=== PATIENT | male | born 1955 | race Hispanic/Latino ===

== ENCOUNTER 2017-10-04 12:58 | Day surgery (SDC) | payer OTHER ==
[2017-06-10 08:22] VITALS: BMI 21.4
[2017-10-04] MEDS ORDERED: Propofol 10 mg/ml Inj (20 ML) ONE (15:56)
[2017-10-04] MEDS ORDERED: cefTRIAXone 1 gm 1 GM/100 ML BAG IVPB ONE (15:58)
[2017-10-04] MEDS: HYDROmorphone 0.5 mg/0.5 ml ISec IVP PRN ×2 (17:00→18:53)
[2017-10-05] MEDS: Oxycodone/Acetaminophen 5/325 mg Tab PO PRN (00:21)
[2017-10-05] MEDS: cefTRIAXone IV 1 gm in Dextros 50 ML IVPB SCH (11:24)
[2017-10-05 13:52] LABS: BASO # 0.1 K/uL (0.0-0.2); BASO % 0.9 % (0.0-2.0); EOS % 0.5 % (0.0-4.0); HEMOGLOBIN 13.8 g/dL (12.0-18.0); LYMPH # 0.9 K/uL (1.0-4.3); LYMPH % 13.1 % (20.0-40.0); MEAN CELL VOLUME 94.8 fL (80.0-94.0); MEAN CORPUSCULAR HEMOGLOBIN 33.2 pg (27.0-31.0); MEAN CORPUSCULAR HGB CONC 35.1 g/dL (33.0-37.0); MEAN PLATELET VOLUME 7.7 fL (7.2-11.7); MONO # 0.5 K/uL (0.0-0.8); MONO % 7.9 % (0.0-10.0); NEUT # 5.4 K/uL (1.8-7.0); NEUT % 77.6 % (50.0-75.0); RBC 4.14 Mil/uL (4.40-5.90); RED CELL DISTRIBUTION WIDTH 13.6 % (11.5-14.5); WHITE BLOOD COUNT 6.9 K/uL (4.8-10.8)
[2017-10-05 13:58] LABS: BLOOD UREA NITROGEN 13 mg/dL (9-20); CALCIUM 8.1 mg/dl (8.6-10.4); GFR AFRICAN-AMERICAN > 60; GFR NON-AFRICAN AMERICAN > 60
[2017-10-05 15:05] LABS: URINE BACTERIA RARE (<OCC); URINE BILIRUBIN NEGATIVE (NEGATIVE); URINE BLOOD 3+ (NEGATIVE); URINE CLARITY Clear (Clear); URINE COLOR Yellow (YELLOW); URINE GLUCOSE (UA) NORMAL (Normal); URINE LEUKOCYTE ESTERASE TRACE Leu/uL (Negative); URINE PROTEIN 1+ mg/dL (NEGATIVE)
--- NOTE | 2017-10-05 18:51 | CP.PCM.CON ---
<Tamika Perez E - Last Filed: 10/05/17 19:05> History of Present Illness - History of Present Illness History of Present Illness: Medicine Consult Note HPI: Patient is a 61 year old male with past medical history of htn, dyslipidemia, depression, copd/asthma, chronic leg edema and prostate disease, who is s/p TURP by Dr. Walker. Medicine consultation was placed to manage patient's symptoms of possible asthma exacerbation, however, patient denies wheezing and any symptoms of acute exacerbation. Patient denies chest pain, SOB , palpitations, fever, chills, nausea, vomiting. Patient reports that he is doing very well. PMH: Htn, dyslipidemia, depression, copd/asthma, chronic leg edema and prostate disease, PSH: Cholecystectomy, splenectomy 8 yrs ago, unknown reason. FMH: Non contributory. Allergy: Ibuprofen. Medication: Patient denies taking medication for HTN, HLD and depression but admits he is currently taking klonopin, percocet and nebulizer treatment prn Social: smokes 3/4s of a pack of cigarette a day for over 20 years, drinks alcohol socially, denies illicit drug use. Review of Systems - Constitutional Constitutional: absent: Chills, Fever, Headache - Cardiovascular Cardiovascular: absent: Chest Pain, Chest Pain at Rest, Diaphoresis, Dyspnea, Lightheadedness, Orthopnea - Respiratory Respiratory: absent: Cough, Dyspnea, Wheezing, Chest Congestion, Excessive Mucous Production, Change in Mucous Color - Gastrointestinal Gastrointestinal: absent: Abdominal Pain, Constipation, Diarrhea, Hematochezia, Nausea, Vomiting - Genitourinary Additional comments: Patient is with abel catheter as he is s/p TURP POD #1 - Psychiatric Psychiatric: Anxiety, Depression Past Patient History - Infectious Disease Hx of Infectious Diseases: None - Past Medical History & Family History Past Medical History?: Yes - Past Social History Smoking Status: Former Smoker - CARDIAC Hx Cardiac Disorders: Yes Hx Peripheral Edema: Yes Hx Peripheral Vascular Disease: Yes - PULMONARY Hx Respiratory Disorders: Yes Hx Asthma: Yes Hx Bronchitis: No Hx Chronic Obstructive Pulmonary Disease (COPD): Yes Hx Pneumonia: Yes (2 years ago) - NEUROLOGICAL Hx Neurological Disorder: Yes Hx Syncope: Yes - HEENT Hx HEENT Problems: No - RENAL Hx Chronic Kidney Disease: No Hx Renal Failure: No - ENDOCRINE/METABOLIC Hx Endocrine Disorders: No - HEMATOLOGICAL/ONCOLOGICAL Hx Blood Disorders: Yes Hx Anemia: Yes Hx Blood Transfusions: Yes Hx Blood Transfusion Reaction: No Hx Hepatitis C: Yes - INTEGUMENTARY Hx Dermatological Problems: No - MUSCULOSKELETAL/RHEUMATOLOGICAL Hx Musculoskeletal Disorders: Yes Hx Falls: Yes Hx Fractures: Yes (rt shoulder ribs) - GASTROINTESTINAL Hx Gastrointestinal Disorders: Yes Hx Gall Bladder Disease: Yes - GENITOURINARY/GYNECOLOGICAL Hx Genitourinary Disorders: Yes (urinary frequency) Hx Prostate Problems: Yes - PSYCHIATRIC Hx Psychophysiologic Disorder: Yes Hx Anxiety: Yes Hx Depression: Yes Hx Emotional Abuse: No Hx Physical Abuse: No 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) - SURGICAL HISTORY Hx Surgeries: Yes Hx Cholecystectomy: Yes Hx Herniorrhaphy: Yes (ventral hernia) Hx Splenectomy: Yes - ANESTHESIA Hx Anesthesia: Yes Hx Anesthesia Reactions: No Hx Malignant Hyperthermia: No Meds Allergies/Adverse Reactions: Allergies Allergy/AdvReac Type Severity Reaction Status Date / Time ibuprofen [From Advil] Allergy ANAPHYLAXIS Verified 06/16/16 22:20 - Medications Medications: Current Medications Clonazepam (Klonopin) 0.5 mg PO TID [facility] Last Admin: 10/05/17 17:20 Dose: 0.5 mg Gentamicin Sulfate 80 mg/ (Sodium Chloride) 102 mls @ 100 mls/hr IVPB Q24H [facility] PRN Reason: Protocol Last Admin: 10/05/17 17:23 Dose: 100 mls/hr Ceftriaxone Sodium (Rocephin Iv 1 Gm Duplex) 50 mls @ 100 mls/hr IVPB DAILY [facility] PRN Reason: Protocol Last Admin: 10/05/17 11:24 Dose: 100 mls/hr Oxycodone/Acetaminophen (Percocet 5/325 Mg Tab) 1 tab PO Q6H PRN PRN Reason: Bladder Spasm Stop: 10/07/17 16:48 Last Admin: 10/05/17 00:21 Dose: 1 tab Paroxetine HCl (Paxil) 20 mg PO DAILY [facility] Physical Exam - Constitutional Appears: No Acute Distress - Head Exam Head Exam: ATRAUMATIC - Eye Exam Eye Exam: EOMI - ENT Exam ENT Exam: Mucous Membranes Moist - Respiratory Exam Respiratory Exam: Clear to Auscultation Bilateral, NORMAL BREATHING PATTERN. absent: Rhonchi, Wheezes - Cardiovascular Exam Cardiovascular Exam: REGULAR RHYTHM, +S1, +S2 - GI/Abdominal Exam GI & Abdominal Exam: Normal Bowel Sounds, Soft. absent: Diminished Bowel Sounds , Distended, Firm, Guarding, Tenderness - Exam Additional comments: Patient is with abel catheter s/p TURP pod #1 - Extremities Exam Extremities exam: Positive for: normal inspection - Neurological Exam Neurological exam: Alert, Oriented x3 - Psychiatric Exam Psychiatric exam: Anxious Results - Vital Signs Recent Vital Signs: Last Vital Signs Temp 98.8 F 10/05/17 08:00 Pulse 100 H 10/05/17 08:00 Resp 96 H 10/05/17 08:00 BP 125/76 10/05/17 08:00 Pulse Ox 96 10/05/17 00:00 - Labs Result Diagrams: 10/05/17 13:40 10/05/17 13:40 Labs: Laboratory Results - last 24 hr 10/05/17 10/05/17 10/05/17 13:40 13:40 14:46 WBC 6.9 RBC 4.14 L Hgb 13.8 Hct 39.3 MCV 94.8 H MCH 33.2 H MCHC 35.1 RDW 13.6 Plt Count 162 MPV 7.7 Neut % (Auto) 77.6 H Lymph % (Auto) 13.1 L [place] % (Auto) 7.9 Eos % (Auto) 0.5 Baso % (Auto) 0.9 Neut # (Auto) 5.4 Lymph # (Auto) 0.9 L [place] # (Auto) 0.5 Eos # (Auto) 0.0 Baso # (Auto) 0.1 Sodium 136 Potassium 4.3 Chloride 98 Carbon Dioxide 31 H Anion Gap 12 BUN 13 Creatinine 0.7 L Est GFR ( Amer) > 60 Est GFR (Non-Af Amer) > 60 Random Glucose 88 Calcium 8.1 L Urine Color Yellow Urine Clarity Clear Urine pH 7.0 Ur Specific [place] 1.016 Urine Protein 1+ H Urine Glucose (UA) Normal Urine Ketones Negative Urine Blood 3+ H Urine Nitrate Negative Urine Bilirubin Negative Urine Urobilinogen 4.0 Ur Leukocyte Esterase Trace Urine WBC (Auto) 4 Urine RBC (Auto) 259 H Urine Bacteria Rare Assessment & Plan (1) S/P transurethral resection of prostate Assessment and Plan: Urology, Dr. Walker on board * Percocet 1 tab Q6H PRN * Rocephin 1gm IVPB daily * Gentamicin 80mg IVPB Q24H Status: Acute (2) History of anxiety disorder Assessment and Plan: Klonopin 0.5mg PO TID Status: Acute (3) History of depression Assessment and Plan: Paxil 20mg PO daily Status: Acute (4) History of asthma Assessment and Plan: albuterol 3ml INH RQ6H Status: Acute (5) Prophylactic measure Assessment and Plan: Regular diet All management discussed with Dr. Barnett Status: Acute <Agus Barnett - Last Filed: 10/07/17 17:23> Results - Vital Signs Recent Vital Signs: Last Vital Signs Temp 98.6 F 10/06/17 16:00 Pulse 69 10/06/17 16:00 Resp 20 10/06/17 16:00 BP 127/76 10/06/17 16:00 Pulse Ox 98 10/06/17 16:00 - Labs Result Diagrams: 10/06/17 14:06 10/06/17 14:06 Attending/Attestation - Attestation I have personally seen and examined this patient.: Yes I have fully participated in the care of the patient.: Yes I have reviewed all pertinent clinical information: Yes Notes (Text): Seen and examined by me. I agree with the resident's documentation of assessment and the plan
--- NOTE | 2017-10-05 20:52 | CARD ---
APPROVED REPORT EKG Measurement Heart [id number] <Conclusion> Normal sinus rhythm Biatrial enlargement Abnormal ECG
[2017-10-05] MEDS: Albuterol-Ipratrop 3 mg / 0.5 (3 ml) UD INH SCH (21:14)
--- NOTE | 2017-10-05 23:11 | PCM.URO ---
Urology Progress Note - General General: No Complaints, Tolerating Diet - Subjective Abdominal Pain: No Flank Pain: No Nausea: No Vomiting: No Voiding Well: No (catheter in place) Hematuria: No Dsypnea: No Chest Pain: No Fever & Chills: No - Objective Lab Studies: Reviewed (creat=0.7 hct=39) Lab Results Last 24 Hours: Laboratory Results - last 24 hr 10/05/17 10/05/17 10/05/17 13:40 13:40 14:46 WBC 6.9 RBC 4.14 L Hgb 13.8 Hct 39.3 MCV 94.8 H MCH 33.2 H MCHC 35.1 RDW 13.6 Plt Count 162 MPV 7.7 Neut % (Auto) 77.6 H Lymph % (Auto) 13.1 L [place] % (Auto) 7.9 Eos % (Auto) 0.5 Baso % (Auto) 0.9 Neut # (Auto) 5.4 Lymph # (Auto) 0.9 L [place] # (Auto) 0.5 Eos # (Auto) 0.0 Baso # (Auto) 0.1 Sodium 136 Potassium 4.3 Chloride 98 Carbon Dioxide 31 H Anion Gap 12 BUN 13 Creatinine 0.7 L Est GFR ( Amer) > 60 Est GFR (Non-Af Amer) > 60 Random Glucose 88 Calcium 8.1 L Urine Color Yellow Urine Clarity Clear Urine pH 7.0 Ur Specific [place] 1.016 Urine Protein 1+ H Urine Glucose (UA) Normal Urine Ketones Negative Urine Blood 3+ H Urine Nitrate Negative Urine Bilirubin Negative Urine Urobilinogen 4.0 Ur Leukocyte Esterase Trace Urine WBC (Auto) 4 Urine RBC (Auto) 259 H Urine Bacteria Rare Intake & Output: Intake & Output 10/05/17 10/05/17 10/06/17 06:59 18:59 06:59 Intake Total 240 400 Output Total 1725 800 Balance -1485 -400 Intake: Oral 240 400 Output: Urine 1725 800 Urethral (Hodge) 500 800 Other: Voiding Method Indwelling Catheter # Bowel Movements 0 Vital Signs: Vital Signs - 24 hr 10/05/17 10/05/17 10/05/17 00:00 08:00 21:17 Temperature 98.8 F 98.8 F Pulse Rate 61 100 H 99 H Respiratory 20 96 H Rate Blood Pressure 153/83 H 125/76 O2 Sat by Pulse 96 Oximetry - Physical Exam Abdominal Exam: Soft, Non-Tender, Non-Distended Bowel Sounds: Normal Back: No CVA Tenderness Genitalia: Without Inflammation Urinary Catheter Draining Well: Yes Urine Color: Clear, Yellow Extremities: Normal: Bilateral - Male Phallus: Normal Scrotum: Normal Testes: Normal: Bilateral - Plan Advance Diet: Yes Catheter Care: Yes Ambulation - Out of Bed: Yes Intake & Output: Yes Additional Information: IMP: progressing well, POD#!, p GLL-PVP - Date & Time of Note Date: 10/05/17 Time: 15:30
[2017-10-05 23:54] VITALS: RESP 20
[2017-10-06] MEDS: Albuterol-Ipratrop 3 mg / 0.5 (3 ml) UD INH SCH ×3 (01:03→13:33)
[2017-10-06] MEDS: Oxycodone/Acetaminophen 5/325 mg Tab PO PRN ×2 (05:27→12:21)
[2017-10-06 08:07] VITALS: TEMP 98.6; O2SAT 98
[2017-10-06] MEDS: cefTRIAXone IV 1 gm in Dextros 50 ML IVPB SCH (10:57)
--- NOTE | 2017-10-06 11:14 | CP.PCM.PN ---
<Tamika Perez E - Last Filed: 10/06/17 11:18> Subjective - Date & Time of Evaluation Date of Evaluation: 10/06/17 Time of Evaluation: 07:20 - Subjective Subjective: Medicine progress note ( Dr. Barnett) Patient was seen and examined at bedside. Patient reports that he is doing well with no acute issues. Patient is s/p TURB POD#2, abel catheter was discontinued this am as per Urologist, Dr. Walker and awaiting voiding trial. Patient is tolerating diet. Patient denies any symptoms of chest pain, SOB, palpitations, SOB, chills and fever. Objective - Vital Signs/Intake and Output Vital Signs (last 24 hours): Temp Pulse Resp BP Pulse Ox 98.6 F 67 20 131/82 98 10/06/17 08:06 10/06/17 08:06 10/06/17 08:06 10/06/17 08:06 10/06/17 08:06 Intake and Output: 10/06/17 10/06/17 06:59 18:59 Intake Total 250 Output Total 900 Balance -650 - Medications Medications: Current Medications Albuterol/Ipratropium (Duoneb 3 Mg/0.5 Mg (3 Ml) Ud) 3 ml INH RQ6 [facility] Last Admin: 10/06/17 07:22 Dose: 3 ml Clonazepam (Klonopin) 0.5 mg PO TID [facility] Last Admin: 10/06/17 10:54 Dose: 0.5 mg Gentamicin Sulfate 80 mg/ (Sodium Chloride) 102 mls @ 100 mls/hr IVPB Q24H [facility] PRN Reason: Protocol Last Admin: 10/05/17 17:23 Dose: 100 mls/hr Ceftriaxone Sodium (Rocephin Iv 1 Gm Duplex) 50 mls @ 100 mls/hr IVPB DAILY [facility] PRN Reason: Protocol Last Admin: 10/06/17 10:57 Dose: 100 mls/hr Oxycodone/Acetaminophen (Percocet 5/325 Mg Tab) 1 tab PO Q6H PRN PRN Reason: Bladder Spasm Stop: 10/07/17 16:48 Last Admin: 10/06/17 05:27 Dose: 1 tab Paroxetine HCl (Paxil) 20 mg PO DAILY [facility] Last Admin: 10/06/17 10:54 Dose: 20 mg - Labs Labs: 10/05/17 13:40 10/05/17 13:40 - Constitutional Appears: Well, No Acute Distress - Head Exam Head Exam: ATRAUMATIC, NORMAL INSPECTION - Eye Exam Eye Exam: EOMI, Normal appearance - ENT Exam ENT Exam: Mucous Membranes Moist - Respiratory Exam Respiratory Exam: Clear to Ausculation Bilateral, NORMAL BREATHING PATTERN. absent: Rhonchi, Wheezes, Respiratory Distress - Cardiovascular Exam Cardiovascular Exam: REGULAR RHYTHM, +S1, +S2 - Extremities Exam Extremities Exam: absent: Calf Tenderness, Pedal Edema - Back Exam Back Exam: absent: CVA tenderness (L), CVA tenderness (R) - Neurological Exam Neurological Exam: Alert, Awake, Oriented x3 - Psychiatric Exam Psychiatric exam: Normal Affect - Skin Skin Exam: Normal Color Assessment and Plan (1) S/P transurethral resection of prostate Assessment & Plan: POD # 2 Urology, Dr. Walker on board * Percocet 1 tab Q6H PRN * Rocephin 1gm IVPB daily * Gentamicin 80mg IVPB Q24H * Florastor 250mg PO BID - Abel discontinued, awaiting voiding trial Status: Acute (2) History of anxiety disorder Assessment & Plan: Klonopin 0.5mg PO TID Status: Acute (3) History of depression Assessment & Plan: Paxil 20mg PO daily Status: Acute (4) History of asthma Assessment & Plan: Duonebs 3ml INH RQ6H Status: Acute (5) Prophylactic measure Assessment & Plan: Regular diet GI: Pepcid 20mg PO daily Disposition: Patient is stable and not in any acute distress and without symptoms of acute asthma exacerbation. Medicine team will sign off at this point. Thank you for the consultation. All management discussed with Dr. Barnett Status: Acute <Agus Barnett - Last Filed: 10/08/17 10:30> Objective - Vital Signs/Intake and Output Vital Signs (last 24 hours): Temp Pulse Resp BP Pulse Ox 98.6 F 69 20 127/76 98 10/06/17 16:00 10/06/17 16:00 10/06/17 16:00 10/06/17 16:00 10/06/17 16:00 - Labs Labs: 10/06/17 14:06 10/06/17 14:06 Attending/Attestation - Attestation I have personally seen and examined this patient.: Yes I have fully participated in the care of the patient.: Yes I have reviewed all pertinent clinical information, including history, physical exam and plan: Yes Notes (Text): Patient was seen and examined by me. No complain patient is medically stable .voiding trial and discharge plan as per urology
[2017-10-06] MEDS: Saccharomyces Boulardi 250 mg Cap PO SCH ×2 (12:22→17:49)
[2017-10-06 14:12] LABS: BASO # 0.1 K/uL (0.0-0.2); BASO % 1.2 % (0.0-2.0); EOS # 0.1 K/uL (0.0-0.7); EOS % 1.1 % (0.0-4.0); HEMOGLOBIN 13.2 g/dL (12.0-18.0); LYMPH # 2.2 K/uL (1.0-4.3); LYMPH % 28.1 % (20.0-40.0); MEAN CELL VOLUME 95.1 fL (80.0-94.0); MEAN CORPUSCULAR HGB CONC 34.7 g/dL (33.0-37.0); MEAN PLATELET VOLUME 7.7 fL (7.2-11.7); MONO % 12.8 % (0.0-10.0); NEUT # 4.4 K/uL (1.8-7.0); NEUT % 56.8 % (50.0-75.0); NRBC % 0.1 % (0.0-2.0); RED CELL DISTRIBUTION WIDTH 13.8 % (11.5-14.5); WHITE BLOOD COUNT 7.7 K/uL (4.8-10.8)
[2017-10-06 14:42] LABS: ALB/GLOB RATIO 0.6 (1.0-2.1); ALBUMIN 2.7 g/dL (3.5-5.0); ALT/SGPT 14 U/L (21-72); AST/SGOT 83 U/L (17-59); BLOOD UREA NITROGEN 15 mg/dL (9-20); CALCIUM 8.1 mg/dl (8.6-10.4); GFR AFRICAN-AMERICAN > 60; GFR NON-AFRICAN AMERICAN > 60
[2017-10-06 16:33] VITALS: BP 127/76; PULSE 69
--- NOTE | 2017-10-06 18:47 | CP.PCM.DIS ---
Provider - Provider Attending physician: Johan Walker MD Time Spent in preparation of Discharge (in minutes): 35 Diagnosis - Discharge Diagnosis (1) S/P transurethral resection of prostate Status: Acute (2) History of anxiety disorder Status: Chronic (3) History of depression Status: Chronic (4) History of asthma Status: Chronic (5) Prophylactic measure Status: Acute Hospital Course - Lab Results Lab Results: Most Recent Lab Values WBC 7.7 K/uL (4.8-10.8) 10/06/17 14:06 RBC 4.00 Mil/uL (4.40-5.90) L 10/06/17 14:06 Hgb 13.2 g/dL (12.0-18.0) 10/06/17 14:06 Hct 38.0 % (35.0-51.0) 10/06/17 14:06 MCV 95.1 fL (80.0-94.0) H 10/06/17 14:06 MCH 33.0 pg (27.0-31.0) H 10/06/17 14:06 MCHC 34.7 g/dL (33.0-37.0) 10/06/17 14:06 RDW 13.8 % (11.5-14.5) 10/06/17 14:06 Plt Count 151 K/uL (130-400) 10/06/17 14:06 MPV 7.7 fL (7.2-11.7) 10/06/17 14:06 Neut % (Auto) 56.8 % (50.0-75.0) 10/06/17 14:06 Lymph % (Auto) 28.1 % (20.0-40.0) 10/06/17 14:06 [place] % (Auto) 12.8 % (0.0-10.0) H 10/06/17 14:06 Eos % (Auto) 1.1 % (0.0-4.0) 10/06/17 14:06 Baso % (Auto) 1.2 % (0.0-2.0) 10/06/17 14:06 Neut # (Auto) 4.4 K/uL (1.8-7.0) 10/06/17 14:06 Lymph # (Auto) 2.2 K/uL (1.0-4.3) 10/06/17 14:06 [place] # (Auto) 1.0 K/uL (0.0-0.8) H 10/06/17 14:06 Eos # (Auto) 0.1 K/uL (0.0-0.7) 10/06/17 14:06 Baso # (Auto) 0.1 K/uL (0.0-0.2) 10/06/17 14:06 Sodium 137 mmol/L (132-148) 10/06/17 14:06 Potassium 4.0 mmol/L (3.6-5.2) 10/06/17 14:06 Chloride 99 mmol/L (98-107) 10/06/17 14:06 Carbon Dioxide 30 mmol/L (22-30) 10/06/17 14:06 Anion Gap 13 (10-20) 10/06/17 14:06 BUN 15 mg/dL (9-20) 10/06/17 14:06 Creatinine 0.7 mg/dL (0.8-1.5) L 10/06/17 14:06 Est GFR ( Amer) > 60 10/06/17 14:06 Est GFR (Non-Af Amer) > 60 10/06/17 14:06 Random Glucose 95 mg/dL (75-110) 10/06/17 14:06 Calcium 8.1 mg/dl (8.6-10.4) L 10/06/17 14:06 Phosphorus 3.3 mg/dL (2.5-4.5) 10/06/17 14:06 Magnesium 1.7 mg/dL (1.6-2.3) 10/06/17 14:06 Total Bilirubin 1.5 mg/dL (0.2-1.3) H 10/06/17 14:06 AST 83 U/L (17-59) H 10/06/17 14:06 ALT 14 U/L (21-72) L 10/06/17 14:06 Alkaline Phosphatase 143 U/L (38-126) H 10/06/17 14:06 Total Protein 7.5 g/dL (6.3-8.3) 10/06/17 14:06 Albumin 2.7 g/dL (3.5-5.0) L 10/06/17 14:06 Globulin 4.8 gm/dL (2.2-3.9) H 10/06/17 14:06 Albumin/Globulin Ratio 0.6 (1.0-2.1) L 10/06/17 14:06 Urine Color Yellow (YELLOW) 10/05/17 14:46 Urine Clarity Clear (Clear) 10/05/17 14:46 Urine pH 7.0 (5.0-8.0) 10/05/17 14:46 Ur Specific [place] 1.016 (1.003-1.030) 10/05/17 14:46 Urine Protein 1+ mg/dL (NEGATIVE) H 10/05/17 14:46 Urine Glucose (UA) Normal mg/dL (Normal) 10/05/17 14:46 Urine Ketones Negative mg/dL (NEGATIVE) 10/05/17 14:46 Urine Blood 3+ (NEGATIVE) H 10/05/17 14:46 Urine Nitrate Negative (NEGATIVE) 10/05/17 14:46 Urine Bilirubin Negative (NEGATIVE) 10/05/17 14:46 Urine Urobilinogen 4.0 mg/dL (0.2-1.0) 10/05/17 14:46 Ur Leukocyte Esterase Trace [place]/uL (Negative) 10/05/17 14:46 Urine WBC (Auto) 4 /hpf (0-5) 10/05/17 14:46 Urine RBC (Auto) 259 /hpf (0-3) H 10/05/17 14:46 Urine Bacteria Rare (<OCC) 10/05/17 14:46 - Hospital Course Hospital Course: HPI: ( As per medicine consultation note) Patient is a 61 year old male with past medical history of htn, dyslipidemia, depression, copd/asthma, chronic leg edema and prostate disease, who is s/p TURP by Dr. Walker. Medicine consultation was placed to manage patient's symptoms of possible asthma exacerbation, however, patient denies wheezing and any symptoms of acute exacerbation. Patient denies chest pain, SOB, palpitations , fever, chills, nausea, vomiting. Patient reports that he is doing very well. Hospital course: Patient was admitted for same day surgery, s/p TURP by urologist, Rosa Isela Walker for diagnosis of prostate disease. Patient has no acute issues when he was received on Med-Surg floor. Patient remained stable and was discharge by Dr. Walker on POD # 2. Discharge Exam - Head Exam Head Exam: ATRAUMATIC, NORMAL INSPECTION - Eye Exam Eye Exam: EOMI, Normal appearance - ENT Exam ENT Exam: Mucous Membranes Moist - Respiratory Exam Respiratory Exam: Clear to PA & Lateral, NORMAL BREATHING PATTERN. absent: Chest Wall Tenderness, Decreased Breath Sounds, Wheezes, Respiratory Distress - Cardiovascular Exam Cardiovascular Exam: REGULAR RHYTHM, +S1, +S2. absent: Systolic Murmur - GI/Abdominal Exam GI & Abdominal Exam: Normal Bowel Sounds, Soft. absent: Firm, Guarding, Tenderness - Extremities Exam Extremities exam: normal inspection - Neurological Exam Neurological exam: Alert, Oriented x3 - Psychiatric Exam Psychiatric exam: Normal Affect - Skin Skin Exam: Normal Color Discharge Plan - Follow Up Plan Condition: GOOD Disposition: HOME/ ROUTINE Instructions: Blood in the Urine (Hematuria), Adult (DC) Referrals: Rachael French MD [Family Provider] - Johan Walker MD [Staff Provider] -
--- NOTE | 2017-10-22 02:28 | DS ---
HISTORY: See the history and physical, preoperative note, see the progress note. The patient came . During the hospital stay, he remained stable throughout. However, given his social living situation of living at in a homeless residential, we were concerned to send him home with a Hodge catheter. The patient because of this. The patient remained in hospital stable throughout. At the time of discharge, he was in stable condition, voiding well. Plan for outpatient followup. Throughout the entire hospital, I spoke to his sister several times. The patient remained stable throughout. FINAL DIAGNOSES: Urinary retention, voiding dysfunction, incomplete bladder emptying with transrectal prostatic hyperthermia. The patient was discharged home in stable condition. Manjinder Walker MD
--- NOTE | 2017-10-22 06:29 | HP ---
UROLOGY ADMISSION HISTORY AND PHYSICAL REASON FOR ADMISSION: Treatment of urinary retention and voiding dysfunction. HISTORY OF PRESENT ILLNESS: This is a very pleasant gentleman who is here today for PVP GreenLight laser therapy. He has irritative and obstructive complaints, mostly obstructive and we discussed options with the patient and his sister. We discussed the Hodge catheter. We discussed various options. After discussing the various options, the patient had medical workup and treatment. The patient is here now for PVP GreenLight laser. I explained the patient the risks of the procedure, not working risk of procedure, as far as risks of bleeding, infection, risks of incontinence and the expectation, not risk but more expectation of retrograde ejaculation. After all these were explained, we also explained the benefit of a better flow of urination, better emptying and he is here now today for . He comes to the office with his sister. He happens to live in a homeless long-term. REVIEW OF SYSTEMS: As above, noncontributory. No weight loss, chest pain, shortness of breath, constitutional complaints, etc. PHYSICAL EXAMINATION: GENERAL: Well-nourished male, in no apparent distress. VITAL SIGNS: Within normal limits. LUNGS: Clear. ABDOMEN: Soft, nontender. No flank mass. NECK: No cervical or axillary lymphadenopathy. GENITOURINARY: He has a normal male phallus without discharge. No testicular mass. RECTAL: A 30 gm prostate. LABORATORY DATA: See the chart. DIAGNOSES: Voiding dysfunction, irritative and obstructive complaints, incomplete bladder emptying, decreased force of stream. We discussed options, risks, benefits, and treatment at length. PLAN: As follows: 1. Antibiotic prophylaxis. 2. We are going to do a PVP GreenLight laser. I made arrangements with the company to bring the machine. Given the patient's social situation and living in a homeless long-term, most likely the patient will require admission to the hospital while he has the Hodge catheter and then subsequently do a voiding trial while the patient is still in the hospital. Even though it is 2018 where we usually can do this ambulatory, in his case I think this will be unsafe for him. We will see how the patient feels afterwards and we will see how long he will leave the catheter in. Manjinder Walkre MD [facility] # [id number]
--- NOTE | 2017-10-24 10:01 | OP ---
PROCEDURE DATE: 10/04/2017 PREOPERATIVE DIAGNOSES: Urinary retention, voiding dysfunction, acute bladder irritative and obstructive complaints. POSTOPERATIVE DIAGNOSES: Urinary retention, voiding dysfunction, acute bladder irritative and obstructive complaints. PROCEDURE: PVP GreenLight laser photovaporization of the prostate, GreenLight laser energy TUR of the prostate. SURGEON: Manjinder Walker MD BLOOD LOSS: Less than 20 mL. COMPLICATIONS: There were no complications. SPECIMENS SENT: None. DRAINS: Hodge catheter, 3-way continuous flow catheter. Hodge catheter left with a mild traction. No complications. INDICATIONS: See history and physical for further details. A very pleasant gentleman here for the above procedure. We discussed the risks, benefits, and alternatives of the procedure itself. FINDINGS: Normal anterior urethra. No strictures. Verumontanum is visually occlusive about 3 cm in length. The remainder of the anatomy well identified and within normal limits. We had a visually occlusive prostate. He has a moderately spiculated bladder. The orifices were seen, within normal limits. There were no complications. DESCRIPTION OF PROCEDURE: After obtaining informed consent, the patient was brought to the OR and placed on the table. Routine monitors were placed. Time-out was called to confirm the patient positioning. Antibiotic prophylaxis was administered. With the patient in lithotomy position, we introduced the continuous flow resectoscope under direct vision with the visual obturator. We identified our landmarks, anterior urethra normal. Verumontanum was visually occlusive about 3 cm. Everything within normal limits. The procedure continues with the following. We began at 80 degrees, started at the bladder neck. We worked from 5 to 7. We started at 80 garay of energy. Every time we go from quadrant to quadrant, we kept reevaluating . We went between 7 and 11 and 5 and 1. Actually as we worked further away from the bladder neck, we turned the energy up to about 120 garay. In every area, we achieved hemostasis. As of now we used the coagulation and we opened up the patient widely. We kept identifying where the verumontanum was and stayed more proximal to this area. We now turned ourselves more anterior between 11 and 1. At the termination of the procedure, gentle flow of water, there was no bleeding noted. The patient was wide open. We continued to take pictures that are included in the chart. Overall, the patient tolerated the procedure. At this point, we inserted the Hodge catheter via the urethra. We put it on a mild traction about 50 mL in balloon. The patient was brought to recovery room in stable condition having tolerated the procedure well without complications. Manjinder Walker MD
== END 2017-10-06 19:59 | disposition home or self-care (01) ==
LOC: C.SDS 12:58 → C.9P 18:04 → C.3T 18:04 → C.SDS 10-06 19:59
PROVIDERS: ATTEND Urology
DX: R33.9 Retention of urine, unspecified (principal); F41.9 Anxiety disorder, unspecified; F32.9 Major depressive disorder, single episode, unspecified; J44.9 Chronic obstructive pulmonary disease, unspecified; E78.5 Hyperlipidemia, unspecified; I10 Essential (primary) hypertension; Z88.8 Allergy status to other drugs, medicaments and biological substances; F17.200 Nicotine dependence, unspecified, uncomplicated; G89.29 Other chronic pain; Z86.19 Personal history of other infectious and parasitic diseases; Z88.6 Allergy status to analgesic agent; F17.210 Nicotine dependence, cigarettes, uncomplicated
CPT/HCPCS: 36415; 52648; 80048; 80053; 81001; 83735; 84100; 85025; 93005; 94640; A4322; J0696; J1170; J1580; J7120

== ENCOUNTER 2017-11-08 22:40 | Emergency (ER) | payer OTHER ==
[2017-11-08 22:40] VITALS: BMI 21.4
[2017-11-09] MEDS ORDERED: Iodixanol 320 MG/ML 100 ML BOTTLE IV ONE (00:37)
[2017-11-09 01:03] LABS: BASO # 0.1 K/uL (0.0-0.2); BASO % 1.5 % (0.0-2.0); EOS # 0.6 K/uL (0.0-0.7); EOS % 7.8 % (0.0-4.0); HEMOGLOBIN 11.6 g/dL (12.0-18.0); LYMPH # 3.1 K/uL (1.0-4.3); LYMPH % 41.6 % (20.0-40.0); MEAN CORPUSCULAR HEMOGLOBIN 34.1 pg (27.0-31.0); MEAN CORPUSCULAR HGB CONC 35.9 g/dL (33.0-37.0); MEAN PLATELET VOLUME 6.8 fL (7.2-11.7); MONO # 0.8 K/uL (0.0-0.8); MONO % 10.9 % (0.0-10.0); NEUT # 2.8 K/uL (1.8-7.0); NEUT % 38.2 % (50.0-75.0); NRBC % 0.1 % (0.0-2.0); RBC 3.39 Mil/uL (4.40-5.90); RED CELL DISTRIBUTION WIDTH 14.5 % (11.5-14.5); WHITE BLOOD COUNT 7.4 K/uL (4.8-10.8)
--- NOTE | 2017-11-09 01:08 | C.PDOC ---
History Of Present Illness 62 year old male presents to the ED c/o right flank pain and painful urination for a few days. Patient denies any fever, chills, nausea, vomit, diarrhea, back pain, weakness, numbness. Chief Complaint (Nursing): Abdominal Pain History Per: Patient History/Exam Limitations: no limitations Onset/Duration Of Symptoms: Days Current Symptoms Are (Timing): Still Present Location Of Pain/Discomfort: Diffuse Radiation Of Pain To:: Back Quality Of Discomfort: "Pain" Associated Symptoms: Urinary Symptoms Exacerbating Factors: None Alleviating Factors: None Recent travel outside of the [place]: No Additional History Per: Patient Past Medical History Reviewed: Historical Data, Nursing Documentation, Vital Signs Vital Signs: Last Vital Signs Temp 98.9 F 11/09/17 03:02 Pulse 67 11/09/17 03:02 Resp 18 11/09/17 03:02 BP 144/79 11/09/17 03:02 Pulse Ox 98 11/09/17 03:36 - Medical History PMH: Anemia, Anxiety, Asthma, COPD, Depression, Fractures (rt shoulder ribs), Gall Bladder Disease, HTN, Peripheral Edema, Pneumonia (2 years ago) Denies: Bronchitis, Personality Disorder, Chronic Kidney Disease Surgical History: Cholecystectomy Family History: States: Unknown Family Hx - Social History Hx Alcohol Use: No 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) - Immunization History Hx Tetanus Toxoid Vaccination: No Hx Influenza Vaccination: Yes Hx Pneumococcal Vaccination: Yes Review Of Systems Constitutional: Negative for: Fever, Chills Cardiovascular: Negative for: Chest Pain Respiratory: Negative for: Cough, Shortness of Breath Gastrointestinal: Positive for: Abdominal Pain Genitourinary: Positive for: Dysuria Musculoskeletal: Positive for: Back Pain Skin: Negative for: Rash Physical Exam - Physical Exam Appears: Non-toxic, In Acute Distress Skin: Normal Color, Warm, Dry Head: Atraumatic, Normacephalic Eye(s): bilateral: Normal Inspection Nose: No Discharge Oral Mucosa: Moist Neck: Normal ROM, Supple Chest: Symmetrical Cardiovascular: Rhythm Regular, No Murmur Respiratory: Normal Breath Sounds, No Rales, No Rhonchi, No Wheezing Gastrointestinal/Abdominal: Soft, Tenderness (RUQ), No Guarding, No Rebound Back: CVA Tenderness (right) Extremity: Normal ROM, No Tenderness, No Swelling Neurological/Psych: Oriented x3, Normal Speech Gait: Steady ED Course And Treatment - Laboratory Results Result Diagrams: 11/09/17 00:55 11/09/17 00:55 O2 Sat by Pulse Oximetry: 98 (ON RA) Pulse Ox Interpretation: Normal - CT Scan/US CT abd/pelvis Other Rad Studies (CT/US): Read By Radiologist, Radiology Report Reviewed CT/US Interpretation: IMPRESSION: 1. There are 2 right distal ureteral stone seen on image 145 series 3 and on image 148 series 3. measuring 4-5 mm. No significant hydronephrosis is identified. No right perinephric inflammatory. changes noted. Correlation with internal medicine evaluation and further workup or followup as recommended by. patient's clinical data. Thank you for allowing us to participate in the care of your patient. Dictated and Authenticated by: Jacobo Jiménez MD. 11/09/2017 2:58 AM Eastern Time ([place] & [place]) Medical Decision Making Medical Decision Making: Impression: right flank pain Plan: * CT abd/pelvis * Labs * Urine culture * UA Disposition Counseled Patient/Family Regarding: Diagnosis - Disposition Referrals: [facility] [Outside] Disposition: HOME/ ROUTINE Disposition Time: 04:00 Condition: STABLE Prescriptions: Ciprofloxacin [Cipro] 1 tab PO BID #14 tab Tamsulosin [Flomax] 0.4 mg PO DAILY #7 cap traMADol/Acetaminophen [Ultracet 325 MG-37.5 MG] 1 tab PO Q6 #14 tab Instructions: Renal Colic (DC), Acute Cystitis (DC) Forms: [facility] (Chadian) - POA Present On Arrival: None - Clinical Impression Clinical Impression: Renal colic, Cystitis - Scribe Statement The provider has reviewed the documentation as recorded by the Scribe Pola Escalona All medical record entries made by the Scribe were at my direction and personally dictated by me. I have reviewed the chart and agree that the record accurately reflects my personal performance of the history, physical exam, medical decision making, and the department course for this patient. I have also personally directed, reviewed, and agree with the discharge instructions and disposition.
[2017-11-09 01:10] LABS: INR 1.4; PROTHROMBIN TIME 14.8 SECONDS (9.7-12.2); URINE BACTERIA RARE (<OCC); URINE BILIRUBIN NEGATIVE (NEGATIVE); URINE BLOOD 2+ (NEGATIVE); URINE CLARITY Hazy (Clear); URINE COLOR Amber (YELLOW); URINE GLUCOSE (UA) NORMAL (Normal); URINE LEUKOCYTE ESTERASE 3+ Leu/uL (Negative); URINE PROTEIN 2+ mg/dL (NEGATIVE)
[2017-11-09 01:31] LABS: ALB/GLOB RATIO 0.6 (1.0-2.1); ALBUMIN 2.8 g/dL (3.5-5.0); ALT/SGPT 18 U/L (21-72); AST/SGOT 96 U/L (17-59); BLOOD UREA NITROGEN 14 mg/dL (9-20); CALCIUM 8.1 mg/dl (8.6-10.4); GFR AFRICAN-AMERICAN > 60; GFR NON-AFRICAN AMERICAN > 60; LIPASE 159 U/L (23-300)
--- NOTE | 2017-11-09 02:59 | CT ---
EXAM: CT Abdomen and Pelvis With Intravenous Contrast CLINICAL HISTORY: 62 years old, male; Pain; Abdominal pain; Additional info: Right flank pain/ hematuria TECHNIQUE: Axial computed tomography images of the abdomen and pelvis with intravenous contrast. All CT scans at this facility use one or more dose reduction techniques, viz.: automated exposure control; ma/kV adjustment per patient size (including targeted exams where dose is matched to indication; i.e. head); or iterative reconstruction technique. 623 images are submitted. Axial images are submitted in lung and soft tissue windows. Coronal and sagittal reformatted images were created and reviewed. Axial reformatted images were created and reviewed. CONTRAST: 100 mL of [id number] administered intravenously. COMPARISON: No relevant prior studies available. FINDINGS: Lung bases: There is bibasilar atelectasis. ABDOMEN: Liver: Enlarged nodular cirrhotic liver. Periportal edema. There is a focal liver hypodensity that cannot be further characterized on the current examination. Gallbladder and bile ducts: Cholecystectomy. Pancreas: Unremarkable. No mass. No ductal dilation. Spleen: Unremarkable. No splenomegaly. Adrenals: Unremarkable. No mass. Kidneys and ureters: There are 2 right distal ureteral stone seen on image 145 series 3 and on image 148 series 3 measuring 4-5 mm. No significant hydronephrosis is identified. No right perinephric inflammatory changes noted. Nonobstructive right renal stone. Mild malrotation appearance to the kidneys. Stomach and bowel: Diverticulosis. No obstruction. No mucosal thickening.There are nonspecific fluid filled stomach, small bowel loops. These findings can represent ileus versus gastroenteritis/enteritis versus slow transit versus peristalsis. PELVIS: Appendix: The appendix not identified with complete certainty due to unopacified cecum and distal small bowel. There is lack of intra-abdominal fat. If clinical concern remains, a repeat study with thin sections after an appropriate time interval may allow oral contrast to opacify the cecum. Bladder: Partially decompressed bladder with bladder wall thickening. Correlation with urinalysis is recommended only if clinical cystitis is suspected. Reproductive: Prostate calcification. ABDOMEN and PELVIS: Intraperitoneal space: Possible trace fluid in the Roger's pouch seen on image 67 series 601. No free air. Bones/joints: There is moderate vertebral body height loss at L4. Multilevel vacuum disc. Left-sided lumbar scoliosis. No acute fracture. No dislocation. Soft tissues: Unremarkable. Vasculature: Pelvic phleboliths. Left upper quadrant varices. The aorta is normal in caliber and there are no iris-aortic collections. No abdominal aortic aneurysm. Lymph nodes: Unremarkable. No enlarged lymph nodes. IMPRESSION: 1. There are 2 right distal ureteral stone seen on image 145 series 3 and on image 148 series 3 measuring 4-5 mm. No significant hydronephrosis is identified. No right perinephric inflammatory changes noted. Correlation with internal medicine evaluation and further workup or followup as recommended by patient's clinical data.
[2017-11-09] MEDS ORDERED: Ciprofloxacin 400mg/200ml D5W 400 MG/200 ML BAG IVPB STA (03:25)
[2017-11-09] MEDS ORDERED: Ciprofloxacin 400mg/200ml D5W 400 MG/200 ML BAG IVPB ONE (03:46)
[2017-11-09 06:49] VITALS: BP 136/80; PULSE 71; RESP 19; TEMP 97.7; O2SAT 97
== END 2017-11-09 07:15 | disposition home or self-care (01) ==
LOC: C.ER 22:40
DX: N20.0 Calculus of kidney (principal); N30.90 Cystitis, unspecified without hematuria
CPT/HCPCS: 74177; 80053; 81001; 83690; 85025; 85610; 85730; 87086; 96374; 99285; J0744; Q9967

== ENCOUNTER 2018-07-23 06:10 | Inpatient (IN) | payer MEDICAID, OTHER ==
[2018-07-23 06:12] VITALS: BMI 20.7
--- NOTE | 2018-07-23 06:49 | C.PDOC ---
History Of Present Illness 62 year old male with Hx of liver cancer and COPD (per EMS) presents via EMS for altered mental status. Patient found down and drooling by EMS/ family, unknown baseline, last seen normal at 1800. Time Seen by Provider: 07/23/18 06:46 Chief Complaint (Nursing): Altered Mental Status History Per: EMS History/Exam Limitations: Clinical Condition Onset/Duration Of Symptoms: Hrs Onset Of Symptoms: Cannot Confirm Onset Current Symptoms Are (Timing): Still Present Usual Baseline: Unknown Exacerbating Factor(s): Unknown Use Of Anticoag/Antiplatelets: Unknown Past Medical History Reviewed: Historical Data, Nursing Documentation, Vital Signs Vital Signs: Last Vital Signs Temp 98.3 F 07/23/18 06:23 Pulse 77 07/23/18 06:23 Resp 16 07/23/18 06:23 BP Pulse Ox 99 07/23/18 06:23 - Medical History PMH: Anemia, Anxiety, Asthma, COPD, Depression, Fractures (rt shoulder ribs), Gall Bladder Disease, HTN, Peripheral Edema, Pneumonia Denies: Bronchitis, Personality Disorder, Chronic Kidney Disease Surgical History: Cholecystectomy Family History: States: Unknown Family Hx - Social History Hx Alcohol Use: No 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 Physical Exam - Physical Exam Appears: Other (Withdraws to pain. Vitals are stable.) Skin: Normal Color, Warm, Dry Head: Atraumatic, Normacephalic Eye(s): bilateral: Normal Inspection, PERRL, EOMI Oral Mucosa: Moist Throat: Other (Protecting airway) Neck: Normal, Supple Chest: Symmetrical, No Tenderness Cardiovascular: Rhythm Regular Respiratory: Normal Breath Sounds, No Rales, No Rhonchi, No Wheezing Gastrointestinal/Abdominal: Soft, No Tenderness Neurological/Psych: Other (GCS of 9) Pain Response: Withdraws With Pain ED Course And Treatment - Laboratory Results Result Diagrams: 07/23/18 06:54 07/23/18 06:54 O2 Sat by Pulse Oximetry: 99 (Room air) Pulse Ox Interpretation: Normal NIHSS Stroke Scale - How Severe is the Stoke Level of Consciousness: 2=Obtunded LOC to Questions: 2=Neither correct LOC to commands: 2=Neither correct Visual: 0=No visual loss Facial: 1=Minor asymmetry Motor Arm - Left: 3=No effort against gravity (falls immediately) Motor Arm - Right: 3=No effort against gravity (falls immediately) Motor Leg - Left: 3=No effort against gravity (falls immediately) Motor Leg - Right: 3=No effort against gravity (falls immediately) Limb Ataxia: 1=Present Upper or Lower (unresponsive) Sensory: 0=Normal Best Language: 1=Mild to moderate aphasia (unresponsive) Dysarthia: 1=Mild to moderate slurring (unresponsive) Extinction & Inattention (Neglect): 1=Partial neglect (mild raman-attention) (unresponsive) Medical Decision Making Medical Decision Makin yr old male w/ hx of liver ca, copd p/w AMS. GCS 9 withdraws in all e xtremities equally. Afebrile w/ normal vitals. ?stroke. Code stroke activated. EK, NSR, no stemi no bleed noted on CT appreciate consult w/ Dr. Watts: CTA added signed out to Dr. Keene pending CTA, re-eval, labs Disposition - Disposition Disposition Time: 07:00 Condition: GOOD Forms: [facility] (Ukrainian) - Clinical Impression Clinical Impression: Altered mental status - Scribe Statement The provider has reviewed the documentation as recorded by the Scribe Lalo Carroll All medical record entries made by the Scribe were at my direction and personally dictated by me. I have reviewed the chart and agree that the record accurately reflects my personal performance of the history, physical exam, medical decision making, and the department course for this patient. I have also personally directed, reviewed, and agree with the discharge instructions and disposition.
[2018-07-23 06:57] LABS: BASO # 0.2 K/uL (0.0-0.2); BASO % 1.2 % (0.0-2.0); EOS # 0.1 K/uL (0.0-0.7); EOS % 0.5 % (0.0-4.0); LYMPH % 14.9 % (20.0-40.0); MEAN CELL VOLUME 104.5 fL (80.0-94.0); MEAN CORPUSCULAR HEMOGLOBIN 34.6 pg (27.0-31.0); MEAN CORPUSCULAR HGB CONC 33.1 g/dL (33.0-37.0); MONO # 1.3 K/uL (0.0-0.8); MONO % 9.6 % (0.0-10.0); NEUT # 9.9 K/uL (1.8-7.0); NEUT % 73.8 % (50.0-75.0); NRBC % 0.3 % (0.0-2.0); RBC 3.46 Mil/uL (4.40-5.90); RED CELL DISTRIBUTION WIDTH 16.1 % (11.5-14.5); WHITE BLOOD COUNT 13.4 K/uL (4.8-10.8)
--- NOTE | 2018-07-23 06:59 | C.PDOC ---
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
[2018-07-23 07:07] LABS: INR 1.6; PROTHROMBIN TIME 17.8 SECONDS (9.7-12.2)
[2018-07-23 07:13] LABS: ALB/GLOB RATIO 0.6 (1.0-2.1); ALBUMIN 3.4 g/dL (3.5-5.0); ALT/SGPT 35 U/L (21-72); AST/SGOT 211 U/L (17-59); BLOOD UREA NITROGEN 19 mg/dL (9-20); GFR NON-AFRICAN AMERICAN > 60; HDL CHOLESTEROL 31 mg/dL (30-70)
[2018-07-23 07:24] LABS: LDL CHOLESTEROL 75 mg/dL (0-129)
[2018-07-23] MEDS ORDERED: Midazolam 2 MG/2 ML VIAL ONE (07:33)
[2018-07-23 07:38] LABS: VENOUS BLOOD GAS BASE EXCESS 0.6 mmol/L (0.0-2.0); VENOUS BLOOD GAS PCO2 47 mmHg (40-60); VENOUS BLOOD GAS PO2 23 mm/Hg (30-55); VENOUS BLOOD PH 7.36 (7.32-7.43)
--- NOTE | 2018-07-23 07:55 | CT ---
Date of service: 07/23/2018 PROCEDURE: CT HEAD WITHOUT CONTRAST. HISTORY: Code Stroke COMPARISON: None available. TECHNIQUE: Axial computed tomography images were obtained through the head/brain without intravenous contrast. Radiation dose: Total exam DLP = 1188.26 mGy-cm. This CT exam was performed using one or more of the following dose reduction techniques: Automated exposure control, adjustment of the mA and/or kV according to patient size, and/or use of iterative reconstruction technique. FINDINGS: HEMORRHAGE: No intracranial hemorrhage. BRAIN: No mass effect or edema. Scattered focal lucencies in the subcortical and periventricular white matter suggestive for chronic microvascular ischemic change. . Small lacunar infarct in the left external capsule. VENTRICLES: Unremarkable. No hydrocephalus. CALVARIUM: Unremarkable. PARANASAL SINUSES: Mucosal thickening with fluid level in the right maxillary sinus. Mucosal thickening of the sphenoid sinus and ethmoid air cells. Partial opacification of the right mastoid air cells. MASTOID AIR CELLS: Unremarkable as visualized. No inflammatory changes. OTHER FINDINGS: Intracranial arterial calcifications. IMPRESSION: Age-appropriate cerebral and cerebellar atrophy. Mild chronic microvascular ischemic change. No evidence of acute intracranial hemorrhage. If symptoms persists, consider correlation with MRI. Additional findings as above. A preliminary report was generated at 7:22 a.m. on 07/23/[address] Kenny Stanley from [employer].
[2018-07-23] MEDS ORDERED: Iodixanol 320 MG/ML 100 ML BOTTLE IV ONE (07:59)
[2018-07-23] MEDS ORDERED: Lactulose 10 gm/15 ml (Rectal Use) PR ONE (08:01)
--- NOTE | 2018-07-23 08:04 | RAD ---
Chest x-ray single frontal view HISTORY: Code stroke. COMPARISON: 07/23/2018 FINDINGS: Biapical pleural thickening with upper lobe granulomatous changes. Mild venous congestion. Bilateral hilar prominence. Atherosclerotic calcification at the aortic knob. Degenerative changes in the spine. Deformity of the right proximal humerus. Impression: Biapical pleural thickening with upper lobe granulomatous changes. Mild venous congestion. Bilateral hilar prominence. Atherosclerotic calcification at the aortic knob. Degenerative changes in the spine. Deformity of the right proximal humerus.
[2018-07-23 08:19] LABS: B-TYPE NATRIURETIC PEPTIDE 188 pg/mL (0-900)
[2018-07-23 08:28] LABS: SQUAMOUS EPITHIAL < 1 /hpf (0-5); URINE AMORPHOUS SEDIMENT FEW /ul (<OCC); URINE BILIRUBIN NEGATIVE (NEGATIVE); URINE BLOOD 2+ (NEGATIVE); URINE CLARITY Hazy (Clear); URINE COLOR Amber (YELLOW); URINE GLUCOSE (UA) NORMAL (Normal); URINE LEUKOCYTE ESTERASE NEG Leu/uL (Negative); URINE PROTEIN NEGATIVE (NEGATIVE)
[2018-07-23] MEDS ORDERED: Sodium Chloride 0.9% 1,000 ML ONE (08:31)
[2018-07-23] MEDS: Sodium Chloride 0.9% 1,000 ML IV SCH ×2 (08:35→17:08)
[2018-07-23 08:38] LABS: ABG ALLEN TEST POS; ARTERIAL BLOOD GAS HCO3 31.1 mmol/L (21-28); ARTERIAL BLOOD GAS O2 SAT 99.7 % (95-98); ARTERIAL BLOOD GAS PCO2 37 mm/Hg (35-45); ARTERIAL BLOOD GAS PH 7.53 (7.35-7.45); ARTERIAL BLOOD GAS PO2 143 mm/Hg (80-100)
[2018-07-23 08:44] LABS: BARBITURATES, UR NEGATIVE (NEGATIVE); BENZODIAZEPINES, UR NEGATIVE (NEGATIVE); PHENCYCLIDINE, UR NEGATIVE (NEGATIVE)
[2018-07-23] MEDS ORDERED: Naloxone 0.4 mg/ml Inj (Adult) IVP ONE ×3 (08:45→11:42)
[2018-07-23 08:48] LABS: ACETAMINOPHEN < 10.0 ug/mL (10.0-30.0); SALICYLATE < 1.0 mg/dL 1
[2018-07-23 08:55] LABS: OPIATES, UR POSITIVE (NEGATIVE)
[2018-07-23] MEDS ORDERED: Folic Acid 1 MG, Thiamine 100 MG, Multivitamin (MVI) 10 ML in Dextrose 5% In Water 1,00... IV SCH (09:00)
[2018-07-23] MEDS ORDERED: Folic Acid 1 MG, Thiamine 100 MG, Multivitamin (MVI) 10 ML in Dextrose 5% In Water 1,00... IV ONE (09:00)
[2018-07-23] MEDS ORDERED: Naloxone 0.4 mg/ml Inj (Adult) ONE ×2 (09:09→10:49)
--- NOTE | 2018-07-23 09:09 | CT ---
Date of service: 07/23/2018 PROCEDURE: CT Angiography of the neck and brain with contrast HISTORY: AMS COMPARISON: None. TECHNIQUE: Contiguous axial images of the neck and brain were obtained from the level of the vertex of the skull to the superior mediastinum in the arteriographic phase of enhancement. Coronal and sagittal reformats or also generated. IV contrast dose: 100 cc Visipaque Radiation dose: Total exam DLP = 604.62 mGy-cm. This CT exam was performed using one or more of the following dose reduction techniques: Automated exposure control, adjustment of the mA and/or kV according to patient size, and/or use of iterative reconstruction technique. FINDINGS: Minor aortic atherosclerotic calcification or mural plaque present. RIGHT CAROTID ARTERIES: Common Carotid Artery: Normal. Carotid Bifurcation: Normal. Internal Carotid Artery:Normal. External Carotid Artery (proximal branches): Normal. LEFT CAROTID ARTERIES: Common Carotid Artery: Normal. Carotid Bifurcation: Normal. Internal Carotid Artery:Normal. External Carotid Artery (proximal branches): Normal. VERTEBRAL ARTERIES: Right Vertebral Artery: Normal. Left Vertebral Artery: Normal. OTHER FINDINGS: The major branches of the [id number] patent. Distal branches of the anterior middle and posterior cerebral arteries are patent and relatively symmetric. No evidence of large aneurysm nor vascular malformation. IMPRESSION: Normal CT Angiography of the neck.
[2018-07-23] MEDS ORDERED: Azithromycin 500mg/250ML NS 500 MG/250 ML BAG IVPB STA (10:39)
[2018-07-23] MEDS ORDERED: cefTRIAXone IV 1 gm in Dextros 50 ML IVPB ONE (10:39)
[2018-07-23] MEDS ORDERED: Azithromycin 500mg/250ML NS 500 MG/250 ML BAG IVPB ONE (11:49)
[2018-07-23] MEDS ORDERED: Propofol 10 mg/ml 1,000 MG/100 ML VIAL ONE (11:57)
--- NOTE | 2018-07-23 12:03 | CP.PCM.HP ---
<Tamika Perez E - Last Filed: 07/23/18 17:30> History of Present Illness - History of Present Illness History of Present Illness: CC: Altered mental status HPI (As per EMR as patient was intubated) 60 year old male with past medical history of hypertension, dyslipidemia, depression, copd, asthma, chronic leg edema, tobacco abuse, Hep C, who was brought by EMS due to phone call made by patient's son for altered mental status. As per charting, patient was last seen normal yesterday, however, the exact time or events leading to change of mental status remains on clear. Patient was found to be unresponsive this morning and was only responsive pain stimuli. As patient was being evaluated in the ED, he started to decompensate and seems to be in respiratory distress, therefore, the decision was made for intubation in the ED setting and transferred to the ICU. Unable to obtain ROS due to patient's current status. PMHx: hypertension, dyslipidemia, depression, copd, asthma, chronic leg edema, tobacco abuse, Hep C PSH: Cholecystectomy, splenectomy 8 yrs ago, unknown reason. FMH: Non contributory Medications: Unknown Allergy as per EMR: Ibuprofen Social Hx: active cigarette smoker for over 20 years, drinks alcohol socially, denies illicit drug use. Present on Admission - Present on Admission Any Indicators Present on Admission: No Review of Systems - Review of Systems Review of Systems: Unable to evaluate ROS due current medical condition Past Patient History - Infectious Disease Hx of Infectious Diseases: None - Past Medical History & Family History Past Medical History?: Yes - Past Social History Smoking Status: Former Smoker - CARDIAC Hx Hypertension: Yes Hx Peripheral Edema: Yes - PULMONARY Hx Asthma: Yes Hx Bronchitis: No Hx Chronic Obstructive Pulmonary Disease (COPD): Yes Hx Pneumonia: Yes - HEENT Hx HEENT Problems: No - RENAL Hx Chronic Kidney Disease: No - HEMATOLOGICAL/ONCOLOGICAL Hx Anemia: Yes - INTEGUMENTARY Hx Dermatological Problems: No - MUSCULOSKELETAL/RHEUMATOLOGICAL Hx Fractures: Yes (rt shoulder ribs) - GASTROINTESTINAL Hx Gall Bladder Disease: Yes - PSYCHIATRIC Hx Anxiety: Yes Hx Depression: Yes 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) - SURGICAL HISTORY Hx Cholecystectomy: Yes - ANESTHESIA Hx Anesthesia: Yes Hx Anesthesia Reactions: No Hx Malignant Hyperthermia: No Meds Allergies/Adverse Reactions: Allergies Allergy/AdvReac Type Severity Reaction Status Date / Time ibuprofen [From Advil] Allergy ANAPHYLAXIS Verified 11/14/17 08:23 Physical Exam - Constitutional Appears: Non-toxic, Unkempt - Head Exam Head Exam: ATRAUMATIC - ENT Exam ENT Exam: Mucous Membranes Moist - Respiratory Exam Respiratory Exam: Clear to Auscultation Bilateral, NORMAL BREATHING PATTERN Additional comments: Intubated - Cardiovascular Exam Cardiovascular Exam: REGULAR RHYTHM, +S1, +S2. absent: Tachycardia - GI/Abdominal Exam GI & Abdominal Exam: Normal Bowel Sounds, Soft. absent: Tenderness Additional comments: Horizontal surgical scar in the mid-lower abdomen - Extremities Exam Extremities exam: Positive for: pedal edema Additional comments: +2 pitting edema to the level of the knee Bilateral venous stasis changes, Left> Right - Skin Additional comments: Jaundiced Results - Vital Signs Recent Vital Signs: Last Vital Signs Temp 99.6 F 07/23/18 11:34 Pulse 108 H 07/23/18 11:34 Resp 14 07/23/18 11:34 BP 182/105 H 07/23/18 11:34 Pulse Ox 100 07/23/18 11:34 - Labs Result Diagrams: 07/23/18 06:54 07/23/18 06:54 Labs: Laboratory Results - last 24 hr 07/23/18 07/23/18 07/23/18 06:54 06:54 06:54 WBC 13.4 H D RBC 3.46 L Hgb 12.0 Hct 36.2 MCV 104.5 H D MCH 34.6 H MCHC 33.1 RDW 16.1 H Plt Count 318 D MPV 7.0 L Neut % (Auto) 73.8 Lymph % (Auto) 14.9 L [place] % (Auto) 9.6 Eos % (Auto) 0.5 Baso % (Auto) 1.2 Neut # (Auto) 9.9 H Lymph # (Auto) 2.0 [place] # (Auto) 1.3 H Eos # (Auto) 0.1 Baso # (Auto) 0.2 PT 17.8 H INR 1.6 APTT 62 H Puncture Site pCO2 pO2 HCO3 ABG pH ABG Total CO2 ABG O2 Saturation ABG Base Excess Gabriel Test ABG Potassium VBG pH VBG pCO2 VBG HCO3 VBG Total CO2 VBG O2 Sat (Calc) VBG Base Excess VBG Potassium Glucose Lactate Liter Flow Sodium 141 Potassium 4.9 Chloride 107 Carbon Dioxide 29 Anion Gap 10 BUN 19 Creatinine 0.7 L Est GFR ( Amer) > 60 Est GFR (Non-Af Amer) > 60 Random Glucose 87 Hemoglobin A1c Calcium 8.0 L Phosphorus Magnesium Total Bilirubin 5.1 H AST 211 H D ALT 35 Alkaline Phosphatase 205 H Ammonia Total Creatine Kinase Troponin I 0.0120 NT-Pro-B Natriuret Pep Total Protein 9.1 H Albumin 3.4 L D Globulin 5.8 H Albumin/Globulin Ratio 0.6 L Triglycerides 61 Cholesterol 135 LDL Cholesterol Direct 75 HDL Cholesterol 31 Arterial Blood Potassium Venous Blood Potassium Urine Color Urine Clarity Urine pH Ur Specific [place] Urine Protein Urine Glucose (UA) Urine Ketones Urine Blood Urine Nitrate Urine Bilirubin Urine Urobilinogen Ur Leukocyte Esterase Urine WBC (Auto) Urine RBC (Auto) Ur Squamous Epith Cells Amorphous Sediment Salicylates Urine Opiates Screen Urine Methadone Screen Acetaminophen Ur Barbiturates Screen Ur Phencyclidine Scrn Ur Amphetamines Screen U Benzodiazepines Scrn [place] U Oth Cocaine Metabols U Cannabinoids Screen Alcohol, Quantitative Blood Type Antibody Screen 07/23/18 07/23/18 07/23/18 06:54 07:30 07:42 WBC RBC Hgb Hct MCV MCH MCHC RDW Plt Count MPV Neut % (Auto) Lymph % (Auto) [place] % (Auto) Eos % (Auto) Baso % (Auto) Neut # (Auto) Lymph # (Auto) [place] # (Auto) Eos # (Auto) Baso # (Auto) PT INR APTT Puncture Site pCO2 pO2 23 L HCO3 ABG pH ABG Total CO2 ABG O2 Saturation ABG Base Excess Gabriel Test ABG Potassium VBG pH 7.36 VBG pCO2 47 VBG HCO3 23.8 VBG Total CO2 28.0 VBG O2 Sat (Calc) 32.6 L VBG Base Excess 0.6 VBG Potassium 5.3 H Glucose 68 L Lactate 2.8 H Liter Flow Sodium 145.0 Potassium Chloride 108.0 H Carbon Dioxide Anion Gap BUN Creatinine Est GFR ( Amer) Est GFR (Non-Af Amer) Random Glucose Hemoglobin A1c 3.1 L Calcium Phosphorus Magnesium Total Bilirubin AST ALT Alkaline Phosphatase Ammonia Total Creatine Kinase 230 H Troponin I NT-Pro-B Natriuret Pep 188 Total Protein Albumin Globulin Albumin/Globulin Ratio Triglycerides Cholesterol LDL Cholesterol Direct HDL Cholesterol Arterial Blood Potassium Venous Blood Potassium 5.3 H Urine Color Urine Clarity Urine pH Ur Specific [place] Urine Protein Urine Glucose (UA) Urine Ketones Urine Blood Urine Nitrate Urine Bilirubin Urine Urobilinogen Ur Leukocyte Esterase Urine WBC (Auto) Urine RBC (Auto) Ur Squamous Epith Cells Amorphous Sediment Salicylates Urine Opiates Screen Urine Methadone Screen Acetaminophen Ur Barbiturates Screen Ur Phencyclidine Scrn Ur Amphetamines Screen U Benzodiazepines Scrn [place] U Oth Cocaine Metabols U Cannabinoids Screen Alcohol, Quantitative Blood Type Antibody Screen 07/23/18 07/23/18 07/23/18 07:42 07:57 07:57 WBC RBC Hgb Hct MCV MCH MCHC RDW Plt Count MPV Neut % (Auto) Lymph % (Auto) [place] % (Auto) Eos % (Auto) Baso % (Auto) Neut # (Auto) Lymph # (Auto) [place] # (Auto) Eos # (Auto) Baso # (Auto) PT INR APTT Puncture Site pCO2 pO2 HCO3 ABG pH ABG Total CO2 ABG O2 Saturation ABG Base Excess Gabriel Test ABG Potassium VBG pH VBG pCO2 VBG HCO3 VBG Total CO2 VBG O2 Sat (Calc) VBG Base Excess VBG Potassium Glucose Lactate Liter Flow Sodium Potassium Chloride Carbon Dioxide Anion Gap BUN Creatinine Est GFR ( Amer) Est GFR (Non-Af Amer) Random Glucose Hemoglobin A1c Calcium Phosphorus 2.7 Magnesium 1.9 Total Bilirubin AST ALT Alkaline Phosphatase Ammonia 76 H Total Creatine Kinase Troponin I NT-Pro-B Natriuret Pep Total Protein Albumin Globulin Albumin/Globulin Ratio Triglycerides Cholesterol LDL Cholesterol Direct HDL Cholesterol Arterial Blood Potassium Venous Blood Potassium Urine Color Urine Clarity Urine pH Ur Specific [place] Urine Protein Urine Glucose (UA) Urine Ketones Urine Blood Urine Nitrate Urine Bilirubin Urine Urobilinogen Ur Leukocyte Esterase Urine WBC (Auto) Urine RBC (Auto) Ur Squamous Epith Cells Amorphous Sediment Salicylates < 1.0 Urine Opiates Screen Urine Methadone Screen Acetaminophen < 10.0 L Ur Barbiturates Screen Ur Phencyclidine Scrn Ur Amphetamines Screen U Benzodiazepines Scrn [place] < 0.2 L U Oth Cocaine Metabols U Cannabinoids Screen Alcohol, Quantitative < 10 Blood Type Antibody Screen 07/23/18 07/23/18 07/23/18 08:00 08:00 08:10 WBC RBC Hgb Hct MCV MCH MCHC RDW Plt Count MPV Neut % (Auto) Lymph % (Auto) [place] % (Auto) Eos % (Auto) Baso % (Auto) Neut # (Auto) Lymph # (Auto) [place] # (Auto) Eos # (Auto) Baso # (Auto) PT INR APTT Puncture Site pCO2 pO2 HCO3 ABG pH ABG Total CO2 ABG O2 Saturation ABG Base Excess Gabriel Test ABG Potassium VBG pH VBG pCO2 VBG HCO3 VBG Total CO2 VBG O2 Sat (Calc) VBG Base Excess VBG Potassium Glucose Lactate Liter Flow Sodium Potassium Chloride Carbon Dioxide Anion Gap BUN Creatinine Est GFR ( Amer) Est GFR (Non-Af Amer) Random Glucose Hemoglobin A1c Calcium Phosphorus Magnesium Total Bilirubin AST ALT Alkaline Phosphatase Ammonia Total Creatine Kinase Troponin I NT-Pro-B Natriuret Pep Total Protein Albumin Globulin Albumin/Globulin Ratio Triglycerides Cholesterol LDL Cholesterol Direct HDL Cholesterol Arterial Blood Potassium Venous Blood Potassium Urine Color [place] Urine Clarity Hazy Urine pH 8.0 Ur Specific [place] 1.033 H Urine Protein Negative Urine Glucose (UA) Normal Urine Ketones Negative Urine Blood 2+ H Urine Nitrate Negative Urine Bilirubin Negative Urine Urobilinogen 4.0 Ur Leukocyte Esterase Neg Urine WBC (Auto) 4 Urine RBC (Auto) 86 H Ur Squamous Epith Cells < 1 Amorphous Sediment Few H Salicylates Urine Opiates Screen Positive H Urine Methadone Screen Positive H Acetaminophen Ur Barbiturates Screen Negative Ur Phencyclidine Scrn Negative Ur Amphetamines Screen Negative U Benzodiazepines Scrn Negative [place] U Oth Cocaine Metabols Negative U Cannabinoids Screen Negative Alcohol, Quantitative Blood Type A POSITIVE Antibody Screen Negative 07/23/18 08:33 WBC RBC Hgb Hct MCV MCH MCHC RDW Plt Count MPV Neut % (Auto) Lymph % (Auto) [place] % (Auto) Eos % (Auto) Baso % (Auto) Neut # (Auto) Lymph # (Auto) [place] # (Auto) Eos # (Auto) Baso # (Auto) PT INR APTT Puncture Site Rr pCO2 37 pO2 143 H HCO3 31.1 H ABG pH 7.53 H ABG Total CO2 32.0 H ABG O2 Saturation 99.7 H ABG Base Excess 7.8 H Gabriel Test Pos ABG Potassium 3.0 L VBG pH VBG pCO2 VBG HCO3 VBG Total CO2 VBG O2 Sat (Calc) VBG Base Excess VBG Potassium Glucose 80 Lactate 1.5 Liter Flow 2.0 Sodium 144.0 Potassium Chloride 113.0 H Carbon Dioxide Anion Gap BUN Creatinine Est GFR ( Amer) Est GFR (Non-Af Amer) Random Glucose Hemoglobin A1c Calcium Phosphorus Magnesium Total Bilirubin AST ALT Alkaline Phosphatase Ammonia Total Creatine Kinase Troponin I NT-Pro-B Natriuret Pep Total Protein Albumin Globulin Albumin/Globulin Ratio Triglycerides Cholesterol LDL Cholesterol Direct HDL Cholesterol Arterial Blood Potassium 3.0 L Venous Blood Potassium Urine Color Urine Clarity Urine pH Ur Specific [place] Urine Protein Urine Glucose (UA) Urine Ketones Urine Blood Urine Nitrate Urine Bilirubin Urine Urobilinogen Ur Leukocyte Esterase Urine WBC (Auto) Urine RBC (Auto) Ur Squamous Epith Cells Amorphous Sediment Salicylates Urine Opiates Screen Urine Methadone Screen Acetaminophen Ur Barbiturates Screen Ur Phencyclidine Scrn Ur Amphetamines Screen U Benzodiazepines Scrn [place] U Oth Cocaine Metabols U Cannabinoids Screen Alcohol, Quantitative Blood Type Antibody Screen Assessment & Plan (1) Opioid overdose Assessment and Plan: UDS on admission: * Opiates screen: Positive * Methadone screen: Positive Given 2 doses of Narcan but patient was agitated and respiratory distressed, therefore, he was intubated. Propofol Drip, titrable Fentanyl drip, titratable Status: Acute (2) Hepatic encephalopathy Assessment and Plan: Ammonia: 79 Lactulose 20gm PO TID Rifaximin 550mg PO BID Continue to monitor ammonia level with labs Status: Acute (3) Liver cirrhosis Assessment and Plan: GI consult: Dr. Tejeda---> Help appreciated * F/u recommendation Possible secondary to HEP C Labs: Total Bilirubin:5.1 AST/ALT: 211/35 Alkaline Phosphate:205 Hep C Antibody x2 (2016): Reactive; F/u Hep C Viral RNA Hep B panel: negative (2016); F/u repeat Hepatitis panel and HIV Alpha fetoprotein: >5200.00 CEA: 3.9 Abdomen/Pelvis CT with IV contrast (10/2017): Liver: Enlarged nodular cirrhotic liver. Periportal edema. There is a focal liver hypodensity that cannot be further characterized on the current examination. Gallbladder and bile ducts: Cholecystectomy. Pancreas: Unremarkable. No mass. No ductal dilation. Spleen: Unremarkable. No splenomegaly. Adrenals: Unremarkable. No mass. Kidneys and ureters: There are 2 right distal ureteral stone. Prostate calcification. Status: Acute (4) Peripheral edema Assessment and Plan: Possibly 2/2 to cirrhosis Lasix 20mg IV BID F/u Venous doppler and Echo Status: Acute (5) Altered mental status Assessment and Plan: HEAD CT w/o Contrast: Age-appropriate cerebral and cerebellar atrophy. Mild chronic microvascular ischemic change. No evidence of acute intracranial hemorrhage. HEAD/NECK CTA: Normal CT Angiography of the neck. Status: Acute (6) Prophylactic measure Assessment and Plan: GI: Protonix 40mg PO daily DVT: Lovenox 40mg SC daily All plans and managment discussed with Dr. Renteria Status: Acute <MyraSal H - Last Filed: 07/23/18 19:05> Results - Vital Signs Recent Vital Signs: Last Vital Signs Temp 98.2 F 07/23/18 16:00 Pulse 82 07/23/18 16:00 Resp 19 07/23/18 16:00 BP 105/66 07/23/18 17:09 Pulse Ox 100 07/23/18 16:00 - Labs Result Diagrams: 07/23/18 06:54 07/23/18 06:54 Labs: Laboratory Results - last 24 hr 07/23/18 07/23/18 07/23/18 06:54 06:54 06:54 WBC 13.4 H D RBC 3.46 L Hgb 12.0 Hct 36.2 MCV 104.5 H D MCH 34.6 H MCHC 33.1 RDW 16.1 H Plt Count 318 D MPV 7.0 L Neut % (Auto) 73.8 Lymph % (Auto) 14.9 L [place] % (Auto) 9.6 Eos % (Auto) 0.5 Baso % (Auto) 1.2 Neut # (Auto) 9.9 H Lymph # (Auto) 2.0 [place] # (Auto) 1.3 H Eos # (Auto) 0.1 Baso # (Auto) 0.2 PT 17.8 H INR 1.6 APTT 62 H Puncture Site pCO2 pO2 HCO3 ABG pH ABG Total CO2 ABG O2 Saturation ABG Base Excess Gabriel Test ABG Potassium VBG pH VBG pCO2 VBG HCO3 VBG Total CO2 VBG O2 Sat (Calc) VBG Base Excess VBG Potassium A-a O2 Difference Respiratory Index Glucose Lactate Liter Flow Vent Mode Mechanical Rate FiO2 Tidal Volume PEEP Sodium 141 Potassium 4.9 Chloride 107 Carbon Dioxide 29 Anion Gap 10 BUN 19 Creatinine 0.7 L Est GFR ( Amer) > 60 Est GFR (Non-Af Amer) > 60 POC Glucose (mg/dL) Random Glucose 87 Hemoglobin A1c Calcium 8.0 L Phosphorus Magnesium Total Bilirubin 5.1 H GGT AST 211 H D ALT 35 Alkaline Phosphatase 205 H Ammonia Total Creatine Kinase Troponin I 0.0120 NT-Pro-B Natriuret Pep Total Protein 9.1 H Albumin 3.4 L D Globulin 5.8 H Albumin/Globulin Ratio 0.6 L Triglycerides 61 Cholesterol 135 LDL Cholesterol Direct 75 HDL Cholesterol 31 Alpha Fetoprotein Carcinoembryonic Ag CA 19-9 Antigen Arterial Blood Potassium Venous Blood Potassium Urine Color Urine Clarity Urine pH Ur Specific [place] Urine Protein Urine Glucose (UA) Urine Ketones Urine Blood Urine Nitrate Urine Bilirubin Urine Urobilinogen Ur Leukocyte Esterase Urine WBC (Auto) Urine RBC (Auto) Ur Squamous Epith Cells Amorphous Sediment Salicylates Urine Opiates Screen Urine Methadone Screen Acetaminophen Ur Barbiturates Screen Ur Phencyclidine Scrn Ur Amphetamines Screen U Benzodiazepines Scrn [place] U Oth Cocaine Metabols U Cannabinoids Screen Alcohol, Quantitative Blood Type Antibody Screen 07/23/18 07/23/18 07/23/18 06:54 07:30 07:42 WBC RBC Hgb Hct MCV MCH MCHC RDW Plt Count MPV Neut % (Auto) Lymph % (Auto) [place] % (Auto) Eos % (Auto) Baso % (Auto) Neut # (Auto) Lymph # (Auto) [place] # (Auto) Eos # (Auto) Baso # (Auto) PT INR APTT Puncture Site pCO2 pO2 23 L HCO3 ABG pH ABG Total CO2 ABG O2 Saturation ABG Base Excess Gabriel Test ABG Potassium VBG pH 7.36 VBG pCO2 47 VBG HCO3 23.8 VBG Total CO2 28.0 VBG O2 Sat (Calc) 32.6 L VBG Base Excess 0.6 VBG Potassium 5.3 H A-a O2 Difference Respiratory Index Glucose 68 L Lactate 2.8 H Liter Flow Vent Mode Mechanical Rate FiO2 Tidal Volume PEEP Sodium 145.0 Potassium Chloride 108.0 H Carbon Dioxide Anion Gap BUN Creatinine Est GFR ( Amer) Est GFR (Non-Af Amer) POC Glucose (mg/dL) Random Glucose Hemoglobin A1c 3.1 L Calcium Phosphorus Magnesium Total Bilirubin GGT AST ALT Alkaline Phosphatase Ammonia Total Creatine Kinase 230 H Troponin I NT-Pro-B Natriuret Pep 188 Total Protein Albumin Globulin Albumin/Globulin Ratio Triglycerides Cholesterol LDL Cholesterol Direct HDL Cholesterol Alpha Fetoprotein Carcinoembryonic Ag CA 19-9 Antigen Arterial Blood Potassium Venous Blood Potassium 5.3 H Urine Color Urine Clarity Urine pH Ur Specific [place] Urine Protein Urine Glucose (UA) Urine Ketones Urine Blood Urine Nitrate Urine Bilirubin Urine Urobilinogen Ur Leukocyte Esterase Urine WBC (Auto) Urine RBC (Auto) Ur Squamous Epith Cells Amorphous Sediment Salicylates Urine Opiates Screen Urine Methadone Screen Acetaminophen Ur Barbiturates Screen Ur Phencyclidine Scrn Ur Amphetamines Screen U Benzodiazepines Scrn [place] U Oth Cocaine Metabols U Cannabinoids Screen Alcohol, Quantitative Blood Type Antibody Screen 07/23/18 07/23/18 07/23/18 07:42 07:57 07:57 WBC RBC Hgb Hct MCV MCH MCHC RDW Plt Count MPV Neut % (Auto) Lymph % (Auto) [place] % (Auto) Eos % (Auto) Baso % (Auto) Neut # (Auto) Lymph # (Auto) [place] # (Auto) Eos # (Auto) Baso # (Auto) PT INR APTT Puncture Site pCO2 pO2 HCO3 ABG pH ABG Total CO2 ABG O2 Saturation ABG Base Excess Gabriel Test ABG Potassium VBG pH VBG pCO2 VBG HCO3 VBG Total CO2 VBG O2 Sat (Calc) VBG Base Excess VBG Potassium A-a O2 Difference Respiratory Index Glucose Lactate Liter Flow Vent Mode Mechanical Rate FiO2 Tidal Volume PEEP Sodium Potassium Chloride Carbon Dioxide Anion Gap BUN Creatinine Est GFR ( Amer) Est GFR (Non-Af Amer) POC Glucose (mg/dL) Random Glucose Hemoglobin A1c Calcium Phosphorus 2.7 Magnesium 1.9 Total Bilirubin GGT AST ALT Alkaline Phosphatase Ammonia 76 H Total Creatine Kinase Troponin I NT-Pro-B Natriuret Pep Total Protein Albumin Globulin Albumin/Globulin Ratio Triglycerides Cholesterol LDL Cholesterol Direct HDL Cholesterol Alpha Fetoprotein Carcinoembryonic Ag CA 19-9 Antigen Arterial Blood Potassium Venous Blood Potassium Urine Color Urine Clarity Urine pH Ur Specific [place] Urine Protein Urine Glucose (UA) Urine Ketones Urine Blood Urine Nitrate Urine Bilirubin Urine Urobilinogen Ur Leukocyte Esterase Urine WBC (Auto) Urine RBC (Auto) Ur Squamous Epith Cells Amorphous Sediment Salicylates < 1.0 Urine Opiates Screen Urine Methadone Screen Acetaminophen < 10.0 L Ur Barbiturates Screen Ur Phencyclidine Scrn Ur Amphetamines Screen U Benzodiazepines Scrn [place] < 0.2 L U Oth Cocaine Metabols U Cannabinoids Screen Alcohol, Quantitative < 10 Blood Type Antibody Screen 07/23/18 07/23/18 07/23/18 08:00 08:00 08:10 WBC RBC Hgb Hct MCV MCH MCHC RDW Plt Count MPV Neut % (Auto) Lymph % (Auto) [place] % (Auto) Eos % (Auto) Baso % (Auto) Neut # (Auto) Lymph # (Auto) [place] # (Auto) Eos # (Auto) Baso # (Auto) PT INR APTT Puncture Site pCO2 pO2 HCO3 ABG pH ABG Total CO2 ABG O2 Saturation ABG Base Excess Gabriel Test ABG Potassium VBG pH VBG pCO2 VBG HCO3 VBG Total CO2 VBG O2 Sat (Calc) VBG Base Excess VBG Potassium A-a O2 Difference Respiratory Index Glucose Lactate Liter Flow Vent Mode Mechanical Rate FiO2 Tidal Volume PEEP Sodium Potassium Chloride Carbon Dioxide Anion Gap BUN Creatinine Est GFR ( Amer) Est GFR (Non-Af Amer) POC Glucose (mg/dL) Random Glucose Hemoglobin A1c Calcium Phosphorus Magnesium Total Bilirubin GGT AST ALT Alkaline Phosphatase Ammonia Total Creatine Kinase Troponin I NT-Pro-B Natriuret Pep Total Protein Albumin Globulin Albumin/Globulin Ratio Triglycerides Cholesterol LDL Cholesterol Direct HDL Cholesterol Alpha Fetoprotein Carcinoembryonic Ag CA 19-9 Antigen Arterial Blood Potassium Venous Blood Potassium Urine Color [place] Urine Clarity Hazy Urine pH 8.0 Ur Specific [place] 1.033 H Urine Protein Negative Urine Glucose (UA) Normal Urine Ketones Negative Urine Blood 2+ H Urine Nitrate Negative Urine Bilirubin Negative Urine Urobilinogen 4.0 Ur Leukocyte Esterase Neg Urine WBC (Auto) 4 Urine RBC (Auto) 86 H Ur Squamous Epith Cells < 1 Amorphous Sediment Few H Salicylates Urine Opiates Screen Positive H Urine Methadone Screen Positive H Acetaminophen Ur Barbiturates Screen Negative Ur Phencyclidine Scrn Negative Ur Amphetamines Screen Negative U Benzodiazepines Scrn Negative [place] U Oth Cocaine Metabols Negative U Cannabinoids Screen Negative Alcohol, Quantitative Blood Type A POSITIVE Antibody Screen Negative 07/23/18 07/23/18 07/23/18 08:33 14:03 14:03 WBC RBC Hgb Hct MCV MCH MCHC RDW Plt Count MPV Neut % (Auto) Lymph % (Auto) [place] % (Auto) Eos % (Auto) Baso % (Auto) Neut # (Auto) Lymph # (Auto) [place] # (Auto) Eos # (Auto) Baso # (Auto) PT INR APTT Puncture Site Rr pCO2 37 pO2 143 H HCO3 31.1 H ABG pH 7.53 H ABG Total CO2 32.0 H ABG O2 Saturation 99.7 H ABG Base Excess 7.8 H Gabriel Test Pos ABG Potassium 3.0 L VBG pH VBG pCO2 VBG HCO3 VBG Total CO2 VBG O2 Sat (Calc) VBG Base Excess VBG Potassium A-a O2 Difference Respiratory Index Glucose 80 Lactate 1.5 Liter Flow 2.0 Vent Mode Mechanical Rate FiO2 Tidal Volume PEEP Sodium 144.0 Potassium Chloride 113.0 H Carbon Dioxide Anion Gap BUN Creatinine Est GFR ( Amer) Est GFR (Non-Af Amer) POC Glucose (mg/dL) Random Glucose Hemoglobin A1c Calcium Phosphorus Magnesium Total Bilirubin GGT 79 H AST ALT Alkaline Phosphatase Ammonia Total Creatine Kinase Troponin I NT-Pro-B Natriuret Pep Total Protein Albumin Globulin Albumin/Globulin Ratio Triglycerides Cholesterol LDL Cholesterol Direct HDL Cholesterol Alpha Fetoprotein > 5200.0 H Carcinoembryonic Ag 3.9 H CA 19-9 Antigen 59.4 H Arterial Blood Potassium 3.0 L Venous Blood Potassium Urine Color Urine Clarity Urine pH Ur Specific [place] Urine Protein Urine Glucose (UA) Urine Ketones Urine Blood Urine Nitrate Urine Bilirubin Urine Urobilinogen Ur Leukocyte Esterase Urine WBC (Auto) Urine RBC (Auto) Ur Squamous Epith Cells Amorphous Sediment Salicylates Urine Opiates Screen Urine Methadone Screen Acetaminophen Ur Barbiturates Screen Ur Phencyclidine Scrn Ur Amphetamines Screen U Benzodiazepines Scrn [place] U Oth Cocaine Metabols U Cannabinoids Screen Alcohol, Quantitative Blood Type Antibody Screen 07/23/18 07/23/18 17:10 17:38 WBC RBC Hgb Hct MCV MCH MCHC RDW Plt Count MPV Neut % (Auto) Lymph % (Auto) [place] % (Auto) Eos % (Auto) Baso % (Auto) Neut # (Auto) Lymph # (Auto) [place] # (Auto) Eos # (Auto) Baso # (Auto) PT INR APTT Puncture Site Lr pCO2 35 pO2 371 H HCO3 28.8 H ABG pH 7.51 H ABG Total CO2 29.0 H ABG O2 Saturation 100.5 H ABG Base Excess 4.9 H Gabriel Test Unable ABG Potassium 2.6 L VBG pH VBG pCO2 VBG HCO3 VBG Total CO2 VBG O2 Sat (Calc) VBG Base Excess VBG Potassium A-a O2 Difference 156.0 Respiratory Index 0.4 Glucose 84 Lactate 1.5 Liter Flow Vent Mode Prvc Mechanical Rate 12 FiO2 80.0 Tidal Volume 450 PEEP 5 Sodium 143.0 Potassium Chloride 115.0 H Carbon Dioxide Anion Gap BUN Creatinine Est GFR ( Amer) Est GFR (Non-Af Amer) POC Glucose (mg/dL) 87 Random Glucose Hemoglobin A1c Calcium Phosphorus Magnesium Total Bilirubin GGT AST ALT Alkaline Phosphatase Ammonia Total Creatine Kinase Troponin I NT-Pro-B Natriuret Pep Total Protein Albumin Globulin Albumin/Globulin Ratio Triglycerides Cholesterol LDL Cholesterol Direct HDL Cholesterol Alpha Fetoprotein Carcinoembryonic Ag CA 19-9 Antigen Arterial Blood Potassium 2.6 L Venous Blood Potassium Urine Color Urine Clarity Urine pH Ur Specific [place] Urine Protein Urine Glucose (UA) Urine Ketones Urine Blood Urine Nitrate Urine Bilirubin Urine Urobilinogen Ur Leukocyte Esterase Urine WBC (Auto) Urine RBC (Auto) Ur Squamous Epith Cells Amorphous Sediment Salicylates Urine Opiates Screen Urine Methadone Screen Acetaminophen Ur Barbiturates Screen Ur Phencyclidine Scrn Ur Amphetamines Screen U Benzodiazepines Scrn [place] U Oth Cocaine Metabols U Cannabinoids Screen Alcohol, Quantitative Blood Type Antibody Screen Attending/Attestation - Attestation I have personally seen and examined this patient.: Yes I have fully participated in the care of the patient.: Yes I have reviewed all pertinent clinical information: Yes Notes (Text): 07/23/18 19:01 Medical attending: Patient was seen and examined by me and the resident in the ER. He had already been intubated when we came and saw him Patient has a history of hepatitis C as well as liver cirrhosis - there is elevation of LFTs and also elevated ammonia level. It is possible that his AMS is secondary to either polysubstance abuse or hepatic encephalopathy. Because of the elevated ammonia value he was placed lactulose as well as rifaxamin CXRAY did not look terrible, however he does have extensive pitting edema and lasix was ordered. He will be monitored by ICU team for the time being and hopefully can be extubated soon. Sal Renteria
[2018-07-23] MEDS: Propofol 10 mg/ml 1,000 MG/100 ML VIAL IV PRN ×2 (12:08→12:19)
--- NOTE | 2018-07-23 12:35 | CP.PCM.CON ---
History of Present Illness - History of Present Illness History of Present Illness: 60 year old male with past medical history of hypertension, dyslipidemia, depression, copd, asthma, chronic leg edema, and tobacco abuse, opioid abuse on methadone. p/w opioid overdose, received 2 dose of narcan, still obtunded, not protecting his airway, decision to intubate in ED. Review of Systems - Review of Systems Systems not reviewed;Unavailable: Altered Mental Status Past Patient History - Infectious Disease Hx of Infectious Diseases: None - Past Medical History & Family History Past Medical History?: Yes - Past Social History Smoking Status: Former Smoker - CARDIAC Hx Hypertension: Yes Hx Peripheral Edema: Yes - PULMONARY Hx Asthma: Yes Hx Bronchitis: No Hx Chronic Obstructive Pulmonary Disease (COPD): Yes Hx Pneumonia: Yes - HEENT Hx HEENT Problems: No - RENAL Hx Chronic Kidney Disease: No - HEMATOLOGICAL/ONCOLOGICAL Hx Anemia: Yes - INTEGUMENTARY Hx Dermatological Problems: No - MUSCULOSKELETAL/RHEUMATOLOGICAL Hx Fractures: Yes (rt shoulder ribs) - GASTROINTESTINAL Hx Gall Bladder Disease: Yes - PSYCHIATRIC Hx Anxiety: Yes Hx Depression: Yes 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) - SURGICAL HISTORY Hx Cholecystectomy: Yes - ANESTHESIA Hx Anesthesia: Yes Hx Anesthesia Reactions: No Hx Malignant Hyperthermia: No Meds Allergies/Adverse Reactions: Allergies Allergy/AdvReac Type Severity Reaction Status Date / Time ibuprofen [From Advil] Allergy ANAPHYLAXIS Verified 11/14/17 08:23 - Medications Medications: Current Medications Sodium Chloride (Sodium Chloride 0.9%) 1,000 mls @ 100 mls/hr IV .Q10H [facility] Last Admin: 07/23/18 08:35 Dose: 100 mls/hr Folic Acid 1 mg/ Thiamine HCl 100 mg/ Multivitamins/Vitamin C 10 ml/ Dextrose 1,011.2 mls @ 250 mls/hr IV .Q4H3M ONE Stop: 07/23/18 13:02 Last Admin: 07/23/18 10:01 Dose: 250 mls/hr Propofol (Diprivan) 1,000 mg in 100 mls @ 2.313 mls/hr IV .Q24H PRN; Protocol PRN Reason: TITRATE PER MD ORDER Last Admin: 07/23/18 12:19 Dose: 10 mcg/kg/min, 4.627 mls/hr Lactulose (Enulose) 20 gm PO TID REMBERTO Rifaximin (Xifaxan) 550 mg PO BID REMBERTO; Protocol Physical Exam - Head Exam Head Exam: ATRAUMATIC, NORMAL INSPECTION, NORMOCEPHALIC - Eye Exam Eye Exam: EOMI - ENT Exam ENT Exam: Mucous Membranes Moist, Normal Exam - Neck Exam Neck exam: Positive for: Normal Inspection - Respiratory Exam Respiratory Exam: Rhonchi - Cardiovascular Exam Cardiovascular Exam: Tachycardia, REGULAR RHYTHM - GI/Abdominal Exam GI & Abdominal Exam: Normal Bowel Sounds, Soft. absent: Tenderness - Expanded Lower Extremities Exam Left Lower Leg Exam: abrasion - Neurological Exam Neurological exam: Altered Results - Vital Signs Recent Vital Signs: Last Vital Signs Temp 99.6 F 07/23/18 11:34 Pulse 112 H 07/23/18 12:09 Resp 14 07/23/18 12:09 BP 136/83 07/23/18 12:09 Pulse Ox 100 07/23/18 12:09 - Labs Result Diagrams: 07/23/18 06:54 07/23/18 06:54 Labs: Laboratory Results - last 24 hr 07/23/18 07/23/18 07/23/18 06:54 06:54 06:54 WBC 13.4 H D RBC 3.46 L Hgb 12.0 Hct 36.2 MCV 104.5 H D MCH 34.6 H MCHC 33.1 RDW 16.1 H Plt Count 318 D MPV 7.0 L Neut % (Auto) 73.8 Lymph % (Auto) 14.9 L [place] % (Auto) 9.6 Eos % (Auto) 0.5 Baso % (Auto) 1.2 Neut # (Auto) 9.9 H Lymph # (Auto) 2.0 [place] # (Auto) 1.3 H Eos # (Auto) 0.1 Baso # (Auto) 0.2 PT 17.8 H INR 1.6 APTT 62 H Puncture Site pCO2 pO2 HCO3 ABG pH ABG Total CO2 ABG O2 Saturation ABG Base Excess Gabriel Test ABG Potassium VBG pH VBG pCO2 VBG HCO3 VBG Total CO2 VBG O2 Sat (Calc) VBG Base Excess VBG Potassium Glucose Lactate Liter Flow Sodium 141 Potassium 4.9 Chloride 107 Carbon Dioxide 29 Anion Gap 10 BUN 19 Creatinine 0.7 L Est GFR ( Amer) > 60 Est GFR (Non-Af Amer) > 60 Random Glucose 87 Hemoglobin A1c Calcium 8.0 L Phosphorus Magnesium Total Bilirubin 5.1 H AST 211 H D ALT 35 Alkaline Phosphatase 205 H Ammonia Total Creatine Kinase Troponin I 0.0120 NT-Pro-B Natriuret Pep Total Protein 9.1 H Albumin 3.4 L D Globulin 5.8 H Albumin/Globulin Ratio 0.6 L Triglycerides 61 Cholesterol 135 LDL Cholesterol Direct 75 HDL Cholesterol 31 Arterial Blood Potassium Venous Blood Potassium Urine Color Urine Clarity Urine pH Ur Specific [place] Urine Protein Urine Glucose (UA) Urine Ketones Urine Blood Urine Nitrate Urine Bilirubin Urine Urobilinogen Ur Leukocyte Esterase Urine WBC (Auto) Urine RBC (Auto) Ur Squamous Epith Cells Amorphous Sediment Salicylates Urine Opiates Screen Urine Methadone Screen Acetaminophen Ur Barbiturates Screen Ur Phencyclidine Scrn Ur Amphetamines Screen U Benzodiazepines Scrn [place] U Oth Cocaine Metabols U Cannabinoids Screen Alcohol, Quantitative Blood Type Antibody Screen 07/23/18 07/23/18 07/23/18 06:54 07:30 07:42 WBC RBC Hgb Hct MCV MCH MCHC RDW Plt Count MPV Neut % (Auto) Lymph % (Auto) [place] % (Auto) Eos % (Auto) Baso % (Auto) Neut # (Auto) Lymph # (Auto) [place] # (Auto) Eos # (Auto) Baso # (Auto) PT INR APTT Puncture Site pCO2 pO2 23 L HCO3 ABG pH ABG Total CO2 ABG O2 Saturation ABG Base Excess Gabriel Test ABG Potassium VBG pH 7.36 VBG pCO2 47 VBG HCO3 23.8 VBG Total CO2 28.0 VBG O2 Sat (Calc) 32.6 L VBG Base Excess 0.6 VBG Potassium 5.3 H Glucose 68 L Lactate 2.8 H Liter Flow Sodium 145.0 Potassium Chloride 108.0 H Carbon Dioxide Anion Gap BUN Creatinine Est GFR ( Amer) Est GFR (Non-Af Amer) Random Glucose Hemoglobin A1c 3.1 L Calcium Phosphorus Magnesium Total Bilirubin AST ALT Alkaline Phosphatase Ammonia Total Creatine Kinase 230 H Troponin I NT-Pro-B Natriuret Pep 188 Total Protein Albumin Globulin Albumin/Globulin Ratio Triglycerides Cholesterol LDL Cholesterol Direct HDL Cholesterol Arterial Blood Potassium Venous Blood Potassium 5.3 H Urine Color Urine Clarity Urine pH Ur Specific [place] Urine Protein Urine Glucose (UA) Urine Ketones Urine Blood Urine Nitrate Urine Bilirubin Urine Urobilinogen Ur Leukocyte Esterase Urine WBC (Auto) Urine RBC (Auto) Ur Squamous Epith Cells Amorphous Sediment Salicylates Urine Opiates Screen Urine Methadone Screen Acetaminophen Ur Barbiturates Screen Ur Phencyclidine Scrn Ur Amphetamines Screen U Benzodiazepines Scrn [place] U Oth Cocaine Metabols U Cannabinoids Screen Alcohol, Quantitative Blood Type Antibody Screen 07/23/18 07/23/18 07/23/18 07:42 07:57 07:57 WBC RBC Hgb Hct MCV MCH MCHC RDW Plt Count MPV Neut % (Auto) Lymph % (Auto) [place] % (Auto) Eos % (Auto) Baso % (Auto) Neut # (Auto) Lymph # (Auto) [place] # (Auto) Eos # (Auto) Baso # (Auto) PT INR APTT Puncture Site pCO2 pO2 HCO3 ABG pH ABG Total CO2 ABG O2 Saturation ABG Base Excess Gabriel Test ABG Potassium VBG pH VBG pCO2 VBG HCO3 VBG Total CO2 VBG O2 Sat (Calc) VBG Base Excess VBG Potassium Glucose Lactate Liter Flow Sodium Potassium Chloride Carbon Dioxide Anion Gap BUN Creatinine Est GFR ( Amer) Est GFR (Non-Af Amer) Random Glucose Hemoglobin A1c Calcium Phosphorus 2.7 Magnesium 1.9 Total Bilirubin AST ALT Alkaline Phosphatase Ammonia 76 H Total Creatine Kinase Troponin I NT-Pro-B Natriuret Pep Total Protein Albumin Globulin Albumin/Globulin Ratio Triglycerides Cholesterol LDL Cholesterol Direct HDL Cholesterol Arterial Blood Potassium Venous Blood Potassium Urine Color Urine Clarity Urine pH Ur Specific [place] Urine Protein Urine Glucose (UA) Urine Ketones Urine Blood Urine Nitrate Urine Bilirubin Urine Urobilinogen Ur Leukocyte Esterase Urine WBC (Auto) Urine RBC (Auto) Ur Squamous Epith Cells Amorphous Sediment Salicylates < 1.0 Urine Opiates Screen Urine Methadone Screen Acetaminophen < 10.0 L Ur Barbiturates Screen Ur Phencyclidine Scrn Ur Amphetamines Screen U Benzodiazepines Scrn [place] < 0.2 L U Oth Cocaine Metabols U Cannabinoids Screen Alcohol, Quantitative < 10 Blood Type Antibody Screen 07/23/18 07/23/18 07/23/18 08:00 08:00 08:10 WBC RBC Hgb Hct MCV MCH MCHC RDW Plt Count MPV Neut % (Auto) Lymph % (Auto) [place] % (Auto) Eos % (Auto) Baso % (Auto) Neut # (Auto) Lymph # (Auto) [place] # (Auto) Eos # (Auto) Baso # (Auto) PT INR APTT Puncture Site pCO2 pO2 HCO3 ABG pH ABG Total CO2 ABG O2 Saturation ABG Base Excess Gabriel Test ABG Potassium VBG pH VBG pCO2 VBG HCO3 VBG Total CO2 VBG O2 Sat (Calc) VBG Base Excess VBG Potassium Glucose Lactate Liter Flow Sodium Potassium Chloride Carbon Dioxide Anion Gap BUN Creatinine Est GFR ( Amer) Est GFR (Non-Af Amer) Random Glucose Hemoglobin A1c Calcium Phosphorus Magnesium Total Bilirubin AST ALT Alkaline Phosphatase Ammonia Total Creatine Kinase Troponin I NT-Pro-B Natriuret Pep Total Protein Albumin Globulin Albumin/Globulin Ratio Triglycerides Cholesterol LDL Cholesterol Direct HDL Cholesterol Arterial Blood Potassium Venous Blood Potassium Urine Color [place] Urine Clarity Hazy Urine pH 8.0 Ur Specific [place] 1.033 H Urine Protein Negative Urine Glucose (UA) Normal Urine Ketones Negative Urine Blood 2+ H Urine Nitrate Negative Urine Bilirubin Negative Urine Urobilinogen 4.0 Ur Leukocyte Esterase Neg Urine WBC (Auto) 4 Urine RBC (Auto) 86 H Ur Squamous Epith Cells < 1 Amorphous Sediment Few H Salicylates Urine Opiates Screen Positive H Urine Methadone Screen Positive H Acetaminophen Ur Barbiturates Screen Negative Ur Phencyclidine Scrn Negative Ur Amphetamines Screen Negative U Benzodiazepines Scrn Negative [place] U Oth Cocaine Metabols Negative U Cannabinoids Screen Negative Alcohol, Quantitative Blood Type A POSITIVE Antibody Screen Negative 07/23/18 08:33 WBC RBC Hgb Hct MCV MCH MCHC RDW Plt Count MPV Neut % (Auto) Lymph % (Auto) [place] % (Auto) Eos % (Auto) Baso % (Auto) Neut # (Auto) Lymph # (Auto) [place] # (Auto) Eos # (Auto) Baso # (Auto) PT INR APTT Puncture Site Rr pCO2 37 pO2 143 H HCO3 31.1 H ABG pH 7.53 H ABG Total CO2 32.0 H ABG O2 Saturation 99.7 H ABG Base Excess 7.8 H Gabriel Test Pos ABG Potassium 3.0 L VBG pH VBG pCO2 VBG HCO3 VBG Total CO2 VBG O2 Sat (Calc) VBG Base Excess VBG Potassium Glucose 80 Lactate 1.5 Liter Flow 2.0 Sodium 144.0 Potassium Chloride 113.0 H Carbon Dioxide Anion Gap BUN Creatinine Est GFR ( Amer) Est GFR (Non-Af Amer) Random Glucose Hemoglobin A1c Calcium Phosphorus Magnesium Total Bilirubin AST ALT Alkaline Phosphatase Ammonia Total Creatine Kinase Troponin I NT-Pro-B Natriuret Pep Total Protein Albumin Globulin Albumin/Globulin Ratio Triglycerides Cholesterol LDL Cholesterol Direct HDL Cholesterol Arterial Blood Potassium 3.0 L Venous Blood Potassium Urine Color Urine Clarity Urine pH Ur Specific [place] Urine Protein Urine Glucose (UA) Urine Ketones Urine Blood Urine Nitrate Urine Bilirubin Urine Urobilinogen Ur Leukocyte Esterase Urine WBC (Auto) Urine RBC (Auto) Ur Squamous Epith Cells Amorphous Sediment Salicylates Urine Opiates Screen Urine Methadone Screen Acetaminophen Ur Barbiturates Screen Ur Phencyclidine Scrn Ur Amphetamines Screen U Benzodiazepines Scrn [place] U Oth Cocaine Metabols U Cannabinoids Screen Alcohol, Quantitative Blood Type Antibody Screen Assessment & Plan (1) Opioid overdose Assessment and Plan: 60 year old male with past medical history of hypertension, dyslipidemia, depression, copd, asthma, chronic leg edema, and tobacco abuse, opioid abuse on methadone. p/w opioid overdose Neuro: obutnded. will now be sedated with fentanyl gtt and propofol gtt. Pulm: intubated in ED for airway protection, at risk for aspiration. CV: hemodynamically stable Hem: no acute issues, leucocytosis Renal: no acute issues, will monitor Endo: no acute issues GI: NPO, Jevity ID: no acute issues, no septic source identifies as of yet. DVT proph - lovenox GI proph - protonix abel for strict I/O's during acute illness Code status - full code Critical Care Time spent 35 minutes Multi-disciplinary rounds were performed with house staff, nursing, speech therapy, respiratory therapy, pharmacy and nutrition with integrated input from the primary team/attending and other consulting services. The documented time is cumulative and includes review of patient data/exams/labs/chart review and examination of the patient on rounds and throughout the day; time is exclusive of any procedures or teaching time. Status: Acute
--- NOTE | 2018-07-23 13:34 | RAD ---
Chest x-ray single frontal view HISTORY: Intubation. Comparison: 07/23/2018 Findings: Endotracheal tube extending into the midthoracic trachea. Mild venous congestion. Atherosclerotic calcification at the aortic knob. Heart size within normal limits. Fracture deformity of the right proximal humerus. Impression: Endotracheal tube extending into the midthoracic trachea. Mild venous congestion. Atherosclerotic calcification at the aortic knob. Heart size within normal limits. Fracture deformity of the right proximal humerus.
[2018-07-23] MEDS: Lactated Ringer's 1,000 ML IV SCH (13:52)
[2018-07-23] MEDS: Enoxaparin 40 mg Syringe SC SCH (17:09)
[2018-07-23 17:12] LABS: ABG ALLEN TEST UNABLE; ARTERIAL BLOOD GAS HCO3 28.8 mmol/L (21-28); ARTERIAL BLOOD GAS O2 SAT 100.5 % (95-98); ARTERIAL BLOOD GAS PCO2 35 mm/Hg (35-45); ARTERIAL BLOOD GAS PH 7.51 (7.35-7.45); ARTERIAL BLOOD GAS PO2 371 mm/Hg (80-100)
--- NOTE | 2018-07-24 00:52 | CP.PCM.CON ---
History of Present Illness - History of Present Illness History of Present Illness: 62 yr old male, found this morning by his family extremely confused and altered, last seen well last night at about 7 pm. Code stroke was called but patient aroused significantly after receiving Narcan, so TPA was not given. CT and CTA head were normal without stroke or occlusion. Patient was monitored and placed in the ICU. I examined him in the ER shortly after he presented and found the following exam: Obtunded but arousable with sternal rub. Pupils 2mm-1mm with light. +dolls eyes, + corneals, +weak gag, moves all extremities. Has increased spasticity of legs bilaterally, and has increased tone. No verbal output, Does not follow commands. +1 dtr ul and ll bl. Toes downgoing. NO clonus. HEENT: normal. CVS: s1 s2 normal. Abdomen cachectic ROS: not obtainable due to the fact the patient is confused and nonverbal. PMH/PSH: Hypertension, dyslipidemia, depression, copd, asthma, chronic leg edema, and tobacco abuse, opioid abuse on methadone. FH/SH: not known. All: ibuprofen. Past Patient History - Infectious Disease Hx of Infectious Diseases: None - Past Medical History & Family History Past Medical History?: Yes - Past Social History Smoking Status: Former Smoker - CARDIAC Hx Hypertension: Yes Hx Peripheral Edema: Yes - PULMONARY Hx Asthma: Yes Hx Bronchitis: No Hx Chronic Obstructive Pulmonary Disease (COPD): Yes Hx Pneumonia: Yes - HEENT Hx HEENT Problems: No - RENAL Hx Chronic Kidney Disease: No - HEMATOLOGICAL/ONCOLOGICAL Hx Anemia: Yes - INTEGUMENTARY Hx Dermatological Problems: No - MUSCULOSKELETAL/RHEUMATOLOGICAL Hx Fractures: Yes (rt shoulder ribs) - GASTROINTESTINAL Hx Gall Bladder Disease: Yes - PSYCHIATRIC Hx Anxiety: Yes Hx Depression: Yes 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) - SURGICAL HISTORY Hx Cholecystectomy: Yes - ANESTHESIA Hx Anesthesia: Yes Hx Anesthesia Reactions: No Hx Malignant Hyperthermia: No Meds Allergies/Adverse Reactions: Allergies Allergy/AdvReac Type Severity Reaction Status Date / Time ibuprofen [From Advil] Allergy ANAPHYLAXIS Verified 11/14/17 08:23 - Medications Medications: Current Medications Enoxaparin Sodium (Lovenox) 40 mg SC DAILY [facility] Last Admin: 07/23/18 17:09 Dose: 40 mg Furosemide (Lasix) 20 mg IVP BID [facility] Last Admin: 07/23/18 17:09 Dose: 20 mg Propofol (Diprivan) 1,000 mg in 100 mls @ 2.313 mls/hr IV .Q24H PRN; Protocol PRN Reason: TITRATE PER MD ORDER Last Titration: 07/23/18 20:00 Dose: 10 mcg/kg/min, 4.627 mls/hr Fentanyl Citrate 2,500 mcg/ (Sodium Chloride) 250 mls @ 15.42 mls/hr IV .[id number] [facility]; Protocol Last Titration: 07/23/18 16:10 Dose: 1.5 mcg/kg/hr, 11.57 mls/hr Lactated Ringer's (Lactated Ringer's) 1,000 mls @ 75 mls/hr IV .[id number] [facility] Last Admin: 07/23/18 13:52 Dose: 75 mls/hr Lactulose (Enulose) 20 gm PO TID [facility] Last Admin: 07/23/18 17:09 Dose: 20 gm Pantoprazole Sodium (Protonix Susp) 40 mg PO 0600 [facility] Pneumococcal Polyvalent Vaccine (Pneumovax 23 Vaccine) 0.5 ml IM .ONCE ONE Stop: 07/26/18 10:01 Rifaximin (Xifaxan) 550 mg PO BID [facility]; Protocol Last Admin: 07/23/18 17:10 Dose: 550 mg Results - Vital Signs Recent Vital Signs: Last Vital Signs Temp 98.9 F 07/23/18 20:00 Pulse 89 07/23/18 22:02 Resp 9 L 07/23/18 22:02 BP 118/63 07/23/18 22:02 Pulse Ox 100 07/23/18 22:02 - Labs Result Diagrams: 07/23/18 06:54 07/23/18 06:54 Labs: Laboratory Results - last 24 hr 07/23/18 07/23/18 07/23/18 06:54 06:54 06:54 WBC 13.4 H D RBC 3.46 L Hgb 12.0 Hct 36.2 MCV 104.5 H D MCH 34.6 H MCHC 33.1 RDW 16.1 H Plt Count 318 D MPV 7.0 L Neut % (Auto) 73.8 Lymph % (Auto) 14.9 L Tripp % (Auto) 9.6 Eos % (Auto) 0.5 Baso % (Auto) 1.2 Neut # (Auto) 9.9 H Lymph # (Auto) 2.0 Tripp # (Auto) 1.3 H Eos # (Auto) 0.1 Baso # (Auto) 0.2 PT 17.8 H INR 1.6 APTT 62 H Puncture Site pCO2 pO2 HCO3 ABG pH ABG Total CO2 ABG O2 Saturation ABG Base Excess Gabriel Test ABG Potassium VBG pH VBG pCO2 VBG HCO3 VBG Total CO2 VBG O2 Sat (Calc) VBG Base Excess VBG Potassium A-a O2 Difference Respiratory Index Glucose Lactate Liter Flow Vent Mode Mechanical Rate FiO2 Tidal Volume PEEP Sodium 141 Potassium 4.9 Chloride 107 Carbon Dioxide 29 Anion Gap 10 BUN 19 Creatinine 0.7 L Est GFR ( Amer) > 60 Est GFR (Non-Af Amer) > 60 POC Glucose (mg/dL) Random Glucose 87 Hemoglobin A1c Calcium 8.0 L Phosphorus Magnesium Total Bilirubin 5.1 H GGT AST 211 H D ALT 35 Alkaline Phosphatase 205 H Ammonia Total Creatine Kinase Troponin I 0.0120 NT-Pro-B Natriuret Pep Total Protein 9.1 H Albumin 3.4 L D Globulin 5.8 H Albumin/Globulin Ratio 0.6 L Triglycerides 61 Cholesterol 135 LDL Cholesterol Direct 75 HDL Cholesterol 31 Alpha Fetoprotein Carcinoembryonic Ag CA 19-9 Antigen Arterial Blood Potassium Venous Blood Potassium Urine Color Urine Clarity Urine pH Ur Specific [place] Urine Protein Urine Glucose (UA) Urine Ketones Urine Blood Urine Nitrate Urine Bilirubin Urine Urobilinogen Ur Leukocyte Esterase Urine WBC (Auto) Urine RBC (Auto) Ur Squamous Epith Cells Amorphous Sediment Salicylates Urine Opiates Screen Urine Methadone Screen Acetaminophen Ur Barbiturates Screen Ur Phencyclidine Scrn Ur Amphetamines Screen U Benzodiazepines Scrn [place] U Oth Cocaine Metabols U Cannabinoids Screen Alcohol, Quantitative Blood Type Antibody Screen 07/23/18 07/23/18 07/23/18 06:54 07:30 07:42 WBC RBC Hgb Hct MCV MCH MCHC RDW Plt Count MPV Neut % (Auto) Lymph % (Auto) Tripp % (Auto) Eos % (Auto) Baso % (Auto) Neut # (Auto) Lymph # (Auto) Tripp # (Auto) Eos # (Auto) Baso # (Auto) PT INR APTT Puncture Site pCO2 pO2 23 L HCO3 ABG pH ABG Total CO2 ABG O2 Saturation ABG Base Excess Gabriel Test ABG Potassium VBG pH 7.36 VBG pCO2 47 VBG HCO3 23.8 VBG Total CO2 28.0 VBG O2 Sat (Calc) 32.6 L VBG Base Excess 0.6 VBG Potassium 5.3 H A-a O2 Difference Respiratory Index Glucose 68 L Lactate 2.8 H Liter Flow Vent Mode Mechanical Rate FiO2 Tidal Volume PEEP Sodium 145.0 Potassium Chloride 108.0 H Carbon Dioxide Anion Gap BUN Creatinine Est GFR ( Amer) Est GFR (Non-Af Amer) POC Glucose (mg/dL) Random Glucose Hemoglobin A1c 3.1 L Calcium Phosphorus Magnesium Total Bilirubin GGT AST ALT Alkaline Phosphatase Ammonia Total Creatine Kinase 230 H Troponin I NT-Pro-B Natriuret Pep 188 Total Protein Albumin Globulin Albumin/Globulin Ratio Triglycerides Cholesterol LDL Cholesterol Direct HDL Cholesterol Alpha Fetoprotein Carcinoembryonic Ag CA 19-9 Antigen Arterial Blood Potassium Venous Blood Potassium 5.3 H Urine Color Urine Clarity Urine pH Ur Specific [place] Urine Protein Urine Glucose (UA) Urine Ketones Urine Blood Urine Nitrate Urine Bilirubin Urine Urobilinogen Ur Leukocyte Esterase Urine WBC (Auto) Urine RBC (Auto) Ur Squamous Epith Cells Amorphous Sediment Salicylates Urine Opiates Screen Urine Methadone Screen Acetaminophen Ur Barbiturates Screen Ur Phencyclidine Scrn Ur Amphetamines Screen U Benzodiazepines Scrn [place] U Oth Cocaine Metabols U Cannabinoids Screen Alcohol, Quantitative Blood Type Antibody Screen 07/23/18 07/23/18 07/23/18 07:42 07:57 07:57 WBC RBC Hgb Hct MCV MCH MCHC RDW Plt Count MPV Neut % (Auto) Lymph % (Auto) Tripp % (Auto) Eos % (Auto) Baso % (Auto) Neut # (Auto) Lymph # (Auto) Tripp # (Auto) Eos # (Auto) Baso # (Auto) PT INR APTT Puncture Site pCO2 pO2 HCO3 ABG pH ABG Total CO2 ABG O2 Saturation ABG Base Excess Gabriel Test ABG Potassium VBG pH VBG pCO2 VBG HCO3 VBG Total CO2 VBG O2 Sat (Calc) VBG Base Excess VBG Potassium A-a O2 Difference Respiratory Index Glucose Lactate Liter Flow Vent Mode Mechanical Rate FiO2 Tidal Volume PEEP Sodium Potassium Chloride Carbon Dioxide Anion Gap BUN Creatinine Est GFR ( Amer) Est GFR (Non-Af Amer) POC Glucose (mg/dL) Random Glucose Hemoglobin A1c Calcium Phosphorus 2.7 Magnesium 1.9 Total Bilirubin GGT AST ALT Alkaline Phosphatase Ammonia 76 H Total Creatine Kinase Troponin I NT-Pro-B Natriuret Pep Total Protein Albumin Globulin Albumin/Globulin Ratio Triglycerides Cholesterol LDL Cholesterol Direct HDL Cholesterol Alpha Fetoprotein Carcinoembryonic Ag CA 19-9 Antigen Arterial Blood Potassium Venous Blood Potassium Urine Color Urine Clarity Urine pH Ur Specific [place] Urine Protein Urine Glucose (UA) Urine Ketones Urine Blood Urine Nitrate Urine Bilirubin Urine Urobilinogen Ur Leukocyte Esterase Urine WBC (Auto) Urine RBC (Auto) Ur Squamous Epith Cells Amorphous Sediment Salicylates < 1.0 Urine Opiates Screen Urine Methadone Screen Acetaminophen < 10.0 L Ur Barbiturates Screen Ur Phencyclidine Scrn Ur Amphetamines Screen U Benzodiazepines Scrn [place] < 0.2 L U Oth Cocaine Metabols U Cannabinoids Screen Alcohol, Quantitative < 10 Blood Type Antibody Screen 07/23/18 07/23/18 07/23/18 08:00 08:00 08:10 WBC RBC Hgb Hct MCV MCH MCHC RDW Plt Count MPV Neut % (Auto) Lymph % (Auto) Tripp % (Auto) Eos % (Auto) Baso % (Auto) Neut # (Auto) Lymph # (Auto) Tripp # (Auto) Eos # (Auto) Baso # (Auto) PT INR APTT Puncture Site pCO2 pO2 HCO3 ABG pH ABG Total CO2 ABG O2 Saturation ABG Base Excess Gabriel Test ABG Potassium VBG pH VBG pCO2 VBG HCO3 VBG Total CO2 VBG O2 Sat (Calc) VBG Base Excess VBG Potassium A-a O2 Difference Respiratory Index Glucose Lactate Liter Flow Vent Mode Mechanical Rate FiO2 Tidal Volume PEEP Sodium Potassium Chloride Carbon Dioxide Anion Gap BUN Creatinine Est GFR ( Amer) Est GFR (Non-Af Amer) POC Glucose (mg/dL) Random Glucose Hemoglobin A1c Calcium Phosphorus Magnesium Total Bilirubin GGT AST ALT Alkaline Phosphatase Ammonia Total Creatine Kinase Troponin I NT-Pro-B Natriuret Pep Total Protein Albumin Globulin Albumin/Globulin Ratio Triglycerides Cholesterol LDL Cholesterol Direct HDL Cholesterol Alpha Fetoprotein Carcinoembryonic Ag CA 19-9 Antigen Arterial Blood Potassium Venous Blood Potassium Urine Color [place] Urine Clarity Hazy Urine pH 8.0 Ur Specific [place] 1.033 H Urine Protein Negative Urine Glucose (UA) Normal Urine Ketones Negative Urine Blood 2+ H Urine Nitrate Negative Urine Bilirubin Negative Urine Urobilinogen 4.0 Ur Leukocyte Esterase Neg Urine WBC (Auto) 4 Urine RBC (Auto) 86 H Ur Squamous Epith Cells < 1 Amorphous Sediment Few H Salicylates Urine Opiates Screen Positive H Urine Methadone Screen Positive H Acetaminophen Ur Barbiturates Screen Negative Ur Phencyclidine Scrn Negative Ur Amphetamines Screen Negative U Benzodiazepines Scrn Negative [place] U Oth Cocaine Metabols Negative U Cannabinoids Screen Negative Alcohol, Quantitative Blood Type A POSITIVE Antibody Screen Negative 07/23/18 07/23/18 07/23/18 08:33 14:03 14:03 WBC RBC Hgb Hct MCV MCH MCHC RDW Plt Count MPV Neut % (Auto) Lymph % (Auto) Tripp % (Auto) Eos % (Auto) Baso % (Auto) Neut # (Auto) Lymph # (Auto) Tripp # (Auto) Eos # (Auto) Baso # (Auto) PT INR APTT Puncture Site Rr pCO2 37 pO2 143 H HCO3 31.1 H ABG pH 7.53 H ABG Total CO2 32.0 H ABG O2 Saturation 99.7 H ABG Base Excess 7.8 H Gabriel Test Pos ABG Potassium 3.0 L VBG pH VBG pCO2 VBG HCO3 VBG Total CO2 VBG O2 Sat (Calc) VBG Base Excess VBG Potassium A-a O2 Difference Respiratory Index Glucose 80 Lactate 1.5 Liter Flow 2.0 Vent Mode Mechanical Rate FiO2 Tidal Volume PEEP Sodium 144.0 Potassium Chloride 113.0 H Carbon Dioxide Anion Gap BUN Creatinine Est GFR ( Amer) Est GFR (Non-Af Amer) POC Glucose (mg/dL) Random Glucose Hemoglobin A1c Calcium Phosphorus Magnesium Total Bilirubin GGT 79 H AST ALT Alkaline Phosphatase Ammonia Total Creatine Kinase Troponin I NT-Pro-B Natriuret Pep Total Protein Albumin Globulin Albumin/Globulin Ratio Triglycerides Cholesterol LDL Cholesterol Direct HDL Cholesterol Alpha Fetoprotein > 5200.0 H Carcinoembryonic Ag 3.9 H CA 19-9 Antigen 59.4 H Arterial Blood Potassium 3.0 L Venous Blood Potassium Urine Color Urine Clarity Urine pH Ur Specific [place] Urine Protein Urine Glucose (UA) Urine Ketones Urine Blood Urine Nitrate Urine Bilirubin Urine Urobilinogen Ur Leukocyte Esterase Urine WBC (Auto) Urine RBC (Auto) Ur Squamous Epith Cells Amorphous Sediment Salicylates Urine Opiates Screen Urine Methadone Screen Acetaminophen Ur Barbiturates Screen Ur Phencyclidine Scrn Ur Amphetamines Screen U Benzodiazepines Scrn [place] U Oth Cocaine Metabols U Cannabinoids Screen Alcohol, Quantitative Blood Type Antibody Screen 07/23/18 07/23/18 07/23/18 17:10 17:38 23:30 WBC RBC Hgb Hct MCV MCH MCHC RDW Plt Count MPV Neut % (Auto) Lymph % (Auto) Tripp % (Auto) Eos % (Auto) Baso % (Auto) Neut # (Auto) Lymph # (Auto) Tripp # (Auto) Eos # (Auto) Baso # (Auto) PT INR APTT Puncture Site Lr pCO2 35 pO2 371 H HCO3 28.8 H ABG pH 7.51 H ABG Total CO2 29.0 H ABG O2 Saturation 100.5 H ABG Base Excess 4.9 H Gabriel Test Unable ABG Potassium 2.6 L VBG pH VBG pCO2 VBG HCO3 VBG Total CO2 VBG O2 Sat (Calc) VBG Base Excess VBG Potassium A-a O2 Difference 156.0 Respiratory Index 0.4 Glucose 84 Lactate 1.5 Liter Flow Vent Mode Prvc Mechanical Rate 12 FiO2 80.0 Tidal Volume 450 PEEP 5 Sodium 143.0 Potassium Chloride 115.0 H Carbon Dioxide Anion Gap BUN Creatinine Est GFR ( Amer) Est GFR (Non-Af Amer) POC Glucose (mg/dL) 87 69 Random Glucose Hemoglobin A1c Calcium Phosphorus Magnesium Total Bilirubin GGT AST ALT Alkaline Phosphatase Ammonia Total Creatine Kinase Troponin I NT-Pro-B Natriuret Pep Total Protein Albumin Globulin Albumin/Globulin Ratio Triglycerides Cholesterol LDL Cholesterol Direct HDL Cholesterol Alpha Fetoprotein Carcinoembryonic Ag CA 19-9 Antigen Arterial Blood Potassium 2.6 L Venous Blood Potassium Urine Color Urine Clarity Urine pH Ur Specific [place] Urine Protein Urine Glucose (UA) Urine Ketones Urine Blood Urine Nitrate Urine Bilirubin Urine Urobilinogen Ur Leukocyte Esterase Urine WBC (Auto) Urine RBC (Auto) Ur Squamous Epith Cells Amorphous Sediment Salicylates Urine Opiates Screen Urine Methadone Screen Acetaminophen Ur Barbiturates Screen Ur Phencyclidine Scrn Ur Amphetamines Screen U Benzodiazepines Scrn [place] U Oth Cocaine Metabols U Cannabinoids Screen Alcohol, Quantitative Blood Type Antibody Screen 07/23/18 23:34 WBC RBC Hgb Hct MCV MCH MCHC RDW Plt Count MPV Neut % (Auto) Lymph % (Auto) Tripp % (Auto) Eos % (Auto) Baso % (Auto) Neut # (Auto) Lymph # (Auto) Tripp # (Auto) Eos # (Auto) Baso # (Auto) PT INR APTT Puncture Site pCO2 pO2 HCO3 ABG pH ABG Total CO2 ABG O2 Saturation ABG Base Excess Gabriel Test ABG Potassium VBG pH VBG pCO2 VBG HCO3 VBG Total CO2 VBG O2 Sat (Calc) VBG Base Excess VBG Potassium A-a O2 Difference Respiratory Index Glucose Lactate Liter Flow Vent Mode Mechanical Rate FiO2 Tidal Volume PEEP Sodium Potassium Chloride Carbon Dioxide Anion Gap BUN Creatinine Est GFR ( Amer) Est GFR (Non-Af Amer) POC Glucose (mg/dL) 64 L Random Glucose Hemoglobin A1c Calcium Phosphorus Magnesium Total Bilirubin GGT AST ALT Alkaline Phosphatase Ammonia Total Creatine Kinase Troponin I NT-Pro-B Natriuret Pep Total Protein Albumin Globulin Albumin/Globulin Ratio Triglycerides Cholesterol LDL Cholesterol Direct HDL Cholesterol Alpha Fetoprotein Carcinoembryonic Ag CA 19-9 Antigen Arterial Blood Potassium Venous Blood Potassium Urine Color Urine Clarity Urine pH Ur Specific [place] Urine Protein Urine Glucose (UA) Urine Ketones Urine Blood Urine Nitrate Urine Bilirubin Urine Urobilinogen Ur Leukocyte Esterase Urine WBC (Auto) Urine RBC (Auto) Ur Squamous Epith Cells Amorphous Sediment Salicylates Urine Opiates Screen Urine Methadone Screen Acetaminophen Ur Barbiturates Screen Ur Phencyclidine Scrn Ur Amphetamines Screen U Benzodiazepines Scrn [place] U Oth Cocaine Metabols U Cannabinoids Screen Alcohol, Quantitative Blood Type Antibody Screen Assessment & Plan - Assessment and Plan (Free Text) Assessment: 62 yr old male who is most likely heroin abuser, who is not a tpa candidate due to resolution with narcan. He will still need a stroke workup. , He also has jaundice and most likely has liver cirrhosis and may therefore be in hepatic encephalopathy. PLan: 1. ECHo 2 MRI Brain without francisca. 3. EEG in am. Thank you Dr. steinberg
[2018-07-24] MEDS: Propofol 10 mg/ml 1,000 MG/100 ML VIAL IV PRN (03:07)
[2018-07-24] MEDS: Lactated Ringer's 1,000 ML IV SCH (03:09)
[2018-07-24 04:40] LABS: ARTERIAL BLOOD GAS HCO3 30.2 mmol/L (21-28); ARTERIAL BLOOD GAS HEMOGLOBIN 9.4 g/dL (11.7-17.4); ARTERIAL BLOOD GAS O2 SAT 100.4 % (95-98); ARTERIAL BLOOD GAS PCO2 38 mm/Hg (35-45); ARTERIAL BLOOD GAS PH 7.51 (7.35-7.45); ARTERIAL BLOOD GAS PO2 203 mm/Hg (80-100); ARTERIAL BLOOD GAS TCO2 31.5 mmol/L (22-28)
[2018-07-24 06:16] LABS: BASO # 0.2 K/uL (0.0-0.2); EOS # 0.2 K/uL (0.0-0.7); EOS % 1.1 % (0.0-4.0); HEMOGLOBIN 10.3 g/dL (12.0-18.0); LYMPH # 3.4 K/uL (1.0-4.3); LYMPH % 20.1 % (20.0-40.0); MEAN CORPUSCULAR HEMOGLOBIN 35.5 pg (27.0-31.0); MEAN CORPUSCULAR HGB CONC 33.8 g/dL (33.0-37.0); MEAN PLATELET VOLUME 7.2 fL (7.2-11.7); MONO # 1.5 K/uL (0.0-0.8); MONO % 8.9 % (0.0-10.0); NEUT # 11.5 K/uL (1.8-7.0); NEUT % 68.9 % (50.0-75.0); NRBC % 0.2 % (0.0-2.0); RBC 2.9 Mil/uL (4.40-5.90); RED CELL DISTRIBUTION WIDTH 16.2 % (11.5-14.5); WHITE BLOOD COUNT 16.7 K/uL (4.8-10.8)
[2018-07-24] MEDS: Pantoprazole 40 mg Susp UD PO SCH (06:18)
[2018-07-24 06:33] LABS: ALB/GLOB RATIO 0.6 (1.0-2.1); ALBUMIN 2.2 g/dL (3.5-5.0); ALT/SGPT 54 U/L (21-72); AST/SGOT 163 U/L (17-59); BLOOD UREA NITROGEN 15 mg/dL (9-20); CALCIUM 7.6 mg/dl (8.6-10.4); GFR NON-AFRICAN AMERICAN > 60
[2018-07-24] MEDS ORDERED: Potassium Chloride 20 mEq/15 ml LIQ UD PO ONE ×2 (09:00→11:00)
[2018-07-24] MEDS: Enoxaparin 40 mg Syringe SC SCH (09:31)
--- NOTE | 2018-07-24 09:56 | CP.PCM.CON ---
<KeikoalvazachDale - Last Filed: 07/24/18 12:54> History of Present Illness - History of Present Illness History of Present Illness: GI Fellow PGY4, Consult note. Lalo Mckinney is a 62M with hx of IVDU, HCC, Hep C who presented to ED via ambulance for AMS. Patient was found by son, lethargic, obtunded and cam to ED. He was found to have possible aspiration pneumonia, hypoxia and low GCS score. He was intubated and transferred to ICU. Nurse reports concern for HE and placed on lactulose and Xifaxan. He has only had 1 BM since yesterday. The nurse states he does follow simple commands off of sedation. He is getting tube feeds and tolerating. Afeb, HDS. Not interacting with exam at this time. No family at bedside. PMHx - IVDU, methadone dependence, HTN PSHx - Cholecystectomy FMHx - Unknown SocHx - IVDU, ?alcoholism. Unable to obtain ROS due to AMS Past Patient History - Infectious Disease Hx of Infectious Diseases: None - Past Medical History & Family History Past Medical History?: Yes - Past Social History Smoking Status: Former Smoker - CARDIAC Hx Hypertension: Yes Hx Peripheral Edema: Yes - PULMONARY Hx Asthma: Yes Hx Bronchitis: No Hx Chronic Obstructive Pulmonary Disease (COPD): Yes Hx Pneumonia: Yes - HEENT Hx HEENT Problems: No - RENAL Hx Chronic Kidney Disease: No - HEMATOLOGICAL/ONCOLOGICAL Hx Anemia: Yes - INTEGUMENTARY Hx Dermatological Problems: No - MUSCULOSKELETAL/RHEUMATOLOGICAL Hx Fractures: Yes (rt shoulder ribs) - GASTROINTESTINAL Hx Gall Bladder Disease: Yes - PSYCHIATRIC Hx Anxiety: Yes Hx Depression: Yes 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) - SURGICAL HISTORY Hx Cholecystectomy: Yes - ANESTHESIA Hx Anesthesia: Yes Hx Anesthesia Reactions: No Hx Malignant Hyperthermia: No Meds Allergies/Adverse Reactions: Allergies Allergy/AdvReac Type Severity Reaction Status Date / Time ibuprofen [From Advil] Allergy ANAPHYLAXIS Verified 11/14/17 08:23 - Medications Medications: Current Medications Enoxaparin Sodium (Lovenox) 40 mg SC DAILY [facility] Last Admin: 07/24/18 09:31 Dose: 40 mg Folic Acid (Folic Acid) 1 mg PO DAILY [facility] Last Admin: 07/24/18 09:03 Dose: 1 mg Furosemide (Lasix) 20 mg IVP BID [facility] Last Admin: 07/23/18 17:09 Dose: 20 mg Propofol (Diprivan) 1,000 mg in 100 mls @ 2.313 mls/hr IV .Q24H PRN; Protocol PRN Reason: TITRATE PER MD ORDER Last Titration: 07/24/18 08:14 Dose: 0 mcg/kg/min, 0 mls/hr Fentanyl Citrate 2,500 mcg/ (Sodium Chloride) 250 mls @ 15.42 mls/hr IV .[id number] [facility]; Protocol Last Titration: 07/24/18 09:00 Dose: 0 mcg/kg/hr, 0 mls/hr Lactated Ringer's (Lactated Ringer's) 1,000 mls @ 75 mls/hr IV .[id number] [facility] Last Admin: 07/24/18 03:09 Dose: 75 mls/hr Lactulose (Enulose) 20 gm PO TID [facility] Last Admin: 07/24/18 09:20 Dose: 20 gm Pantoprazole Sodium (Protonix Susp) 40 mg PO 0600 [facility] Last Admin: 07/24/18 06:18 Dose: 40 mg Pneumococcal Polyvalent Vaccine (Pneumovax 23 Vaccine) 0.5 ml IM .ONCE ONE Stop: 07/26/18 10:01 Potassium Chloride (Potassium Chloride Oral Soln) 40 meq PO ONCE ONE Stop: 07/24/18 11:01 Rifaximin (Xifaxan) 550 mg PO BID [facility]; Protocol Last Admin: 07/24/18 09:20 Dose: 550 mg Thiamine HCl (Vitamin B1 Tab) 100 mg PO BID [facility] Last Admin: 07/24/18 09:03 Dose: 100 mg Physical Exam - Constitutional Appears: Non-toxic, No Acute Distress, Chronically Ill - Head Exam Additional comments: Intubated - ENT Exam ENT Exam: Mucous Membranes Moist, Normal Exam - Respiratory Exam Respiratory Exam: Clear to Auscultation Bilateral, NORMAL BREATHING PATTERN - Cardiovascular Exam Cardiovascular Exam: REGULAR RHYTHM, +S1, +S2 - GI/Abdominal Exam GI & Abdominal Exam: Distended, Normal Bowel Sounds. absent: Organomegaly, Tenderness - Extremities Exam Extremities exam: Positive for: normal inspection. Negative for: pedal edema - Neurological Exam Neurological exam: Altered Additional comments: Sedated - Psychiatric Exam Psychiatric exam: Flat Affect - Skin Skin Exam: Normal Color, Warm Results - Vital Signs Recent Vital Signs: Last Vital Signs Temp 98.7 F 07/24/18 04:00 Pulse 101 H 07/24/18 06:03 Resp 13 07/24/18 06:03 BP 126/74 07/24/18 06:03 Pulse Ox 100 07/24/18 06:03 - Labs Result Diagrams: 07/24/18 06:07 07/24/18 06:05 Labs: Laboratory Results - last 24 hr 07/23/18 07/23/18 07/23/18 06:54 14:03 14:03 WBC RBC Hgb Hct MCV MCH MCHC RDW Plt Count MPV Neut % (Auto) Lymph % (Auto) Lamar % (Auto) Eos % (Auto) Baso % (Auto) Neut # (Auto) Lymph # (Auto) Lamar # (Auto) Eos # (Auto) Baso # (Auto) Puncture Site pCO2 pO2 HCO3 ABG pH ABG Total CO2 ABG O2 Saturation ABG Base Excess ABG Hemoglobin ABG Carboxyhemoglobin POC ABG HHb (Measured) ABG Methemoglobin Gabriel Test ABG Potassium A-a O2 Difference Respiratory Index Hgb O2 Saturation Sodium Chloride Glucose Lactate Vent Mode Mechanical Rate FiO2 Tidal Volume PEEP Potassium Carbon Dioxide Anion Gap BUN Creatinine Est GFR ( Amer) Est GFR (Non-Af Amer) POC Glucose (mg/dL) Random Glucose Hemoglobin A1c 3.1 L Calcium Phosphorus Magnesium Total Bilirubin GGT 79 H AST ALT Alkaline Phosphatase Ammonia Total Protein Albumin Globulin Albumin/Globulin Ratio Alpha Fetoprotein > 5200.0 H Carcinoembryonic Ag 3.9 H CA 19-9 Antigen 59.4 H Arterial Blood Potassium 07/23/18 07/23/18 07/23/18 17:10 17:38 23:30 WBC RBC Hgb Hct MCV MCH MCHC RDW Plt Count MPV Neut % (Auto) Lymph % (Auto) Lamar % (Auto) Eos % (Auto) Baso % (Auto) Neut # (Auto) Lymph # (Auto) Lamar # (Auto) Eos # (Auto) Baso # (Auto) Puncture Site Lr pCO2 35 pO2 371 H HCO3 28.8 H ABG pH 7.51 H ABG Total CO2 29.0 H ABG O2 Saturation 100.5 H ABG Base Excess 4.9 H ABG Hemoglobin ABG Carboxyhemoglobin POC ABG HHb (Measured) ABG Methemoglobin Gabriel Test Unable ABG Potassium 2.6 L A-a O2 Difference 156.0 Respiratory Index 0.4 Hgb O2 Saturation Sodium 143.0 Chloride 115.0 H Glucose 84 Lactate 1.5 Vent Mode Prvc Mechanical Rate 12 FiO2 80.0 Tidal Volume 450 PEEP 5 Potassium Carbon Dioxide Anion Gap BUN Creatinine Est GFR ( Amer) Est GFR (Non-Af Amer) POC Glucose (mg/dL) 87 69 Random Glucose Hemoglobin A1c Calcium Phosphorus Magnesium Total Bilirubin GGT AST ALT Alkaline Phosphatase Ammonia Total Protein Albumin Globulin Albumin/Globulin Ratio Alpha Fetoprotein Carcinoembryonic Ag CA 19-9 Antigen Arterial Blood Potassium 2.6 L 07/23/18 07/24/18 07/24/18 23:34 04:15 04:53 WBC RBC Hgb Hct MCV MCH MCHC RDW Plt Count MPV Neut % (Auto) Lymph % (Auto) Lamar % (Auto) Eos % (Auto) Baso % (Auto) Neut # (Auto) Lymph # (Auto) Lamar # (Auto) Eos # (Auto) Baso # (Auto) Puncture Site Lb pCO2 38 pO2 203 H HCO3 30.2 H ABG pH 7.51 H ABG Total CO2 31.5 H ABG O2 Saturation 100.4 H ABG Base Excess 6.8 H ABG Hemoglobin 9.4 L ABG Carboxyhemoglobin 2.7 H POC ABG HHb (Measured) -0.4 L ABG Methemoglobin 1.1 Gabriel Test Na ABG Potassium A-a O2 Difference 106.0 Respiratory Index 0.5 Hgb O2 Saturation 96.5 Sodium Chloride Glucose Lactate Vent Mode Prvc Mechanical Rate 12 FiO2 50.0 Tidal Volume 450 PEEP 5 Potassium Carbon Dioxide Anion Gap BUN Creatinine Est GFR ( Amer) Est GFR (Non-Af Amer) POC Glucose (mg/dL) 64 L 120 H Random Glucose Hemoglobin A1c Calcium Phosphorus Magnesium Total Bilirubin GGT AST ALT Alkaline Phosphatase Ammonia Total Protein Albumin Globulin Albumin/Globulin Ratio Alpha Fetoprotein Carcinoembryonic Ag CA 19-9 Antigen Arterial Blood Potassium 07/24/18 07/24/18 07/24/18 06:05 06:07 08:35 WBC 16.7 H RBC 2.90 L Hgb 10.3 L Hct 30.5 L MCV 105.0 H MCH 35.5 H MCHC 33.8 RDW 16.2 H Plt Count 275 MPV 7.2 Neut % (Auto) 68.9 Lymph % (Auto) 20.1 Lamar % (Auto) 8.9 Eos % (Auto) 1.1 Baso % (Auto) 1.0 Neut # (Auto) 11.5 H Lymph # (Auto) 3.4 Lamar # (Auto) 1.5 H Eos # (Auto) 0.2 Baso # (Auto) 0.2 Puncture Site pCO2 pO2 HCO3 ABG pH ABG Total CO2 ABG O2 Saturation ABG Base Excess ABG Hemoglobin ABG Carboxyhemoglobin POC ABG HHb (Measured) ABG Methemoglobin Gabriel Test ABG Potassium A-a O2 Difference Respiratory Index Hgb O2 Saturation Sodium 139 Chloride 108 H Glucose Lactate Vent Mode Mechanical Rate FiO2 Tidal Volume PEEP Potassium 3.0 L Carbon Dioxide 28 Anion Gap 6 L BUN 15 Creatinine 0.6 L Est GFR ( Amer) > 60 Est GFR (Non-Af Amer) > 60 POC Glucose (mg/dL) Random Glucose 98 Hemoglobin A1c Calcium 7.6 L Phosphorus 2.8 Magnesium 1.7 Total Bilirubin 4.1 H GGT AST 163 H D ALT 54 Alkaline Phosphatase 135 H D Ammonia 97 H D Total Protein 6.1 L Albumin 2.2 L D Globulin 3.9 Albumin/Globulin Ratio 0.6 L Alpha Fetoprotein Carcinoembryonic Ag CA 19-9 Antigen Arterial Blood Potassium Assessment & Plan - Assessment and Plan (Free Text) Assessment: #Decompensated Cirrhosis #Hep. C - Unknown treatment status #Likely HCC, elevated AFP #HTN #Opiate dependence, on mathadone #?Alcohol use PLAN: -MELD 17 07/24/18 -Previous CT reviewed 11/11, cirrhotic liver, focal liver density. -Obtain liver U/S -Hep C Viral load -Repeat Hep panel -Continue xifaxan, lactulose. Titrate lactulose dose to goal BMs 2-3. -Continue PPI -Continue tube feeds -Supplement thiamine, folic acid. -He may need triple phase CT when medically stable. Case discussed with Dr. Tejeda, see attestation. - Date & Time Date: 07/24/18 Time: 09:58 <Berry Tejeda Y - Last Filed: 07/24/18 15:30> Meds - Medications Medications: Current Medications Enoxaparin Sodium (Lovenox) 40 mg SC DAILY [facility] Last Admin: 07/24/18 09:31 Dose: 40 mg Folic Acid (Folic Acid) 1 mg PO DAILY [facility] Last Admin: 07/24/18 09:03 Dose: 1 mg Furosemide (Lasix) 20 mg IVP BID [facility] Last Admin: 07/24/18 11:23 Dose: 20 mg Propofol (Diprivan) 1,000 mg in 100 mls @ 2.313 mls/hr IV .Q24H PRN; Protocol PRN Reason: TITRATE PER MD ORDER Last Titration: 07/24/18 08:14 Dose: 0 mcg/kg/min, 0 mls/hr Influenza Virus Vaccine (Flucelvax Quad [id number] Syr) 60 mcg IM .ONCE ONE Stop: 07/26/18 10:01 Lactulose (Enulose) 30 gm PO TID [facility] Pantoprazole Sodium (Protonix Susp) 40 mg PO 0600 [facility] Last Admin: 07/24/18 06:18 Dose: 40 mg Pneumococcal Polyvalent Vaccine (Pneumovax 23 Vaccine) 0.5 ml IM .ONCE ONE Stop: 07/26/18 10:01 Rifaximin (Xifaxan) 550 mg PO BID [facility]; Protocol Last Admin: 07/24/18 09:20 Dose: 550 mg Thiamine HCl (Vitamin B1 Tab) 100 mg PO BID [facility] Last Admin: 07/24/18 09:03 Dose: 100 mg Results - Vital Signs Recent Vital Signs: Last Vital Signs Temp 99.0 F 07/24/18 12:00 Pulse 95 H 07/24/18 14:02 Resp 10 L 07/24/18 14:02 BP 148/74 07/24/18 14:02 Pulse Ox 100 07/24/18 14:02 - Labs Result Diagrams: 07/24/18 06:07 07/24/18 06:05 Labs: Laboratory Results - last 24 hr 07/23/18 07/23/18 07/23/18 06:14 14:03 17:10 WBC RBC Hgb Hct MCV MCH MCHC RDW Plt Count MPV Neut % (Auto) Lymph % (Auto) Lamar % (Auto) Eos % (Auto) Baso % (Auto) Neut # (Auto) Lymph # (Auto) Lamar # (Auto) Eos # (Auto) Baso # (Auto) Puncture Site Lr pCO2 35 pO2 371 H HCO3 28.8 H ABG pH 7.51 H ABG Total CO2 29.0 H ABG O2 Saturation 100.5 H ABG Base Excess 4.9 H ABG Hemoglobin ABG Carboxyhemoglobin POC ABG HHb (Measured) ABG Methemoglobin Gabriel Test Unable ABG Potassium 2.6 L A-a O2 Difference 156.0 Respiratory Index 0.4 Hgb O2 Saturation Sodium 143.0 Chloride 115.0 H Glucose 84 Lactate 1.5 Vent Mode Prvc Mechanical Rate 12 FiO2 80.0 Tidal Volume 450 PEEP 5 Potassium Carbon Dioxide Anion Gap BUN Creatinine Est GFR ( Amer) Est GFR (Non-Af Amer) POC Glucose (mg/dL) 102 Random Glucose Calcium Phosphorus Magnesium Total Bilirubin AST ALT Alkaline Phosphatase Ammonia Total Protein Albumin Globulin Albumin/Globulin Ratio Alpha Fetoprotein > 5200.0 H Arterial Blood Potassium 2.6 L Hepatitis A IgM Ab Hep Bs Antigen Hep B Core IgM Ab Hepatitis C Antibody 07/23/18 07/23/18 07/23/18 17:38 23:30 23:34 WBC RBC Hgb Hct MCV MCH MCHC RDW Plt Count MPV Neut % (Auto) Lymph % (Auto) Lamar % (Auto) Eos % (Auto) Baso % (Auto) Neut # (Auto) Lymph # (Auto) Lamar # (Auto) Eos # (Auto) Baso # (Auto) Puncture Site pCO2 pO2 HCO3 ABG pH ABG Total CO2 ABG O2 Saturation ABG Base Excess ABG Hemoglobin ABG Carboxyhemoglobin POC ABG HHb (Measured) ABG Methemoglobin Gabriel Test ABG Potassium A-a O2 Difference Respiratory Index Hgb O2 Saturation Sodium Chloride Glucose Lactate Vent Mode Mechanical Rate FiO2 Tidal Volume PEEP Potassium Carbon Dioxide Anion Gap BUN Creatinine Est GFR ( Amer) Est GFR (Non-Af Amer) POC Glucose (mg/dL) 87 69 64 L Random Glucose Calcium Phosphorus Magnesium Total Bilirubin AST ALT Alkaline Phosphatase Ammonia Total Protein Albumin Globulin Albumin/Globulin Ratio Alpha Fetoprotein Arterial Blood Potassium Hepatitis A IgM Ab Hep Bs Antigen Hep B Core IgM Ab Hepatitis C Antibody 07/24/18 07/24/18 07/24/18 04:15 04:53 06:05 WBC RBC Hgb Hct MCV MCH MCHC RDW Plt Count MPV Neut % (Auto) Lymph % (Auto) Lamar % (Auto) Eos % (Auto) Baso % (Auto) Neut # (Auto) Lymph # (Auto) Lamar # (Auto) Eos # (Auto) Baso # (Auto) Puncture Site Lb pCO2 38 pO2 203 H HCO3 30.2 H ABG pH 7.51 H ABG Total CO2 31.5 H ABG O2 Saturation 100.4 H ABG Base Excess 6.8 H ABG Hemoglobin 9.4 L ABG Carboxyhemoglobin 2.7 H POC ABG HHb (Measured) -0.4 L ABG Methemoglobin 1.1 Gabriel Test Na ABG Potassium A-a O2 Difference 106.0 Respiratory Index 0.5 Hgb O2 Saturation 96.5 Sodium 139 Chloride 108 H Glucose Lactate Vent Mode Prvc Mechanical Rate 12 FiO2 50.0 Tidal Volume 450 PEEP 5 Potassium 3.0 L Carbon Dioxide 28 Anion Gap 6 L BUN 15 Creatinine 0.6 L Est GFR ( Amer) > 60 Est GFR (Non-Af Amer) > 60 POC Glucose (mg/dL) 120 H Random Glucose 98 Calcium 7.6 L Phosphorus 2.8 Magnesium 1.7 Total Bilirubin 4.1 H AST 163 H D ALT 54 Alkaline Phosphatase 135 H D Ammonia Total Protein 6.1 L Albumin 2.2 L D Globulin 3.9 Albumin/Globulin Ratio 0.6 L Alpha Fetoprotein Arterial Blood Potassium Hepatitis A IgM Ab Hep Bs Antigen Hep B Core IgM Ab Hepatitis C Antibody 07/24/18 07/24/18 07/24/18 06:07 08:35 11:07 WBC 16.7 H RBC 2.90 L Hgb 10.3 L Hct 30.5 L MCV 105.0 H MCH 35.5 H MCHC 33.8 RDW 16.2 H Plt Count 275 MPV 7.2 Neut % (Auto) 68.9 Lymph % (Auto) 20.1 Lamar % (Auto) 8.9 Eos % (Auto) 1.1 Baso % (Auto) 1.0 Neut # (Auto) 11.5 H Lymph # (Auto) 3.4 Lamar # (Auto) 1.5 H Eos # (Auto) 0.2 Baso # (Auto) 0.2 Puncture Site pCO2 pO2 HCO3 ABG pH ABG Total CO2 ABG O2 Saturation ABG Base Excess ABG Hemoglobin ABG Carboxyhemoglobin POC ABG HHb (Measured) ABG Methemoglobin Gabriel Test ABG Potassium A-a O2 Difference Respiratory Index Hgb O2 Saturation Sodium Chloride Glucose Lactate Vent Mode Mechanical Rate FiO2 Tidal Volume PEEP Potassium Carbon Dioxide Anion Gap BUN Creatinine Est GFR ( Amer) Est GFR (Non-Af Amer) POC Glucose (mg/dL) Random Glucose Calcium Phosphorus Magnesium Total Bilirubin AST ALT Alkaline Phosphatase Ammonia 97 H D Total Protein Albumin Globulin Albumin/Globulin Ratio Alpha Fetoprotein Arterial Blood Potassium Hepatitis A IgM Ab Negative Hep Bs Antigen Negative Hep B Core IgM Ab Negative Hepatitis C Antibody Reactive 07/24/18 11:19 WBC RBC Hgb Hct MCV MCH MCHC RDW Plt Count MPV Neut % (Auto) Lymph % (Auto) Lamar % (Auto) Eos % (Auto) Baso % (Auto) Neut # (Auto) Lymph # (Auto) Lamar # (Auto) Eos # (Auto) Baso # (Auto) Puncture Site pCO2 pO2 HCO3 ABG pH ABG Total CO2 ABG O2 Saturation ABG Base Excess ABG Hemoglobin ABG Carboxyhemoglobin POC ABG HHb (Measured) ABG Methemoglobin Gabriel Test ABG Potassium A-a O2 Difference Respiratory Index Hgb O2 Saturation Sodium Chloride Glucose Lactate Vent Mode Mechanical Rate FiO2 Tidal Volume PEEP Potassium Carbon Dioxide Anion Gap BUN Creatinine Est GFR ( Amer) Est GFR (Non-Af Amer) POC Glucose (mg/dL) 94 Random Glucose Calcium Phosphorus Magnesium Total Bilirubin AST ALT Alkaline Phosphatase Ammonia Total Protein Albumin Globulin Albumin/Globulin Ratio Alpha Fetoprotein Arterial Blood Potassium Hepatitis A IgM Ab Hep Bs Antigen Hep B Core IgM Ab Hepatitis C Antibody Attending/Attestation - Attestation I have personally seen and examined this patient.: Yes I have fully participated in the care of the patient.: Yes I have reviewed all pertinent clinical information: Yes Notes (Text): 07/24/18 15:22 I have seen and examined patient with GI fellow. Agree with above documentation with the following additions. In brief, this is a 62 year old male with history of HCV cirrhosis, HCC, SHIRA on methadone who presented to hospital with altered mental status after being found at home by family member lethargic and minimally responsive. Patient was intubated for airway protection and brought to intensive care unit. He was extubated earlier today though is not able to fully participate with meaningful conversation and remains confused, though oriented to person/place. Additional information provided by family members at bedside. He is currently undergoing care for HCC with an oncologist at [facility] with consideration of chemotherapy. There is no reported abdominal pain, nausea, vomiting, fever/chills, weight loss, rectal bleeding. Unknown regarding prior endoscopic history. Decompensated HCV cirrhosis, admission MELD 17 HCC - large 5 cm right lobe hepatic mass present on US imaging AMS, encephalopathy Sepsis - Clear liquid diet as tolerated - Follow up neurology recommendations - Continue with lactulose therapy, titrate so patient has 2-3 bowel movements daily - Continue with antibiotic therapy - Patient will require outpatient follow up with oncology team at [facility] following hospital discharge. Hepatic lesion does not meet Mirza criteria for transplant consideration. - Will continue to monitor patient clinical course
--- NOTE | 2018-07-24 10:49 | RAD ---
Chest x-ray single frontal view HISTORY: Intubated. COMPARISON: 07/23/2018 Findings: Endotracheal tube extending into the midthoracic trachea. NG tube extending into the stomach. Surgical clips project over the right upper abdomen. Biapical pleural thickening with upper lobe granulomatous changes. Venous congestion. Patchy consolidative changes at the left lung base. Tortuous ectatic aorta. Heart size within normal limits. Degenerative changes in the spine and shoulders. Fracture deformity of the right proximal humerus. Impression: Endotracheal tube extending into the midthoracic trachea. NG tube extending into the stomach. Surgical clips project over the right upper abdomen. Biapical pleural thickening with upper lobe granulomatous changes. Venous congestion. Patchy consolidative changes at the left lung base. Tortuous ectatic aorta. Heart size within normal limits. Degenerative changes in the spine and shoulders. Fracture deformity of the right proximal humerus.
[2018-07-24 12:11] LABS: HEPATITIS B SURFACE AG Negative (NEGATIVE)
[2018-07-24 12:16] LABS: HEPATITIS A IGM NEGATIVE (NEGATIVE); HEPATITIS B CORE AB NEGATIVE (NEGATIVE)
--- NOTE | 2018-07-24 12:34 | US ---
Date of service: 07/24/2018 HISTORY: liver mass COMPARISON: 11/09/2017. CT abdomen and pelvis. Summary of findings on the comparison examination: Enlarged nodular cirrhotic liver. Periportal edema. There is a focal liver hypodensity that cannot be further characterized on the current examination. TECHNIQUE: Sonographic evaluation of the abdomen. FINDINGS: LIVER: Measures 14.3 cm. Hepatopedal blood flow. Fatty infiltration manifest ultrasonographically as increased echogenicity of the liver parenchyma. Nodular contour to the liver. Hepatic mass, solid 5.2 x 6.6 x 7 cm without appreciable internal vascularity. GALLBLADDER: Status post cholecystectomy. No abnormality is seen in the gallbladder fossa. COMMON BILE DUCT: Measures 6.8 mm. No stones. No dilatation. PANCREAS: Obscured by overlying bowel gas. Non diagnostic assessment of the pancreas. RIGHT KIDNEY: Measures 4.9 x 12.2cm. Normal echogenicity. No calculus, mass, or hydronephrosis. LEFT KIDNEY: Measures 0.6 x 12.7cm. Normal echogenicity. No calculus, mass, or hydronephrosis. SPLEEN: Top-normal spleen. Variable echogenicity. Solid splenic mass 8.2 x 9.1 x 7.2 cm. AORTA: No aneurysmal dilatation. IVC: Unremarkable. OTHER FINDINGS: Intra-abdominal ascites which is incompletely visualized. IMPRESSION: Solid hepatic mass 5.2 x 6.6 x 7 cm. The mass is visible in the right hepatic lobe, in retrospect was not visible on the prior study. Splenic mass which in retrospect was not visible. Intra-abdominal ascites, a new finding.
--- NOTE | 2018-07-24 12:54 | CP.CCUPN ---
CCU Subjective - Physician Review Subjective (Free Text): PGY-[address] ICU progress note for Dr Laughlin Patient is seen and examined at bedside. Patient continues to be intubated, responds to verbal and tactile stimuli, does not follow command. ROS unttainable at this time due to patient's status. CCU Objective - Vital Signs / Intake & Output Vital Signs (Last 4 hours): Vital Signs Temp Pulse Resp BP Pulse Ox 07/24/18 12:02 102 H 13 119/77 98 07/24/18 12:00 99.0 F 102 H 16 91 L 07/24/18 11:23 129/75 07/24/18 11:02 109 H 15 129/75 100 07/24/18 11:00 104 H 15 100 07/24/18 10:04 101 H 13 107/71 100 07/24/18 10:00 99 H 11 L 100 07/24/18 09:02 79 9 L 111/65 100 07/24/18 09:00 80 9 L 100 Intake and Output (Last 8hrs): Intake & Output 07/23/18 07/24/18 07/24/18 22:59 06:59 14:59 Intake Total 688.2 1096.2 717.0 Output Total 650 290 200 Balance 38.2 806.2 517.0 Weight 148 lb 3 oz Intake: IV 65 50 235 Intake, IV Amount 563.2 816.2 252.0 Right Antecubital 450 675 225 Right Forearm 32.2 32.2 4.6 Right Hand 4.6 Right Upper ARM 11.6 Right Upper arm 81.0 92.8 22.4 Tube Feeding 60 230 80 Other 150 Output: Urine 650 290 200 Urethral (Abel) 650 290 200 Other: # Bowel Movements 0 0 - Physical Exam Head: Positive for: Atraumatic, Normocephalic Mouth: Positive for: Moist Mucous Membranes Neck: Positive for: Normal Range of Motion Respiratory/Chest: Positive for: Clear to Auscultation, Good Air Exchange Cardiovascular: Positive for: Normal S1, S2 Abdomen: Positive for: Normal Bowel Sounds. Negative for: Tenderness, Distention Upper Extremity: Positive for: Normal Inspection. Negative for: Edema Lower Extremity: Positive for: Normal Inspection. Negative for: Edema Neurological: Positive for: GCS=15, CN II-XII Intact, Speech Normal Psychiatric: Positive for: Alert Other physical findings (Free Text): unable to fully assess pts mental status due to patient being intubated and sedation at time of encounte r - Medications Active Medications: Active Medications Generic Name Dose Route Start Last Admin Trade Name Freq PRN Reason Stop Dose Admin Enoxaparin Sodium 40 mg 07/23/18 14:30 07/24/18 09:31 Lovenox SC 40 mg DAILY REMBERTO Administration Folic Acid 1 mg 07/24/18 10:00 07/24/18 09:03 Folic Acid PO 1 mg DAILY REMBERTO Administration Furosemide 20 mg 07/23/18 18:00 07/24/18 11:23 Lasix IVP 20 mg BID REMBERTO Administration Propofol 1,000 mg in 100 mls @ 2.313 mls/hr 07/23/18 11:52 07/24/18 08:14 Diprivan IV 0 mcg/kg/min .Q24H PRN 0 mls/hr TITRATE PER MD ORDER Titration Protocol 5 MCG/KG/MIN Influenza Virus Vaccine 60 mcg 07/26/18 10:00 Flucelvax Quad [id number] Syr IM 07/26/18 10:01 .ONCE ONE Lactulose 30 gm 07/24/18 10:04 Enulose PO TID REMBERTO Pantoprazole Sodium 40 mg 07/24/18 06:00 07/24/18 06:18 Protonix Susp PO 40 mg 0600 REMBERTO Administration Pneumococcal Polyvalent Vaccine 0.5 ml 07/26/18 10:00 Pneumovax 23 Vaccine IM 07/26/18 10:01 .ONCE ONE Rifaximin 550 mg 07/23/18 18:00 07/24/18 09:20 Xifaxan PO 550 mg BID REMBERTO Administration Protocol Thiamine HCl 100 mg 07/24/18 10:00 07/24/18 09:03 Vitamin B1 Tab PO 100 mg BID REMBERTO Administration - Patient Studies Lab Studies: Microbiology Studies 07/23/18 14:03 Urine Culture - Final Urine,Catheterized No Growth (<1,000 CFU/ML) 07/23/18 08:50 Blood Culture - Preliminary Blood NO GROWTH AFTER 24 HOURS 07/23/18 08:50 Blood Culture - Preliminary Blood NO GROWTH AFTER 24 HOURS 07/23/18 14:03 Gram Stain - Final Trachasp Lab Studies 07/24/18 07/24/18 07/24/18 Range/Units 11:19 11:07 08:35 WBC (4.8-10.8) K/uL RBC (4.40-5.90) Mil/uL Hgb (12.0-18.0) g/dL Hct (35.0-51.0) % MCV (80.0-94.0) fL MCH (27.0-31.0) pg MCHC (33.0-37.0) g/dL RDW (11.5-14.5) % Plt Count (130-400) K/uL MPV (7.2-11.7) fL Neut % (Auto) (50.0-75.0) % Lymph % (Auto) (20.0-40.0) % [place] % (Auto) (0.0-10.0) % Eos % (Auto) (0.0-4.0) % Baso % (Auto) (0.0-2.0) % Neut # (Auto) (1.8-7.0) K/uL Lymph # (Auto) (1.0-4.3) K/uL [place] # (Auto) (0.0-0.8) K/uL Eos # (Auto) (0.0-0.7) K/uL Baso # (Auto) (0.0-0.2) K/uL Puncture Site pCO2 (35-45) mm/Hg pO2 (80-100) mm/Hg HCO3 (21-28) mmol/L ABG pH (7.35-7.45) ABG Total CO2 (22-28) mmol/L ABG O2 Saturation (95-98) % ABG Base Excess (-2.0-3.0) mmol/L ABG Hemoglobin (11.7-17.4) g/dL ABG Carboxyhemoglobin (0.5-1.5) % POC ABG HHb (Measured) (0.0-5.0) % ABG Methemoglobin (0.0-3.0) % Gabriel Test ABG Potassium (3.6-5.2) mmol/L A-a O2 Difference mm/Hg Respiratory Index Hgb O2 Saturation (95.0-98.0) % Sodium (132-148) mmol/l Chloride (98-107) mmol/L Glucose (75-110) mg/dl Lactate (0.7-2.1) mmol/L Vent Mode Mechanical Rate FiO2 % Tidal Volume PEEP Potassium (3.6-5.2) mmol/L Carbon Dioxide (22-30) mmol/L Anion Gap (10-20) BUN (9-20) mg/dL Creatinine (0.8-1.5) mg/dL Est GFR ( Amer) Est GFR (Non-Af Amer) POC Glucose (mg/dL) 94 (65-110) mg/dL Random Glucose (75-110) mg/dL Calcium (8.6-10.4) mg/dl Phosphorus (2.5-4.5) mg/dL Magnesium (1.6-2.3) mg/dL Total Bilirubin (0.2-1.3) mg/dL GGT (8-78) U/L AST (17-59) U/L ALT (21-72) U/L Alkaline Phosphatase (38-126) U/L Ammonia 97 H D (9-33) umol/L Total Protein (6.3-8.3) g/dL Albumin (3.5-5.0) g/dL Globulin (2.2-3.9) gm/dL Albumin/Globulin Ratio (1.0-2.1) Alpha Fetoprotein (0.0-7.5) ng/mL Carcinoembryonic Ag (0-3.0) ng/mL CA 19-9 Antigen (0-37) U/mL Arterial Blood Potassium (3.6-5.2) mmol/L Hepatitis A IgM Ab Negative (NEGATIVE) Hep Bs Antigen Negative (NEGATIVE) Hep B Core IgM Ab Negative (NEGATIVE) 07/24/18 07/24/18 07/24/18 Range/Units 06:07 06:05 04:53 WBC 16.7 H (4.8-10.8) K/uL RBC 2.90 L (4.40-5.90) Mil/uL Hgb 10.3 L (12.0-18.0) g/dL Hct 30.5 L (35.0-51.0) % MCV 105.0 H (80.0-94.0) fL MCH 35.5 H (27.0-31.0) pg MCHC 33.8 (33.0-37.0) g/dL RDW 16.2 H (11.5-14.5) % Plt Count 275 (130-400) K/uL MPV 7.2 (7.2-11.7) fL Neut % (Auto) 68.9 (50.0-75.0) % Lymph % (Auto) 20.1 (20.0-40.0) % [place] % (Auto) 8.9 (0.0-10.0) % Eos % (Auto) 1.1 (0.0-4.0) % Baso % (Auto) 1.0 (0.0-2.0) % Neut # (Auto) 11.5 H (1.8-7.0) K/uL Lymph # (Auto) 3.4 (1.0-4.3) K/uL [place] # (Auto) 1.5 H (0.0-0.8) K/uL Eos # (Auto) 0.2 (0.0-0.7) K/uL Baso # (Auto) 0.2 (0.0-0.2) K/uL Puncture Site pCO2 (35-45) mm/Hg pO2 (80-100) mm/Hg HCO3 (21-28) mmol/L ABG pH (7.35-7.45) ABG Total CO2 (22-28) mmol/L ABG O2 Saturation (95-98) % ABG Base Excess (-2.0-3.0) mmol/L ABG Hemoglobin (11.7-17.4) g/dL ABG Carboxyhemoglobin (0.5-1.5) % POC ABG HHb (Measured) (0.0-5.0) % ABG Methemoglobin (0.0-3.0) % Gabriel Test ABG Potassium (3.6-5.2) mmol/L A-a O2 Difference mm/Hg Respiratory Index Hgb O2 Saturation (95.0-98.0) % Sodium 139 (132-148) mmol/l Chloride 108 H (98-107) mmol/L Glucose (75-110) mg/dl Lactate (0.7-2.1) mmol/L Vent Mode Mechanical Rate FiO2 % Tidal Volume PEEP Potassium 3.0 L (3.6-5.2) mmol/L Carbon Dioxide 28 (22-30) mmol/L Anion Gap 6 L (10-20) BUN 15 (9-20) mg/dL Creatinine 0.6 L (0.8-1.5) mg/dL Est GFR ( Amer) > 60 Est GFR (Non-Af Amer) > 60 POC Glucose (mg/dL) 120 H (65-110) mg/dL Random Glucose 98 (75-110) mg/dL Calcium 7.6 L (8.6-10.4) mg/dl Phosphorus 2.8 (2.5-4.5) mg/dL Magnesium 1.7 (1.6-2.3) mg/dL Total Bilirubin 4.1 H (0.2-1.3) mg/dL GGT (8-78) U/L AST 163 H D (17-59) U/L ALT 54 (21-72) U/L Alkaline Phosphatase 135 H D (38-126) U/L Ammonia (9-33) umol/L Total Protein 6.1 L (6.3-8.3) g/dL Albumin 2.2 L D (3.5-5.0) g/dL Globulin 3.9 (2.2-3.9) gm/dL Albumin/Globulin Ratio 0.6 L (1.0-2.1) Alpha Fetoprotein (0.0-7.5) ng/mL Carcinoembryonic Ag (0-3.0) ng/mL CA 19-9 Antigen (0-37) U/mL Arterial Blood Potassium (3.6-5.2) mmol/L Hepatitis A IgM Ab (NEGATIVE) Hep Bs Antigen (NEGATIVE) Hep B Core IgM Ab (NEGATIVE) 07/24/18 07/23/18 07/23/18 Range/Units 04:15 23:34 23:30 WBC (4.8-10.8) K/uL RBC (4.40-5.90) Mil/uL Hgb (12.0-18.0) g/dL Hct (35.0-51.0) % MCV (80.0-94.0) fL MCH (27.0-31.0) pg MCHC (33.0-37.0) g/dL RDW (11.5-14.5) % Plt Count (130-400) K/uL MPV (7.2-11.7) fL Neut % (Auto) (50.0-75.0) % Lymph % (Auto) (20.0-40.0) % [place] % (Auto) (0.0-10.0) % Eos % (Auto) (0.0-4.0) % Baso % (Auto) (0.0-2.0) % Neut # (Auto) (1.8-7.0) K/uL Lymph # (Auto) (1.0-4.3) K/uL [place] # (Auto) (0.0-0.8) K/uL Eos # (Auto) (0.0-0.7) K/uL Baso # (Auto) (0.0-0.2) K/uL Puncture Site Lb pCO2 38 (35-45) mm/Hg pO2 203 H (80-100) mm/Hg HCO3 30.2 H (21-28) mmol/L ABG pH 7.51 H (7.35-7.45) ABG Total CO2 31.5 H (22-28) mmol/L ABG O2 Saturation 100.4 H (95-98) % ABG Base Excess 6.8 H (-2.0-3.0) mmol/L ABG Hemoglobin 9.4 L (11.7-17.4) g/dL ABG Carboxyhemoglobin 2.7 H (0.5-1.5) % POC ABG HHb (Measured) -0.4 L (0.0-5.0) % ABG Methemoglobin 1.1 (0.0-3.0) % Gabriel Test Na ABG Potassium (3.6-5.2) mmol/L A-a O2 Difference 106.0 mm/Hg Respiratory Index 0.5 Hgb O2 Saturation 96.5 (95.0-98.0) % Sodium (132-148) mmol/l Chloride (98-107) mmol/L Glucose (75-110) mg/dl Lactate (0.7-2.1) mmol/L Vent Mode Prvc Mechanical Rate 12 FiO2 50.0 % Tidal Volume 450 PEEP 5 Potassium (3.6-5.2) mmol/L Carbon Dioxide (22-30) mmol/L Anion Gap (10-20) BUN (9-20) mg/dL Creatinine (0.8-1.5) mg/dL Est GFR ( Amer) Est GFR (Non-Af Amer) POC Glucose (mg/dL) 64 L 69 (65-110) mg/dL Random Glucose (75-110) mg/dL Calcium (8.6-10.4) mg/dl Phosphorus (2.5-4.5) mg/dL Magnesium (1.6-2.3) mg/dL Total Bilirubin (0.2-1.3) mg/dL GGT (8-78) U/L AST (17-59) U/L ALT (21-72) U/L Alkaline Phosphatase (38-126) U/L Ammonia (9-33) umol/L Total Protein (6.3-8.3) g/dL Albumin (3.5-5.0) g/dL Globulin (2.2-3.9) gm/dL Albumin/Globulin Ratio (1.0-2.1) Alpha Fetoprotein (0.0-7.5) ng/mL Carcinoembryonic Ag (0-3.0) ng/mL CA 19-9 Antigen (0-37) U/mL Arterial Blood Potassium (3.6-5.2) mmol/L Hepatitis A IgM Ab (NEGATIVE) Hep Bs Antigen (NEGATIVE) Hep B Core IgM Ab (NEGATIVE) 07/23/18 07/23/18 07/23/18 Range/Units 17:38 17:10 14:03 WBC (4.8-10.8) K/uL RBC (4.40-5.90) Mil/uL Hgb (12.0-18.0) g/dL Hct (35.0-51.0) % MCV (80.0-94.0) fL MCH (27.0-31.0) pg MCHC (33.0-37.0) g/dL RDW (11.5-14.5) % Plt Count (130-400) K/uL MPV (7.2-11.7) fL Neut % (Auto) (50.0-75.0) % Lymph % (Auto) (20.0-40.0) % [place] % (Auto) (0.0-10.0) % Eos % (Auto) (0.0-4.0) % Baso % (Auto) (0.0-2.0) % Neut # (Auto) (1.8-7.0) K/uL Lymph # (Auto) (1.0-4.3) K/uL [place] # (Auto) (0.0-0.8) K/uL Eos # (Auto) (0.0-0.7) K/uL Baso # (Auto) (0.0-0.2) K/uL Puncture Site Lr pCO2 35 (35-45) mm/Hg pO2 371 H (80-100) mm/Hg HCO3 28.8 H (21-28) mmol/L ABG pH 7.51 H (7.35-7.45) ABG Total CO2 29.0 H (22-28) mmol/L ABG O2 Saturation 100.5 H (95-98) % ABG Base Excess 4.9 H (-2.0-3.0) mmol/L ABG Hemoglobin (11.7-17.4) g/dL ABG Carboxyhemoglobin (0.5-1.5) % POC ABG HHb (Measured) (0.0-5.0) % ABG Methemoglobin (0.0-3.0) % Gabriel Test Unable ABG Potassium 2.6 L (3.6-5.2) mmol/L A-a O2 Difference 156.0 mm/Hg Respiratory Index 0.4 Hgb O2 Saturation (95.0-98.0) % Sodium 143.0 (132-148) mmol/l Chloride 115.0 H (98-107) mmol/L Glucose 84 (75-110) mg/dl Lactate 1.5 (0.7-2.1) mmol/L Vent Mode Prvc Mechanical Rate 12 FiO2 80.0 % Tidal Volume 450 PEEP 5 Potassium (3.6-5.2) mmol/L Carbon Dioxide (22-30) mmol/L Anion Gap (10-20) BUN (9-20) mg/dL Creatinine (0.8-1.5) mg/dL Est GFR ( Amer) Est GFR (Non-Af Amer) POC Glucose (mg/dL) 87 (65-110) mg/dL Random Glucose (75-110) mg/dL Calcium (8.6-10.4) mg/dl Phosphorus (2.5-4.5) mg/dL Magnesium (1.6-2.3) mg/dL Total Bilirubin (0.2-1.3) mg/dL GGT (8-78) U/L AST (17-59) U/L ALT (21-72) U/L Alkaline Phosphatase (38-126) U/L Ammonia (9-33) umol/L Total Protein (6.3-8.3) g/dL Albumin (3.5-5.0) g/dL Globulin (2.2-3.9) gm/dL Albumin/Globulin Ratio (1.0-2.1) Alpha Fetoprotein > 5200.0 H (0.0-7.5) ng/mL Carcinoembryonic Ag (0-3.0) ng/mL CA 19-9 Antigen (0-37) U/mL Arterial Blood Potassium 2.6 L (3.6-5.2) mmol/L Hepatitis A IgM Ab (NEGATIVE) Hep Bs Antigen (NEGATIVE) Hep B Core IgM Ab (NEGATIVE) 07/23/18 07/23/18 Range/Units 14:03 06:14 WBC (4.8-10.8) K/uL RBC (4.40-5.90) Mil/uL Hgb (12.0-18.0) g/dL Hct (35.0-51.0) % MCV (80.0-94.0) fL MCH (27.0-31.0) pg MCHC (33.0-37.0) g/dL RDW (11.5-14.5) % Plt Count (130-400) K/uL MPV (7.2-11.7) fL Neut % (Auto) (50.0-75.0) % Lymph % (Auto) (20.0-40.0) % [place] % (Auto) (0.0-10.0) % Eos % (Auto) (0.0-4.0) % Baso % (Auto) (0.0-2.0) % Neut # (Auto) (1.8-7.0) K/uL Lymph # (Auto) (1.0-4.3) K/uL [place] # (Auto) (0.0-0.8) K/uL Eos # (Auto) (0.0-0.7) K/uL Baso # (Auto) (0.0-0.2) K/uL Puncture Site pCO2 (35-45) mm/Hg pO2 (80-100) mm/Hg HCO3 (21-28) mmol/L ABG pH (7.35-7.45) ABG Total CO2 (22-28) mmol/L ABG O2 Saturation (95-98) % ABG Base Excess (-2.0-3.0) mmol/L ABG Hemoglobin (11.7-17.4) g/dL ABG Carboxyhemoglobin (0.5-1.5) % POC ABG HHb (Measured) (0.0-5.0) % ABG Methemoglobin (0.0-3.0) % Agbriel Test ABG Potassium (3.6-5.2) mmol/L A-a O2 Difference mm/Hg Respiratory Index Hgb O2 Saturation (95.0-98.0) % Sodium (132-148) mmol/l Chloride (98-107) mmol/L Glucose (75-110) mg/dl Lactate (0.7-2.1) mmol/L Vent Mode Mechanical Rate FiO2 % Tidal Volume PEEP Potassium (3.6-5.2) mmol/L Carbon Dioxide (22-30) mmol/L Anion Gap (10-20) BUN (9-20) mg/dL Creatinine (0.8-1.5) mg/dL Est GFR ( Amer) Est GFR (Non-Af Amer) POC Glucose (mg/dL) 102 (65-110) mg/dL Random Glucose (75-110) mg/dL Calcium (8.6-10.4) mg/dl Phosphorus (2.5-4.5) mg/dL Magnesium (1.6-2.3) mg/dL Total Bilirubin (0.2-1.3) mg/dL GGT 79 H (8-78) U/L AST (17-59) U/L ALT (21-72) U/L Alkaline Phosphatase (38-126) U/L Ammonia (9-33) umol/L Total Protein (6.3-8.3) g/dL Albumin (3.5-5.0) g/dL Globulin (2.2-3.9) gm/dL Albumin/Globulin Ratio (1.0-2.1) Alpha Fetoprotein (0.0-7.5) ng/mL Carcinoembryonic Ag 3.9 H (0-3.0) ng/mL CA 19-9 Antigen 59.4 H (0-37) U/mL Arterial Blood Potassium (3.6-5.2) mmol/L Hepatitis A IgM Ab (NEGATIVE) Hep Bs Antigen (NEGATIVE) Hep B Core IgM Ab (NEGATIVE) Laboratory Results - last 24 hr 07/23/18 07/23/18 07/23/18 06:14 14:03 14:03 WBC RBC Hgb Hct MCV MCH MCHC RDW Plt Count MPV Neut % (Auto) Lymph % (Auto) [place] % (Auto) Eos % (Auto) Baso % (Auto) Neut # (Auto) Lymph # (Auto) [place] # (Auto) Eos # (Auto) Baso # (Auto) Puncture Site pCO2 pO2 HCO3 ABG pH ABG Total CO2 ABG O2 Saturation ABG Base Excess ABG Hemoglobin ABG Carboxyhemoglobin POC ABG HHb (Measured) ABG Methemoglobin Gabriel Test ABG Potassium A-a O2 Difference Respiratory Index Hgb O2 Saturation Sodium Chloride Glucose Lactate Vent Mode Mechanical Rate FiO2 Tidal Volume PEEP Potassium Carbon Dioxide Anion Gap BUN Creatinine Est GFR ( Amer) Est GFR (Non-Af Amer) POC Glucose (mg/dL) 102 Random Glucose Calcium Phosphorus Magnesium Total Bilirubin GGT 79 H AST ALT Alkaline Phosphatase Ammonia Total Protein Albumin Globulin Albumin/Globulin Ratio Alpha Fetoprotein > 5200.0 H Carcinoembryonic Ag 3.9 H CA 19-9 Antigen 59.4 H Arterial Blood Potassium Hepatitis A IgM Ab Hep Bs Antigen Hep B Core IgM Ab 07/23/18 07/23/18 07/23/18 17:10 17:38 23:30 WBC RBC Hgb Hct MCV MCH MCHC RDW Plt Count MPV Neut % (Auto) Lymph % (Auto) [place] % (Auto) Eos % (Auto) Baso % (Auto) Neut # (Auto) Lymph # (Auto) [place] # (Auto) Eos # (Auto) Baso # (Auto) Puncture Site Lr pCO2 35 pO2 371 H HCO3 28.8 H ABG pH 7.51 H ABG Total CO2 29.0 H ABG O2 Saturation 100.5 H ABG Base Excess 4.9 H ABG Hemoglobin ABG Carboxyhemoglobin POC ABG HHb (Measured) ABG Methemoglobin Gabriel Test Unable ABG Potassium 2.6 L A-a O2 Difference 156.0 Respiratory Index 0.4 Hgb O2 Saturation Sodium 143.0 Chloride 115.0 H Glucose 84 Lactate 1.5 Vent Mode Prvc Mechanical Rate 12 FiO2 80.0 Tidal Volume 450 PEEP 5 Potassium Carbon Dioxide Anion Gap BUN Creatinine Est GFR ( Amer) Est GFR (Non-Af Amer) POC Glucose (mg/dL) 87 69 Random Glucose Calcium Phosphorus Magnesium Total Bilirubin GGT AST ALT Alkaline Phosphatase Ammonia Total Protein Albumin Globulin Albumin/Globulin Ratio Alpha Fetoprotein Carcinoembryonic Ag CA 19-9 Antigen Arterial Blood Potassium 2.6 L Hepatitis A IgM Ab Hep Bs Antigen Hep B Core IgM Ab 07/23/18 07/24/18 07/24/18 23:34 04:15 04:53 WBC RBC Hgb Hct MCV MCH MCHC RDW Plt Count MPV Neut % (Auto) Lymph % (Auto) [place] % (Auto) Eos % (Auto) Baso % (Auto) Neut # (Auto) Lymph # (Auto) [place] # (Auto) Eos # (Auto) Baso # (Auto) Puncture Site Lb pCO2 38 pO2 203 H HCO3 30.2 H ABG pH 7.51 H ABG Total CO2 31.5 H ABG O2 Saturation 100.4 H ABG Base Excess 6.8 H ABG Hemoglobin 9.4 L ABG Carboxyhemoglobin 2.7 H POC ABG HHb (Measured) -0.4 L ABG Methemoglobin 1.1 Gabriel Test Na ABG Potassium A-a O2 Difference 106.0 Respiratory Index 0.5 Hgb O2 Saturation 96.5 Sodium Chloride Glucose Lactate Vent Mode Prvc Mechanical Rate 12 FiO2 50.0 Tidal Volume 450 PEEP 5 Potassium Carbon Dioxide Anion Gap BUN Creatinine Est GFR ( Amer) Est GFR (Non-Af Amer) POC Glucose (mg/dL) 64 L 120 H Random Glucose Calcium Phosphorus Magnesium Total Bilirubin GGT AST ALT Alkaline Phosphatase Ammonia Total Protein Albumin Globulin Albumin/Globulin Ratio Alpha Fetoprotein Carcinoembryonic Ag CA 19-9 Antigen Arterial Blood Potassium Hepatitis A IgM Ab Hep Bs Antigen Hep B Core IgM Ab 07/24/18 07/24/18 07/24/18 06:05 06:07 08:35 WBC 16.7 H RBC 2.90 L Hgb 10.3 L Hct 30.5 L MCV 105.0 H MCH 35.5 H MCHC 33.8 RDW 16.2 H Plt Count 275 MPV 7.2 Neut % (Auto) 68.9 Lymph % (Auto) 20.1 [place] % (Auto) 8.9 Eos % (Auto) 1.1 Baso % (Auto) 1.0 Neut # (Auto) 11.5 H Lymph # (Auto) 3.4 [place] # (Auto) 1.5 H Eos # (Auto) 0.2 Baso # (Auto) 0.2 Puncture Site pCO2 pO2 HCO3 ABG pH ABG Total CO2 ABG O2 Saturation ABG Base Excess ABG Hemoglobin ABG Carboxyhemoglobin POC ABG HHb (Measured) ABG Methemoglobin Gabriel Test ABG Potassium A-a O2 Difference Respiratory Index Hgb O2 Saturation Sodium 139 Chloride 108 H Glucose Lactate Vent Mode Mechanical Rate FiO2 Tidal Volume PEEP Potassium 3.0 L Carbon Dioxide 28 Anion Gap 6 L BUN 15 Creatinine 0.6 L Est GFR ( Amer) > 60 Est GFR (Non-Af Amer) > 60 POC Glucose (mg/dL) Random Glucose 98 Calcium 7.6 L Phosphorus 2.8 Magnesium 1.7 Total Bilirubin 4.1 H GGT AST 163 H D ALT 54 Alkaline Phosphatase 135 H D Ammonia 97 H D Total Protein 6.1 L Albumin 2.2 L D Globulin 3.9 Albumin/Globulin Ratio 0.6 L Alpha Fetoprotein Carcinoembryonic Ag CA 19-9 Antigen Arterial Blood Potassium Hepatitis A IgM Ab Hep Bs Antigen Hep B Core IgM Ab 07/24/18 07/24/18 11:07 11:19 WBC RBC Hgb Hct MCV MCH MCHC RDW Plt Count MPV Neut % (Auto) Lymph % (Auto) [place] % (Auto) Eos % (Auto) Baso % (Auto) Neut # (Auto) Lymph # (Auto) [place] # (Auto) Eos # (Auto) Baso # (Auto) Puncture Site pCO2 pO2 HCO3 ABG pH ABG Total CO2 ABG O2 Saturation ABG Base Excess ABG Hemoglobin ABG Carboxyhemoglobin POC ABG HHb (Measured) ABG Methemoglobin Gabriel Test ABG Potassium A-a O2 Difference Respiratory Index Hgb O2 Saturation Sodium Chloride Glucose Lactate Vent Mode Mechanical Rate FiO2 Tidal Volume PEEP Potassium Carbon Dioxide Anion Gap BUN Creatinine Est GFR ( Amer) Est GFR (Non-Af Amer) POC Glucose (mg/dL) 94 Random Glucose Calcium Phosphorus Magnesium Total Bilirubin GGT AST ALT Alkaline Phosphatase Ammonia Total Protein Albumin Globulin Albumin/Globulin Ratio Alpha Fetoprotein Carcinoembryonic Ag CA 19-9 Antigen Arterial Blood Potassium Hepatitis A IgM Ab Negative Hep Bs Antigen Negative Hep B Core IgM Ab Negative Radiology Impressions: Radiology Impressions Chest X-Ray 07/23/18 11:14 Impression: Endotracheal tube extending into the midthoracic trachea. Mild venous congestion. Atherosclerotic calcification at the aortic knob. Heart size within normal limits. Fracture deformity of the right proximal humerus. Chest X-Ray 07/24/18 04:00 Impression: Endotracheal tube extending into the midthoracic trachea. NG tube extending into the stomach. Surgical clips project over the right upper abdomen. Biapical pleural thickening with upper lobe granulomatous changes. Venous congestion. Patchy consolidative changes at the left lung base. Tortuous ectatic aorta. Heart size within normal limits. Degenerative changes in the spine and shoulders. Fracture deformity of the right proximal humerus. Abdomen Ultrasound 07/24/18 08:13 IMPRESSION: Solid hepatic mass 5.2 x 6.6 x 7 cm. The mass is visible in the right hepatic lobe, in retrospect was not visible on the prior study. Splenic mass which in retrospect was not visible. Intra-abdominal ascites, a new finding. Fingerstick Blood Sugar Results: 94 Critical Care Progress Note - Ventilator Checklist Head of Bed 30 Degrees: Yes Daily Sedation Vacation: Yes Daily Assessment of Readiness to Wean: Yes PUD Prophalyxis: Yes DVT Prophylaxis: Yes Oral Care with Chlorhexidine Gluconate {CHG}: Yes - Vent Settings MODE:: PRVC TIDAL VOLUME:: 450 RESP RATE:: 12 FIO2:: 80 PEEP:: 5 Assessment/Plan - Assessment and Plan (Free Text) Plan: Patient is a 60 yo male with pmhx of HTN, dyslipidemia, depression, COPD, asthma, chronic leg edema, and tobacco, opioid abuse on methadone presenting with opioid overdose, received 2 dose of narcan and intubated for airway protection sedated with diprivan and fentanyl, patient following command this mo rning, possible extubation today. Neuro Intubated and sedated. Sedation vacation possible extubation today continue multivitamin, folic acid thiamine Pulm intubated in ED for airway protection, at risk for aspiration place on CIPAP Plan to extubate today O2 via venti radha at 40% FiO2 Code stroke CT head negative Neuro - Dr Watts - follow up recs CV hemodynamically stable follow up echo Heme no acute issues WBC downtrending Renal Potassium 3.0 40meq oral solution KCL x 2 doses Endo no acute issues GI: NPO Jevity swallow eval after extubation GI consult - significant elevated liver, bilirubin, hepatic encephalopathy - follow up recs ID WBC downtrending blood cultures - negative x 24 hours Urine cultures - negative trachasp negative rifaximin f/u hepatitis and HIV panel DVT proph - lovenox GI proph - protonix abel for strict I/O's during acute illness Code status - full code Plan discussed with Dr Qian Dotson, PGY-1 - Date & Time Date: 07/24/18 Time: 09:00
[2018-07-24 14:15] LABS: HEPATITIS C ANTIBODY REACTIVE (NEGATIVE)
--- NOTE | 2018-07-24 14:58 | CP.PCM.PN ---
<Eric Fairbanks - Last Filed: 07/24/18 18:32> Subjective - Date & Time of Evaluation Date of Evaluation: 07/24/18 Time of Evaluation: 14:58 - Subjective Subjective: Neurology Progress note for Dr. Watts Patient seen and examined at bedside. Patient initially unable to provide history since patient is intubated. Patient is more awake, attempting to speak, moving all extremities. On repeat evaluation, patient was extubated, able to speak. Objective - Vital Signs/Intake and Output Vital Signs (last 24 hours): Temp Pulse Resp BP Pulse Ox 99.0 F 95 H 10 L 148/74 100 07/24/18 12:00 07/24/18 14:02 07/24/18 14:02 07/24/18 14:02 07/24/18 14:02 Intake and Output: 07/24/18 07/24/18 06:59 18:59 Intake Total 1434.8 717.0 Output Total 690 330 Balance 744.8 387.0 - Medications Medications: Current Medications Enoxaparin Sodium (Lovenox) 40 mg SC DAILY [facility] Last Admin: 07/24/18 09:31 Dose: 40 mg Folic Acid (Folic Acid) 1 mg PO DAILY [facility] Last Admin: 07/24/18 09:03 Dose: 1 mg Furosemide (Lasix) 20 mg IVP BID [facility] Last Admin: 07/24/18 11:23 Dose: 20 mg Propofol (Diprivan) 1,000 mg in 100 mls @ 2.313 mls/hr IV .Q24H PRN; Protocol PRN Reason: TITRATE PER MD ORDER Last Titration: 07/24/18 08:14 Dose: 0 mcg/kg/min, 0 mls/hr Influenza Virus Vaccine (Flucelvax Quad 7728-3181 Syr) 60 mcg IM .ONCE ONE Stop: 07/26/18 10:01 Lactulose (Enulose) 30 gm PO TID [facility] Pantoprazole Sodium (Protonix Susp) 40 mg PO 0600 [facility] Last Admin: 07/24/18 06:18 Dose: 40 mg Pneumococcal Polyvalent Vaccine (Pneumovax 23 Vaccine) 0.5 ml IM .ONCE ONE Stop: 07/26/18 10:01 Rifaximin (Xifaxan) 550 mg PO BID [facility]; Protocol Last Admin: 07/24/18 09:20 Dose: 550 mg Thiamine HCl (Vitamin B1 Tab) 100 mg PO BID [facility] Last Admin: 07/24/18 09:03 Dose: 100 mg - Labs Labs: 07/24/18 06:07 07/24/18 06:05 PT 17.8 SECONDS (9.7-12.2) H 07/23/18 06:54 INR 1.6 07/23/18 06:54 APTT 62 SECONDS (21-34) H 07/23/18 06:54 - Constitutional Appears: No Acute Distress, Confused, Other (Jaundiced) - Head Exam Head Exam: ATRAUMATIC, NORMOCEPHALIC - Eye Exam Eye Exam: EOMI - ENT Exam ENT Exam: Mucous Membranes Moist - Neck Exam Neck Exam: Full ROM - Respiratory Exam Respiratory Exam: Clear to Ausculation Bilateral, NORMAL BREATHING PATTERN Additional comments: On initial exam, intubated Extubated on repeat evaluation - Cardiovascular Exam Cardiovascular Exam: REGULAR RHYTHM, +S1, +S2 - GI/Abdominal Exam GI & Abdominal Exam: Soft - Neurological Exam Neurological Exam: Alert, Awake Additional comments: Able to follow commands, can lift his hands and legs on command. Awake and alert, but remains confused after extubation Assessment and Plan - Assessment and Plan (Free Text) Plan: Altered mental status, improving Follow up on results of MRI brain without contrast CT head Age-appropriate cerebral and cerebellar atrophy. Mild chronic microvasc ular ischemic change. No evidence of acute intracranial hemorrhage. CTA head and neck: Normal CT Angiography of the neck. Continue to monitor mental status Case discussed with Dr. Mac Fairbanks, PGY1 <Everardo Watts - Last Filed: 07/24/18 21:35> Objective - Vital Signs/Intake and Output Vital Signs (last 24 hours): Temp Pulse Resp BP Pulse Ox 98.2 F 95 H 13 154/75 H 92 L 07/24/18 20:00 07/24/18 20:17 07/24/18 20:17 07/24/18 20:17 07/24/18 20:17 Intake and Output: 07/24/18 07/25/18 18:59 06:59 Intake Total 717.0 Output Total 1875 Balance -1158.0 - Medications Medications: Current Medications Enoxaparin Sodium (Lovenox) 40 mg SC DAILY [facility] Last Admin: 07/24/18 09:31 Dose: 40 mg Folic Acid (Folic Acid) 1 mg PO DAILY [facility] Last Admin: 07/24/18 09:03 Dose: 1 mg Furosemide (Lasix) 20 mg IVP BID [facility] Last Admin: 07/24/18 18:22 Dose: 20 mg Influenza Virus Vaccine (Flucelvax Quad 8150-1023 Syr) 60 mcg IM .ONCE ONE Stop: 07/26/18 10:01 Lactulose (Enulose) 30 gm PO TID [facility] Last Admin: 07/24/18 18:22 Dose: 30 gm Pantoprazole Sodium (Protonix Susp) 40 mg PO 0600 [facility] Last Admin: 07/24/18 06:18 Dose: 40 mg Pneumococcal Polyvalent Vaccine (Pneumovax 23 Vaccine) 0.5 ml IM .ONCE ONE Stop: 07/26/18 10:01 Rifaximin (Xifaxan) 550 mg PO BID [facility]; Protocol Last Admin: 07/24/18 18:23 Dose: 550 mg Thiamine HCl (Vitamin B1 Tab) 100 mg PO BID [facility] Last Admin: 07/24/18 18:22 Dose: 100 mg - Labs Labs: 07/24/18 06:07 07/24/18 06:05 PT 17.8 SECONDS (9.7-12.2) H 07/23/18 06:54 INR 1.6 07/23/18 06:54 APTT 62 SECONDS (21-34) H 07/23/18 06:54 Assessment and Plan - Assessment and Plan (Free Text) Plan: Mr. Mckinney has encephalopathy with low likelihood of stroke, NIH 0. we will obtain MRI Brain and monitor his hepatic encephalopathy. I examined the patient independently and formulated the assessment and plan All medical record entries made by the Resident were at my direction and personally dictated by me. I have reviewed the chart and agree that the record accurately reflects my personal performance of the history, physical exam, me dical decision making, and the department course for this patient. I have also personally directed, reviewed, and agree with the discharge instructions and disposition. Dr. Watts Neurology
--- NOTE | 2018-07-24 18:32 | CARD ---
APPROVED REPORT Date of service: 07/24/2018 EXAM: Two-dimensional and M-mode echocardiogram with Doppler and color Doppler. Other Information Quality : GoodRhythm : INDICATION Chest Pain pedal edema,liver cirrhosis RISK FACTORS Hypertension 2D DIMENSIONS IVSd1.3 (0.7-1.1cm)LVDd3.9 (3.9-5.9cm) PWd0.9 (0.7-1.1cm)LA Mfulds43 (18-58mL) LVDs2.5 (2.5-4.0cm)FS (%) 35.5 % LVEF (%)65.5 (>50%)LVEF (Verdin's)61.10 % M-Mode DIMENSIONS Left Atrium (MM)4.07 (2.5-4.0cm)IVSd0.88 (0.7-1.1cm) Aortic Root3.74 (2.2-3.7cm)LVDd4.66 (4.0-5.6cm) Aortic Cusp Exc.2.44 (1.5-2.0cm)PWd0.91 (0.7-1.1cm) FS (%) 35 %LVDs3.03 (2.0-3.8cm) LVEF (%)64 (>50%) Mitral Valve MV E Rjeqavzz60.6cm/sMV A Iuegyfvw88.5cm/sE/A ratio0.8 TDI Lateral E' Peak V17.90cm/sMedial E' Peak V7.74cm/sE/Lateral E'4.2 E/Medial E'9.8 LEFT VENTRICLE The left ventricle is normal size. There is normal left ventricular wall thickness. The left ventricular function is normal. The left ventricular ejection fraction is within the normal range. There is normal LV segmental wall motion. Transmitral Doppler flow pattern is abnormal. RIGHT VENTRICLE The right ventricle is normal size. ATRIA The left atrium is borderline dilated. The right atrium size is normal. AORTIC VALVE The aortic valve is normal in structure. MITRAL VALVE Mitral regurgitation is trace. TRICUSPID VALVE There is trace to mild tricuspid regurgitation. <Conclusion> Normal LV systolic function. Borderline dilated LA. Trace MR. Diastolic dysfunction. Trace to mild TR.
[2018-07-25 06:01] LABS: BASO # 0.1 K/uL (0.0-0.2); BASO % 0.7 % (0.0-2.0); EOS # 0.2 K/uL (0.0-0.7); EOS % 1.5 % (0.0-4.0); HEMOGLOBIN 11.4 g/dL (12.0-18.0); LYMPH % 15.1 % (20.0-40.0); MEAN CELL VOLUME 104.8 fL (80.0-94.0); MEAN CORPUSCULAR HEMOGLOBIN 35.4 pg (27.0-31.0); MEAN CORPUSCULAR HGB CONC 33.8 g/dL (33.0-37.0); MEAN PLATELET VOLUME 7.2 fL (7.2-11.7); MONO # 1.3 K/uL (0.0-0.8); MONO % 9.7 % (0.0-10.0); NEUT # 9.8 K/uL (1.8-7.0); NRBC % 0.2 % (0.0-2.0); RBC 3.23 Mil/uL (4.40-5.90); RED CELL DISTRIBUTION WIDTH 15.9 % (11.5-14.5); WHITE BLOOD COUNT 13.5 K/uL (4.8-10.8)
[2018-07-25 06:16] LABS: BLOOD UREA NITROGEN 17 mg/dL (9-20); CALCIUM 7.5 mg/dl (8.6-10.4); GFR NON-AFRICAN AMERICAN > 60; HDL CHOLESTEROL 24 mg/dL (30-70)
[2018-07-25 06:26] LABS: LDL CHOLESTEROL 61 mg/dL (0-129)
[2018-07-25] MEDS: Pantoprazole 40 mg Susp UD PO SCH (06:37)
--- NOTE | 2018-07-25 07:39 | CP.PCM.PN ---
<LondontapanDale - Last Filed: 07/25/18 08:15> Subjective - Date & Time of Evaluation Date of Evaluation: 07/25/18 Time of Evaluation: 07:36 - Subjective Subjective: GI Fellow PGY4, consult note. Patient is awake, alert, responsive. He was extubated yesterday. He does not remember his family being present yesterday. He had multiple BMs lastnight. Tolerated regular diet last night. 5pt ROS completed and negative except for above. Objective - Vital Signs/Intake and Output Vital Signs (last 24 hours): Temp Pulse Resp BP Pulse Ox 98.7 F 87 11 L 114/78 95 07/25/18 04:00 07/25/18 05:00 07/25/18 05:00 07/25/18 05:02 07/25/18 05:00 Intake and Output: 07/25/18 07/25/18 06:59 18:59 Intake Total 1200 Output Total 2 Balance 1198 - Medications Medications: Current Medications Enoxaparin Sodium (Lovenox) 40 mg SC DAILY [facility] Last Admin: 07/24/18 09:31 Dose: 40 mg Folic Acid (Folic Acid) 1 mg PO DAILY [facility] Last Admin: 07/24/18 09:03 Dose: 1 mg Furosemide (Lasix) 20 mg IVP BID [facility] Last Admin: 07/24/18 18:22 Dose: 20 mg Influenza Virus Vaccine (Flucelvax Quad 7402-7180 Syr) 60 mcg IM .ONCE ONE Stop: 07/26/18 10:01 Lactulose (Enulose) 30 gm PO TID [facility] Last Admin: 07/24/18 18:22 Dose: 30 gm Pantoprazole Sodium (Protonix Susp) 40 mg PO 0600 [facility] Last Admin: 07/25/18 06:37 Dose: 40 mg Pneumococcal Polyvalent Vaccine (Pneumovax 23 Vaccine) 0.5 ml IM .ONCE ONE Stop: 07/26/18 10:01 Rifaximin (Xifaxan) 550 mg PO BID [facility]; Protocol Last Admin: 07/24/18 18:23 Dose: 550 mg Thiamine HCl (Vitamin B1 Tab) 100 mg PO BID [facility] Last Admin: 07/24/18 18:22 Dose: 100 mg - Labs Labs: 07/25/18 05:53 07/25/18 05:51 PT 17.8 SECONDS (9.7-12.2) H 07/23/18 06:54 INR 1.6 07/23/18 06:54 APTT 62 SECONDS (21-34) H 07/23/18 06:54 - Constitutional Appears: Non-toxic, No Acute Distress - Head Exam Head Exam: ATRAUMATIC, NORMAL INSPECTION - Eye Exam Eye Exam: EOMI, Normal appearance - Respiratory Exam Respiratory Exam: Clear to Ausculation Bilateral, NORMAL BREATHING PATTERN - Cardiovascular Exam Cardiovascular Exam: REGULAR RHYTHM, +S1, +S2 - GI/Abdominal Exam GI & Abdominal Exam: Soft, Normal Bowel Sounds. absent: Tenderness - Neurological Exam Neurological Exam: Alert, Awake. absent: Oriented x3 - Psychiatric Exam Psychiatric exam: Flat Affect, Normal Mood - Skin Skin Exam: Normal Color, Warm Assessment and Plan - Assessment and Plan (Free Text) Assessment: #Decompensated Cirrhosis #Hep. 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 On chemo as outpt. #HTN #Opiate dependence, on mathadone PLAN: -MELD 17 07/24/18 -Previous CT reviewed 11/11, cirrhotic liver, focal liver density. -U/S shows 7cm hepatic mass in R lobe. 9cm mass in spleen. +Ascites. -Hep C Viral load -Continue xifaxan, lactulose. Titrate lactulose dose to goal BMs 2-3. -Continue PPI -Heart healthy diet, restricted Na, restricted fluid. -Supplement thiamine, folic acid. -Unknown baseline mental status, still mildly confused. Mild ascites on U/S. Continue to monitor. Case discussed with Dr. Tejeda, see attestation. <Berry Tejeda - Last Filed: 07/25/18 08:30> Objective - Vital Signs/Intake and Output Vital Signs (last 24 hours): Temp Pulse Resp BP Pulse Ox 98.7 F 92 H 14 131/64 95 07/25/18 04:00 07/25/18 07:03 07/25/18 07:03 07/25/18 07:03 07/25/18 05:00 Intake and Output: 07/25/18 07/25/18 06:59 18:59 Intake Total 1200 Output Total 2 Balance 1198 - Medications Medications: Current Medications Enoxaparin Sodium (Lovenox) 40 mg SC DAILY [facility] Last Admin: 07/24/18 09:31 Dose: 40 mg Folic Acid (Folic Acid) 1 mg PO DAILY [facility] Last Admin: 07/24/18 09:03 Dose: 1 mg Furosemide (Lasix) 20 mg IVP BID [facility] Last Admin: 07/24/18 18:22 Dose: 20 mg Magnesium Sulfate/Dextrose (Magnesium Sulfate 1 Gm/100 Ml D5w) 1 gm in 100 mls @ 200 mls/hr IVPB ONCE ONE Stop: 07/25/18 08:55 Influenza Virus Vaccine (Flucelvax Quad 6125-6920 Syr) 60 mcg IM .ONCE ONE Stop: 07/26/18 10:01 Lactulose (Enulose) 20 gm PO BID [facility] Pantoprazole Sodium (Protonix Susp) 40 mg PO 0600 [facility] Last Admin: 07/25/18 06:37 Dose: 40 mg Pneumococcal Polyvalent Vaccine (Pneumovax 23 Vaccine) 0.5 ml IM .ONCE ONE Stop: 07/26/18 10:01 Potassium Chloride (K-Dur 20 Meq Er Tab) 40 meq PO Q2H REMBERTO Stop: 07/25/18 10:31 Rifaximin (Xifaxan) 550 mg PO BID [facility]; Protocol Last Admin: 07/24/18 18:23 Dose: 550 mg Thiamine HCl (Vitamin B1 Tab) 100 mg PO BID [facility] Last Admin: 07/24/18 18:22 Dose: 100 mg - Labs Labs: 07/25/18 05:53 07/25/18 05:51 PT 17.8 SECONDS (9.7-12.2) H 07/23/18 06:54 INR 1.6 07/23/18 06:54 APTT 62 SECONDS (21-34) H 07/23/18 06:54 Attending/Attestation - Attestation I have personally seen and examined this patient.: Yes I have fully participated in the care of the patient.: Yes I have reviewed all pertinent clinical information, including history, physical exam and plan: Yes Notes (Text): 07/25/18 08:27 I have seen and examined patient with GI fellow. He is seen resting in bed comfortably. No acute events overnight, he is having multiple bowel movements with use of lactulose, was able to tolerate PO diet without difficulty. He is oriented to person/place, not to time. He denies abdominal pain, nausea, vomiting, fever/chills. Review of vitals from today are normal. Decompensated HCV cirrhosis HCC HTN Opiate dependance, on methadone AMS - Low sodium diet as tolerated - Continue with lactulose therapy for HE prevention, titrate so patient has 2-3 bowel movements daily - Follow up neurology recommendations - No further planned GI interventions at this time, patient will require further outpatient follow up with oncology team at [facility] [place] Will sign off case, please reconsult as necessary, thank you.
[2018-07-25] MEDS ORDERED: Magnesium Sulfate 1 gm in D5W 1 GM/100 ML BAG IVPB ONE (08:26)
[2018-07-25] MEDS: Potassium Chloride 20 mEq ER Tab PO SCH ×2 (08:29→10:41)
[2018-07-25] MEDS: Enoxaparin 40 mg Syringe SC SCH (10:42)
--- NOTE | 2018-07-25 11:02 | VASCLAB ---
Date of service: 07/24/2018 PROCEDURE: Lower Extremity Venous Duplex Exam. HISTORY: Bilateral peripheral edema PRIORS: None. TECHNIQUE: Bilateral common femoral, femoral, popliteal and posterior tibial, peroneal and great saphenous veins were evaluated. Flow was assessed with color Doppler, compressibility, assessment of phasic flow and augmentation response. Report prepared by Lalo Sahu, BS, RVT FINDINGS: RIGHT: 1. Common Femoral Vein: 1.1. Compressibility - Fully compressible: Thrombus - None : Flow - Phasic: Augmentation -Normal: Reflux - None. 2. Femoral Vein: 2.1. Compressibility - Fully compressible: Thrombus - None : Flow - Phasic: Augmentation -Normal: Reflux - None. 3. Popliteal Vein: 3.1. Compressibility - Fully compressible: Thrombus - None : Flow - Phasic: Augmentation -Normal: Reflux - None. 4. Posterior Tibial Vein: 4.1. Compressibility - Fully compressible: Thrombus - None: Flow - Phasic: Augmentation -Normal: Reflux - None. 5. Peroneal Vein: 5.1. Compressibility - Fully compressible: Thrombus - None: Flow - Phasic: Augmentation -Normal: Reflux - None. 6. Great Saphenous Vein: 6.1. Compressibility - Fully compressible: Thrombus - None: Flow - Phasic: Augmentation - Normal: Reflux - None. LEFT: 1. Common Femoral Vein: 1.1. Compressibility - Fully compressible: Thrombus - None: Flow - Phasic: Augmentation -Normal: Reflux - None. 2. Femoral Vein: 2.1. Compressibility - Fully compressible: Thrombus - None: Flow - Phasic: Augmentation -Normal: Reflux - None. 3. Popliteal Vein: 3.1. Compressibility - Fully compressible: Thrombus - None : Flow - Phasic: Augmentation -Normal: Reflux - None. 4. Posterior Tibial Vein: 4.1. Compressibility - : Thrombus - : Flow - : Augmentation -: Reflux - . 5. Peroneal Vein: 5.1. Compressibility - : Thrombus - : Flow - : Augmentation -: Reflux - . 6. Great Saphenous Vein: 6.1. Compressibility - Fully compressible: Thrombus - None: Flow - Phasic: Augmentation - Normal: Reflux - None. OTHER FINDINGS: Right: None significant. Left: Due to bandage on lower leg, the left peroneal and posterior tibial vein were not visualized. IMPRESSION: Right: No evidence of deep or superficial vein thrombosis of the right lower extremity. Normal valve function noted of the right side. Left: No evidence of deep or superficial vein thrombosis of the left lower extremity. Normal valve function noted of the left side.
[2018-07-25] MEDS ORDERED: Potassium Chloride 20 mEq/15 ml LIQ UD PO ONE (12:08)
--- NOTE | 2018-07-25 12:08 | RAD ---
Date of service: 07/25/2018 HISTORY: intubated/PNA COMPARISON: No prior. FINDINGS: LUNGS: No active pulmonary disease. PLEURA: No significant pleural effusion identified, no pneumothorax apparent. 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 Atherosclerotic calcifications identified primarily aortic arch. No acute cardiovascular findings. OSSEOUS STRUCTURES: No significant abnormalities. VISUALIZED UPPER ABDOMEN: Normal. OTHER FINDINGS: Removal of support apparatus since the prior study: Endotracheal tube and nasogastric tube. IMPRESSION: No active disease.
--- NOTE | 2018-07-25 13:29 | CP.PCM.PN ---
Subjective - Date & Time of Evaluation Date of Evaluation: 07/25/18 Time of Evaluation: 13:26 - Subjective Subjective: Neurology Progress Note for Dr. Watts Patient seen and examined at bedside. Patient is sitting up in chair, awake and alert. Family not present at bedside, but patient asked if family would be coming. Patient denies headache, dizziness, lightheadedness, weakness, vision changes or hearing changes, chest pain, abdominal pain, nausea, vomiting. Objective - Vital Signs/Intake and Output Vital Signs (last 24 hours): Temp Pulse Resp BP Pulse Ox 98.7 F 92 H 14 131/64 95 07/25/18 04:00 07/25/18 07:03 07/25/18 07:03 07/25/18 07:03 07/25/18 05:00 Intake and Output: 07/25/18 07/25/18 06:59 18:59 Intake Total 1200 Output Total 2 Balance 1198 - Medications Medications: Current Medications Enoxaparin Sodium (Lovenox) 40 mg SC DAILY [facility] Last Admin: 07/25/18 10:42 Dose: 40 mg Folic Acid (Folic Acid) 1 mg PO DAILY [facility] Last Admin: 07/25/18 10:41 Dose: 1 mg Furosemide (Lasix) 20 mg IVP BID [facility] Last Admin: 07/25/18 11:27 Dose: Not Given Lactulose (Enulose) 20 gm PO BID [facility] Last Admin: 07/25/18 10:42 Dose: Not Given Pantoprazole Sodium (Protonix Susp) 40 mg PO 0600 [facility] Last Admin: 07/25/18 06:37 Dose: 40 mg Pneumococcal Polyvalent Vaccine (Pneumovax 23 Vaccine) 0.5 ml IM .ONCE ONE Stop: 07/26/18 10:01 Rifaximin (Xifaxan) 550 mg PO BID [facility]; Protocol Last Admin: 07/25/18 10:42 Dose: 550 mg Thiamine HCl (Vitamin B1 Tab) 100 mg PO BID [facility] Last Admin: 07/25/18 10:41 Dose: 100 mg - Labs Labs: 07/25/18 05:53 07/25/18 05:51 PT 17.8 SECONDS (9.7-12.2) H 07/23/18 06:54 INR 1.6 07/23/18 06:54 APTT 62 SECONDS (21-34) H 07/23/18 06:54 - Constitutional Appears: No Acute Distress - Head Exam Head Exam: ATRAUMATIC, NORMOCEPHALIC - Eye Exam Eye Exam: EOMI, PERRL, Scleral icterus Additional comments: Left eye strabismus - ENT Exam ENT Exam: Mucous Membranes Dry - Neck Exam Neck Exam: Full ROM - Respiratory Exam Respiratory Exam: NORMAL BREATHING PATTERN - Cardiovascular Exam Cardiovascular Exam: REGULAR RHYTHM, +S1, +S2 - GI/Abdominal Exam GI & Abdominal Exam: Soft, Normal Bowel Sounds - Neurological Exam Neurological Exam: Alert, Awake, CN II-XII Intact, Oriented x3 Additional comments: Strength 5/5 of upper and lower extremities Sensation equal in upper and lower extremities Able to complete finger to nose. Able to lift legs and arms - Skin Additional comments: Jaundice with icteric sclera Assessment and Plan - Assessment and Plan (Free Text) Assessment: 62 year old male with encephalopathy with low likelihood of stroke. Plan: Altered mental status, improving likely secondary to hepatic encephalopathy MRI brain without contrast no sign of acute infarct. Cerebral atrophy and chronic small vessel ischemic disease. Limited exam due to motion artifact. CT head Age-appropriate cerebral and cerebellar atrophy. Mild chronic microvasc ular ischemic change. No evidence of acute intracranial hemorrhage. CTA head and neck: Normal CT Angiography of the neck. Continue to monitor mental status Case discussed with Dr. Mac Fairbanks, PGY1
--- NOTE | 2018-07-25 15:58 | MRI ---
Date of service: 07/24/2018 PROCEDURE: MRI BRAIN WITHOUT CONTRAST HISTORY: Confusion COMPARISON: Comparison made with prior CT scan brain 07/23/2018... TECHNIQUE: Multiplanar, multisequence MR images of the brain were obtained without intravenous contrast enhancement. FINDINGS: Study is limited by motion artifact HEMORRHAGE: No acute parenchymal, subarachnoid or extra-axial hemorrhage. No evidence of hemosiderin deposition is identified on gradient echo weighted sequence. DWI: No evidence of an acute or early subacute infarction seen on diffusion imaging.. BRAIN PARENCHYMA: Moderate diffuse/confluent chronic periventricular white matter ischemic changes seen extending peripherally into the deep and subcortical white matter both cerebral hemispheres. Multiple more discrete chronic appearing infarcts also seen scattered about the deep and subcortical white matter. None of these changes exhibit restricted diffusion. Moderate generalized volume loss. VENTRICLES: No obstructive hydrocephalus CRANIUM: Unremarkable. ORBITS: Changes of bilateral cataract surgery again noted. PARANASAL SINUSES/MASTOIDS: Clear VASCULAR SYSTEM: The visualized major vascular flow voids at skull base patent. OTHER FINDINGS: None. IMPRESSION: Limited motion degraded study. No evidence of acute intracranial hemorrhage or infarct. Moderate chronic white matter ischemic changes as detailed above.. Moderate generalized volume loss.
--- NOTE | 2018-07-25 16:12 | CP.PCM.PN ---
Subjective - Date & Time of Evaluation Date of Evaluation: 07/25/18 Time of Evaluation: 11:40 - Subjective Subjective: Medicine progress note ( Dr. Barber's service) Patient was seen and examined at bedside, s/p extubation. Patient states that he is doing well and has no complaints. Patient states that he does not recall why he was at the hospital and denies any recent use of opioid use. Patient had several BM and tolerating diet. Objective - Vital Signs/Intake and Output Vital Signs (last 24 hours): Temp Pulse Resp BP Pulse Ox 98.0 F 105 H 20 136/77 89 L 07/25/18 12:00 07/25/18 14:00 07/25/18 14:00 07/25/18 13:03 07/25/18 13:03 Intake and Output: 07/25/18 07/25/18 06:59 18:59 Intake Total 1200 1100 Output Total 2 200 Balance 1198 900 - Medications Medications: Current Medications Enoxaparin Sodium (Lovenox) 40 mg SC DAILY [facility] Last Admin: 07/25/18 10:42 Dose: 40 mg Folic Acid (Folic Acid) 1 mg PO DAILY [facility] Last Admin: 07/25/18 10:41 Dose: 1 mg Furosemide (Lasix) 20 mg IVP BID [facility] Last Admin: 07/25/18 11:27 Dose: Not Given Lactulose (Enulose) 20 gm PO BID [facility] Last Admin: 07/25/18 10:42 Dose: Not Given Pantoprazole Sodium (Protonix Susp) 40 mg PO 0600 [facility] Last Admin: 07/25/18 06:37 Dose: 40 mg Pneumococcal Polyvalent Vaccine (Pneumovax 23 Vaccine) 0.5 ml IM .ONCE ONE Stop: 07/26/18 10:01 Rifaximin (Xifaxan) 550 mg PO BID [facility]; Protocol Last Admin: 07/25/18 10:42 Dose: 550 mg Thiamine HCl (Vitamin B1 Tab) 100 mg PO BID [facility] Last Admin: 07/25/18 10:41 Dose: 100 mg - Labs Labs: 07/25/18 05:53 07/25/18 05:51 PT 17.8 SECONDS (9.7-12.2) H 07/23/18 06:54 INR 1.6 07/23/18 06:54 APTT 62 SECONDS (21-34) H 07/23/18 06:54 - Constitutional Appears: No Acute Distress - Head Exam Head Exam: ATRAUMATIC - Eye Exam Eye Exam: EOMI - ENT Exam ENT Exam: Mucous Membranes Moist - Respiratory Exam Respiratory Exam: NORMAL BREATHING PATTERN - Cardiovascular Exam Cardiovascular Exam: REGULAR RHYTHM, +S1, +S2 - GI/Abdominal Exam GI & Abdominal Exam: Soft, Normal Bowel Sounds. absent: Firm, Guarding, Rigid, Tenderness - Extremities Exam Extremities Exam: Pedal Edema Additional comments: Improved pedal edema (Right LE) - Neurological Exam Neurological Exam: Alert, Awake, Oriented x3 - Psychiatric Exam Psychiatric exam: Normal Affect - Skin Skin Exam: Normal Color Assessment and Plan (1) Opioid overdose Assessment & Plan: UDS on admission: * Opiates screen: Positive * Methadone screen: Positive Given 2 doses of Narcan but patient was agitated and respiratory distressed, therefore, he was intubated. Propofol Drip, titrable (discsontinued) Fentanyl drip, titratable (discontinued) Patient extubated Patient denies any use of opioid use prior to admission - Folic acid 1mg PO dose - Thiamine 100mg PO BID Status: Acute (2) Hepatic encephalopathy Assessment & Plan: Ammonia: 79 Lactulose 20gm PO TID Rifaximin 550mg PO BID Continue to monitor ammonia level with labs Status: Acute (3) Liver cirrhosis Assessment & Plan: Decompensated GI consult: Dr. Tejeda---> Help appreciated * F/u recommendation Possible secondary to HEP C Labs: Total Bilirubin:5.1 AST/ALT: 211/35 Alkaline Phosphate:205 Hep C Antibody x2 (2015): Reactive; Hep C Viral RNA: Pending Hep C Ab: 33.4 Hep B panel: negative (2016); repeat Hepatitis B panel and HIV: NEGATIVE Alpha fetoprotein: >5200.00 CEA: 3.9 Abdomen/Pelvis CT with IV contrast (10/2017): Liver: Enlarged nodular cirrhotic liver. Periportal edema. There is a focal liver hypodensity that cannot be further characterized on the current examination. Gallbladder and bile ducts: Cholecystectomy. Pancreas: Unremarkable. No mass. No ductal dilation. Spleen: Unremarkable. No splenomegaly. Adrenals: Unremarkable. No mass. Kidneys and ureters: There are 2 right distal ureteral stone. Prostate calcification. Status: Acute (4) Peripheral edema Assessment & Plan: Possibly 2/2 to cirrhosis Lasix 20mg IV BID switched to 20mg IV daily (07/25/17) Venous doppler: Negative Echocardiogram: Normal LV sytolic Function. Borderline Dilated LA. Trace MR and diastolic dysfunction Status: Acute (5) Altered mental status Assessment & Plan: HEAD CT w/o Contrast: Age-appropriate cerebral and cerebellar atrophy. Mild chronic microvascular ischemic change. No evidence of acute intracranial hemorrhage. HEAD/NECK CTA: Normal CT Angiography of the neck. Status: Acute (6) Prophylactic measure Assessment & Plan: GI: Protonix 40mg PO daily DVT: Lovenox 40mg SC daily All plans and managment discussed with Dr. Barber Status: Acute
[2018-07-26 06:21] LABS: BASO # 0.1 K/uL (0.0-0.2); BASO % 0.6 % (0.0-2.0); EOS # 0.3 K/uL (0.0-0.7); HEMOGLOBIN 11.4 g/dL (12.0-18.0); LYMPH # 2.5 K/uL (1.0-4.3); LYMPH % 16.4 % (20.0-40.0); MEAN CELL VOLUME 104.8 fL (80.0-94.0); MEAN CORPUSCULAR HGB CONC 32.4 g/dL (33.0-37.0); MEAN PLATELET VOLUME 7.3 fL (7.2-11.7); MONO # 1.4 K/uL (0.0-0.8); NEUT # 11.1 K/uL (1.8-7.0); NRBC % 0.1 % (0.0-2.0); RBC 3.35 Mil/uL (4.40-5.90); WHITE BLOOD COUNT 15.4 K/uL (4.8-10.8)
[2018-07-26 06:36] LABS: ALB/GLOB RATIO 0.5 (1.0-2.1); ALBUMIN 2.7 g/dL (3.5-5.0); ALT/SGPT 62 U/L (21-72); AST/SGOT 198 U/L (17-59); BLOOD UREA NITROGEN 22 mg/dL (9-20); CALCIUM 7.9 mg/dl (8.6-10.4); GFR NON-AFRICAN AMERICAN > 60
--- NOTE | 2018-07-26 07:14 | CP.PCM.PN ---
Subjective - Date & Time of Evaluation Date of Evaluation: 07/26/18 Time of Evaluation: 11:01 - Subjective Subjective: PGY2 Medicine Note for Dr. Barber's service Patient seen and examined this morning at bedside. No acute events over night. Patient is resting comfortably in bed eating breakfast. He does not remember the last time he used heroin or methadone and does not know how much he normally takes. He states that he is currently living in a fpc but later reported that he lives with his sister. Patient has no complaints at this time. Objective - Vital Signs/Intake and Output Vital Signs (last 24 hours): Temp Pulse Resp BP Pulse Ox 97.2 F L 86 20 115/65 95 07/26/18 04:00 07/26/18 04:00 07/26/18 04:00 07/26/18 04:00 07/26/18 04:00 Intake and Output: 07/26/18 07/26/18 06:59 18:59 Intake Total 480 Output Total 250 Balance 230 - Medications Medications: Current Medications Enoxaparin Sodium (Lovenox) 40 mg SC DAILY [facility] Last Admin: 07/25/18 10:42 Dose: 40 mg Folic Acid (Folic Acid) 1 mg PO DAILY [facility] Last Admin: 07/25/18 10:41 Dose: 1 mg Furosemide (Lasix) 20 mg IVP DAILY [facility] Lactulose (Enulose) 20 gm PO BID [facility] Last Admin: 07/25/18 17:44 Dose: Not Given Pantoprazole Sodium (Protonix Susp) 40 mg PO 0600 [facility] Rifaximin (Xifaxan) 550 mg PO BID [facility]; Protocol Last Admin: 07/25/18 17:42 Dose: 550 mg Thiamine HCl (Vitamin B1 Tab) 100 mg PO BID [facility] Last Admin: 07/25/18 17:42 Dose: 100 mg - Labs Labs: 07/26/18 06:09 07/26/18 06:00 PT 17.8 SECONDS (9.7-12.2) H 07/23/18 06:54 INR 1.6 07/23/18 06:54 APTT 62 SECONDS (21-34) H 07/23/18 06:54 - Constitutional Appears: Non-toxic, No Acute Distress - Head Exam Head Exam: ATRAUMATIC, NORMOCEPHALIC - Eye Exam Additional comments: Amblyopia - ENT Exam ENT Exam: Mucous Membranes Moist - Respiratory Exam Respiratory Exam: Rales (bases b/l), NORMAL BREATHING PATTERN. absent: Accessory Muscle Use, Wheezes, Respiratory Distress - Cardiovascular Exam Cardiovascular Exam: REGULAR RHYTHM, +S1, +S2 - GI/Abdominal Exam GI & Abdominal Exam: Soft. absent: Distended, Firm, Guarding, Rigid, Tenderness - Extremities Exam Extremities Exam: Pedal Edema (2+ pitting). absent: Calf Tenderness - Neurological Exam Neurological Exam: Alert, Awake - Psychiatric Exam Psychiatric exam: Normal Affect, Normal Mood - Skin Skin Exam: Dry, Warm Assessment and Plan - Assessment and Plan (Free Text) Plan: Opioid overdose UDS on admission: * Opiates screen: Positive * Methadone screen: Positive Given 2 doses of Narcan but patient was agitated and respiratory distressed, therefore, he was intubated. Patient extubated on 07/24/18. Patient remember how much heroin or methadone he uses or the last time that he used. - Folic acid 1mg PO dose - Thiamine 100mg PO BID Hepatic encephalopathy Ammonia: 50 Lactulose 20gm PO TID Rifaximin 550mg PO BID Continue to monitor ammonia level with labs Decompensated Hepatitis C Liver cirrhosis GI consult: Dr. Tejeda---> Help appreciated * continue lactulose therapy for HE prevention, titrate so patient has 2-3 bowel movements daily * patient will require further outpatient follow up with oncology team at [facility] – [place], [place] * No further planned GI interventions at this time Possible secondary to HEP C Labs: Leukocytosis - afebrile Total Bilirubin:4.9 AST/ALT: 198/62 Alkaline Phosphate:205 Hep C Antibody x2 (2015): Reactive; Hep C Viral RNA: Pending Hep C Ab: 33.4 Hep B panel: negative (2016); repeat Hepatitis B panel and HIV: NEGATIVE Alpha fetoprotein: >5200.00 CEA: 3.9 Abdomen/Pelvis CT with IV contrast (10/2017): Liver: Enlarged nodular cirrhotic liver. Periportal edema. There is a focal liver hypodensity that cannot be further characterized on the current examination. Gallbladder and bile ducts: Cholecystectomy. Pancreas: Unremarkable. No mass. No ductal dilation. Spleen: Unremarkable. No splenomegaly. Adrenals: Unremarkable. No mass. Kidneys and ureters: There are 2 right distal ureteral stone. Prostate calcification. Peripheral edema Possibly 2/2 to cirrhosis Lasix 20mg IV BID switched to 20mg IV daily (07/25/17) Venous doppler: Negative Echocardiogram: Normal LV sytolic Function. Borderline Dilated LA. Trace MR and diastolic dysfunction Altered mental status resolved HEAD CT w/o Contrast: Age-appropriate cerebral and cerebellar atrophy. Mild chronic microvascular ischemic change. No evidence of acute intracranial hemorrhage. HEAD/NECK CTA: Normal CT Angiography of the neck. Prophylactic measure GI: Protonix 40mg PO daily DVT: Lovenox 40mg SC daily DISPO: Patient does not remember where he is currently living, possibly at a fpc or his sister's house. His sister is Koki but he does not remember her phone number. Attempted to call the phone number in the EMR, Dannie Mckinney , but there was no answer. All plans and managment discussed with Dr. Elisabeth Castaneda Allen PGY2
[2018-07-26] MEDS: Enoxaparin 40 mg Syringe SC SCH (09:10)
[2018-07-26] MEDS: Pantoprazole 20 mg EC Tab PO SCH (09:22)
[2018-07-26] MEDS ORDERED: Pneumococcal 23-Valent Vaccine IM ONE (10:00)
[2018-07-26] MEDS ORDERED: Influenza Vaccine 60 mcg/0.5 mL SYR (4YR UP) IM ONE (10:00)
[2018-07-26] MEDS ORDERED: Pantoprazole 40 mg Susp UD PO SCH (10:00)
--- NOTE | 2018-07-26 12:24 | CP.PCM.PN ---
<Eric Fairbanks - Last Filed: 07/26/18 16:04> Subjective - Date & Time of Evaluation Date of Evaluation: 07/26/18 Time of Evaluation: 11:30 - Subjective Subjective: Neurology Progress Note for Dr. Duran Patient seen and examined at bedside. Patient is sitting up in chair. Patient is able to state month, day, and year. He has no complaints. He denies headache, dizziness, lightheadedness, numbness, tingling. Objective - Vital Signs/Intake and Output Vital Signs (last 24 hours): Temp Pulse Resp BP Pulse Ox 98.3 F 90 20 138/70 100 07/26/18 08:00 07/26/18 08:00 07/26/18 08:00 07/26/18 09:10 07/26/18 08:00 Intake and Output: 07/26/18 07/26/18 06:59 18:59 Intake Total 480 Output Total 250 Balance 230 - Medications Medications: Current Medications Enoxaparin Sodium (Lovenox) 40 mg SC DAILY [facility] Last Admin: 07/26/18 09:10 Dose: 40 mg Folic Acid (Folic Acid) 1 mg PO DAILY [facility] Last Admin: 07/26/18 09:10 Dose: 1 mg Furosemide (Lasix) 20 mg IVP DAILY [facility] Last Admin: 07/26/18 09:10 Dose: 20 mg Lactulose (Enulose) 20 gm PO BID [facility] Last Admin: 07/26/18 09:10 Dose: 20 gm Pantoprazole Sodium (Protonix Ec Tab) 20 mg PO DAILY [facility] Last Admin: 07/26/18 09:22 Dose: 20 mg Rifaximin (Xifaxan) 550 mg PO BID [facility]; Protocol Last Admin: 07/26/18 09:10 Dose: 550 mg Thiamine HCl (Vitamin B1 Tab) 100 mg PO BID [facility] Last Admin: 07/26/18 09:31 Dose: 100 mg - Labs Labs: 07/26/18 06:09 07/26/18 06:00 PT 17.8 SECONDS (9.7-12.2) H 07/23/18 06:54 INR 1.6 07/23/18 06:54 APTT 62 SECONDS (21-34) H 07/23/18 06:54 - Constitutional Appears: No Acute Distress - Head Exam Head Exam: ATRAUMATIC, NORMOCEPHALIC - Eye Exam Eye Exam: EOMI, PERRL, Scleral icterus. absent: Nystagmus Additional comments: Left eye strabismus - ENT Exam ENT Exam: Mucous Membranes Dry - Respiratory Exam Respiratory Exam: NORMAL BREATHING PATTERN - Cardiovascular Exam Cardiovascular Exam: REGULAR RHYTHM, +S1, +S2 - GI/Abdominal Exam GI & Abdominal Exam: Soft, Normal Bowel Sounds - Neurological Exam Neurological Exam: Alert, Awake, CN II-XII Intact, Oriented x3 Additional comments: Strength 5/5 of upper and lower extremities Sensation equal in upper and lower extremities Able to complete finger to nose. May lift legs and arms bilaterally - Skin Skin Exam: Dry, Intact, Warm Assessment and Plan - Assessment and Plan (Free Text) Plan: 62 year old male with toxic metabolic encephalopathy Probable underlying vascular dementia MRI brain without contrast no sign of acute infarct. Cerebral atrophy and chronic small vessel ischemic disease. Limited exam due to motion artifact. CT head Age-appropriate cerebral and cerebellar atrophy. Mild chronic microvascular ischemic change. No evidence of acute intracranial hemorrhage. CTA head and neck: Normal CT Angiography of the neck. No acute findings on imaging. Reconsult if necessary, signing off at this time Case discussed with Dr. Renee Fairbanks, PGY1 <Aleksandr Duran - Last Filed: 08/07/18 14:53> Objective - Vital Signs/Intake and Output Vital Signs (last 24 hours): Temp Pulse Resp BP Pulse Ox 97.8 F 88 20 139/89 100 08/07/18 07:00 08/07/18 07:43 08/07/18 07:00 08/07/18 10:47 08/07/18 07:00 - Medications Medications: Current Medications Folic Acid (Folic Acid) 1 mg PO DAILY [facility] Last Admin: 08/07/18 10:49 Dose: 1 mg Furosemide (Lasix) 20 mg IVP DAILY [facility] Last Admin: 08/07/18 10:47 Dose: 20 mg Lactobacillus Acidophilus (Lactobacillus) 1 cap PO BID [facility] Last Admin: 08/07/18 10:54 Dose: 1 cap Lactulose (Enulose) 20 gm PO BID [facility] Last Admin: 08/07/18 10:48 Dose: 20 gm Pantoprazole Sodium (Protonix Ec Tab) 20 mg PO DAILY [facility] Last Admin: 08/07/18 10:49 Dose: 20 mg Thiamine HCl (Vitamin B1 Tab) 100 mg PO BID [facility] Last Admin: 08/07/18 10:48 Dose: 100 mg - Labs Labs: 08/04/18 14:06 08/04/18 14:06 PT 17.8 SECONDS (9.7-12.2) H 07/23/18 06:54 INR 1.6 07/23/18 06:54 APTT 62 SECONDS (21-34) H 07/23/18 06:54 Attending/Attestation - Attestation I have personally seen and examined this patient.: Yes I have fully participated in the care of the patient.: Yes I have reviewed all pertinent clinical information, including history, physical exam and plan: Yes Notes (Text): I agree with the assessment and plan. Likely an element of vascular dementia with toxic metabolic encephalopathy. Outpatient follow-up is recommended.
--- NOTE | 2018-07-26 22:45 | CARD ---
APPROVED REPORT Date of service: 07/23/2018 EKG Measurement Heart [id number] AR [id number] <Conclusion> Normal sinus rhythm Nonspecific T wave abnormality Abnormal ECG
--- NOTE | 2018-07-26 22:46 | CARD ---
APPROVED REPORT Date of service: 07/23/2018 EKG Measurement Heart [id number] CT [id number] <Conclusion> Normal sinus rhythm Possible Left atrial enlargement Borderline ECG
[2018-07-27 06:21] LABS: BASO # 0.1 K/uL (0.0-0.2); BASO % 0.8 % (0.0-2.0); EOS # 0.4 K/uL (0.0-0.7); EOS % 2.5 % (0.0-4.0); HEMOGLOBIN 11.5 g/dL (12.0-18.0); LYMPH # 2.6 K/uL (1.0-4.3); LYMPH % 18.7 % (20.0-40.0); MEAN CELL VOLUME 104.9 fL (80.0-94.0); MEAN CORPUSCULAR HEMOGLOBIN 35.4 pg (27.0-31.0); MEAN CORPUSCULAR HGB CONC 33.7 g/dL (33.0-37.0); MEAN PLATELET VOLUME 7.4 fL (7.2-11.7); MONO # 1.6 K/uL (0.0-0.8); MONO % 11.5 % (0.0-10.0); NEUT # 9.3 K/uL (1.8-7.0); NEUT % 66.5 % (50.0-75.0); NRBC % 0.3 % (0.0-2.0); RBC 3.24 Mil/uL (4.40-5.90); RED CELL DISTRIBUTION WIDTH 16.4 % (11.5-14.5)
[2018-07-27 06:35] LABS: ALB/GLOB RATIO 0.5 (1.0-2.1); ALBUMIN 2.5 g/dL (3.5-5.0); ALT/SGPT 65 U/L (21-72); AST/SGOT 172 U/L (17-59); BLOOD UREA NITROGEN 18 mg/dL (9-20); CALCIUM 7.7 mg/dl (8.6-10.4); GFR NON-AFRICAN AMERICAN > 60
[2018-07-27] MEDS ORDERED: Albumin Human 25% (12.5 gm/50 ml) IV ONE ×2 (08:56→10:30)
[2018-07-27] MEDS: Pantoprazole 20 mg EC Tab PO SCH (10:31)
[2018-07-27] MEDS: Enoxaparin 40 mg Syringe SC SCH (10:31)
--- NOTE | 2018-07-27 15:38 | CP.PCM.PN ---
Subjective - Date & Time of Evaluation Date of Evaluation: 07/27/18 Time of Evaluation: 08:25 - Subjective Subjective: Medicine progress note ( Dr. Barber's service) Patient was seen and examined at bedside, while in a recliner having lunch. Patient states that he is doing well and has no complaints. Patient continues to have several BM and tolerating diet. Objective - Vital Signs/Intake and Output Vital Signs (last 24 hours): Temp Pulse Resp BP Pulse Ox 97.9 F 83 22 138/72 96 07/27/18 11:34 07/27/18 11:34 07/27/18 11:34 07/27/18 11:34 07/27/18 11:34 Intake and Output: 07/27/18 07/27/18 06:59 18:59 Intake Total 350 290 Output Total 400 Balance -50 290 - Medications Medications: Current Medications Enoxaparin Sodium (Lovenox) 40 mg SC DAILY [facility] Last Admin: 07/27/18 10:31 Dose: 40 mg Folic Acid (Folic Acid) 1 mg PO DAILY [facility] Last Admin: 07/27/18 10:31 Dose: 1 mg Furosemide (Lasix) 20 mg IVP DAILY [facility] Last Admin: 07/27/18 10:30 Dose: 20 mg Lactulose (Enulose) 20 gm PO BID [facility] Last Admin: 07/27/18 10:31 Dose: Not Given Pantoprazole Sodium (Protonix Ec Tab) 20 mg PO DAILY [facility] Last Admin: 07/27/18 10:31 Dose: 20 mg Rifaximin (Xifaxan) 550 mg PO BID [facility]; Protocol Last Admin: 07/27/18 10:30 Dose: 550 mg Thiamine HCl (Vitamin B1 Tab) 100 mg PO BID [facility] Last Admin: 07/27/18 10:31 Dose: 100 mg - Labs Labs: 07/27/18 06:11 07/27/18 06:11 PT 17.8 SECONDS (9.7-12.2) H 07/23/18 06:54 INR 1.6 07/23/18 06:54 APTT 62 SECONDS (21-34) H 07/23/18 06:54 - Constitutional Appears: No Acute Distress - Head Exam Head Exam: ATRAUMATIC - Eye Exam Eye Exam: EOMI - ENT Exam ENT Exam: Mucous Membranes Moist - Respiratory Exam Respiratory Exam: Clear to Ausculation Bilateral, NORMAL BREATHING PATTERN. absent: Prolonged Expiratory Phase, Rhonchi, Wheezes, Respiratory Distress - Cardiovascular Exam Cardiovascular Exam: REGULAR RHYTHM, +S1, +S2. absent: Tachycardia - GI/Abdominal Exam GI & Abdominal Exam: Soft, Normal Bowel Sounds. absent: Distended, Firm, Guarding, Rigid, Tenderness - Extremities Exam Extremities Exam: absent: Calf Tenderness Additional comments: Improved pedal edema (Right LE) - Neurological Exam Neurological Exam: Alert, Awake, Oriented x3 - Psychiatric Exam Psychiatric exam: Normal Affect - Skin Skin Exam: Normal Color Assessment and Plan (1) Opioid overdose Assessment & Plan: UDS on admission: * Opiates screen: Positive * Methadone screen: Positive Given 2 doses of Narcan but patient was agitated and respiratory distressed, therefore, he was intubated. Patient extubated on 07/24/18. Patient remember how much heroin or methadone he uses or the last time that he used. - Folic acid 1mg PO dose - Thiamine 100mg PO BID Status: Acute (2) Hepatic encephalopathy Assessment & Plan: Ammonia: 50. downtrending from admission Lactulose 20gm PO TID Rifaximin 550mg PO BID Status: Acute (3) Decompensation of cirrhosis of liver Assessment & Plan: consult: Dr. Tejeda---> Help appreciated * continue lactulose therapy for HE prevention, titrate so patient has 2-3 bowel movements daily * patient will require further outpatient follow up with oncology team at [facility] [place] * No further planned GI interventions at this time Possible secondary to HEP C Labs: Leukocytosis - afebrile Total Bilirubin:4.9 AST/ALT: 198/62 Alkaline Phosphate:205 Hep C Antibody x2 (2016): Reactive; Hep C Viral RNA: Pending Hep C Ab: 33.4 Hep B panel: negative (2016); repeat Hepatitis B panel and HIV: NEGATIVE Alpha fetoprotein: >5200.00 CEA: 3.9 Abdomen/Pelvis CT with IV contrast (10/2017): Liver: Enlarged nodular cirrhotic liver. Periportal edema. There is a focal liver hypodensity that cannot be further characterized on the current examination. Gallbladder and bile ducts: Cholecystectomy. Pancreas: Unremarkable. No mass. No ductal dilation. Spleen: Unremarkable. No splenomegaly. Adrenals: Unremarkable. No mass. Kidneys and ureters: There are 2 right distal ureteral stone. Prostate calcification. Status: Acute (4) Peripheral edema Assessment & Plan: Possibly 2/2 to cirrhosis Lasix 20mg IV BID switched to 20mg IV daily (07/25/17) Venous doppler: Negative Echocardiogram: Normal LV sytolic Function. Borderline Dilated LA. Trace MR and diastolic dysfunction Status: Acute (5) Altered mental status Assessment & Plan: Resolved HEAD CT w/o Contrast: Age-appropriate cerebral and cerebellar atrophy. Mild chronic microvascular ischemic change. No evidence of acute intracranial hemorrhage. HEAD/NECK CTA: Normal CT Angiography of the neck. Status: Acute (6) Prophylactic measure Assessment & Plan: GI: Protonix 40mg PO daily DVT: Lovenox 40mg SC daily DISPO: Patient states that he lives with his sister. As per nursing staff, NephewDannie called and will be visiting later. We have a discussion with nephew when he arrives. All plans and managment discussed with Dr. Barber Status: Acute
[2018-07-28 06:49] LABS: ALB/GLOB RATIO 0.5 (1.0-2.1); ALBUMIN 2.3 g/dL (3.5-5.0); ALT/SGPT 56 U/L (21-72); AST/SGOT 152 U/L (17-59); BLOOD UREA NITROGEN 18 mg/dL (9-20); CALCIUM 7.8 mg/dl (8.6-10.4); GFR NON-AFRICAN AMERICAN > 60
[2018-07-28 07:03] LABS: BASO # 0.1 K/uL (0.0-0.2); EOS # 0.3 K/uL (0.0-0.7); EOS % 2.4 % (0.0-4.0); HEMOGLOBIN 10.9 g/dL (12.0-18.0); LYMPH # 2.3 K/uL (1.0-4.3); LYMPH % 21.1 % (20.0-40.0); MEAN CELL VOLUME 108.1 fL (80.0-94.0); MEAN CORPUSCULAR HEMOGLOBIN 35.7 pg (27.0-31.0); MEAN CORPUSCULAR HGB CONC 33.1 g/dL (33.0-37.0); MEAN PLATELET VOLUME 8.2 fL (7.2-11.7); MONO # 1.5 K/uL (0.0-0.8); MONO % 13.5 % (0.0-10.0); NEUT # 6.9 K/uL (1.8-7.0); NRBC % 0.5 % (0.0-2.0); RBC 3.04 Mil/uL (4.40-5.90); RED CELL DISTRIBUTION WIDTH 16.4 % (11.5-14.5); WHITE BLOOD COUNT 11.1 K/uL (4.8-10.8)
--- NOTE | 2018-07-28 09:13 | CP.PCM.PN ---
Subjective - Date & Time of Evaluation Date of Evaluation: 07/28/18 Time of Evaluation: 09:11 - Subjective Subjective: PGY2 Medicine Note for Dr. Barber Patient seen and examined this morning at bedside. No acute events overnight. Patient is feeling well, sitting up in a chair at bedside. He states this morning that he lives with his sister. He does not have her phone number but is expecting his nephew to stop by at some point today. Patient has no complaints at this time. Objective - Vital Signs/Intake and Output Vital Signs (last 24 hours): Temp Pulse Resp BP Pulse Ox 97.8 F 80 16 120/59 L 97 07/28/18 08:00 07/28/18 08:00 07/28/18 08:00 07/28/18 08:00 07/28/18 08:00 Intake and Output: 07/28/18 07/28/18 06:59 18:59 Intake Total 650 Output Total 400 Balance 250 - Medications Medications: Current Medications Enoxaparin Sodium (Lovenox) 40 mg SC DAILY [facility] Last Admin: 07/27/18 10:31 Dose: 40 mg Folic Acid (Folic Acid) 1 mg PO DAILY [facility] Last Admin: 07/27/18 10:31 Dose: 1 mg Furosemide (Lasix) 20 mg IVP DAILY [facility] Last Admin: 07/27/18 10:30 Dose: 20 mg Lactulose (Enulose) 20 gm PO BID [facility] Last Admin: 07/27/18 17:57 Dose: Not Given Pantoprazole Sodium (Protonix Ec Tab) 20 mg PO DAILY [facility] Last Admin: 07/27/18 10:31 Dose: 20 mg Rifaximin (Xifaxan) 550 mg PO BID [facility]; Protocol Last Admin: 07/27/18 17:58 Dose: 550 mg Thiamine HCl (Vitamin B1 Tab) 100 mg PO BID [facility] Last Admin: 07/27/18 17:58 Dose: 100 mg - Labs Labs: 07/28/18 06:26 07/28/18 06:24 PT 17.8 SECONDS (9.7-12.2) H 07/23/18 06:54 INR 1.6 07/23/18 06:54 APTT 62 SECONDS (21-34) H 07/23/18 06:54 - Constitutional Appears: No Acute Distress - Head Exam Head Exam: ATRAUMATIC, NORMOCEPHALIC - Eye Exam Additional comments: Amblyopia - ENT Exam ENT Exam: Mucous Membranes Moist - Neck Exam Neck Exam: absent: Lymphadenopathy, Tenderness - Respiratory Exam Respiratory Exam: Clear to Ausculation Bilateral, NORMAL BREATHING PATTERN. absent: Accessory Muscle Use, Rales, Rhonchi, Wheezes, Respiratory Distress - Cardiovascular Exam Cardiovascular Exam: REGULAR RHYTHM, +S1, +S2 - GI/Abdominal Exam GI & Abdominal Exam: Soft. absent: Distended, Firm, Guarding, Rigid, Tenderness - Extremities Exam Extremities Exam: Pedal Edema (right LE - improving)). absent: Calf Tenderness - Neurological Exam Neurological Exam: Alert, Awake, Oriented x3 - Psychiatric Exam Psychiatric exam: Normal Affect, Normal Mood - Skin Skin Exam: Dry, Warm Assessment and Plan - Assessment and Plan (Free Text) Plan: Opioid overdose UDS on admission: * Opiates screen: Positive * Methadone screen: Positive Given 2 doses of Narcan but patient was agitated and respiratory distressed, therefore, he was intubated. Patient extubated on 07/24/18. Patient remember how much heroin or methadone he uses or the last time that he used. - Folic acid 1mg PO dose - Thiamine 100mg PO BID Hepatic encephalopathy Ammonia: 50 Lactulose 20gm PO TID Rifaximin 550mg PO BID Continue to monitor ammonia level with labs Decompensated Hepatitis C Liver cirrhosis GI consult: Dr. Tejeda---> Help appreciated * continue lactulose therapy for HE prevention, titrate so patient has 2-3 bowel movements daily * patient will require further outpatient follow up with oncology team at [facility] [place] * No further planned GI interventions at this time Possible secondary to HEP C Labs: Leukocytosis - afebrile Total Bilirubin:4.9 AST/ALT: 198/62 Alkaline Phosphate:205 Hep C Antibody x2 (2016): Reactive; Hep C Viral RNA: Pending Hep C Ab: 33.4 Hep B panel: negative (2016); repeat Hepatitis B panel and HIV: NEGATIVE Alpha fetoprotein: >5200.00 CEA: 3.9 Abdomen/Pelvis CT with IV contrast (10/2017): Liver: Enlarged nodular cirrhotic liver. Periportal edema. There is a focal liver hypodensity that cannot be further characterized on the current examination. Gallbladder and bile ducts: Cholecystectomy. Pancreas: Unremarkable. No mass. No ductal dilation. Spleen: Unremarkable. No splenomegaly. Adrenals: Unremarkable. No mass. Kidneys and ureters: There are 2 right distal ureteral stone. Prostate calcification. Peripheral edema Possibly 2/2 to cirrhosis Lasix 20mg IV BID switched to 20mg IV daily (07/25/17) Venous doppler: Negative Echocardiogram: Normal LV sytolic Function. Borderline Dilated LA. Trace MR and diastolic dysfunction Altered mental status resolved HEAD CT w/o Contrast: Age-appropriate cerebral and cerebellar atrophy. Mild chronic microvascular ischemic change. No evidence of acute intracranial hemorrhage. HEAD/NECK CTA: Normal CT Angiography of the neck. Prophylactic measure GI: Protonix 40mg PO daily DVT: Lovenox 40mg SC daily PT DISPO: Patient states today that he lives with his sister, Koki. Per note, Koki's phone number is [phone]. She had reported to that the patient has become difficult to care for at home. He had recently started chemo and she is unsure if she will be able to care for him at home. Will need to discuss discharge options with the patient's sister as patient is unable to go to [facility] until there is a termite treater helper plan in place. Spoke with nursing staff, Elle, to notify Dr. Villa when Koki stops by today to help coordinate discharge planning. All plans and managment discussed with Dr. Elisabeth Villa PGY2
[2018-07-28] MEDS: Pantoprazole 20 mg EC Tab PO SCH (09:37)
[2018-07-28] MEDS: Enoxaparin 40 mg Syringe SC SCH (09:37)
[2018-07-29] MEDS: Enoxaparin 40 mg Syringe SC SCH (09:52)
[2018-07-29] MEDS: Pantoprazole 20 mg EC Tab PO SCH (09:53)
[2018-07-30] MEDS: Pantoprazole 20 mg EC Tab PO SCH (09:58)
[2018-07-30] MEDS: Enoxaparin 40 mg Syringe SC SCH (09:58)
[2018-07-31] MEDS ORDERED: Albuterol-Ipratrop 3 mg / 0.5 (3 ml) UD INH STA ×2 (01:24→06:46)
--- NOTE | 2018-07-31 07:00 | PCM.RRT ---
QUANTITATIVE DEVELOPER Nurses Assessment - Situation Date: 07/31/18 Time QUANTITATIVE DEVELOPER was called: 06:33 QUANTITATIVE DEVELOPER Responder Arrival Time:: 06:35 QUANTITATIVE DEVELOPER Location:: 3T Med/Oncology QUANTITATIVE DEVELOPER Reason for Call: O2 Saturation below 90% QUANTITATIVE DEVELOPER Called By: RN - IV IV Inserted during QUANTITATIVE DEVELOPER?: No - Respiratory QUANTITATIVE DEVELOPER Delivery Method: BiPAP @%, Non Rebreather @% Received Nebulizer Treatments: Yes Was the Patient Intubated?: No - Ventilator Settings Mode: biPAP FIO2 (% Oxygen): 60 (IPAP: 12, EPAP 6) - Diagnostic Test Ordered EKG: Yes Chest X-Ray: Yes - Stat Labs Ordered QUANTITATIVE DEVELOPER Stat Labs Ordered: CBC, TROPONIN QUANTITATIVE DEVELOPER Other Labs Ordered: cmp, mag, phos, d dimer - Az Coma Scale Coma Scale Eye Opening: Spontaneous Coma Scale Verbal: Oriented - Recommendations 5) QUANTITATIVE DEVELOPER Level of Care Recommendations: Transfer to Telemetry I.Reason for QUANTITATIVE DEVELOPER - A) Acute Change in Patient: (Select all that apply): Acute change in SpO2 less (88) - Neurological Status (Select all that apply): Alert, Responsive - Respiratory Oxygen Delivery Method: BiPAP @% (50%) - Constitutional Appears: Non-toxic, In Acute Distress - Head Head Exam: ATRAUMATIC, NORMAL INSPECTION, NORMOCEPHALIC - Eyes Additional Comments: amblyopia - Respiratory Exam Respiratory Exam: Accessory Muscle Use, Wheezes - Cardiovascular Exam Cardiovascular Exam: Tachycardia, +S1, +S2 - GI/Abdominal Exam GI & Abdominal Exam: Distended, Soft. absent: Guarding, Tenderness - Neurological Exam Neurological Exam: Alert, Awake, Oriented x3 - Extremities Exam Extremities Exam: Pedal Edema (LLE). absent: Calf Tenderness Plan - Assessment of Findings&Treatment Plan QUANTITATIVE DEVELOPER called by nurse for shortness of breath. Patient's O2 saturation dropped to 88% on nasal cannula. Initial vital sign: 148/84, P 116, O2: 88% Patient says he is not feeling well and "everything" is hurting him. Patient placed on non rebreather. Patient given a breathing treatment. Patient still having shortness of breath so placed on BiPAP 12, 6, 60% 02 cxray: no active disease ekg: Sinus tach at 113 with occasional PVCs CBC, CMP, D-Dimer, and USMAN ordered Lasix 20mg ivp ordered Patient's oxygen saturation increasing. Patient says his breathing is a little better. Vital signs at the end of rapid: BP 154/89, P: 115, O2: 94%
[2018-07-31 07:05] LABS: EOS # 0.1 K/uL (0.0-0.7); HEMOGLOBIN 12.3 g/dL (12.0-18.0); RED CELL DISTRIBUTION WIDTH 16.6 % (11.5-14.5); WHITE BLOOD COUNT 14.1 K/uL (4.8-10.8)
[2018-07-31 07:11] LABS: BASO # 0.2 K/uL (0.0-0.2); BASO % 1.2 % (0.0-2.0); LYMPH # 1.9 K/uL (1.0-4.3); LYMPH % 13.8 % (20.0-40.0); MEAN CELL VOLUME 106.8 fL (80.0-94.0); MEAN CORPUSCULAR HEMOGLOBIN 35.9 pg (27.0-31.0); MEAN CORPUSCULAR HGB CONC 33.6 g/dL (33.0-37.0); MEAN PLATELET VOLUME 7.3 fL (7.2-11.7); MONO # 1.3 K/uL (0.0-0.8); MONO % 9.3 % (0.0-10.0); NEUT # 10.5 K/uL (1.8-7.0); NEUT % 74.7 % (50.0-75.0); NRBC % 0.5 % (0.0-2.0); RBC 3.43 Mil/uL (4.40-5.90)
[2018-07-31 07:29] LABS: CK-MB 1.29 ng/mL (0.0-3.38)
[2018-07-31 07:44] LABS: ALB/GLOB RATIO 0.5 (1.0-2.1); ALBUMIN 2.8 g/dL (3.5-5.0); ALT/SGPT 98 U/L (21-72); AST/SGOT 205 U/L (17-59); BLOOD UREA NITROGEN 23 mg/dL (9-20); CALCIUM 8.2 mg/dl (8.6-10.4); GFR NON-AFRICAN AMERICAN > 60
[2018-07-31] MEDS ORDERED: Iodixanol 320 MG/ML 100 ML BOTTLE IV ONE (08:39)
[2018-07-31 09:02] LABS: ABG ALLEN TEST POS; ARTERIAL BLOOD GAS HCO3 24.7 mmol/L (21-28); ARTERIAL BLOOD GAS O2 SAT 100.2 % (95-98); ARTERIAL BLOOD GAS PCO2 30 mm/Hg (35-45); ARTERIAL BLOOD GAS PH 7.48 (7.35-7.45); ARTERIAL BLOOD GAS PO2 98 mm/Hg (80-100); ARTERIAL BLOOD GAS TCO2 23.2 mmol/L (22-28)
--- NOTE | 2018-07-31 09:14 | CT ---
Date of service: 07/31/2018 PROCEDURE: CT Chest with contrast (Pulmonary Angiogram) HISTORY: SOB, elevated d-dimer COMPARISON: Not available TECHNIQUE: Axial computed tomography images were obtained of the chest in the pulmonary arterial phase of enhancement. Coronal and sagittal reformatted images were created and reviewed. Intravenous contrast dose: 100 mL Visipaque 320 Radiation dose: Total exam DLP = 432.89 mGy-cm. This CT exam was performed using one or more of the following dose reduction techniques: Automated exposure control, adjustment of the mA and/or kV according to patient size, and/or use of iterative reconstruction technique. FINDINGS: PULMONARY ARTERIES: Evaluation limited due to suboptimal timing relative to bolus contrast enhancement of main pulmonary artery. Limited evaluation of segmental/subsegmental pulmonary artery branches. No large central pulmonary embolism. Lobar vessels are unremarkable. Cannot exclude pulmonary embolism segmental/subsegmental vessels although no cameron filling defect is identified. AORTA: No acute findings. No thoracic aortic aneurysm. There is atherosclerotic calcification of the thoracic aorta. LUNGS: Mild centrilobular pulmonary emphysema. Left lower lobe subsegmental/compressive atelectasis secondary to left pleural effusion multifocal ill-defined opacities predominantly in right lower lobe but also in right upper lobe anterior and posterior segments. Possible multifocal pneumonia. 6 mm nodule in right lower lobe, series 4, image 78. Recommend follow-up noncontrast chest CT in 6-12 months as per Fleischner society criteria.. Please note that there are mucous secretions seen in the trachea and right mainstem bronchus without occlusion. PLEURAL SPACES: Small left pleural effusion. No right pleural effusion. No pneumothorax. HEART: Unremarkable. No cardiomegaly. No significant pericardial effusion. LYMPH NODES: No lymphadenopathy. BONES, CHEST WALL: Unremarkable. No fracture or destructive lesion OTHER FINDINGS: Extensive ascites. Hepatic cirrhosis. Cholecystectomy. Enlarged rounded spleen unchanged from 11/09/2017, essentially, accounting for differences in technique of measurement. Large irregular soft tissue mass only partially included in left upper quadrant of abdomen. Concerning for neoplastic process such as colonic neoplasm. Further evaluation with contrast-enhanced CT examination of the abdomen pelvis is advised. Retroperitoneal lymphadenopathy. Large coarse calcification in right lobe of liver, likely granulomatous. IMPRESSION: No evidence of pulmonary embolism. Examination limited technically for evaluation of segmental/subsegmental pulmonary artery branch emboli. Multifocal infiltrates right lower and upper lobes. Possible multifocal pneumonia. Small left pleural effusion. Left lower lobe compressive atelectasis. 6 mm right lower lobe pulmonary nodule. See above for recommendations. Ascites. Cirrhosis. Cholecystectomy. Atypical appearance of spleen. Left upper quadrant ill-defined soft tissue mass partially included on examination. Further evaluation with contrast-enhanced CT examination is advised. Centrilobular pulmonary emphysema. Mucous secretions are seen in the central tracheobronchial tree without occlusion. Retroperitoneal lymphadenopathy.
--- NOTE | 2018-07-31 09:14 | RAD ---
Chest x-ray single frontal view HISTORY: Shortness of breath. COMPARISON: 07/25/2018 Findings: Biapical pleural thickening with upper granulomatous changes. Mild venous congestion. Patchy increased markings at the left base. Enlarged ectatic aorta cardiomegaly. Degenerative changes in the spine. Deformity of the right proximal humerus. Impression: Biapical pleural thickening with upper granulomatous changes. Mild venous congestion. Patchy increased markings at the left base. Enlarged ectatic aorta cardiomegaly. Degenerative changes in the spine. Deformity of the right proximal humerus.
--- NOTE | 2018-07-31 09:16 | CP.PCM.PN ---
Subjective - Date & Time of Evaluation Date of Evaluation: 07/31/18 Time of Evaluation: 09:09 - Subjective Subjective: PGY2 Medicine Note for Dr. Barber Patient was a rapid response this morning due to acute onset of shortness of breath and desaturation to 88%. Patient needed to be placed on BiPAP. He had an elevated D-dimer for which he had a CTA of the chest done. No PE but was found to have multifocal pneumonia. Patient was called a Code Sepsis and transferred to . Patient is breathing comfortably on BiPAP stating he is feeling much better. Denies fevers, chills, nausea, vomiting, diarrhea, constipation, cough or abdominal pain. Objective - Vital Signs/Intake and Output Vital Signs (last 24 hours): Temp Pulse Resp BP Pulse Ox 98.6 F 97 H 25 H 136/83 91 L 07/31/18 08:35 07/31/18 08:36 07/31/18 08:35 07/31/18 08:35 07/31/18 08:35 Intake and Output: 07/31/18 07/31/18 06:59 18:59 Intake Total 400 Balance 400 - Medications Medications: Current Medications Enoxaparin Sodium (Lovenox) 40 mg SC DAILY [facility] Folic Acid (Folic Acid) 1 mg PO DAILY [facility] Last Admin: 07/30/18 09:58 Dose: 1 mg Furosemide (Lasix) 20 mg IVP DAILY [facility] Last Admin: 07/30/18 09:59 Dose: 20 mg Lactulose (Enulose) 20 gm PO BID [facility] Last Admin: 07/30/18 17:03 Dose: 20 gm Pantoprazole Sodium (Protonix Ec Tab) 20 mg PO DAILY [facility] Last Admin: 07/30/18 09:58 Dose: 20 mg Rifaximin (Xifaxan) 550 mg PO BID [facility]; Protocol Last Admin: 07/30/18 17:04 Dose: 550 mg Thiamine HCl (Vitamin B1 Tab) 100 mg PO BID [facility] Last Admin: 07/30/18 17:04 Dose: 100 mg - Labs Labs: 07/31/18 07:03 07/31/18 07:03 PT 17.8 SECONDS (9.7-12.2) H 07/23/18 06:54 INR 1.6 07/23/18 06:54 APTT 62 SECONDS (21-34) H 07/23/18 06:54 - Constitutional Appears: Cachectic, Chronically Ill - Head Exam Head Exam: ATRAUMATIC, NORMOCEPHALIC - Eye Exam Additional comments: Amblyopia - ENT Exam ENT Exam: Mucous Membranes Moist - Neck Exam Neck Exam: absent: Lymphadenopathy, Tenderness - Respiratory Exam Respiratory Exam: Accessory Muscle Use, Rales (b/l throughout), Respiratory Distress (improved with BiPAP). absent: Rhonchi, Wheezes - Cardiovascular Exam Cardiovascular Exam: Tachycardia, +S1, +S2 - GI/Abdominal Exam GI & Abdominal Exam: Soft. absent: Distended, Firm, Guarding, Rigid, Tenderness Additional comments: previous surgical scars - Extremities Exam Extremities Exam: absent: Calf Tenderness, Pedal Edema - Neurological Exam Neurological Exam: Alert, Awake Additional comments: lethargic - Psychiatric Exam Additional comments: lethargic - Skin Skin Exam: Dry, Warm Additional comments: abrasion on left thorne Assessment and Plan - Assessment and Plan (Free Text) Plan: Sepsis Multi-focal Pneumonia - HCAP ID consulted, Dr. Glynn CLOTHES SEPARATOR called on 07/31/18 for shortness of breath and desaturation. Code Sepsis called 07/31/18 Transferred to Tele EKG: Sinus tach at 113 with occasional PVCs CXR: no active disease Chest CTA: * No evidence of pulmonary embolism. Examination limited technically for evaluation of segmental/subsegmental pulmonary artery branch emboli. * Multifocal infiltrates right lower and upper lobes. Possible multifocal pneumonia. * Small left pleural effusion. * Left lower lobe compressive atelectasis. * 6 mm right lower lobe pulmonary nodule. See above for recommendations. * Ascites. Cirrhosis. Cholecystectomy. Atypical appearance of spleen. Left upper quadrant ill-defined soft tissue mass partially included on examination. Further evaluation with contrast-enhanced CT examination is advised. * Centrilobular pulmonary emphysema. Mucous secretions are seen in the central tracheobronchial tree without occlusion. Retroperitoneal lymphadenopathy. Patient will need contrast-enhanced CT for further evaluation of LUQ soft tissue mass. afebrile Leukocytosis 14.1 ABG shock (07/31/18): pH 7.48, pCO2 30, pO2 98, HCO3 24.7, Lactate 3.1 * f/u Code Sepsis Lactate Blood culture: pending Placed on BiPAP 06/01 Medications: * Azithromycin 500mg IVPB daily (started on 07/31/18) * Vancomycin 1gm IVPB q12h (started on 07/31/18) * Vanco Trough ordered for 08/01 @11pm * Zosyn 3.375gm IVPB q6h (started on 07/31/18) Opioid overdose UDS on admission: * Opiates screen: Positive * Methadone screen: Positive Given 2 doses of Narcan but patient was agitated and respiratory distressed, therefore, he was intubated. Patient extubated on 07/24/18. Patient remember how much heroin or methadone he uses or the last time that he used. - Folic acid 1mg PO dose - Thiamine 100mg PO BID Hepatic encephalopathy Ammonia: 162 --> increased from 50 on 07/26/18 Lactulose 20gm PO BID --> increased to TID Rifaximin 550mg PO BID Continue to monitor ammonia level with labs Decompensated Hepatitis C Liver cirrhosis GI consult: Dr. Tejeda---> Help appreciated * continue lactulose therapy for HE prevention, titrate so patient has 2-3 bowel movements daily * patient will require further outpatient follow [place] [facility] [place] No further planned GI interventions at this time Possible secondary to HEP C Labs: Leukocytosis - afebrile Total Bilirubin:4.9 AST/ALT: 198/62 Alkaline Phosphate:205 Hep C Antibody x2 (2016): Reactive; Hep C Viral RNA: Pending Hep C Ab: 33.4 Hep B panel: negative (2016); repeat Hepatitis B panel and HIV: NEGATIVE Alpha fetoprotein: >5200.00 CEA: 3.9 Abdomen/Pelvis CT with IV contrast (10/2017): Liver: Enlarged nodular cirrhotic liver. Periportal edema. There is a focal liver hypodensity that cannot be further characterized on the current examination. Gallbladder and bile ducts: Cholecystectomy. Pancreas: Unremarkable. No mass. No ductal dilation. Spleen: Unremarkable. No splenomegaly. Adrenals: Unremarkable. No mass. Kidneys and ureters: There are 2 right distal ureteral stone. Prostate calcification. Peripheral edema Possibly 2/2 to cirrhosis Lasix 20mg IV daily (07/25/17) -->on hold due to sepsis Venous doppler: Negative Echocardiogram: Normal LV sytolic Function. Borderline Dilated LA. Trace MR and diastolic dysfunction Altered mental status resolved HEAD CT w/o Contrast: Age-appropriate cerebral and cerebellar atrophy. Mild chronic microvascular ischemic change. No evidence of acute intracranial hemorrhage. HEAD/NECK CTA: Normal CT Angiography of the neck. Prophylactic measure GI: Protonix 40mg PO daily DVT: Lovenox 40mg SC daily PT All plans and managment discussed with Dr. Elisabeth Castaneda Allen PGY2
[2018-07-31] MEDS: Sodium Chloride 0.9% 1,000 ML IV SCH ×2 (09:45→21:43)
--- NOTE | 2018-07-31 09:57 | PCM.SEPTIC ---
Sepsis Progress Note - Reassessment Type Date of Evaluation: 07/31/18 Time of Evaluation: 09:40 Reassessment Type: Non-invasive reassessment - Non Invasive Reassessment Were the most recent vital sign reviewed: Yes Vital Sign (Latest): Temp Pulse Resp BP Pulse Ox 98.6 F 97 H 25 H 136/83 91 L 07/31/18 08:35 07/31/18 08:36 07/31/18 08:35 07/31/18 08:35 07/31/18 08:35 Cardiovascular: Yes: Regular Rate, Rhythm Respiratory: Yes: Rales (b/l), Other (on bipap). No: Accessory Muscle Use Capillary Refill: Normal (Less than 2 sec) Pulses: Normal Radial, Normal Dorsalis Pedis, Normal Posterior Tibialis Skin: Dry
[2018-07-31] MEDS ORDERED: Sodium Chloride 0.9% 1,000 ML IV ONE ×2 (10:16→12:45)
[2018-07-31] MEDS: Pantoprazole 20 mg EC Tab PO SCH (10:52)
[2018-07-31] MEDS: Piperacillin/Tazobact 3.375 GM in Sodium Chloride 100 ML IVPB SCH ×3 (10:52→21:44)
[2018-07-31] MEDS ORDERED: Azithromycin 500 MG in Sodium Chloride 0.9% 250 ML IVPB SCH (11:00)
[2018-07-31] MEDS: Enoxaparin 40 mg Syringe SC SCH (11:03)
--- NOTE | 2018-07-31 14:29 | PCM.SEPTIC ---
Sepsis Progress Note - Reassessment Type Date of Evaluation: 07/31/18 Time of Evaluation: 14:29 Reassessment Type: Non-invasive reassessment - Non Invasive Reassessment Were the most recent vital sign reviewed: Yes Vital Sign (Latest): Temp Pulse Resp BP Pulse Ox 98.6 F 97 H 25 H 136/83 91 L 07/31/18 08:35 07/31/18 08:36 07/31/18 08:35 07/31/18 08:35 07/31/18 08:35 Cardiovascular: Yes: Regular Rate, Rhythm Respiratory: Yes: Decreased Breath Sounds, Rales Capillary Refill: Normal (Less than 2 sec) Pulses: Normal Radial, Normal Dorsalis Pedis, Normal Posterior Tibialis Skin: Warm (rechecked vitals myself: Temp 97.7 oral, BP 144/74, HR 88, O2 sat 99% on BiPAP)
--- NOTE | 2018-07-31 15:19 | CP.PCM.CON ---
History of Present Illness - History of Present Illness History of Present Illness: DICTATED Past Patient History - Infectious Disease Hx of Infectious Diseases: None - Past Medical History & Family History Past Medical History?: Yes - Past Social History Smoking Status: Former Smoker - CARDIAC Hx Hypertension: Yes - PULMONARY Hx Chronic Obstructive Pulmonary Disease (COPD): Yes - HEENT Hx HEENT Problems: No - RENAL Hx Chronic Kidney Disease: No - HEMATOLOGICAL/ONCOLOGICAL Hx Anemia: Yes - INTEGUMENTARY Hx Dermatological Problems: No - MUSCULOSKELETAL/RHEUMATOLOGICAL Hx Fractures: Yes (rt shoulder ribs) - GASTROINTESTINAL Hx Gall Bladder Disease: Yes - PSYCHIATRIC Hx Anxiety: Yes Hx Depression: Yes 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) - SURGICAL HISTORY Hx Cholecystectomy: Yes - ANESTHESIA Hx Anesthesia: Yes Hx Anesthesia Reactions: No Hx Malignant Hyperthermia: No Meds Allergies/Adverse Reactions: Allergies Allergy/AdvReac Type Severity Reaction Status Date / Time ibuprofen [From Advil] Allergy ANAPHYLAXIS Verified 11/14/17 08:23 - Medications Medications: Current Medications Enoxaparin Sodium (Lovenox) 40 mg SC DAILY [facility] Last Admin: 07/31/18 11:03 Dose: 40 mg Folic Acid (Folic Acid) 1 mg PO DAILY [facility] Last Admin: 07/31/18 10:45 Dose: 1 mg Furosemide (Lasix) 20 mg IVP DAILY [facility] Last Admin: 07/31/18 10:00 Dose: Not Given Piperacillin Sod/Tazobactam (Sod 3.375 gm/ Sodium Chloride) 100 mls @ 200 mls/hr IVPB Q6H [facility]; Protocol Last Admin: 07/31/18 10:52 Dose: 200 mls/hr Azithromycin 500 mg/ Sodium (Chloride) 250 mls @ 250 mls/hr IVPB Q12H [facility]; Protocol Last Admin: 07/31/18 12:43 Dose: 250 mls/hr Vancomycin HCl 1,000 mg/ (Sodium Chloride) 250 mls @ 166.6 mls/hr IVPB Q12H [facility] ; Protocol Last Admin: 07/31/18 13:46 Dose: 166.6 mls/hr Sodium Chloride (Sodium Chloride 0.9%) 1,000 mls @ 100 mls/hr IV .Q10H [facility] Last Admin: 07/31/18 09:45 Dose: 100 mls/hr Lactulose (Enulose) 20 gm PO TID [facility] Last Admin: 07/31/18 13:53 Dose: 20 gm Pantoprazole Sodium (Protonix Ec Tab) 20 mg PO DAILY [facility] Last Admin: 07/31/18 10:52 Dose: 20 mg Rifaximin (Xifaxan) 550 mg PO BID [facility]; Protocol Last Admin: 07/31/18 11:24 Dose: 550 mg Thiamine HCl (Vitamin B1 Tab) 100 mg PO BID [facility] Last Admin: 07/31/18 10:52 Dose: 100 mg Results - Vital Signs Recent Vital Signs: Last Vital Signs Temp 98.6 F 07/31/18 08:35 Pulse 97 H 07/31/18 08:36 Resp 25 H 07/31/18 08:35 BP 136/83 07/31/18 08:35 Pulse Ox 91 L 07/31/18 08:35 - Labs Result Diagrams: 07/31/18 07:03 07/31/18 07:03 Labs: Laboratory Results - last 24 hr 07/31/18 07/31/18 07/31/18 06:38 07:02 07:03 WBC 14.1 H RBC 3.43 L Hgb 12.3 Hct 36.6 MCV 106.8 H MCH 35.9 H MCHC 33.6 RDW 16.6 H Plt Count 289 MPV 7.3 Neut % (Auto) 74.7 Lymph % (Auto) 13.8 L Craig % (Auto) 9.3 Eos % (Auto) 1.0 Baso % (Auto) 1.2 Neut # (Auto) 10.5 H Lymph # (Auto) 1.9 Craig # (Auto) 1.3 H Eos # (Auto) 0.1 Baso # (Auto) 0.2 Differential Comment D-Dimer, Quantitative 5108 H Puncture Site pCO2 pO2 HCO3 ABG pH ABG Total CO2 ABG O2 Saturation ABG Base Excess Gabriel Test ABG Potassium A-a O2 Difference Respiratory Index Glucose Lactate Vent Mode Mechanical Rate FiO2 Inspiratory BiPAP Expiratory BiPAP Sodium Potassium Chloride Carbon Dioxide Anion Gap BUN Creatinine Est GFR ( Amer) Est GFR (Non-Af Amer) POC Glucose (mg/dL) 197 H Random Glucose Lactic Acid Calcium Phosphorus Magnesium Total Bilirubin AST ALT Alkaline Phosphatase Ammonia Total Creatine Kinase CK-MB (Mass) Troponin I Total Protein Albumin Globulin Albumin/Globulin Ratio Arterial Blood Potassium 07/31/18 07/31/18 07/31/18 07:03 07:03 08:55 WBC RBC Hgb Hct MCV MCH MCHC RDW Plt Count MPV Neut % (Auto) Lymph % (Auto) Craig % (Auto) Eos % (Auto) Baso % (Auto) Neut # (Auto) Lymph # (Auto) Craig # (Auto) Eos # (Auto) Baso # (Auto) Differential Comment D-Dimer, Quantitative Puncture Site Rr pCO2 30 L pO2 98 HCO3 24.7 ABG pH 7.48 H ABG Total CO2 23.2 ABG O2 Saturation 100.2 H ABG Base Excess -0.3 Gabriel Test Pos ABG Potassium 3.5 L A-a O2 Difference 292.0 Respiratory Index 3.0 Glucose 115 H Lactate 3.1 H Vent Mode Bipap Mechanical Rate 12 FiO2 60.0 Inspiratory BiPAP 12 Expiratory BiPAP 6 Sodium 138 140.0 Potassium 3.8 Chloride 108 H 111.0 H Carbon Dioxide 23 Anion Gap 11 BUN 23 H Creatinine 0.7 L Est GFR ( Amer) > 60 Est GFR (Non-Af Amer) > 60 POC Glucose (mg/dL) Random Glucose 168 H D Lactic Acid Calcium 8.2 L Phosphorus 3.6 Magnesium 2.1 Total Bilirubin 4.1 H AST 205 H D ALT 98 H D Alkaline Phosphatase 199 H D Ammonia 162 H D Total Creatine Kinase 51 L CK-MB (Mass) 1.29 Troponin I 0.0190 Total Protein 8.0 Albumin 2.8 L D Globulin 5.2 H Albumin/Globulin Ratio 0.5 L Arterial Blood Potassium 3.5 L 07/31/18 13:31 WBC RBC Hgb Hct MCV MCH MCHC RDW Plt Count MPV Neut % (Auto) Lymph % (Auto) Craig % (Auto) Eos % (Auto) Baso % (Auto) Neut # (Auto) Lymph # (Auto) Craig # (Auto) Eos # (Auto) Baso # (Auto) Differential Comment D-Dimer, Quantitative Puncture Site pCO2 pO2 HCO3 ABG pH ABG Total CO2 ABG O2 Saturation ABG Base Excess Gabriel Test ABG Potassium A-a O2 Difference Respiratory Index Glucose Lactate Vent Mode Mechanical Rate FiO2 Inspiratory BiPAP Expiratory BiPAP Sodium Potassium Chloride Carbon Dioxide Anion Gap BUN Creatinine Est GFR ( Amer) Est GFR (Non-Af Amer) POC Glucose (mg/dL) Random Glucose Lactic Acid 3.4 H Calcium Phosphorus Magnesium Total Bilirubin AST ALT Alkaline Phosphatase Ammonia Total Creatine Kinase CK-MB (Mass) Troponin I Total Protein Albumin Globulin Albumin/Globulin Ratio Arterial Blood Potassium
[2018-07-31 16:38] LABS: ABG ALLEN TEST POS; ARTERIAL BLOOD GAS HCO3 25.3 mmol/L (21-28); ARTERIAL BLOOD GAS O2 SAT 99.3 % (95-98); ARTERIAL BLOOD GAS PCO2 30 mm/Hg (35-45); ARTERIAL BLOOD GAS PH 7.49 (7.35-7.45); ARTERIAL BLOOD GAS PO2 96 mm/Hg (80-100); ARTERIAL BLOOD GAS TCO2 23.8 mmol/L (22-28)
[2018-08-01] MEDS: Piperacillin/Tazobact 3.375 GM in Sodium Chloride 100 ML IVPB SCH ×4 (06:14→22:19)
--- NOTE | 2018-08-01 07:43 | CON ---
DATE: 07/31/2018 INFECTIOUS DISEASE CONSULT REQUESTED BY: Porfirio Leahy DO HISTORY OF PRESENT ILLNESS: This patient is a 62-year-old male. He was admitted on 07/23/2018 with altered mental status. He has history of liver cancer and COPD, and he was hypoxic. He was intubated. His nephew is at the bedside, tells me that he has some other growths in the liver now, and they were going to do some biopsy. He follows with a doctor in [facility], Dr. Pink/Jael, something he was saying, I could not follow the name. Has history of liver cirrhosis and cancer. He came in with altered mental status today. Today, they had an MANAGER ORDER, and he was moved to telemetry floor, and right now, the nurse called me that he was having high lactic acid. He is on IV fluids, and he is on a BiPAP machine at this time. His nephew is at the bedside and says his legs were swollen. 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 PAST MEDICAL HISTORY: Significant for asthma, anxiety, COPD, and depression. He has had fractures of right shoulder and ribs. He had surgery for gallbladder, and he has a scar there. History of hypertension, bilateral leg edema, pneumonia, cirrhosis of liver, possible. SOCIAL HISTORY: Negative for alcohol, but substance abuse is positive. He was still very lethargic, but he was opening his eyes and he was on a BiPAP. He was able to tell me that he is in [facility]. Other than that, I was not able to get much out of him as the nephew kept on prompting. The patient has a peripheral IV, and on other chart review also I found, he has history of tobacco abuse, chronic leg edema, depression, hepatitis C, hypertension, dyslipidemia, and he was admitted with altered mental status and was transferred to ICU after intubation. His past medical history is significant for smoking for drug abuse. Cardiac history for hypertension, peripheral edema. Pulmonary, he had had COPD, pneumonia, asthma, bronchitis, and has no chronic kidney disease, negative. Lung romano, he has had asthma, bronchitis, pneumonia, COPD. He has anemia. He has a cancer. He has dermatological problems, nothing, no rashes, but he has a left leg wound now which has a dressing and he also has a sacral wound I am told, which I could not evaluate today because of his condition as he is on BiPAP machine. Musculoskeletal, he has history of right rib fractures and gallbladder disease. He had cholecystectomy, history of anxiety, depression, and substance abuse. He has had anesthesia before throws him into anaphylaxis. MEDICATIONS: He is on Lovenox, folic acid, and he had a CT angio. He is on 20 of IV furosemide which is on hold. He is on lactulose, pantoprazole. He was started on Zosyn 3.375 every 6 hours today. He is on rifaximin 550 p.o. b.i.d. and sodium chloride, he is getting 100 mL/hour because his lactic acid was high. He is on thiamine. He is also on vancomycin 1 g every 12 hours, and he was on lactulose. PHYSICAL EXAMINATION: VITAL SIGNS: His T-max is 97.5, pulse is 88. He is afebrile. Blood pressure is 146/80, heart rate of 115. He is on BiPAP. HEENT: Head is atraumatic, normocephalic. He does have altered mental status. NECK: Supple. JVP is flat at this time. LUNGS: Clear. Decreased breath sounds bilaterally. HEART: S1, S2 are tachycardic. ABDOMEN: Soft, flabby. Has ascites and has right upper quadrant surgical scar which is stable and is old, and bowel sounds are present. EXTREMITIES: Have no edema, but he has left leg dressing at this time. Also, he has sacral decubitus. LABORATORY DATA: Labs are noted. Labs show white count is 14.1 today, hemoglobin 12.3, hematocrit 36.6, platelet count is 289. His white count is elevated, but his D-dimers were 5108. They did CT which I will report right now. His ABG is 7.49, CO2 is 23, oxygen saturation is 99.3, pCO2 is 30, and lactate level is improving, it was 3.1, and now, it is 2.5, and I will be repeating every 4-6 hours. His LFTs, total bili is 4.1. He is jaundiced. AST is 205, ALT is 98, alk phos is 199, ammonia level was 162, that may be the reason he was probably having altered mental status and they are giving vancomycin and Zosyn at this time. He does have ascites, that I would worry. Chest CT was done. Chest CT showed possible multifocal pneumonia, small left pleural effusion, left lower lobe compressive atelectasis, 6-mm right lower lobe nodule, and cholecystectomy, atypical appearance of spleen. He has left upper quadrant ill-defined soft tissue mass, partially included on examination. CT examination is advised. Centrilobular pulmonary emphysema and mucous secretion is seen in central transbronchial tree without occlusion. Retroperitoneal adenopathy. ASSESSMENT AND PLAN: So, he has a cancer of the liver, I am told and I am not sure. I would like to see the oncology note and has maybe multifocal pneumonia versus atelectasis, also has metabolic encephalopathy due to high lactate levels, and maybe severe acidosis from that. Suggest at this time to continue with vancomycin and Zosyn that has been started, and we will follow and need some records from the [facility] about his liver disease. He had been treated for cancer there, the nephew says so. At this time, he has been severely jaundiced and encephalopathic due to high ammonia level, and we have ordered urine cultures and they probably did blood cultures with the . We will follow. Rufino Glynn MD
[2018-08-01 07:48] LABS: BASO # 0.1 K/uL (0.0-0.2); BASO % 0.8 % (0.0-2.0); EOS # 0.3 K/uL (0.0-0.7); MONO # 1.5 K/uL (0.0-0.8); NEUT # 9.8 K/uL (1.8-7.0)
[2018-08-01 07:56] LABS: EOS % 2.3 % (0.0-4.0); LYMPH % 14.3 % (20.0-40.0); MEAN CELL VOLUME 106.9 fL (80.0-94.0); MEAN CORPUSCULAR HEMOGLOBIN 36.4 pg (27.0-31.0); MEAN PLATELET VOLUME 7.1 fL (7.2-11.7); MONO % 11.1 % (0.0-10.0); NEUT % 71.5 % (50.0-75.0); NRBC % 0.5 % (0.0-2.0); RBC 2.81 Mil/uL (4.40-5.90); RED CELL DISTRIBUTION WIDTH 16.9 % (11.5-14.5); WHITE BLOOD COUNT 13.7 K/uL (4.8-10.8)
[2018-08-01 08:00] LABS: HEMOGLOBIN 10.2 g/dL (12.0-18.0)
[2018-08-01 08:28] LABS: ALB/GLOB RATIO 0.5 (1.0-2.1); ALBUMIN 2.3 g/dL (3.5-5.0); ALT/SGPT 88 U/L (21-72); AST/SGOT 156 U/L (17-59); BLOOD UREA NITROGEN 22 mg/dL (9-20); CALCIUM 7.8 mg/dl (8.6-10.4); GFR NON-AFRICAN AMERICAN > 60
[2018-08-01] MEDS: Pantoprazole 20 mg EC Tab PO SCH (10:50)
[2018-08-01] MEDS: Enoxaparin 40 mg Syringe SC SCH (10:51)
--- NOTE | 2018-08-01 14:19 | CP.PCM.PN ---
Subjective - Date & Time of Evaluation Date of Evaluation: 08/01/18 Time of Evaluation: 10:50 - Subjective Subjective: Medicine progress note ( Dr. Barber's service) Patient was seen and examined at bedside, while on BiPAP. During the encounter, patient denies any discomfort at the moment. As per nursing, no acute issues overnight. Objective - Vital Signs/Intake and Output Vital Signs (last 24 hours): Temp Pulse Resp BP Pulse Ox 98.1 F 84 20 102/64 100 08/01/18 08:00 08/01/18 13:14 08/01/18 08:00 08/01/18 08:00 08/01/18 08:00 Intake and Output: 08/01/18 08/01/18 06:59 18:59 Intake Total 800 Output Total 250 200 Balance -250 600 - Medications Medications: Current Medications Enoxaparin Sodium (Lovenox) 40 mg SC DAILY [facility] Last Admin: 08/01/18 10:51 Dose: 40 mg Folic Acid (Folic Acid) 1 mg PO DAILY [facility] Last Admin: 08/01/18 10:51 Dose: 1 mg Furosemide (Lasix) 20 mg IVP DAILY [facility] Last Admin: 07/31/18 10:00 Dose: Not Given Piperacillin Sod/Tazobactam (Sod 3.375 gm/ Sodium Chloride) 100 mls @ 200 mls/hr IVPB Q6H [facility]; Protocol Last Admin: 08/01/18 06:14 Dose: 200 mls/hr Vancomycin HCl 1,000 mg/ (Sodium Chloride) 250 mls @ 166.6 mls/hr IVPB Q12H [facility]; Protocol Last Admin: 08/01/18 00:23 Dose: 166.6 mls/hr Sodium Chloride (Sodium Chloride 0.9%) 1,000 mls @ 100 mls/hr IV .Q10H [facility] Last Admin: 07/31/18 21:43 Dose: Not Given Lactulose (Enulose) 20 gm PO TID [facility] Last Admin: 08/01/18 10:51 Dose: 20 gm Pantoprazole Sodium (Protonix Ec Tab) 20 mg PO DAILY [facility] Last Admin: 08/01/18 10:50 Dose: 20 mg Rifaximin (Xifaxan) 550 mg PO BID [facility]; Protocol Last Admin: 08/01/18 10:50 Dose: 550 mg Thiamine HCl (Vitamin B1 Tab) 100 mg PO BID [facility] Last Admin: 08/01/18 10:50 Dose: 100 mg - Labs Labs: 08/01/18 07:19 08/01/18 07:19 PT 17.8 SECONDS (9.7-12.2) H 07/23/18 06:54 INR 1.6 07/23/18 06:54 APTT 62 SECONDS (21-34) H 07/23/18 06:54 - Constitutional Appears: No Acute Distress - Head Exam Head Exam: ATRAUMATIC - Eye Exam Eye Exam: EOMI - Respiratory Exam Respiratory Exam: NORMAL BREATHING PATTERN. absent: Wheezes, Respiratory Distress Additional comments: Currently on BiPAP - Cardiovascular Exam Cardiovascular Exam: REGULAR RHYTHM, +S1 - GI/Abdominal Exam GI & Abdominal Exam: Soft, Normal Bowel Sounds. absent: Guarding, Rigid, Tend erness - Extremities Exam Extremities Exam: Pedal Edema Additional comments: Improved edema (Right LE) - Neurological Exam Additional comments: Lethargic - Psychiatric Exam Psychiatric exam: Flat Affect - Skin Additional comments: abrasion on left thorne Assessment and Plan (1) Sepsis Assessment & Plan: Code sepsis 07/31/18 Possibly 07/29 to multifocal pneumonia Consultation: * ID, Dr. Glynn Imaging: CXR: no active disease Chest CTA: * No evidence of pulmonary embolism. Examination limited technically for evaluation of segmental/subsegmental pulmonary artery branch emboli. * Multifocal infiltrates right lower and upper lobes. Possible multifocal pneumonia. * Small left pleural effusion. * Left lower lobe compressive atelectasis. * 6 mm right lower lobe pulmonary nodule. See above for recommendations. * Ascites. Cirrhosis. Cholecystectomy. Atypical appearance of spleen. Left upper quadrant ill-defined soft tissue mass partially included on examination. Further evaluation with contrast-enhanced CT examination is advised. * Centrilobular pulmonary emphysema. Mucous secretions are seen in the central tracheobronchial tree without occlusion. Retroperitoneal lymphadenopathy. Patient will need contrast-enhanced CT for further evaluation of LUQ soft tissue mass. Labs/Vitals: Afebrile, with leukocytosis Pending BC, UC, Urine legionella, urine Strep Pneumonaie Ag Management: * Placed on Bipap 07/31/18 due to desaturation * Azithromycin 500mg IVPB daily (started on 07/31/18) * Vancomycin 1gm IVPB q12h (started on 07/31/18) * Vanco Trough ordered for 08/01 @11pm * Zosyn 3.375gm IVPB q6h (started on 07/31/18) * Lactobacillus 1 tab PO Q12H Status: Acute (2) Opioid overdose Assessment & Plan: UDS on admission: * Opiates screen: Positive * Methadone screen: Positive Given 2 doses of Narcan but patient was agitated and respiratory distressed, therefore, he was intubated. Patient extubated on 07/24/18. Patient remember how much heroin or methadone he uses or the last time that he used. - Folic acid 1mg PO dose - Thiamine 100mg PO BID Status: Acute (3) Hepatic encephalopathy Assessment & Plan: Ammonia: 162 --> increased from 50 on 07/26/18 Lactulose 20gm PO BID Rifaximin 550mg PO BID Continue to monitor ammonia level with labs Status: Acute (4) Decompensation of cirrhosis of liver Assessment & Plan: GI consult: Dr. Tejeda---> Help appreciated * continue lactulose therapy for HE prevention, titrate so patient has 2-3 bowel movements daily * patient will require further outpatient follow up with oncology team at [facility] * No further planned GI interventions at this time Possible secondary to HEP C Labs: Leukocytosis - afebrile Total Bilirubin:4.9 AST/ALT: 198/62 Alkaline Phosphate:205 Hep C Antibody x2 (2015): Reactive; Hep C Viral RNA: Pending Hep C Ab: 33.4 Hep B panel: negative (2016); repeat Hepatitis B panel and HIV: NEGATIVE Alpha fetoprotein: >5200.00 CEA: 3.9 Abdomen/Pelvis CT with IV contrast (10/2017): Liver: Enlarged nodular cirrhotic liver. Periportal edema. There is a focal liver hypodensity that cannot be further characterized on the current examination. Gallbladder and bile ducts: Cholecystectomy. Pancreas: Unremarkable. No mass. No ductal dilation. Spleen: Unremarkable. No splenomegaly. Adrenals: Unremarkable. No mass. Kidneys and ureters: There are 2 right distal ureteral stone. Prostate calcification. Status: Acute (5) Peripheral edema Assessment & Plan: Possibly 2/2 to cirrhosis Lasix 20mg IV daily (07/25/17) -->on hold due to sepsis Venous doppler: Negative Echocardiogram: Normal LV sytolic Function. Borderline Dilated LA. Trace MR and diastolic dysfunction Status: Acute (6) Altered mental status Assessment & Plan: HEAD CT w/o Contrast: Age-appropriate cerebral and cerebellar atrophy. Mild chronic microvascular ischemic change. No evidence of acute intracranial hemorrhage. HEAD/NECK CTA: Normal CT Angiography of the neck. Status: Acute (7) Prophylactic measure Assessment & Plan: GI: Protonix 40mg PO daily DVT: Lovenox 40mg SC daily PT All plans and managment discussed with Dr. Barber Status: Acute
[2018-08-01] MEDS: Sodium Chloride 0.9% 1,000 ML IV SCH (15:10)
[2018-08-01 15:22] LABS: SQUAMOUS EPITHIAL < 1 /hpf (0-5); URINE BACTERIA RARE (<OCC); URINE BILIRUBIN NEGATIVE (NEGATIVE); URINE BLOOD 3+ (NEGATIVE); URINE CLARITY Hazy (Clear); URINE COLOR Amber (YELLOW); URINE GLUCOSE (UA) NORMAL (Normal); URINE LEUKOCYTE ESTERASE 2+ Leu/uL (Negative); URINE PROTEIN 2+ mg/dL (NEGATIVE); URINE UROBILINOGEN NORMAL mg/dL (0.2-1.0)
[2018-08-01] MEDS: Lactobacillus Acidophilus 500 MU Cap PO SCH (17:59)
--- NOTE | 2018-08-01 21:13 | CP.PCM.PN ---
Subjective - Date & Time of Evaluation Date of Evaluation: 08/01/18 Time of Evaluation: 15:00 - Subjective Subjective: dictated Objective - Vital Signs/Intake and Output Vital Signs (last 24 hours): Temp Pulse Resp BP Pulse Ox 97.9 F 89 19 130/79 100 08/01/18 16:00 08/01/18 20:34 08/01/18 16:00 08/01/18 16:00 08/01/18 16:00 Intake and Output: 08/01/18 08/02/18 18:59 06:59 Intake Total 800 Output Total 200 Balance 600 - Medications Medications: Current Medications Enoxaparin Sodium (Lovenox) 40 mg SC DAILY [facility] Last Admin: 08/01/18 10:51 Dose: 40 mg Folic Acid (Folic Acid) 1 mg PO DAILY [facility] Last Admin: 08/01/18 10:51 Dose: 1 mg Furosemide (Lasix) 20 mg IVP DAILY [facility] Last Admin: 07/31/18 10:00 Dose: Not Given Piperacillin Sod/Tazobactam (Sod 3.375 gm/ Sodium Chloride) 100 mls @ 200 mls/hr IVPB Q6H [facility]; Protocol Last Admin: 08/01/18 16:38 Dose: 200 mls/hr Vancomycin HCl 1,000 mg/ (Sodium Chloride) 250 mls @ 166.6 mls/hr IVPB Q12H [facility]; Protocol Last Admin: 08/01/18 14:31 Dose: 166.6 mls/hr Sodium Chloride (Sodium Chloride 0.9%) 1,000 mls @ 100 mls/hr IV .Q10H [facility] Last Admin: 08/01/18 15:10 Dose: 100 mls/hr Azithromycin (Zithromax 500mg In Ns Addvantage) 500 mg in 250 mls @ 167 mls/hr IVPB Q24H [facility]; Protocol Lactobacillus Acidophilus (Bacid Acidophilus) 1 cap PO BID [facility] Last Admin: 08/01/18 17:59 Dose: 1 cap Lactulose (Enulose) 20 gm PO BID [facility] Last Admin: 08/01/18 18:00 Dose: 20 gm Pantoprazole Sodium (Protonix Ec Tab) 20 mg PO DAILY [facility] Last Admin: 08/01/18 10:50 Dose: 20 mg Rifaximin (Xifaxan) 550 mg PO BID [facility]; Protocol Last Admin: 08/01/18 17:59 Dose: 550 mg Thiamine HCl (Vitamin B1 Tab) 100 mg PO BID [facility] Last Admin: 08/01/18 17:59 Dose: 100 mg - Labs Labs: 08/01/18 07:19 08/01/18 07:19 PT 17.8 SECONDS (9.7-12.2) H 07/23/18 06:54 INR 1.6 07/23/18 06:54 APTT 62 SECONDS (21-34) H 07/23/18 06:54
--- NOTE | 2018-08-01 23:55 | PN ---
DATE: 08/01/2018 SUBJECTIVE: I went to see the patient today this afternoon. He was more alert but he was on BiPAP still. His sister was at the bedside who said he gets treated by a doctor from [employer] who is hematology-oncologist and received chemotherapy and every 2 weeks he is a post receive it, but he is here now. T-max is 97.9, pulse 86, blood pressure is 130/79, respirations are 19. The patient is not able to communicate because of the BiPAP machine, but his eyes are wide open. PHYSICAL EXAMINATION: HEENT: Head is atraumatic. NECK: Supple. LUNGS: Clear. No crackles or rales heard. Decreased breath sounds bilaterally. HEART: S1, S2, is regular. ABDOMEN: Appears with ascites and no guarding, no rigidity present, is soft. Bowel sounds present. EXTREMITIES: Have much decreased edema and there is a dressing on the left thorne of the left leg. LABORATORY DATA: Noted. Labs show white count is 13.7 today. He came in with a white count of 14.1 max yesterday. Today, hemoglobin is 10, hematocrit is 30.2, platelet count is 252. He was also getting hydration. BUN is 22, creatinine 0.7. His LFTs remain high. He has a bilirubin of 4.2. He does have issues with that. ASSESSMENT AND PLAN: Cultures, blood cultures, MRSA, urine culture, sputum culture, everything is negative at this time. His urine opiates and methadone were positive, so he probably was using both of them. He has a history of drug addiction. Chest CT they did because he was short of breath and was negative for any embolism, but it was possible multifocal pneumonia. So at this time mucous secretions are seen in the central tracheobronchial tree without occlusion. Retroperitoneal lymphadenopathy. He has a history of cirrhosis of liver. He also has atypical spleen with possible mass and also ascites which may be related to his liver cancer which I am told he has, exact information I do not have. We will continue antibiotics at this time and repeat the x-ray in few days and the patient remains with hypercapnic respiratory failure at this time. History of drug abuse, liver cancer, multifocal pneumonia. Cultures are negative. We will need to monitor labs as he remains jaundiced. Also he is on vancomycin and will need to follow the renal function. Rufino Glynn MD [facility] # [id number]
[2018-08-02] MEDS: Piperacillin/Tazobact 3.375 GM in Sodium Chloride 100 ML IVPB SCH ×4 (04:22→22:49)
[2018-08-02] MEDS: Sodium Chloride 0.9% 1,000 ML IV SCH (04:26)
[2018-08-02 08:16] LABS: BASO # 0.1 K/uL (0.0-0.2); EOS # 0.3 K/uL (0.0-0.7); HEMOGLOBIN 10.5 g/dL (12.0-18.0); MEAN CORPUSCULAR HEMOGLOBIN 36.6 pg (27.0-31.0); MEAN PLATELET VOLUME 7.1 fL (7.2-11.7); MONO # 1.4 K/uL (0.0-0.8); RED CELL DISTRIBUTION WIDTH 16.6 % (11.5-14.5)
[2018-08-02 08:22] LABS: EOS % 2.4 % (0.0-4.0); LYMPH # 1.6 K/uL (1.0-4.3); LYMPH % 13.4 % (20.0-40.0); MEAN CELL VOLUME 107.4 fL (80.0-94.0); MEAN CORPUSCULAR HGB CONC 34.1 g/dL (33.0-37.0); MONO % 11.2 % (0.0-10.0); NEUT # 8.7 K/uL (1.8-7.0); NRBC % 0.4 % (0.0-2.0); RBC 2.88 Mil/uL (4.40-5.90); WHITE BLOOD COUNT 12.2 K/uL (4.8-10.8)
[2018-08-02 08:30] LABS: ALB/GLOB RATIO 0.5 (1.0-2.1); ALBUMIN 2.1 g/dL (3.5-5.0); ALT/SGPT 79 U/L (21-72); AST/SGOT 130 U/L (17-59); BLOOD UREA NITROGEN 22 mg/dL (9-20); CALCIUM 7.6 mg/dl (8.6-10.4); GFR NON-AFRICAN AMERICAN > 60
[2018-08-02] MEDS: Lactobacillus Acidophilus 500 MU Cap PO SCH ×2 (10:14→18:40)
[2018-08-02] MEDS: Pantoprazole 20 mg EC Tab PO SCH (10:14)
[2018-08-02] MEDS: Enoxaparin 40 mg Syringe SC SCH (10:14)
[2018-08-02] MEDS ORDERED: Potassium Chloride 20 mEq ER Tab PO ONE (10:31)
--- NOTE | 2018-08-02 11:27 | CP.PCM.PN ---
Subjective - Date & Time of Evaluation Date of Evaluation: 08/02/18 Time of Evaluation: 11:14 - Subjective Subjective: PGY2 Medicine Note for Dr. Barber Patient seen and examined this morning at bedside. No acute events overnight. Patient is still wearing the BiPAP mask but states that he is breathing has improved and he feels much, much better. He is very thankful for all the help he is getting. His abdomen is much softer and denies any leg pain at this time. Objective - Vital Signs/Intake and Output Vital Signs (last 24 hours): Temp Pulse Resp BP Pulse Ox 99.0 F 86 20 127/75 99 08/02/18 07:35 08/02/18 07:49 08/02/18 07:35 08/02/18 07:35 08/02/18 07:35 Intake and Output: 08/02/18 08/02/18 06:59 18:59 Intake Total 1420 Output Total 550 Balance 870 - Medications Medications: Current Medications Enoxaparin Sodium (Lovenox) 40 mg SC DAILY [facility] Last Admin: 08/02/18 10:14 Dose: 40 mg Folic Acid (Folic Acid) 1 mg PO DAILY [facility] Last Admin: 08/02/18 10:14 Dose: 1 mg Furosemide (Lasix) 20 mg IVP DAILY [facility] Last Admin: 07/31/18 10:00 Dose: Not Given Piperacillin Sod/Tazobactam (Sod 3.375 gm/ Sodium Chloride) 100 mls @ 200 mls/hr IVPB Q6H [facility]; Protocol Last Admin: 08/02/18 10:20 Dose: 200 mls/hr Vancomycin HCl 1,000 mg/ (Sodium Chloride) 250 mls @ 166.6 mls/hr IVPB Q12H [facility]; Protocol Last Admin: 08/02/18 00:44 Dose: 166.6 mls/hr Azithromycin (Zithromax 500mg In Ns Addvantage) 500 mg in 250 mls @ 167 mls/hr IVPB Q24H [facility]; Protocol Lactobacillus Acidophilus (Bacid Acidophilus) 1 cap PO BID [facility] Last Admin: 08/02/18 10:14 Dose: 1 cap Lactulose (Enulose) 20 gm PO BID [facility] Last Admin: 08/02/18 10:13 Dose: 20 gm Pantoprazole Sodium (Protonix Ec Tab) 20 mg PO DAILY [facility] Last Admin: 08/02/18 10:14 Dose: 20 mg Rifaximin (Xifaxan) 550 mg PO BID [facility]; Protocol Last Admin: 08/02/18 10:14 Dose: 550 mg Thiamine HCl (Vitamin B1 Tab) 100 mg PO BID [facility] Last Admin: 08/02/18 10:13 Dose: 100 mg - Labs Labs: 08/02/18 08:06 08/02/18 08:06 PT 17.8 SECONDS (9.7-12.2) H 07/23/18 06:54 INR 1.6 07/23/18 06:54 APTT 62 SECONDS (21-34) H 07/23/18 06:54 - Additional Findings Additional findings: - Constitutional Appears: Cachectic, Chronically Ill - Head Exam Head Exam: ATRAUMATIC, NORMOCEPHALIC - Eye Exam Additional comments: Amblyopia - ENT Exam ENT Exam: Mucous Membranes Moist - Neck Exam Neck Exam: absent: Lymphadenopathy, Tenderness - Respiratory Exam Respiratory Exam: NORMAL BREATHING PATTERN. absent: Wheezes, Rales, Rhonchi Respiratory Distress Additional comments: Currently on BiPAP - Cardiovascular Exam Cardiovascular Exam: Tachycardia, +S1, +S2 - GI/Abdominal Exam GI & Abdominal Exam: Soft. absent: Distended, Firm, Guarding, Rigid, Tenderness Additional comments: previous surgical scars - Extremities Exam Extremities Exam: Pedal Edema Additional comments: Improved edema (Right LE), 1+ pitting edema on right - Neurological Exam Neurological Exam: Alert, Awake, Oriented x 3 - Psychiatric Exam Psychiatric exam: Flat Affect - Skin Additional comments: abrasion on left thorne Assessment and Plan - Assessment and Plan (Free Text) Plan: Sepsis Possible Multi-focal Pneumonia - HCAP ID consulted, Dr. Glynn DIGITAL PRODUCER called on 07/31/18 for shortness of breath and desaturation. Code Sepsis called 07/31/18 Transferred to [facility] EKG: Sinus tach at 113 with occasional PVCs CXR: no active disease Chest CTA: * No evidence of pulmonary embolism. Examination limited technically for evaluation of segmental/subsegmental pulmonary artery branch emboli. * Multifocal infiltrates right lower and upper lobes. Possible multifocal pneumonia. * Small left pleural effusion. * Left lower lobe compressive atelectasis. * 6 mm right lower lobe pulmonary nodule. See above for recommendations. * Ascites. Cirrhosis. Cholecystectomy. Atypical appearance of spleen. Left upper quadrant ill-defined soft tissue mass partially included on examination. Further evaluation with contrast-enhanced CT examination is advised. * Centrilobular pulmonary emphysema. Mucous secretions are seen in the central tracheobronchial tree without occlusion. Retroperitoneal lymphadenopathy. Patient will need contrast-enhanced CT for further evaluation of LUQ soft tissue mass. afebrile Leukocytosis 14.1 ABG shock (07/31/18): pH 7.48, pCO2 30, pO2 98, HCO3 24.7, Lactate 3.1 * repeat lactate 1.9 Blood culture: negative at 24 hours Placed on BiPAP 06/01 Medications: * Azithromycin 500mg IVPB daily (started on 07/31/18) * Vancomycin 1gm IVPB q12h (started on 07/31/18) * Vanco Trough ordered for 08/01 @11pm * Zosyn 3.375gm IVPB q6h (started on 07/31/18) * Discontinue fluids * dyspnea may be secondary to liver failure Opioid overdose UDS on admission: * Opiates screen: Positive * Methadone screen: Positive Given 2 doses of Narcan but patient was agitated and respiratory distressed, therefore, he was intubated. Patient extubated on 07/24/18. Patient remember how much heroin or methadone he uses or the last time that he used. - Folic acid 1mg PO dose - Thiamine 100mg PO BID Hepatic encephalopathy Ammonia: 162 --> increased from 50 on 07/26/18 Lactulose 20gm PO BID Rifaximin 550mg PO BID Continue to monitor ammonia level with labs Decompensated Hepatitis C Liver cirrhosis GI consult: Dr. Tejeda---> Help appreciated * continue lactulose therapy for HE prevention, titrate so patient has 2-3 bowel movements daily * patient will require further outpatient follow up with oncology team at [facility] * No further planned GI interventions at this time Possible secondary to HEP C Labs: Leukocytosis - afebrile Total Bilirubin:4.9 AST/ALT: 198/62 Alkaline Phosphate:205 Hep C Antibody x2 (2015): Reactive; Hep C Viral RNA: Pending Hep C Ab: 33.4 Hep B panel: negative (2015); repeat Hepatitis B panel and HIV: NEGATIVE Alpha fetoprotein: >5200.00 CEA: 3.9 Abdomen/Pelvis CT with IV contrast (10/2017): Liver: Enlarged nodular cirrhotic liver. Periportal edema. There is a focal liver hypodensity that cannot be further characterized on the current examination. Gallbladder and bile ducts: Cholecystectomy. Pancreas: Unremarkable. No mass. No ductal dilation. Spleen: Unremarkable. No splenomegaly. Adrenals: Unremarkable. No mass. Kidneys and ureters: There are 2 right distal ureteral stone. Prostate calcification. Peripheral edema Possibly 2/2 to cirrhosis Lasix 20mg IV daily (07/25/17) -->on hold due to sepsis Venous doppler: Negative Echocardiogram: Normal LV sytolic Function. Borderline Dilated LA. Trace MR and diastolic dysfunction Altered mental status resolved HEAD CT w/o Contrast: Age-appropriate cerebral and cerebellar atrophy. Mild chronic microvascular ischemic change. No evidence of acute intracranial hemorrhage. HEAD/NECK CTA: Normal CT Angiography of the neck. Prophylactic measure GI: Protonix 40mg PO daily DVT: Lovenox 40mg SC daily PT All plans and managment discussed with Dr. Elisabeth Castaneda Allen PGY2
[2018-08-02] MEDS: Azithromycin 500mg/250ML NS 500 MG/250 ML BAG IVPB SCH (13:54)
[2018-08-03] MEDS: Piperacillin/Tazobact 3.375 GM in Sodium Chloride 100 ML IVPB SCH ×3 (04:11→22:07)
[2018-08-03 06:50] LABS: BASO # 0.1 K/uL (0.0-0.2); BASO % 1.1 % (0.0-2.0); EOS # 0.2 K/uL (0.0-0.7); EOS % 1.9 % (0.0-4.0); HEMOGLOBIN 9.8 g/dL (12.0-18.0); LYMPH # 1.6 K/uL (1.0-4.3); MEAN CELL VOLUME 108.4 fL (80.0-94.0); MEAN CORPUSCULAR HEMOGLOBIN 35.9 pg (27.0-31.0); MEAN CORPUSCULAR HGB CONC 33.1 g/dL (33.0-37.0); MEAN PLATELET VOLUME 7.1 fL (7.2-11.7); MONO # 1.3 K/uL (0.0-0.8); MONO % 10.9 % (0.0-10.0); NEUT # 8.8 K/uL (1.8-7.0); NEUT % 73.1 % (50.0-75.0); NRBC % 0.5 % (0.0-2.0); RBC 2.73 Mil/uL (4.40-5.90); RED CELL DISTRIBUTION WIDTH 16.5 % (11.5-14.5); WHITE BLOOD COUNT 12.1 K/uL (4.8-10.8)
[2018-08-03 06:57] LABS: ALB/GLOB RATIO 0.5 (1.0-2.1); ALBUMIN 2.1 g/dL (3.5-5.0); ALT/SGPT 73 U/L (21-72); AST/SGOT 144 U/L (17-59); BLOOD UREA NITROGEN 25 mg/dL (9-20); CALCIUM 7.7 mg/dl (8.6-10.4); GFR NON-AFRICAN AMERICAN > 60
[2018-08-03] MEDS ORDERED: Potassium Chloride 20 mEq ER Tab PO ONE (10:01)
[2018-08-03] MEDS: Pantoprazole 20 mg EC Tab PO SCH (10:35)
[2018-08-03] MEDS: Lactobacillus Acidophilus 500 MU Cap PO SCH ×2 (10:35→17:39)
[2018-08-03] MEDS: Enoxaparin 40 mg Syringe SC SCH (10:35)
--- NOTE | 2018-08-03 10:52 | CP.PCM.PN ---
Subjective - Date & Time of Evaluation Date of Evaluation: 08/03/18 Time of Evaluation: 07:00 - Subjective Subjective: PGY2- Progress Note for Dr. Barber Patient seen and examined at bedside breathing comfortably on nasal cannula. Patient says he still gets short of breath, but feels his breathing is much better. Patient denies any headache, chest pain, abdominal pain, nausea, vomiting, constipation, or diarrhea. Objective - Vital Signs/Intake and Output Vital Signs (last 24 hours): Temp Pulse Resp BP Pulse Ox 98.9 F 76 20 122/73 96 08/03/18 07:40 08/03/18 07:40 08/03/18 07:40 08/03/18 07:40 08/03/18 07:40 Intake and Output: 08/03/18 08/03/18 06:59 18:59 Intake Total 720 Output Total 175 Balance 545 - Medications Medications: Current Medications Enoxaparin Sodium (Lovenox) 40 mg SC DAILY [facility] Last Admin: 08/03/18 10:35 Dose: 40 mg Folic Acid (Folic Acid) 1 mg PO DAILY [facility] Last Admin: 08/03/18 10:35 Dose: 1 mg Furosemide (Lasix) 20 mg IVP DAILY [facility] Last Admin: 07/31/18 10:00 Dose: Not Given Piperacillin Sod/Tazobactam (Sod 3.375 gm/ Sodium Chloride) 100 mls @ 200 mls/hr IVPB Q6H [facility]; Protocol Last Admin: 08/03/18 10:34 Dose: 200 mls/hr Vancomycin HCl 1,000 mg/ (Sodium Chloride) 250 mls @ 166.6 mls/hr IVPB Q12H [facility]; Protocol Last Admin: 08/03/18 00:27 Dose: 166.6 mls/hr Azithromycin (Zithromax 500mg In Ns Addvantage) 500 mg in 250 mls @ 167 mls/hr IVPB Q24H [facility]; Protocol Last Admin: 08/02/18 13:54 Dose: 167 mls/hr Lactobacillus Acidophilus (Lactobacillus) 1 cap PO BID [facility] Last Admin: 08/03/18 10:35 Dose: 1 cap Lactulose (Enulose) 20 gm PO BID [facility] Last Admin: 08/03/18 10:35 Dose: 20 gm Pantoprazole Sodium (Protonix Ec Tab) 20 mg PO DAILY [facility] Last Admin: 08/03/18 10:35 Dose: 20 mg Rifaximin (Xifaxan) 550 mg PO BID [facility]; Protocol Last Admin: 08/03/18 10:35 Dose: 550 mg Thiamine HCl (Vitamin B1 Tab) 100 mg PO BID [facility] Last Admin: 08/03/18 10:35 Dose: 100 mg - Labs Labs: 08/03/18 06:36 08/03/18 06:36 PT 17.8 SECONDS (9.7-12.2) H 07/23/18 06:54 INR 1.6 07/23/18 06:54 APTT 62 SECONDS (21-34) H 07/23/18 06:54 - Additional Findings Additional findings: - Additional Findings Additional findings: - Constitutional Appears: Cachectic, Chronically Ill - Head Exam Head Exam: ATRAUMATIC, NORMOCEPHALIC - Eye Exam Additional comments: Amblyopia - ENT Exam ENT Exam: Mucous Membranes Moist - Neck Exam Neck Exam: absent: Lymphadenopathy, Tenderness - Respiratory Exam Respiratory Exam: NORMAL BREATHING PATTERN, rhonchi absent: Wheezes, Rales, Respiratory Distress Additional comments: Currently on nasal cannula - Cardiovascular Exam Cardiovascular Exam: Tachycardia, +S1, +S2 - GI/Abdominal Exam GI & Abdominal Exam: Soft. absent: Distended, Firm, Guarding, Rigid, Tenderness Additional comments: previous surgical scars - Extremities Exam Extremities Exam: Pedal Edema Additional comments: 1+ LE pitting edema b/l - Neurological Exam Neurological Exam: Alert, Awake, Oriented x 3 - Psychiatric Exam Psychiatric exam: Flat Affect - Skin Additional comments: abrasion on left thorne Assessment and Plan - Assessment and Plan (Free Text) Assessment: Possible Multi-focal Pneumonia - HCAP ID consulted, Dr. Glynn VOCATIONAL COUNSELOR called on 07/31/18 for shortness of breath and desaturation- initiated BiPAP Code Sepsis called 07/31/18 Transferred to Tele EKG: Sinus tach at 113 with occasional PVCs CXR (07/31/18): biapical pleural thickening with upper granulomatous changes, mild venous congestion. patchy increased markings at the left base. enlarged ectatic aorta, cardiomegaly. degenerative changes in the spine. deformity of the right proximal humerus. Chest CTA (07/31/18): * No evidence of pulmonary embolism. Examination limited technically for evaluation of segmental/subsegmental pulmonary artery branch emboli. * Multifocal infiltrates right lower and upper lobes. Possible multifocal pneumonia. * Small left pleural effusion. * Left lower lobe compressive atelectasis. * 6 mm right lower lobe pulmonary nodule. See above for recommendations. * Ascites. Cirrhosis. Cholecystectomy. Atypical appearance of spleen. Left upper quadrant ill-defined soft tissue mass partially included on examination. Further evaluation with contrast-enhanced CT examination is advised. * Centrilobular pulmonary emphysema. Mucous secretions are seen in the central tracheobronchial tree without occlusion. Retroperitoneal lymphadenopathy. Patient will need contrast-enhanced CT for further evaluation of LUQ soft tissue mass when stable off of BiPAP afebrile Leukocytosis 14.1 ABG shock (07/31/18): pH 7.48, pCO2 30, pO2 98, HCO3 24.7, Lactate 3.1 * repeat lactate 1.9 Blood culture: negative at 48 hours Urine culture negative f/u strep pneumo and legionella Medications: * Azithromycin 500mg IVPB daily (started on 07/31/18) * Vancomycin 1gm IVPB q12h (started on 07/31/18) * Vanco Trough ordered for 08/01 @11pm * Zosyn 3.375gm IVPB q6h (started on 07/31/18) * Lactobacillus 1 cap po BID * Discontinue fluids * dyspnea may be secondary to liver failure Opioid overdose upon admission UDS on admission: * Opiates screen: Positive * Methadone screen: Positive Given 2 doses of Narcan but patient was agitated and respiratory distressed, therefore, he was intubated. Patient extubated on 07/24/18. Patient remember how much heroin or methadone he uses or the last time that he used. - Folic acid 1mg PO dose - Thiamine 100mg PO BID Hepatocellular Carcinoma was being treated outpatient with chemo infusions by staff certified nurse midwife patient will require further outpatient follow up with oncology team at [facility] [place] as per GI Heme/Onc consulted, Dr. Elder, help appreciated Abdominal u/s (07/24/18): solid hepatic mass 5.2 x 6.6 x 7cm. mass is visible in the right hepatic lobe, in retrospect was no visible on the prior study. intra- abdominal ascites, a new finding Hepatic encephalopathy f/u ammonia Lactulose 20gm PO BID Rifaximin 550mg PO BID Continue to monitor ammonia level with labs Decompensated Hepatitis C Liver cirrhosis GI consult: Dr. Nikhil---> Help appreciated * continue lactulose therapy for HE prevention, titrate so patient has 2-3 bowel movements daily * patient will require further outpatient follow up with oncology team at [facility] * No further planned GI interventions at this time Possible secondary to HEP C Labs: Leukocytosis - afebrile Total Bilirubin:4.9 AST/ALT: 198/62 Alkaline Phosphate:205 Hep C Antibody x2 (2016): Reactive; Hep C Viral RNA: Pending Hep C Ab: 33.4 Hep B panel: negative (2016); repeat Hepatitis B panel and HIV: NEGATIVE Alpha fetoprotein: >5200.00 CEA: 3.9 Abdomen/Pelvis CT with IV contrast (10/2017): Liver: Enlarged nodular cirrhotic liver. Periportal edema. There is a focal liver hypodensity that cannot be further characterized on the current examination. Gallbladder and bile ducts: Cholecystectomy. Pancreas: Unremarkable. No mass. No ductal dilation. Spleen: Unremarkable. No splenomegaly. Adrenals: Unremarkable. No mass. Kidneys and ureters: There are 2 right distal ureteral stone. Prostate calcification. Peripheral edema Possibly 2/2 to cirrhosis Lasix 20mg IV daily (07/25/17) -->on hold due to sepsis Venous doppler (07/23/18): Negative Echocardiogram (07/23/18): Normal LV sytolic Function. Borderline Dilated LA. Trace MR and diastolic dysfunction Altered mental status-resolved HEAD CT w/o Contrast: Age-appropriate cerebral and cerebellar atrophy. Mild chronic microvascular ischemic change. No evidence of acute intracranial hemorrhage. HEAD/NECK CTA: Normal CT Angiography of the neck. Prophylactic measure GI: Protonix 20mg PO daily DVT: Lovenox 40mg SC daily PT All plans and managment discussed with Dr. Barber
--- NOTE | 2018-08-03 13:14 | CP.PCM.PN ---
Subjective - Date & Time of Evaluation Date of Evaluation: 08/03/18 Time of Evaluation: 12:40 - Subjective Subjective: dictated Objective - Vital Signs/Intake and Output Vital Signs (last 24 hours): Temp Pulse Resp BP Pulse Ox 98.9 F 76 20 122/73 96 08/03/18 07:40 08/03/18 07:40 08/03/18 07:40 08/03/18 07:40 08/03/18 07:40 Intake and Output: 08/03/18 08/03/18 06:59 18:59 Intake Total 720 Output Total 175 Balance 545 - Medications Medications: Current Medications Enoxaparin Sodium (Lovenox) 40 mg SC DAILY [facility] Last Admin: 08/03/18 10:35 Dose: 40 mg Folic Acid (Folic Acid) 1 mg PO DAILY [facility] Last Admin: 08/03/18 10:35 Dose: 1 mg Furosemide (Lasix) 20 mg IVP DAILY [facility] Last Admin: 07/31/18 10:00 Dose: Not Given Piperacillin Sod/Tazobactam (Sod 3.375 gm/ Sodium Chloride) 100 mls @ 200 mls/hr IVPB Q6H [facility]; Protocol Last Admin: 08/03/18 10:34 Dose: 200 mls/hr Vancomycin HCl 1,000 mg/ (Sodium Chloride) 250 mls @ 166.6 mls/hr IVPB Q12H [facility]; Protocol Last Admin: 08/03/18 12:25 Dose: 166.6 mls/hr Azithromycin (Zithromax 500mg In Ns Addvantage) 500 mg in 250 mls @ 167 mls/hr IVPB Q24H [facility]; Protocol Last Admin: 08/02/18 13:54 Dose: 167 mls/hr Lactobacillus Acidophilus (Lactobacillus) 1 cap PO BID [facility] Last Admin: 08/03/18 10:35 Dose: 1 cap Lactulose (Enulose) 20 gm PO BID [facility] Last Admin: 08/03/18 10:35 Dose: 20 gm Pantoprazole Sodium (Protonix Ec Tab) 20 mg PO DAILY [facility] Last Admin: 08/03/18 10:35 Dose: 20 mg Rifaximin (Xifaxan) 550 mg PO BID [facility]; Protocol Last Admin: 08/03/18 10:35 Dose: 550 mg Thiamine HCl (Vitamin B1 Tab) 100 mg PO BID [facility] Last Admin: 08/03/18 10:35 Dose: 100 mg - Labs Labs: 08/03/18 06:36 08/03/18 06:36 PT 17.8 SECONDS (9.7-12.2) H 07/23/18 06:54 INR 1.6 07/23/18 06:54 APTT 62 SECONDS (21-34) H 07/23/18 06:54
[2018-08-03] MEDS: Azithromycin 500mg/250ML NS 500 MG/250 ML BAG IVPB SCH (13:30)
--- NOTE | 2018-08-03 19:20 | PN ---
DATE: 08/03/2018 SUBJECTIVE: The patient still is on a BiPAP, but he is opening his eyes. He looks more alert. He feels much better. His abdomen still remains with distention as he has ascites. PHYSICAL EXAMINATION: VITAL SIGNS: T-max is 98.9, pulse 76, blood pressure 122/73, respirations are 20. HEENT: Head is atraumatic, normocephalic. He has a BiPap mask on. NECK: Supple. JVP is flat. LUNGS: Clear. No crackles or rales. No wheezing. No rhonchi. Decreased breath sounds bilaterally. HEART: S1, S2 is regular. ABDOMEN: Soft with distention. Has right-sided fullness more than the left abdomen and bowel sounds are present. EXTREMITIES: Have mild edema. LABORATORY DATA: White count is 12.1, hemoglobin 9.8, hematocrit 29.6, platelet count is 262. BUN is 25, creatinine 0.7 and the patient's Vancomycin random level was 12.2, we did before he is on vancomycin and Zosyn at this time. We will continue present treatment. His chest CT was done. Chest CT shows no evidence of pulmonary embolism, extensive ascites, hepatic cirrhosis, cholecystectomy, enlarged spleen which has not changed since October 2017 and large irregular soft mass including the left upper quadrant of abdomen concerning for neoplastic process such as colonic neoplasm. ASSESSMENT AND PLAN: So this patient has some neoplasm retroperitoneal lymphadenopathy and probably has that mass as he was getting treatment with it. He needs to see the oncologist, as what his baseline was. I am told he did had a liver cancer. But at this time with IV antibiotics, I will continue both and if he remains with the BiPap, I am wondering if some fluid is removed will he feel better and if it will not form any fistula. We will continue antibiotics otherwise for good 10 days and then and also he needs to be followed with the oncologist for the CT scan report. Prognosis remains guarded. Rufino Glynn MD
--- NOTE | 2018-08-03 22:25 | CP.PCM.CON ---
History of Present Illness - History of Present Illness History of Present Illness: 62 year old male with a history of HTN, HL, COPD, hep C cirrhosis, HCC on chemotherapy with Dr. Herr, presenting with AMS, aspiration pneumonia and hepatic encephalopathy. The patient is confused and I am unable to obtain a history from him. Per his sister, he has recently started an unknown chemotherapy given about 2 weeks ago. She notes to progressive fatigue and general decline. Past medical, surgical, family, social history cannot be obtained. Allergies: Ibuprofen Review of systems cannot be obtained from the patient. Past Patient History - Infectious Disease Hx of Infectious Diseases: None - Past Medical History & Family History Past Medical History?: Yes - Past Social History Smoking Status: Former Smoker - CARDIAC Hx Hypertension: Yes - PULMONARY Hx Chronic Obstructive Pulmonary Disease (COPD): Yes - HEENT Hx HEENT Problems: No - RENAL Hx Chronic Kidney Disease: No - HEMATOLOGICAL/ONCOLOGICAL Hx Anemia: Yes - INTEGUMENTARY Hx Dermatological Problems: No - MUSCULOSKELETAL/RHEUMATOLOGICAL Hx Fractures: Yes (rt shoulder ribs) - GASTROINTESTINAL Hx Gall Bladder Disease: Yes - PSYCHIATRIC Hx Anxiety: Yes Hx Depression: Yes 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) - SURGICAL HISTORY Hx Cholecystectomy: Yes - ANESTHESIA Hx Anesthesia: Yes Hx Anesthesia Reactions: No Hx Malignant Hyperthermia: No Meds Allergies/Adverse Reactions: Allergies Allergy/AdvReac Type Severity Reaction Status Date / Time ibuprofen [From Advil] Allergy ANAPHYLAXIS Verified 11/14/17 08:23 - Medications Medications: Current Medications Enoxaparin Sodium (Lovenox) 40 mg SC DAILY [facility] Last Admin: 08/03/18 10:35 Dose: 40 mg Folic Acid (Folic Acid) 1 mg PO DAILY [facility] Last Admin: 08/03/18 10:35 Dose: 1 mg Furosemide (Lasix) 20 mg IVP DAILY [facility] Last Admin: 07/31/18 10:00 Dose: Not Given Piperacillin Sod/Tazobactam (Sod 3.375 gm/ Sodium Chloride) 100 mls @ 200 mls/hr IVPB Q6H [facility]; Protocol Last Admin: 08/03/18 22:07 Dose: 200 mls/hr Vancomycin HCl 1,000 mg/ (Sodium Chloride) 250 mls @ 166.6 mls/hr IVPB Q12H [facility]; Protocol Last Admin: 08/03/18 12:25 Dose: 166.6 mls/hr Azithromycin (Zithromax 500mg In Ns Addvantage) 500 mg in 250 mls @ 167 mls/hr IVPB Q24H [facility]; Protocol Last Admin: 08/03/18 13:30 Dose: 167 mls/hr Lactobacillus Acidophilus (Lactobacillus) 1 cap PO BID [facility] Last Admin: 08/03/18 17:39 Dose: 1 cap Lactulose (Enulose) 20 gm PO BID [facility] Last Admin: 08/03/18 17:39 Dose: 20 gm Pantoprazole Sodium (Protonix Ec Tab) 20 mg PO DAILY [facility] Last Admin: 08/03/18 10:35 Dose: 20 mg Rifaximin (Xifaxan) 550 mg PO BID [facility]; Protocol Last Admin: 08/03/18 17:34 Dose: 550 mg Thiamine HCl (Vitamin B1 Tab) 100 mg PO BID [facility] Last Admin: 08/03/18 17:38 Dose: 100 mg Physical Exam - Head Exam Head Exam: ATRAUMATIC - Eye Exam Eye Exam: Scleral icterus - ENT Exam ENT Exam: Mucous Membranes Dry - Respiratory Exam Respiratory Exam: Decreased Breath Sounds - Cardiovascular Exam Cardiovascular Exam: +S1, +S2 - GI/Abdominal Exam GI & Abdominal Exam: Normal Bowel Sounds - Extremities Exam Extremities exam: Positive for: pedal edema - Neurological Exam Neurological exam: Altered - Skin Skin Exam: Warm Results - Vital Signs Recent Vital Signs: Last Vital Signs Temp 98.1 F 08/03/18 15:00 Pulse 101 H 08/03/18 20:25 Resp 20 08/03/18 15:00 BP 138/77 08/03/18 15:00 Pulse Ox 96 08/03/18 15:00 - Labs Result Diagrams: 08/03/18 06:36 08/03/18 06:36 Labs: Laboratory Results - last 24 hr 08/03/18 08/03/18 08/03/18 06:36 06:36 15:27 WBC 12.1 H RBC 2.73 L Hgb 9.8 L Hct 29.6 L MCV 108.4 H MCH 35.9 H MCHC 33.1 RDW 16.5 H Plt Count 262 MPV 7.1 L Neut % (Auto) 73.1 Lymph % (Auto) 13.0 L [place] % (Auto) 10.9 H Eos % (Auto) 1.9 Baso % (Auto) 1.1 Neut # (Auto) 8.8 H Lymph # (Auto) 1.6 [place] # (Auto) 1.3 H Eos # (Auto) 0.2 Baso # (Auto) 0.1 Sodium 137 Potassium 3.8 Chloride 110 H Carbon Dioxide 24 Anion Gap 7 L BUN 25 H Creatinine 0.7 L Est GFR ( Amer) > 60 Est GFR (Non-Af Amer) > 60 Random Glucose 93 D Calcium 7.7 L Phosphorus 2.9 Magnesium 2.1 Total Bilirubin 4.7 H AST 144 H ALT 73 H Alkaline Phosphatase 157 H Ammonia Total Protein 6.4 Albumin 2.1 L Globulin 4.3 H Albumin/Globulin Ratio 0.5 L Ur L.pneumophila Ag Negative 08/03/18 17:33 WBC RBC Hgb Hct MCV MCH MCHC RDW Plt Count MPV Neut % (Auto) Lymph % (Auto) [place] % (Auto) Eos % (Auto) Baso % (Auto) Neut # (Auto) Lymph # (Auto) [place] # (Auto) Eos # (Auto) Baso # (Auto) Sodium Potassium Chloride Carbon Dioxide Anion Gap BUN Creatinine Est GFR ( Amer) Est GFR (Non-Af Amer) Random Glucose Calcium Phosphorus Magnesium Total Bilirubin AST ALT Alkaline Phosphatase Ammonia 55 H D Total Protein Albumin Globulin Albumin/Globulin Ratio Ur L.pneumophila Ag Assessment & Plan (1) Anemia Assessment and Plan: retic count, b12, folate, ferritin to further characterize transfusion support PRN Status: Acute (2) Coagulopathy Assessment and Plan: liver disease likely nutritional component Status: Acute (3) Hepatocellular carcinoma Assessment and Plan: on treatment with Dr. Herr if continued clinical decline, consider palliative care evaluation Thank you for this interesting consult. Status: Acute
[2018-08-04] MEDS: Piperacillin/Tazobact 3.375 GM in Sodium Chloride 100 ML IVPB SCH ×4 (04:20→22:12)
--- NOTE | 2018-08-04 09:13 | CP.PCM.PN ---
Subjective - Date & Time of Evaluation Date of Evaluation: 08/04/18 Time of Evaluation: 07:20 - Subjective Subjective: PGY2 Medicine Note for Dr. Barber Patient seen and examined at bedside this morning. No acute events over night. Patient is much more awake this morning stating he is feeling better. He is still wearing the BiPAP but reports improvement in his breathing. He has no other complaints at this time. Objective - Vital Signs/Intake and Output Vital Signs (last 24 hours): Temp Pulse Resp BP Pulse Ox 98.0 F 93 H 18 109/65 98 08/04/18 07:00 08/04/18 07:00 08/04/18 07:00 08/04/18 07:00 08/04/18 07:00 Intake and Output: 08/04/18 08/04/18 06:59 18:59 Intake Total 590 Output Total 500 Balance 90 - Medications Medications: Current Medications Enoxaparin Sodium (Lovenox) 40 mg SC DAILY [facility] Last Admin: 08/03/18 10:35 Dose: 40 mg Folic Acid (Folic Acid) 1 mg PO DAILY [facility] Last Admin: 08/03/18 10:35 Dose: 1 mg Furosemide (Lasix) 20 mg IVP DAILY [facility] Last Admin: 07/31/18 10:00 Dose: Not Given Piperacillin Sod/Tazobactam (Sod 3.375 gm/ Sodium Chloride) 100 mls @ 200 mls/hr IVPB Q6H [facility]; Protocol Last Admin: 08/04/18 04:20 Dose: 200 mls/hr Vancomycin HCl 1,000 mg/ (Sodium Chloride) 250 mls @ 166.6 mls/hr IVPB Q12H [facility]; Protocol Last Admin: 08/04/18 00:31 Dose: 166.6 mls/hr Azithromycin (Zithromax 500mg In Ns Addvantage) 500 mg in 250 mls @ 167 mls/hr IVPB Q24H [facility]; Protocol Last Admin: 08/03/18 13:30 Dose: 167 mls/hr Lactobacillus Acidophilus (Lactobacillus) 1 cap PO BID [facility] Last Admin: 08/03/18 17:39 Dose: 1 cap Lactulose (Enulose) 20 gm PO BID [facility] Last Admin: 08/03/18 17:39 Dose: 20 gm Pantoprazole Sodium (Protonix Ec Tab) 20 mg PO DAILY [facility] Last Admin: 08/03/18 10:35 Dose: 20 mg Rifaximin (Xifaxan) 550 mg PO BID [facility]; Protocol Last Admin: 08/03/18 17:34 Dose: 550 mg Thiamine HCl (Vitamin B1 Tab) 100 mg PO BID [facility] Last Admin: 08/03/18 17:38 Dose: 100 mg - Labs Labs: 08/03/18 06:36 08/03/18 06:36 PT 17.8 SECONDS (9.7-12.2) H 07/23/18 06:54 INR 1.6 07/23/18 06:54 APTT 62 SECONDS (21-34) H 07/23/18 06:54 - Constitutional Appears: Cachectic, Chronically Ill - Head Exam Head Exam: ATRAUMATIC, NORMOCEPHALIC - Eye Exam Additional comments: Amblyopia - ENT Exam ENT Exam: Mucous Membranes Moist - Neck Exam Neck Exam: absent: Lymphadenopathy, Tenderness - Respiratory Exam Respiratory Exam: Rales (b/l), NORMAL BREATHING PATTERN. absent: Accessory Muscle Use, Rhonchi, Wheezes, Respiratory Distress - Cardiovascular Exam Cardiovascular Exam: REGULAR RHYTHM, +S1, +S2 - GI/Abdominal Exam GI & Abdominal Exam: Soft. absent: Distended, Firm, Guarding, Rigid, Tenderness - Extremities Exam Extremities Exam: Pedal Edema (3+ pitting b/l). absent: Calf Tenderness - Neurological Exam Neurological Exam: Alert, Awake - Psychiatric Exam Psychiatric exam: Normal Affect, Normal Mood - Skin Skin Exam: Dry, Warm Assessment and Plan - Assessment and Plan (Free Text) Plan: Sepsis Possible Multi-focal Pneumonia - HCAP ID consulted, Dr. Glynn METAL BALER called on 07/31/18 for shortness of breath and desaturation. Code Sepsis called 07/31/[address] [facility] EKG: Sinus tach at 113 with occasional PVCs CXR: no active disease Chest CTA: * No evidence of pulmonary embolism. Examination limited technically for evaluation of segmental/subsegmental pulmonary artery branch emboli. * Multifocal infiltrates right lower and upper lobes. Possible multifocal pneumonia. * Small left pleural effusion. * Left lower lobe compressive atelectasis. * 6 mm right lower lobe pulmonary nodule. See above for recommendations. * Ascites. Cirrhosis. Cholecystectomy. Atypical appearance of spleen. Left upper quadrant ill-defined soft tissue mass partially included on examination. Further evaluation with contrast-enhanced CT examination is advised. * Centrilobular pulmonary emphysema. Mucous secretions are seen in the central tracheobronchial tree without occlusion. Retroperitoneal lymphadenopathy. Patient will need contrast-enhanced CT for further evaluation of LUQ soft tissue mass. afebrile Leukocytosis 12.1 (08/03/18) ABG shock (07/31/18): pH 7.48, pCO2 30, pO2 98, HCO3 24.7, Lactate 3.1 * repeat lactate 1.9 Blood culture: negative at 72 hours Urine culture: no growth Placed on BiPAP 06/01 Medications: * Azithromycin 500mg IVPB daily (started on 07/31/18) * Vancomycin 1gm IVPB q12h (started on 07/31/18) * Vanco Trough ordered for 08/01 @11pm * Zosyn 3.375gm IVPB q6h (started on 07/31/18) * Discontinue fluids * dyspnea may be secondary to liver failure Opioid overdose UDS on admission: * Opiates screen: Positive * Methadone screen: Positive Given 2 doses of Narcan but patient was agitated and respiratory distressed, therefore, he was intubated. Patient extubated on 07/24/18. Patient remember how much heroin or methadone he uses or the last time that he used. - Folic acid 1mg PO dose - Thiamine 100mg PO BID Hepatic encephalopathy Ammonia: 55 --> decreased from 152 on 07/31/18 Lactulose 20gm PO BID Rifaximin 550mg PO BID Continue to monitor ammonia level with labs Decompensated Hepatitis C Liver cirrhosis GI consult: Dr. Tejeda---> Help appreciated * continue lactulose therapy for HE prevention, titrate so patient has 2-3 bowel movements daily * patient will require further outpatient follow up with oncology team at [facility] * No further planned GI interventions at this time Possible secondary to HEP C Labs: Leukocytosis - afebrile Total Bilirubin:4.9 AST/ALT: 198/62 Alkaline Phosphate:205 Hep C Antibody x2 (2015): Reactive; Hep C Viral RNA: Pending Hep C Ab: 33.4 Hep B panel: negative (2015); repeat Hepatitis B panel and HIV: NEGATIVE Alpha fetoprotein: >5200.00 CEA: 3.9 Abdomen/Pelvis CT with IV contrast (10/2017): Liver: Enlarged nodular cirrhotic liver. Periportal edema. There is a focal liver hypodensity that cannot be further characterized on the current examination. Gallbladder and bile ducts: Cholecystectomy. Pancreas: Unremarkable. No mass. No ductal dilation. Spleen: Unremarkable. No splenomegaly. Adrenals: Unremarkable. No mass. Kidneys and ureters: There are 2 right distal ureteral stone. Prostate calcification. Peripheral edema Possibly 2/2 to cirrhosis Lasix 20mg IV daily (07/25/17) -->restarted Venous doppler: Negative Echocardiogram: Normal LV sytolic Function. Borderline Dilated LA. Trace MR and diastolic dysfunction Altered mental status resolved HEAD CT w/o Contrast: Age-appropriate cerebral and cerebellar atrophy. Mild chronic microvascular ischemic change. No evidence of acute intracranial hemorrhage. HEAD/NECK CTA: Normal CT Angiography of the neck. Prophylactic measure GI: Protonix 40mg PO daily DVT: Lovenox 40mg SC daily PT All plans and managment discussed with Dr. Elisabeth Castaneda Allen PGY2
[2018-08-04] MEDS: Lactobacillus Acidophilus 500 MU Cap PO SCH ×2 (10:48→17:30)
[2018-08-04] MEDS: Enoxaparin 40 mg Syringe SC SCH (10:48)
[2018-08-04] MEDS: Pantoprazole 20 mg EC Tab PO SCH (10:49)
[2018-08-04] MEDS: Azithromycin 500mg/250ML NS 500 MG/250 ML BAG IVPB SCH (13:25)
[2018-08-04 14:15] LABS: EOS # 0.2 K/uL (0.0-0.7); MEAN CORPUSCULAR HEMOGLOBIN 36.2 pg (27.0-31.0)
[2018-08-04 14:25] LABS: BASO # 0.1 K/uL (0.0-0.2); BASO % 0.8 % (0.0-2.0); EOS % 1.5 % (0.0-4.0); HEMOGLOBIN 10.4 g/dL (12.0-18.0); LYMPH # 1.8 K/uL (1.0-4.3); LYMPH % 11.9 % (20.0-40.0); MEAN CELL VOLUME 108.6 fL (80.0-94.0); MEAN CORPUSCULAR HGB CONC 33.4 g/dL (33.0-37.0); MEAN PLATELET VOLUME 7.2 fL (7.2-11.7); MONO # 1.4 K/uL (0.0-0.8); MONO % 9.2 % (0.0-10.0); NEUT # 11.5 K/uL (1.8-7.0); NEUT % 76.6 % (50.0-75.0); NRBC % 0.6 % (0.0-2.0); RBC 2.87 Mil/uL (4.40-5.90); RED CELL DISTRIBUTION WIDTH 16.7 % (11.5-14.5); WHITE BLOOD COUNT 15.1 K/uL (4.8-10.8)
[2018-08-04 14:33] LABS: ALB/GLOB RATIO 0.5 (1.0-2.1); ALBUMIN 2.3 g/dL (3.5-5.0); ALT/SGPT 78 U/L (21-72); AST/SGOT 161 U/L (17-59); BLOOD UREA NITROGEN 24 mg/dL (9-20); CALCIUM 7.8 mg/dl (8.6-10.4); GFR NON-AFRICAN AMERICAN > 60
[2018-08-05] MEDS: Piperacillin/Tazobact 3.375 GM in Sodium Chloride 100 ML IVPB SCH ×4 (04:24→21:52)
[2018-08-05] MEDS: Lactobacillus Acidophilus 500 MU Cap PO SCH ×2 (10:28→17:19)
[2018-08-05] MEDS: Pantoprazole 20 mg EC Tab PO SCH (10:28)
[2018-08-05] MEDS: Enoxaparin 40 mg Syringe SC SCH (10:44)
[2018-08-05] MEDS: Azithromycin 500mg/250ML NS 500 MG/250 ML BAG IVPB SCH (13:30)
[2018-08-06] MEDS: Piperacillin/Tazobact 3.375 GM in Sodium Chloride 100 ML IVPB SCH ×4 (04:08→21:38)
[2018-08-06] MEDS: Pantoprazole 20 mg EC Tab PO SCH (09:38)
[2018-08-06] MEDS: Lactobacillus Acidophilus 500 MU Cap PO SCH ×2 (09:38→17:30)
[2018-08-06] MEDS: Enoxaparin 40 mg Syringe SC SCH (09:39)
[2018-08-06] MEDS: Azithromycin 500mg/250ML NS 500 MG/250 ML BAG IVPB SCH (13:12)
--- NOTE | 2018-08-06 22:04 | CP.PCM.PN ---
Subjective - Date & Time of Evaluation Date of Evaluation: 08/04/18 Time of Evaluation: 12:00 - Subjective Subjective: More alert, feeling better Objective - Vital Signs/Intake and Output Vital Signs (last 24 hours): Temp Pulse Resp BP Pulse Ox 97.2 F L 88 20 116/68 100 08/06/18 15:00 08/06/18 15:00 08/06/18 15:00 08/06/18 15:00 08/06/18 15:00 - Medications Medications: Current Medications Enoxaparin Sodium (Lovenox) 40 mg SC DAILY [facility] Last Admin: 08/06/18 09:39 Dose: 40 mg Folic Acid (Folic Acid) 1 mg PO DAILY [facility] Last Admin: 08/06/18 09:38 Dose: 1 mg Furosemide (Lasix) 20 mg IVP DAILY [facility] Last Admin: 08/06/18 09:43 Dose: 20 mg Piperacillin Sod/Tazobactam (Sod 3.375 gm/ Sodium Chloride) 100 mls @ 200 mls/hr IVPB Q6H [facility]; Protocol Last Admin: 08/06/18 21:38 Dose: 200 mls/hr Vancomycin HCl 1,000 mg/ (Sodium Chloride) 250 mls @ 166.6 mls/hr IVPB Q12H [facility]; Protocol Last Admin: 08/06/18 11:30 Dose: 166.6 mls/hr Azithromycin (Zithromax 500mg In Ns Addvantage) 500 mg in 250 mls @ 167 mls/hr IVPB Q24H [facility]; Protocol Last Admin: 08/06/18 13:12 Dose: 167 mls/hr Lactobacillus Acidophilus (Lactobacillus) 1 cap PO BID [facility] Last Admin: 08/06/18 17:30 Dose: 1 cap Lactulose (Enulose) 20 gm PO BID [facility] Last Admin: 08/06/18 17:30 Dose: 20 gm Pantoprazole Sodium (Protonix Ec Tab) 20 mg PO DAILY [facility] Last Admin: 08/06/18 09:38 Dose: 20 mg Rifaximin (Xifaxan) 550 mg PO BID [facility]; Protocol Last Admin: 08/06/18 17:30 Dose: 550 mg Thiamine HCl (Vitamin B1 Tab) 100 mg PO BID [facility] Last Admin: 08/06/18 17:30 Dose: 100 mg - Labs Labs: 08/04/18 14:06 08/04/18 14:06 PT 17.8 SECONDS (9.7-12.2) H 07/23/18 06:54 INR 1.6 07/23/18 06:54 APTT 62 SECONDS (21-34) H 07/23/18 06:54 - Head Exam Head Exam: ATRAUMATIC - Eye Exam Eye Exam: Normal appearance - ENT Exam ENT Exam: Mucous Membranes Dry - Respiratory Exam Respiratory Exam: NORMAL BREATHING PATTERN - Cardiovascular Exam Cardiovascular Exam: +S1, +S2 - GI/Abdominal Exam GI & Abdominal Exam: Normal Bowel Sounds - Extremities Exam Extremities Exam: Pedal Edema Assessment and Plan (1) Anemia Assessment & Plan: chronic diseae ? recent chemotherapy f/u w/u Status: Acute (2) Coagulopathy Assessment & Plan: liver disease nutritional component Status: Acute (3) Hepatocellular carcinoma Assessment & Plan: outpatient treatment with primary oncologist. Status: Acute
--- NOTE | 2018-08-06 22:05 | CP.PCM.PN ---
Subjective - Date & Time of Evaluation Date of Evaluation: 08/05/18 Time of Evaluation: 18:00 - Subjective Subjective: Feeling better, family at bedside. Objective - Vital Signs/Intake and Output Vital Signs (last 24 hours): Temp Pulse Resp BP Pulse Ox 97.2 F L 88 20 116/68 100 08/06/18 15:00 08/06/18 15:00 08/06/18 15:00 08/06/18 15:00 08/06/18 15:00 - Medications Medications: Current Medications Enoxaparin Sodium (Lovenox) 40 mg SC DAILY [facility] Last Admin: 08/06/18 09:39 Dose: 40 mg Folic Acid (Folic Acid) 1 mg PO DAILY [facility] Last Admin: 08/06/18 09:38 Dose: 1 mg Furosemide (Lasix) 20 mg IVP DAILY [facility] Last Admin: 08/06/18 09:43 Dose: 20 mg Piperacillin Sod/Tazobactam (Sod 3.375 gm/ Sodium Chloride) 100 mls @ 200 mls/hr IVPB Q6H [facility]; Protocol Last Admin: 08/06/18 21:38 Dose: 200 mls/hr Vancomycin HCl 1,000 mg/ (Sodium Chloride) 250 mls @ 166.6 mls/hr IVPB Q12H [facility]; Protocol Last Admin: 08/06/18 11:30 Dose: 166.6 mls/hr Azithromycin (Zithromax 500mg In Ns Addvantage) 500 mg in 250 mls @ 167 mls/hr IVPB Q24H [facility]; Protocol Last Admin: 08/06/18 13:12 Dose: 167 mls/hr Lactobacillus Acidophilus (Lactobacillus) 1 cap PO BID [facility] Last Admin: 08/06/18 17:30 Dose: 1 cap Lactulose (Enulose) 20 gm PO BID [facility] Last Admin: 08/06/18 17:30 Dose: 20 gm Pantoprazole Sodium (Protonix Ec Tab) 20 mg PO DAILY [facility] Last Admin: 08/06/18 09:38 Dose: 20 mg Rifaximin (Xifaxan) 550 mg PO BID [facility]; Protocol Last Admin: 08/06/18 17:30 Dose: 550 mg Thiamine HCl (Vitamin B1 Tab) 100 mg PO BID [facility] Last Admin: 08/06/18 17:30 Dose: 100 mg - Labs Labs: 08/04/18 14:06 08/04/18 14:06 PT 17.8 SECONDS (9.7-12.2) H 07/23/18 06:54 INR 1.6 07/23/18 06:54 APTT 62 SECONDS (21-34) H 07/23/18 06:54 - Head Exam Head Exam: ATRAUMATIC - Eye Exam Eye Exam: Normal appearance - ENT Exam ENT Exam: Mucous Membranes Dry - Respiratory Exam Respiratory Exam: NORMAL BREATHING PATTERN - Cardiovascular Exam Cardiovascular Exam: +S1, +S2 Assessment and Plan (1) Anemia Assessment & Plan: f/u anemia w/u Status: Acute (2) Coagulopathy Assessment & Plan: liver disease, nutritional component Status: Acute (3) Hepatocellular carcinoma Assessment & Plan: outpatient treatment with primary oncologist Status: Acute
--- NOTE | 2018-08-06 22:06 | CP.PCM.PN ---
Subjective - Date & Time of Evaluation Date of Evaluation: 08/06/18 Time of Evaluation: 19:00 - Subjective Subjective: Trying to eat more. Objective - Vital Signs/Intake and Output Vital Signs (last 24 hours): Temp Pulse Resp BP Pulse Ox 97.2 F L 88 20 116/68 100 08/06/18 15:00 08/06/18 15:00 08/06/18 15:00 08/06/18 15:00 08/06/18 15:00 - Medications Medications: Current Medications Enoxaparin Sodium (Lovenox) 40 mg SC DAILY [facility] Last Admin: 08/06/18 09:39 Dose: 40 mg Folic Acid (Folic Acid) 1 mg PO DAILY [facility] Last Admin: 08/06/18 09:38 Dose: 1 mg Furosemide (Lasix) 20 mg IVP DAILY [facility] Last Admin: 08/06/18 09:43 Dose: 20 mg Piperacillin Sod/Tazobactam (Sod 3.375 gm/ Sodium Chloride) 100 mls @ 200 mls/hr IVPB Q6H [facility]; Protocol Last Admin: 08/06/18 21:38 Dose: 200 mls/hr Vancomycin HCl 1,000 mg/ (Sodium Chloride) 250 mls @ 166.6 mls/hr IVPB Q12H [facility]; Protocol Last Admin: 08/06/18 11:30 Dose: 166.6 mls/hr Azithromycin (Zithromax 500mg In Ns Addvantage) 500 mg in 250 mls @ 167 mls/hr IVPB Q24H [facility]; Protocol Last Admin: 08/06/18 13:12 Dose: 167 mls/hr Lactobacillus Acidophilus (Lactobacillus) 1 cap PO BID [facility] Last Admin: 08/06/18 17:30 Dose: 1 cap Lactulose (Enulose) 20 gm PO BID [facility] Last Admin: 08/06/18 17:30 Dose: 20 gm Pantoprazole Sodium (Protonix Ec Tab) 20 mg PO DAILY [facility] Last Admin: 08/06/18 09:38 Dose: 20 mg Rifaximin (Xifaxan) 550 mg PO BID [facility]; Protocol Last Admin: 08/06/18 17:30 Dose: 550 mg Thiamine HCl (Vitamin B1 Tab) 100 mg PO BID [facility] Last Admin: 08/06/18 17:30 Dose: 100 mg - Labs Labs: 08/04/18 14:06 08/04/18 14:06 PT 17.8 SECONDS (9.7-12.2) H 07/23/18 06:54 INR 1.6 07/23/18 06:54 APTT 62 SECONDS (21-34) H 07/23/18 06:54 - Head Exam Head Exam: ATRAUMATIC - Eye Exam Eye Exam: Normal appearance - ENT Exam ENT Exam: Mucous Membranes Dry - Respiratory Exam Respiratory Exam: NORMAL BREATHING PATTERN - Cardiovascular Exam Cardiovascular Exam: +S1, +S2 - GI/Abdominal Exam GI & Abdominal Exam: Normal Bowel Sounds Assessment and Plan (1) Anemia Assessment & Plan: f/u anemia w/u Status: Acute (2) Coagulopathy Assessment & Plan: liver disease nutritional component Status: Acute (3) Hepatocellular carcinoma Assessment & Plan: outpatient treatment with primary oncologist Status: Acute
[2018-08-07] MEDS: Piperacillin/Tazobact 3.375 GM in Sodium Chloride 100 ML IVPB SCH ×2 (04:11→10:55)
--- NOTE | 2018-08-07 07:35 | CP.PCM.PN ---
Subjective - Date & Time of Evaluation Date of Evaluation: 08/07/18 Time of Evaluation: 07:35 - Subjective Subjective: Dr. Barber Service Patient seen and examined at bedside. Per nursing no acute events occurred overnight. Patient denies any chest pain, shortness of breath, fevers, chills, nausea, vomiting, or any other complaints. Patient refusing lab draws including ammonia levels today. Objective - Vital Signs/Intake and Output Vital Signs (last 24 hours): Temp Pulse Resp BP Pulse Ox 97.8 F 82 20 121/82 99 08/06/18 23:05 08/07/18 00:15 08/06/18 23:05 08/06/18 23:05 08/06/18 23:05 - Medications Medications: Current Medications Enoxaparin Sodium (Lovenox) 40 mg SC DAILY [facility] Last Admin: 08/06/18 09:39 Dose: 40 mg Folic Acid (Folic Acid) 1 mg PO DAILY [facility] Last Admin: 08/06/18 09:38 Dose: 1 mg Furosemide (Lasix) 20 mg IVP DAILY [facility] Last Admin: 08/06/18 09:43 Dose: 20 mg Piperacillin Sod/Tazobactam (Sod 3.375 gm/ Sodium Chloride) 100 mls @ 200 mls/hr IVPB Q6H [facility]; Protocol Last Admin: 08/07/18 04:11 Dose: 200 mls/hr Vancomycin HCl 1,000 mg/ (Sodium Chloride) 250 mls @ 166.6 mls/hr IVPB Q12H [facility]; Protocol Last Admin: 08/06/18 23:35 Dose: 166.6 mls/hr Azithromycin (Zithromax 500mg In Ns Addvantage) 500 mg in 250 mls @ 167 mls/hr IVPB Q24H [facility]; Protocol Last Admin: 08/06/18 13:12 Dose: 167 mls/hr Lactobacillus Acidophilus (Lactobacillus) 1 cap PO BID [facility] Last Admin: 08/06/18 17:30 Dose: 1 cap Lactulose (Enulose) 20 gm PO BID [facility] Last Admin: 08/06/18 17:30 Dose: 20 gm Pantoprazole Sodium (Protonix Ec Tab) 20 mg PO DAILY [facility] Last Admin: 08/06/18 09:38 Dose: 20 mg Rifaximin (Xifaxan) 550 mg PO BID [facility]; Protocol Last Admin: 08/06/18 17:30 Dose: 550 mg Thiamine HCl (Vitamin B1 Tab) 100 mg PO BID [facility] Last Admin: 08/06/18 17:30 Dose: 100 mg - Labs Labs: 08/04/18 14:06 08/04/18 14:06 PT 17.8 SECONDS (9.7-12.2) H 07/23/18 06:54 INR 1.6 07/23/18 06:54 APTT 62 SECONDS (21-34) H 07/23/18 06:54 - Head Exam Head Exam: ATRAUMATIC, NORMAL INSPECTION - Eye Exam Eye Exam: EOMI, Normal appearance, PERRL Pupil Exam: NORMAL ACCOMODATION - ENT Exam ENT Exam: Mucous Membranes Moist, Normal Oropharynx - Neck Exam Neck Exam: Normal Inspection - Respiratory Exam Respiratory Exam: Clear to Ausculation Bilateral, NORMAL BREATHING PATTERN. absent: Prolonged Expiratory Phase, Respiratory Distress - Cardiovascular Exam Cardiovascular Exam: REGULAR RHYTHM, +S1, +S2 - GI/Abdominal Exam GI & Abdominal Exam: Soft, Normal Bowel Sounds. absent: Hyperactive Bowel Sounds - Neurological Exam Neurological Exam: Alert, Awake, CN II-XII Intact, Oriented x3 - Psychiatric Exam Psychiatric exam: Normal Affect, Normal Mood - Skin Skin Exam: Dry, Intact, Normal Color Assessment and Plan - Assessment and Plan (Free Text) Assessment: Sepsis Possible Multi-focal Pneumonia - HCAP ID consulted, Dr. Glynn BROADCAST DIRECTOR OPERATIONS called on 07/31/18 for shortness of breath and desaturation. Code Sepsis called 07/31/18 Transferred to [facility] EKG: Sinus tach at 113 with occasional PVCs CXR: no active disease Chest CTA: * No evidence of pulmonary embolism. Examination limited technically for evaluation of segmental/subsegmental pulmonary artery branch emboli. * Multifocal infiltrates right lower and upper lobes. Possible multifocal pneumonia. * Small left pleural effusion. * Left lower lobe compressive atelectasis. * 6 mm right lower lobe pulmonary nodule. See above for recommendations. * Ascites. Cirrhosis. Cholecystectomy. Atypical appearance of spleen. Left upper quadrant ill-defined soft tissue mass partially included on examination. Further evaluation with contrast-enhanced CT examination is advised. * Centrilobular pulmonary emphysema. Mucous secretions are seen in the central tracheobronchial tree without occlusion. Retroperitoneal lymphadenopathy. Patient will need contrast-enhanced CT for further evaluation of LUQ soft tissue mass. afebrile Leukocytosis 12.1 (08/03/18) ABG shock (07/31/18): pH 7.48, pCO2 30, pO2 98, HCO3 24.7, Lactate 3.1 * repeat lactate 1.9 Blood culture: negative at Urine culture: no growth Placed on BiPAP 06/01 Medications: Zosyn 3.375mg IVPB Q8 * Discontinue fluids * dyspnea may be secondary to liver failure Opioid overdose UDS on admission: * Opiates screen: Positive * Methadone screen: Positive Given 2 doses of Narcan but patient was agitated and respiratory distressed, therefore, he was intubated. Patient extubated on 07/24/18. Patient remember how much heroin or methadone he uses or the last time that he used. - Folic acid 1mg PO dose - Thiamine 100mg PO BID Hepatic encephalopathy Ammonia: 55 --> decreased from 152 on 07/31/18 Lactulose 20gm PO BID Decompensated Hepatitis C Liver cirrhosis GI consult: Dr. Tejeda---> Help appreciated * continue lactulose therapy for HE prevention, titrate so patient has 2-3 bowel movements daily * patient will require further outpatient follow up with oncology team at [facility] * No further planned GI interventions at this time Possible secondary to HEP C Labs: Leukocytosis - afebrile Total Bilirubin:4.9 AST/ALT: 198/62 Alkaline Phosphate:205 Hep C Antibody x2 (2015): Reactive; Hep C Viral RNA: Pending Hep C Ab: 33.4 Hep B panel: negative (2016); repeat Hepatitis B panel and HIV: NEGATIVE Alpha fetoprotein: >5200.00 CEA: 3.9 Abdomen/Pelvis CT with IV contrast (10/2017): Liver: Enlarged nodular cirrhotic liver. Periportal edema. There is a focal liver hypodensity that cannot be further characterized on the current examination. Gallbladder and bile ducts: Cholecystectomy. Pancreas: Unremarkable. No mass. No ductal dilation. Spleen: Unremarkable. No splenomegaly. Adrenals: Unremarkable. No mass. Kidneys and ureters: There are 2 right distal ureteral stone. Prostate calcification. Peripheral edema Possibly 2/2 to cirrhosis Lasix 20mg IV daily (07/25/17) -->restarted Venous doppler: Negative Echocardiogram: Normal LV sytolic Function. Borderline Dilated LA. Trace MR and diastolic dysfunction Altered mental status resolved HEAD CT w/o Contrast: Age-appropriate cerebral and cerebellar atrophy. Mild chronic microvascular ischemic change. No evidence of acute intracranial hemorrhage. HEAD/NECK CTA: Normal CT Angiography of the neck. Hepatocellular carcinoma Will need outpatient follow up, per Dr. Elder. Prophylactic measure GI: Protonix 20mg PO daily All plans and managment discussed with Dr. Barber
[2018-08-07] MEDS: Enoxaparin 40 mg Syringe SC SCH (10:48)
[2018-08-07] MEDS: Pantoprazole 20 mg EC Tab PO SCH (10:49)
[2018-08-07] MEDS: Lactobacillus Acidophilus 500 MU Cap PO SCH ×2 (10:54→17:40)
[2018-08-07 12:26] LABS: FOLATE 13.8 ng/mL
[2018-08-07] MEDS: Azithromycin 500mg/250ML NS 500 MG/250 ML BAG IVPB SCH (13:50)
--- NOTE | 2018-08-07 15:53 | CP.PCM.PN ---
Subjective - Date & Time of Evaluation Date of Evaluation: 08/07/18 Time of Evaluation: 15:45 - Subjective Subjective: dictated Objective - Vital Signs/Intake and Output Vital Signs (last 24 hours): Temp Pulse Resp BP Pulse Ox 97.8 F 88 20 139/89 100 08/07/18 07:00 08/07/18 07:43 08/07/18 07:00 08/07/18 10:47 08/07/18 07:00 - Medications Medications: Current Medications Folic Acid (Folic Acid) 1 mg PO DAILY [facility] Last Admin: 08/07/18 10:49 Dose: 1 mg Furosemide (Lasix) 20 mg IVP DAILY [facility] Last Admin: 08/07/18 10:47 Dose: 20 mg Piperacillin Sod/Tazobactam Sod (Zosyn 3.375 Gm Iv Premix) 3.375 gm in 50 mls @ 100 mls/hr IVPB Q8H [facility]; Protocol Lactobacillus Acidophilus (Lactobacillus) 1 cap PO BID [facility] Last Admin: 08/07/18 10:54 Dose: 1 cap Lactulose (Enulose) 20 gm PO BID [facility] Last Admin: 08/07/18 10:48 Dose: 20 gm Pantoprazole Sodium (Protonix Ec Tab) 20 mg PO DAILY [facility] Last Admin: 08/07/18 10:49 Dose: 20 mg Thiamine HCl (Vitamin B1 Tab) 100 mg PO BID [facility] Last Admin: 08/07/18 10:48 Dose: 100 mg - Labs Labs: 08/04/18 14:06 08/04/18 14:06 PT 17.8 SECONDS (9.7-12.2) H 07/23/18 06:54 INR 1.6 07/23/18 06:54 APTT 62 SECONDS (21-34) H 07/23/18 06:54
[2018-08-07] MEDS: Piperacill/Tazo 3.375gm in Dex 3.375 GM/50 ML BAG IVPB SCH (17:41)
--- NOTE | 2018-08-07 23:51 | PN ---
DATE: 08/07/2018 SUBJECTIVE: The patient remains on BiPAP machine, but he is awake. OBJECTIVE: VITAL SIGNS: T-max is 97.7, pulse 83, blood pressure 115/78, respirations are 22. HEENT: Head is atraumatic, normocephalic. NECK: Supple. LUNGS: Clear. Decreased breath sounds bilaterally. HEART: S1, S2 is regular. ABDOMEN: Soft, distended with ascites. EXTREMITIES: Also have edema at this time. LABORATORY DATA: White count is 15.1, hemoglobin 10.8; these are the last labs that are there, I think we should repeat the labs tomorrow. ASSESSMENT AND PLAN: His CAT scan has revealed multifocal pneumonia on 07/31 and he has been on antibiotics. However, he remains on BiPAP in the daytime and needs follow up with the Pulmonary. He was on vancomycin and Zithromax which I have discontinued. We will leave him on Zosyn at this time because the cultures did not suggest any methicillin-resistant Staphylococcus aureus. Nares also was negative for methicillin-resistant Staphylococcus aureus. We will continue with Zosyn at this time and hopefully he would improve and on lesser oxygenation. We will treat for pneumonia. He does have ascites and he is in respiratory failure at this time. He is also on Lasix for bilateral leg edema. Rufino Glynn MD
[2018-08-08] MEDS: Piperacill/Tazo 3.375gm in Dex 3.375 GM/50 ML BAG IVPB SCH ×3 (02:01→17:38)
[2018-08-08 06:34] LABS: BASO # 0.1 K/uL (0.0-0.2); BASO % 0.9 % (0.0-2.0); EOS # 0.4 K/uL (0.0-0.7); EOS % 3.5 % (0.0-4.0); HEMOGLOBIN 10.2 g/dL (12.0-18.0); LYMPH # 2.6 K/uL (1.0-4.3); LYMPH % 21.7 % (20.0-40.0); MEAN CELL VOLUME 107.7 fL (80.0-94.0); MEAN CORPUSCULAR HEMOGLOBIN 36.4 pg (27.0-31.0); MEAN CORPUSCULAR HGB CONC 33.8 g/dL (33.0-37.0); MONO # 1.6 K/uL (0.0-0.8); MONO % 13.3 % (0.0-10.0); NEUT # 7.2 K/uL (1.8-7.0); NEUT % 60.6 % (50.0-75.0); NRBC % 0.3 % (0.0-2.0); RBC 2.81 Mil/uL (4.40-5.90); RED CELL DISTRIBUTION WIDTH 17.1 % (11.5-14.5); WHITE BLOOD COUNT 11.8 K/uL (4.8-10.8)
[2018-08-08 06:46] LABS: ALB/GLOB RATIO 0.5 (1.0-2.1); ALBUMIN 2.2 g/dL (3.5-5.0); ALT/SGPT 87 U/L (21-72); AST/SGOT 180 U/L (17-59); BLOOD UREA NITROGEN 25 mg/dL (9-20); CALCIUM 8.4 mg/dl (8.6-10.4); GFR NON-AFRICAN AMERICAN > 60
[2018-08-08] MEDS: Lactobacillus Acidophilus 500 MU Cap PO SCH ×2 (10:08→17:39)
[2018-08-08] MEDS: Pantoprazole 20 mg EC Tab PO SCH (10:08)
--- NOTE | 2018-08-08 12:07 | RAD ---
Date of service: 08/08/2018 HISTORY: hx sob COMPARISON: 07/31/2018 FINDINGS: LUNGS: Lung volumes low lower limits of normal. No consolidation. PLEURA: No significant pleural effusion identified, no pneumothorax apparent. CARDIOVASCULAR: There is presence of aortic atherosclerotic calcification on x-ray. Probable top-normal heart size. Pulmonary vasculature probably [id number] appearance compatible with crowding. Some minimal concomitant pulmonary vascular congestion still possible. OSSEOUS STRUCTURES: Thoracic spondylosis. Prior deformity of right humerus excluded from current field of view. VISUALIZED UPPER ABDOMEN: Bilateral lateral shoulder arthrosis cholecystectomy clips OTHER FINDINGS: None. IMPRESSION: Heart size. Pulmonary vasculature probably [id number] appearance compatible with crowding. Minimal concomitant pulmonary vascular congestion still possible. No interval pathology noted.
--- NOTE | 2018-08-08 13:37 | CP.PCM.PN ---
Subjective - Date & Time of Evaluation Date of Evaluation: 08/08/18 Time of Evaluation: 13:35 - Subjective Subjective: Progress note. Attending: Dr. Barber. Pt seen and examined at bedside. No acute distress. pt transitioning to venti mask from bipap. will repeat cxr. No fevers, chills, vomiting, diarrhea. No complaints today. Objective - Vital Signs/Intake and Output Vital Signs (last 24 hours): Temp Pulse Resp BP Pulse Ox 98.1 F 96 H 20 118/72 99 08/08/18 07:35 08/08/18 08:00 08/08/18 07:35 08/08/18 10:08 08/08/18 07:35 Intake and Output: 08/08/18 08/08/18 06:59 18:59 Intake Total 250 Balance 250 - Medications Medications: Current Medications Folic Acid (Folic Acid) 1 mg PO DAILY [facility] Last Admin: 08/08/18 10:08 Dose: 1 mg Furosemide (Lasix) 20 mg IVP DAILY [facility] Last Admin: 08/08/18 10:08 Dose: 20 mg Piperacillin Sod/Tazobactam Sod (Zosyn 3.375 Gm Iv Premix) 3.375 gm in 50 mls @ 100 mls/hr IVPB Q8H [facility]; Protocol Last Admin: 08/08/18 10:09 Dose: 100 mls/hr Lactobacillus Acidophilus (Lactobacillus) 1 cap PO BID [facility] Last Admin: 08/08/18 10:08 Dose: 1 cap Lactulose (Enulose) 20 gm PO BID [facility] Last Admin: 08/08/18 10:08 Dose: 20 gm Pantoprazole Sodium (Protonix Ec Tab) 20 mg PO DAILY [facility] Last Admin: 08/08/18 10:08 Dose: 20 mg Spironolactone (Aldactone) 25 mg PO BID [facility] Thiamine HCl (Vitamin B1 Tab) 100 mg PO BID [facility] Last Admin: 08/08/18 10:08 Dose: 100 mg - Labs Labs: 08/08/18 06:24 08/08/18 06:24 PT 17.8 SECONDS (9.7-12.2) H 07/23/18 06:54 INR 1.6 07/23/18 06:54 APTT 62 SECONDS (21-34) H 07/23/18 06:54 - Constitutional Appears: Older Than Stated Age, Chronically Ill - Head Exam Head Exam: ATRAUMATIC, NORMAL INSPECTION, NORMOCEPHALIC - Eye Exam Eye Exam: EOMI - ENT Exam ENT Exam: Mucous Membranes Moist - Neck Exam Neck Exam: Full ROM, Normal Inspection - Respiratory Exam Respiratory Exam: Wheezes. absent: Respiratory Distress - Cardiovascular Exam Cardiovascular Exam: +S1, +S2 - GI/Abdominal Exam GI & Abdominal Exam: Soft, Normal Bowel Sounds. absent: Tenderness - Extremities Exam Extremities Exam: Full ROM, Normal Inspection - Neurological Exam Neurological Exam: Alert, Awake, Oriented x3 - Psychiatric Exam Psychiatric exam: Normal Affect, Normal Mood - Skin Skin Exam: Dry, Intact, Normal Color, Warm Assessment and Plan - Assessment and Plan (Free Text) Assessment: This is a 62 yo male with 1. Sepsis secondary to Possible Multi-focal Pneumonia - HCAP -ID consulted, Dr. Glynn -AERODYNAMICS PROFESSOR called on 07/31/18 for shortness of breath and desaturation. -Code Sepsis called 07/31/18 -Transferred to telemetry floor -EKG: Sinus tach at 113 with occasional PVCs -CXR: no active disease -Chest CTA: * No evidence of pulmonary embolism. Examination limited technically for evaluation of segmental/subsegmental pulmonary artery branch emboli. * Multifocal infiltrates right lower and upper lobes. Possible multifocal pneumonia. * Small left pleural effusion. * Left lower lobe compressive atelectasis. * 6 mm right lower lobe pulmonary nodule. See above for recommendations. * Ascites. Cirrhosis. Cholecystectomy. Atypical appearance of spleen. Left upper quadrant ill-defined soft tissue mass partially included on examination. Further evaluation with contrast-enhanced CT examination is advised. * Centrilobular pulmonary emphysema. Mucous secretions are seen in the central tracheobronchial tree without occlusion. Retroperitoneal lymphadenopathy. -repeat cxr today -transitioning off of bipap and on to ventimask -Medications: Zosyn 3.375mg IVPB Q8 * Discontinue fluids * dyspnea may be secondary to liver failure 2. Opioid overdose UDS on admission: * Opiates screen: Positive * Methadone screen: Positive Given 2 doses of Narcan but patient was agitated and respiratory distressed, therefore, he was intubated. Patient extubated on 07/24/18. -patient is a poor historian as far as opioid/drug abuse hx - Folic acid 1mg PO dose - Thiamine 100mg PO BID 3. Hepatic encephalopathy Ammonia: 55 --> decreased from 152 on 07/31/18 Lactulose 20gm PO BID GI consult, Dr. Tejeda. recs appreciated. 4. Decompensated Hepatitis C Liver cirrhosis -GI consult: Dr. Tejeda---> Help appreciated * continue lactulose therapy for encephalopathy prevention, titrate so patient has 2-3 bowel movements daily * patient will require further outpatient follow up with oncology team at [facility] [place] * No further planned GI interventions at this time -Possible secondary to hepatitis c -Hep C Antibody x2 (2015): Reactive; Hep C Viral RNA: Pending -Hep C Ab: 33.4 -Hep B panel: negative (2016); repeat Hepatitis B panel and HIV: NEGATIVE -Alpha fetoprotein: >5200.00 - CEA: 3.9 Abdomen/Pelvis CT with IV contrast (10/2017): Liver: Enlarged nodular cirrhotic liver. Periportal edema. There is a focal liver hypodensity that cannot be further characterized on the current examination. Gallbladder and bile ducts: Cholecystectomy. Pancreas: Unremarkable. No mass. No ductal dilation. Spleen: Unremarkable. No splenomegaly. Adrenals: Unremarkable. No mass. Kidneys and ureters: There are 2 right distal ureteral stone. Prostate calcification. 5. Peripheral edema Possibly 2/2 to cirrhosis Lasix 20 mg IV daily (07/25/17) -->restarted Venous doppler: Negative Echocardiogram: Normal LV sytolic Function. Borderline Dilated LA. Trace MR and diastolic dysfunction 6. Altered mental status resolved HEAD CT w/o Contrast: Age-appropriate cerebral and cerebellar atrophy. Mild chronic microvascular ischemic change. No evidence of acute intracranial hemorrhage. HEAD/NECK CTA: Normal CT Angiography of the neck. 7. Hepatocellular carcinoma Will need outpatient follow up, per Dr. Elder. 8. GI/DVT ppx GI: Protonix 20 mg PO daily discussed with Dr. Barber.
--- NOTE | 2018-08-08 17:59 | CP.PCM.PN ---
Subjective - Date & Time of Evaluation Date of Evaluation: 08/07/18 Time of Evaluation: 12:00 - Subjective Subjective: Feeling better. Objective - Vital Signs/Intake and Output Vital Signs (last 24 hours): Temp Pulse Resp BP Pulse Ox 98.4 F 105 H 20 121/73 95 08/08/18 15:30 08/08/18 15:30 08/08/18 15:30 08/08/18 15:30 08/08/18 15:30 Intake and Output: 08/08/18 08/08/18 06:59 18:59 Intake Total 250 Balance 250 - Medications Medications: Current Medications Folic Acid (Folic Acid) 1 mg PO DAILY [facility] Last Admin: 08/08/18 10:08 Dose: 1 mg Furosemide (Lasix) 20 mg IVP DAILY [facility] Last Admin: 08/08/18 10:08 Dose: 20 mg Piperacillin Sod/Tazobactam Sod (Zosyn 3.375 Gm Iv Premix) 3.375 gm in 50 mls @ 100 mls/hr IVPB Q8H [facility]; Protocol Last Admin: 08/08/18 17:38 Dose: 100 mls/hr Lactobacillus Acidophilus (Lactobacillus) 1 cap PO BID [facility] Last Admin: 08/08/18 17:39 Dose: 1 cap Lactulose (Enulose) 20 gm PO BID [facility] Last Admin: 08/08/18 17:39 Dose: 20 gm Pantoprazole Sodium (Protonix Ec Tab) 20 mg PO DAILY [facility] Last Admin: 08/08/18 10:08 Dose: 20 mg Spironolactone (Aldactone) 25 mg PO BID [facility] Last Admin: 08/08/18 17:39 Dose: 25 mg Thiamine HCl (Vitamin B1 Tab) 100 mg PO BID [facility] Last Admin: 08/08/18 17:39 Dose: 100 mg - Labs Labs: 08/08/18 06:24 08/08/18 06:24 PT 17.8 SECONDS (9.7-12.2) H 07/23/18 06:54 INR 1.6 07/23/18 06:54 APTT 62 SECONDS (21-34) H 07/23/18 06:54 - Head Exam Head Exam: ATRAUMATIC - Eye Exam Eye Exam: Scleral icterus - Respiratory Exam Respiratory Exam: NORMAL BREATHING PATTERN - Cardiovascular Exam Cardiovascular Exam: +S1, +S2 - GI/Abdominal Exam GI & Abdominal Exam: Normal Bowel Sounds Assessment and Plan (1) Anemia Assessment & Plan: anemia of chronic disease Status: Acute (2) Coagulopathy Assessment & Plan: liver disease nutritional component Status: Acute (3) Hepatocellular carcinoma Assessment & Plan: outpatient treatment with primary oncologist Status: Acute
--- NOTE | 2018-08-08 18:00 | CP.PCM.PN ---
Subjective - Date & Time of Evaluation Date of Evaluation: 08/08/18 Time of Evaluation: 16:00 - Subjective Subjective: Seen sitting in chair Objective - Vital Signs/Intake and Output Vital Signs (last 24 hours): Temp Pulse Resp BP Pulse Ox 98.4 F 105 H 20 121/73 95 08/08/18 15:30 08/08/18 15:30 08/08/18 15:30 08/08/18 15:30 08/08/18 15:30 Intake and Output: 08/08/18 08/08/18 06:59 18:59 Intake Total 250 Balance 250 - Medications Medications: Current Medications Folic Acid (Folic Acid) 1 mg PO DAILY [facility] Last Admin: 08/08/18 10:08 Dose: 1 mg Furosemide (Lasix) 20 mg IVP DAILY [facility] Last Admin: 08/08/18 10:08 Dose: 20 mg Piperacillin Sod/Tazobactam Sod (Zosyn 3.375 Gm Iv Premix) 3.375 gm in 50 mls @ 100 mls/hr IVPB Q8H [facility]; Protocol Last Admin: 08/08/18 17:38 Dose: 100 mls/hr Lactobacillus Acidophilus (Lactobacillus) 1 cap PO BID [facility] Last Admin: 08/08/18 17:39 Dose: 1 cap Lactulose (Enulose) 20 gm PO BID [facility] Last Admin: 08/08/18 17:39 Dose: 20 gm Pantoprazole Sodium (Protonix Ec Tab) 20 mg PO DAILY [facility] Last Admin: 08/08/18 10:08 Dose: 20 mg Spironolactone (Aldactone) 25 mg PO BID [facility] Last Admin: 08/08/18 17:39 Dose: 25 mg Thiamine HCl (Vitamin B1 Tab) 100 mg PO BID [facility] Last Admin: 08/08/18 17:39 Dose: 100 mg - Labs Labs: 08/08/18 06:24 08/08/18 06:24 PT 17.8 SECONDS (9.7-12.2) H 07/23/18 06:54 INR 1.6 07/23/18 06:54 APTT 62 SECONDS (21-34) H 07/23/18 06:54 - Head Exam Head Exam: ATRAUMATIC - Eye Exam Eye Exam: Normal appearance - ENT Exam ENT Exam: Mucous Membranes Dry - Respiratory Exam Respiratory Exam: NORMAL BREATHING PATTERN - Cardiovascular Exam Cardiovascular Exam: +S1, +S2 - GI/Abdominal Exam GI & Abdominal Exam: Normal Bowel Sounds Assessment and Plan (1) Anemia Assessment & Plan: chronic disease Status: Acute (2) Coagulopathy Assessment & Plan: liver disease nutritional Status: Acute (3) Hepatocellular carcinoma Assessment & Plan: outpatient treatment with primary oncologist Status: Acute
[2018-08-09] MEDS: Piperacill/Tazo 3.375gm in Dex 3.375 GM/50 ML BAG IVPB SCH ×3 (00:19→17:57)
--- NOTE | 2018-08-09 07:39 | CP.PCM.PN ---
Subjective - Date & Time of Evaluation Date of Evaluation: 08/09/18 Time of Evaluation: 07:39 - Subjective Subjective: Progress note for Dr. Barber Patient was seen and examined at bedside in no acute distress. Patient states he has a slightly stuffy nose, but otherwise feels well. He has no additional complaints today. He is using the bipap. Patient denies chest pain, palpitations, n/v, fevers, headaches, dizziness, abdominal pain, diarrhea, constipation. Objective - Vital Signs/Intake and Output Vital Signs (last 24 hours): Temp Pulse Resp BP Pulse Ox 97.9 F 109 H 20 118/75 95 08/08/18 23:55 08/09/18 04:18 08/08/18 23:55 08/08/18 23:55 08/08/18 23:55 - Medications Medications: Current Medications Folic Acid (Folic Acid) 1 mg PO DAILY [facility] Last Admin: 08/08/18 10:08 Dose: 1 mg Furosemide (Lasix) 20 mg IVP DAILY [facility] Last Admin: 08/08/18 10:08 Dose: 20 mg Piperacillin Sod/Tazobactam Sod (Zosyn 3.375 Gm Iv Premix) 3.375 gm in 50 mls @ 100 mls/hr IVPB Q8H [facility]; Protocol Last Admin: 08/09/18 00:19 Dose: 100 mls/hr Lactobacillus Acidophilus (Lactobacillus) 1 cap PO BID [facility] Last Admin: 08/08/18 17:39 Dose: 1 cap Lactulose (Enulose) 20 gm PO BID [facility] Last Admin: 08/08/18 17:39 Dose: 20 gm Pantoprazole Sodium (Protonix Ec Tab) 20 mg PO DAILY [facility] Last Admin: 08/08/18 10:08 Dose: 20 mg Spironolactone (Aldactone) 25 mg PO BID [facility] Last Admin: 08/08/18 17:39 Dose: 25 mg Thiamine HCl (Vitamin B1 Tab) 100 mg PO BID [facility] Last Admin: 08/08/18 17:39 Dose: 100 mg - Labs Labs: 08/08/18 06:24 08/08/18 06:24 PT 17.8 SECONDS (9.7-12.2) H 07/23/18 06:54 INR 1.6 07/23/18 06:54 APTT 62 SECONDS (21-34) H 07/23/18 06:54 - Constitutional Appears: No Acute Distress - Head Exam Head Exam: ATRAUMATIC, NORMAL INSPECTION - Eye Exam Eye Exam: EOMI, Normal appearance - ENT Exam ENT Exam: Mucous Membranes Moist - Respiratory Exam Respiratory Exam: Rhonchi, Wheezes. absent: Clear to Ausculation Bilateral, Respiratory Distress Additional comments: on Bipap - Cardiovascular Exam Cardiovascular Exam: REGULAR RHYTHM, +S1, +S2 - GI/Abdominal Exam GI & Abdominal Exam: Distended, Firm, Mass, Normal Bowel Sounds. absent: Tenderness Additional comments: Diffuse scarring across abdomen - Extremities Exam Extremities Exam: Pedal Edema (3+ pitting edema b/l LE). absent: Normal Inspection, Tenderness - Neurological Exam Neurological Exam: Alert, Awake, Oriented x3 - Psychiatric Exam Psychiatric exam: Normal Affect, Normal Mood - Skin Skin Exam: Dry, Warm Assessment and Plan - Assessment and Plan (Free Text) Plan: Sepsis possibly secondary to Multi-focal Pneumonia - HCAP - SKIVER OPERATOR called on 07/31/18 for shortness of breath and desaturation. - Code Sepsis called 07/31/18--> Transferred to telemetry floor - EKG: Sinus tach at 113 with occasional PVCs - CXR: no active disease - Chest CTA: * No evidence of pulmonary embolism. Examination limited technically for evaluation of segmental/subsegmental pulmonary artery branch emboli. * Multifocal infiltrates right lower and upper lobes. Possible multifocal pneumonia. * Small left pleural effusion. * Left lower lobe compressive atelectasis. * 6 mm right lower lobe pulmonary nodule. See above for recommendations. * Ascites. Cirrhosis. Cholecystectomy. Atypical appearance of spleen. Left upper quadrant ill-defined soft tissue mass partially included on examination. Further evaluation with contrast-enhanced CT examination is advised. * Centrilobular pulmonary emphysema. Mucous secretions are seen in the central tracheobronchial tree without occlusion. Retroperitoneal lymphadenopathy. - Repeat CXR (08/08/18): pulm vasculature probably [id number] appearance compatible with crowding; minimal concommitant pulmonary vascular congestion still possible. no interval pathology noted. - Trying to transition off of bipap and on to ventimask - ID consulted, Dr. Glynn - Medications: * Zosyn 3.375mg IVPB Q8 (active since 08/07/18) * Discontinue fluids (Dyspnea may be secondary to liver failure) Opioid overdose - UDS on admission: + Opiates, + Methadone - At admission patient was given 2 doses of Narcan; patient was ag itated/respiratory distress, therefore, he was intubated. Patient was then extubated on 07/24/18. - Continue Folic acid 1mg PO and Thiamine 100mg PO BID Hepatic encephalopathy - Ammonia: 127 on 08/04/18 - Repeat Ammonia: f/u - Lactulose 20gm PO BID - GI consult, Dr. Tejeda. recs appreciated. Decompensated Hepatitis C Liver cirrhosis - GI consult: Dr. Tejeda---> Help appreciated * continue lactulose therapy for encephalopathy prevention, titrate so patient has 2-3 bowel movements daily * Patient will require further outpatient follow up with oncology team * No further planned GI interventions at this time - Hep C Antibody x2 (2015): Reactive - Hep C Ab: 33.4 - Hep B panel: negative (2016); repeat Hepatitis B panel and HIV: NEGATIVE - Alpha fetoprotein: >5200.00 - CEA: 3.9 - CA19-9: 59.4 - Abdomen/Pelvis CT with IV contrast (10/2017): Liver: Enlarged nodular cirrhotic liver. Periportal edema. There is a focal liver hypodensity that cannot be further characterized on the current examination. Gallbladder and bile ducts: Cholecystectomy. Pancreas: Unremarkable. No mass. No ductal dilation. Spleen: Unremarkable. No splenomegaly. Adrenals: Unremarkable. No mass. Kidneys and ureters: There are 2 right distal ureteral stone. Prostate calcification. Hepatocellular carcinoma - Will need outpatient follow up with patients oncologist, Dr. Herr (per Dr. Elder). Peripheral edema - Possibly 2/2 to cirrhosis - Lasix 20 mg IV daily - Aldactone 25mg PO BID - Venous doppler: Negative - Echocardiogram: Normal LV systolic Function. Borderline Dilated LA. Trace MR a nd diastolic dysfunction Altered mental status - Resolved - Neuro consult, Dr. aWtts/Renee. - MRI brain without contrast no sign of acute infarct. Cerebral atrophy and chronic small vessel ischemic disease. Limited exam due to motion artifact. - CT head Age-appropriate cerebral and cerebellar atrophy. Mild chronic microvascular ischemic change. No evidence of acute intracranial hemorrhage. - CTA head and neck: Normal CT Angiography of the neck. - No acute findings on imaging. Prophylaxis - GI: Protonix 20 mg PO daily - DVT: Lovenox 40u SC daily - Lactobacillus 1cap PO BID - Thiamine and Folic acid - PT/OT Case discussed with and patient seen with Dr. Barber.
[2018-08-09 08:06] LABS: BASO # 0.1 K/uL (0.0-0.2); BASO % 1.1 % (0.0-2.0); EOS # 0.4 K/uL (0.0-0.7); EOS % 2.9 % (0.0-4.0); HEMOGLOBIN 10.3 g/dL (12.0-18.0); LYMPH # 2.3 K/uL (1.0-4.3); LYMPH % 17.6 % (20.0-40.0); MEAN CELL VOLUME 108.6 fL (80.0-94.0); MEAN CORPUSCULAR HEMOGLOBIN 36.2 pg (27.0-31.0); MEAN CORPUSCULAR HGB CONC 33.3 g/dL (33.0-37.0); MONO # 1.6 K/uL (0.0-0.8); MONO % 12.5 % (0.0-10.0); NEUT # 8.6 K/uL (1.8-7.0); NEUT % 65.9 % (50.0-75.0); NRBC % 0.5 % (0.0-2.0); RBC 2.85 Mil/uL (4.40-5.90); WHITE BLOOD COUNT 13.1 K/uL (4.8-10.8)
[2018-08-09 08:27] LABS: ALB/GLOB RATIO 0.5 (1.0-2.1); ALBUMIN 2.2 g/dL (3.5-5.0); ALT/SGPT 95 U/L (21-72); AST/SGOT 160 U/L (17-59); BLOOD UREA NITROGEN 23 mg/dL (9-20); GFR NON-AFRICAN AMERICAN > 60
[2018-08-09] MEDS: Lactobacillus Acidophilus 500 MU Cap PO SCH ×2 (09:42→17:57)
[2018-08-09] MEDS: Pantoprazole 20 mg EC Tab PO SCH (09:42)
--- NOTE | 2018-08-09 13:10 | CP.PCM.PN ---
Subjective - Date & Time of Evaluation Date of Evaluation: 08/09/18 Time of Evaluation: 13:00 - Subjective Subjective: Feeling better, trying to eat more Objective - Vital Signs/Intake and Output Vital Signs (last 24 hours): Temp Pulse Resp BP Pulse Ox 97.9 F 100 H 20 103/63 95 08/09/18 07:35 08/09/18 09:00 08/08/18 23:55 08/09/18 09:43 08/08/18 23:55 - Medications Medications: Current Medications Folic Acid (Folic Acid) 1 mg PO DAILY [facility] Last Admin: 08/09/18 09:42 Dose: 1 mg Furosemide (Lasix) 20 mg IVP DAILY [facility] Last Admin: 08/09/18 09:43 Dose: 20 mg Piperacillin Sod/Tazobactam Sod (Zosyn 3.375 Gm Iv Premix) 3.375 gm in 50 mls @ 100 mls/hr IVPB Q8H [facility]; Protocol Last Admin: 08/09/18 09:15 Dose: 100 mls/hr Lactobacillus Acidophilus (Lactobacillus) 1 cap PO BID [facility] Last Admin: 08/09/18 09:42 Dose: 1 cap Lactulose (Enulose) 20 gm PO BID [facility] Last Admin: 08/09/18 09:43 Dose: 20 gm Pantoprazole Sodium (Protonix Ec Tab) 20 mg PO DAILY [facility] Last Admin: 08/09/18 09:42 Dose: 20 mg Spironolactone (Aldactone) 25 mg PO BID [facility] Last Admin: 08/09/18 09:43 Dose: 25 mg Thiamine HCl (Vitamin B1 Tab) 100 mg PO BID [facility] Last Admin: 08/09/18 09:43 Dose: 100 mg - Labs Labs: 08/09/18 07:36 08/09/18 07:36 PT 17.8 SECONDS (9.7-12.2) H 07/23/18 06:54 INR 1.6 07/23/18 06:54 APTT 62 SECONDS (21-34) H 07/23/18 06:54 - Head Exam Head Exam: ATRAUMATIC - Eye Exam Eye Exam: Scleral icterus - ENT Exam ENT Exam: Mucous Membranes Dry - Respiratory Exam Respiratory Exam: NORMAL BREATHING PATTERN - Cardiovascular Exam Cardiovascular Exam: +S1, +S2 - GI/Abdominal Exam GI & Abdominal Exam: Normal Bowel Sounds Assessment and Plan (1) Anemia Assessment & Plan: chronic disease from malignancy Status: Acute (2) Coagulopathy Assessment & Plan: liver disease Status: Acute (3) Hepatocellular carcinoma Assessment & Plan: outpatient treatment with primary oncologist Status: Acute
[2018-08-10] MEDS: Piperacill/Tazo 3.375gm in Dex 3.375 GM/50 ML BAG IVPB SCH ×2 (01:45→08:31)
--- NOTE | 2018-08-10 07:08 | CP.PCM.PN ---
<Mulu Braun - Last Filed: 08/10/18 15:27> Subjective - Date & Time of Evaluation Date of Evaluation: 08/10/18 Time of Evaluation: 07:05 - Subjective Subjective: Progress note for Dr. Escamilla (covering for Dr. Barber) Patient was seen and examined at bedside in no acute distress. Patient has no complaints today and is requesting to eat his breakfast. He denies having chest pain, palpitations, dyspnea, cough, abdominal pain, n/v, fevers, chills diarrhea, constipation. No acute events overnight. Objective - Vital Signs/Intake and Output Vital Signs (last 24 hours): Temp Pulse Resp BP Pulse Ox 98.8 F 99 H 20 113/76 98 08/09/18 23:40 08/09/18 23:40 08/09/18 23:40 08/09/18 23:40 08/09/18 23:40 Intake and Output: 08/10/18 08/10/18 06:59 18:59 Intake Total 290 Balance 290 - Medications Medications: Current Medications Enoxaparin Sodium (Lovenox) 40 mg SC DAILY [facility] Folic Acid (Folic Acid) 1 mg PO DAILY [facility] Last Admin: 08/09/18 09:42 Dose: 1 mg Furosemide (Lasix) 20 mg IVP DAILY [facility] Last Admin: 08/09/18 09:43 Dose: 20 mg Piperacillin Sod/Tazobactam Sod (Zosyn 3.375 Gm Iv Premix) 3.375 gm in 50 mls @ 100 mls/hr IVPB Q8H [facility]; Protocol Last Admin: 08/10/18 01:45 Dose: 100 mls/hr Lactobacillus Acidophilus (Lactobacillus) 1 cap PO BID [facility] Last Admin: 08/09/18 17:57 Dose: 1 cap Lactulose (Enulose) 20 gm PO BID [facility] Last Admin: 08/09/18 17:59 Dose: Not Given Pantoprazole Sodium (Protonix Ec Tab) 20 mg PO DAILY [facility] Last Admin: 08/09/18 09:42 Dose: 20 mg Spironolactone (Aldactone) 25 mg PO BID [facility] Last Admin: 08/09/18 17:57 Dose: 25 mg Thiamine HCl (Vitamin B1 Tab) 100 mg PO BID [facility] Last Admin: 08/09/18 17:57 Dose: 100 mg - Labs Labs: 08/09/18 07:36 08/09/18 07:36 PT 17.8 SECONDS (9.7-12.2) H 07/23/18 06:54 INR 1.6 07/23/18 06:54 APTT 62 SECONDS (21-34) H 07/23/18 06:54 - Additional Findings Additional findings: - Constitutional Appears: No Acute Distress - Head Exam Head Exam: ATRAUMATIC, NORMAL INSPECTION - Eye Exam Eye Exam: EOMI, Normal appearance - ENT Exam ENT Exam: Mucous Membranes Moist - Respiratory Exam Respiratory Exam: Rhonchi, Wheezes. absent: Clear to Ausculation Bilateral, Respiratory Distress Additional comments: on Bipap - Cardiovascular Exam Cardiovascular Exam: REGULAR RHYTHM, +S1, +S2 - GI/Abdominal Exam GI & Abdominal Exam: Distended, Firm, Mass, Normal Bowel Sounds. absent: Tenderness Additional comments: Diffuse scarring across abdomen - Extremities Exam Extremities Exam: Pedal Edema (3+ pitting edema b/l LE). absent: Normal Inspection, Tenderness - Neurological Exam Neurological Exam: Alert, Awake, Oriented x3 - Psychiatric Exam Psychiatric exam: Normal Affect, Normal Mood - Skin Skin Exam: Dry, Warm Assessment and Plan - Assessment and Plan (Free Text) Plan: Sepsis possibly secondary to Multi-focal Pneumonia - HCAP - Improving, afebrile, leukocytosis trending down - MAIL LIST PROCESSOR called on 07/31/18 for shortness of breath and desaturation. - Code Sepsis called 07/31/18--> Transferred to telemetry floor - EKG: Sinus tach at 113 with occasional PVCs - Blood, urine cx negative to date - CXR: no active disease - Chest CTA: * No evidence of pulmonary embolism. Examination limited technically for evaluation of segmental/subsegmental pulmonary artery branch emboli. * Multifocal infiltrates right lower and upper lobes. Possible multifocal pneumonia. * Small left pleural effusion. * Left lower lobe compressive atelectasis. * 6 mm right lower lobe pulmonary nodule. See above for recommendations. * Ascites. Cirrhosis. Cholecystectomy. Atypical appearance of spleen. Left upper quadrant ill-defined soft tissue mass partially included on examination. Further evaluation with contrast-enhanced CT examination is advised. * Centrilobular pulmonary emphysema. Mucous secretions are seen in the central tracheobronchial tree without occlusion. Retroperitoneal lymphadenopathy. - Repeat CXR (08/08/18): pulm vasculature probably [id number] appearance compatible with crowding; minimal concommitant pulmonary vascular congestion still possible. no interval pathology noted. - Trying to transition off of bipap and on to ventimask - ID consulted, Dr. Glynn - Medications: * Zosyn 3.375mg IVPB Q8 (started on 08/07/18, DC on 08/10/18) * Started Vantin 200mg PO Q12h for 5 days (started on 08/10/18) Opioid overdose - UDS on admission: + Opiates, + Methadone - At admission patient was given 2 doses of Narcan; patient was agitated/respiratory distress, therefore, he was intubated. Patient was then extubated on 07/24/18. - Continue Folic acid 1mg PO and Thiamine 100mg PO BID Hepatic encephalopathy - GI consult, Dr. Tejeda. recs appreciated. - Ammonia: 127 on 08/04/18 - Repeat Ammonia 08/10/18: 91 - Continue to monitor AM ammonia - Lactulose 20gm PO QID- hold if >3 BMs (increased from BID on 08/10/18 due to elevated ammonia) Decompensated Hepatitis C Liver cirrhosis - GI consult: Dr. Tejeda---> Help appreciated * continue lactulose therapy for encephalopathy prevention, titrate so patient has 2-3 bowel movements daily * Patient will require further outpatient follow up with oncology team * No further planned GI interventions at this time - Hep C Antibody x2 (2015): Reactive - Hep C Ab: 33.4 - Hep B panel: negative (2016); repeat Hepatitis B panel and HIV: NEGATIVE - Alpha fetoprotein: >5200.00 - CEA: 3.9 - CA19-9: 59.4 - Abdomen/Pelvis CT with IV contrast (10/2017): Liver: Enlarged nodular cirrhotic liver. Periportal edema. There is a focal liver hypodensity that cannot be further characterized on the current examination. Gallbladder and bile ducts: Cholecystectomy. Pancreas: Unremarkable. No mass. No ductal dilation. Spleen: Unremarkable. No splenomegaly. Adrenals: Unremarkable. No mass. Kidneys and ureters: There are 2 right distal ureteral stone. Prostate calcification. Hepatocellular carcinoma - Will need outpatient follow up with patients oncologist, Dr. Herr (per Dr. Elder). Peripheral edema - Possibly 2/2 to cirrhosis - Lasix 40 mg IV daily (increased from 20 on 08/10/18) - Aldactone 25mg PO BID - Venous doppler: Negative - Echocardiogram: Normal LV systolic Function. Borderline Dilated LA. Trace MR and diastolic dysfunction Altered mental status - Resolved - Neuro consult, Dr. Watts/Renee. - MRI brain without contrast no sign of acute infarct. Cerebral atrophy and chronic small vessel ischemic disease. Limited exam due to motion artifact. - CT head Age-appropriate cerebral and cerebellar atrophy. Mild chronic microvascular ischemic change. No evidence of acute intracranial hemorrhage. - CTA head and neck: Normal CT Angiography of the neck. - No acute findings on imaging. Prophylaxis - GI: Protonix 20 mg PO daily - DVT: Lovenox 40u SC daily - Lactobacillus 1cap PO BID - PT/OT - Palliative care consult to establish goals of care Case discussed with and patient seen with Dr. Escamilla (covering for Dr. Barber). <Martín Escamilla - Last Filed: 08/10/18 16:22> Objective - Vital Signs/Intake and Output Vital Signs (last 24 hours): Temp Pulse Resp BP Pulse Ox 98.2 F 90 20 100/64 100 08/10/18 15:00 08/10/18 15:30 08/10/18 15:00 08/10/18 15:58 08/10/18 15:00 Intake and Output: 08/10/18 08/10/18 06:59 18:59 Intake Total 290 Balance 290 - Medications Medications: Current Medications Cefpodoxime Proxetil (Vantin) 200 mg PO Q12H [facility]; Protocol Stop: 08/15/18 16:01 Enoxaparin Sodium (Lovenox) 40 mg SC DAILY [facility] Last Admin: 08/10/18 09:31 Dose: 40 mg Folic Acid (Folic Acid) 1 mg PO DAILY [facility] Last Admin: 08/10/18 09:32 Dose: 1 mg Furosemide (Lasix) 40 mg IVP DAILY [facility] Last Admin: 08/10/18 15:58 Dose: Not Given Lactobacillus Acidophilus (Lactobacillus) 1 cap PO BID [facility] Last Admin: 08/10/18 09:31 Dose: 1 cap Lactulose (Enulose) 20 gm PO QID [facility] Pantoprazole Sodium (Protonix Ec Tab) 20 mg PO DAILY [facility] Last Admin: 08/10/18 09:32 Dose: 20 mg Spironolactone (Aldactone) 25 mg PO BID [facility] Last Admin: 08/10/18 09:32 Dose: 25 mg Thiamine HCl (Vitamin B1 Tab) 100 mg PO BID [facility] Last Admin: 08/10/18 09:32 Dose: 100 mg - Labs Labs: 08/10/18 07:05 08/10/18 07:05 PT 17.8 SECONDS (9.7-12.2) H 07/23/18 06:54 INR 1.6 07/23/18 06:54 APTT 62 SECONDS (21-34) H 07/23/18 06:54 Attending/Attestation - Attestation I have personally seen and examined this patient.: Yes I have fully participated in the care of the patient.: Yes I have reviewed all pertinent clinical information, including history, physical exam and plan: Yes
[2018-08-10 07:16] LABS: BASO # 0.1 K/uL (0.0-0.2); BASO % 1.2 % (0.0-2.0); EOS # 0.5 K/uL (0.0-0.7); EOS % 3.6 % (0.0-4.0); HEMOGLOBIN 10.4 g/dL (12.0-18.0); LYMPH # 2.3 K/uL (1.0-4.3); LYMPH % 18.1 % (20.0-40.0); MEAN CELL VOLUME 108.1 fL (80.0-94.0); MEAN CORPUSCULAR HEMOGLOBIN 36.4 pg (27.0-31.0); MEAN CORPUSCULAR HGB CONC 33.7 g/dL (33.0-37.0); MEAN PLATELET VOLUME 6.9 fL (7.2-11.7); MONO # 1.4 K/uL (0.0-0.8); MONO % 10.5 % (0.0-10.0); NEUT # 8.5 K/uL (1.8-7.0); NEUT % 66.6 % (50.0-75.0); NRBC % 0.3 % (0.0-2.0); RBC 2.85 Mil/uL (4.40-5.90); WHITE BLOOD COUNT 12.8 K/uL (4.8-10.8)
[2018-08-10 07:29] LABS: ALB/GLOB RATIO 0.5 (1.0-2.1); ALBUMIN 2.2 g/dL (3.5-5.0); ALT/SGPT 99 U/L (21-72); AST/SGOT 149 U/L (17-59); BLOOD UREA NITROGEN 21 mg/dL (9-20); GFR NON-AFRICAN AMERICAN > 60
[2018-08-10] MEDS: Enoxaparin 40 mg Syringe SC SCH (09:31)
[2018-08-10] MEDS: Lactobacillus Acidophilus 500 MU Cap PO SCH ×2 (09:31→17:54)
[2018-08-10] MEDS: Pantoprazole 20 mg EC Tab PO SCH (09:32)
[2018-08-10] MEDS: Cefpodoxime (Vantin) 200 mg Tab PO SCH (16:53)
--- NOTE | 2018-08-10 19:09 | CP.PCM.PN ---
Subjective - Date & Time of Evaluation Date of Evaluation: 08/10/18 Time of Evaluation: 15:00 - Subjective Subjective: dictated Objective - Vital Signs/Intake and Output Vital Signs (last 24 hours): Temp Pulse Resp BP Pulse Ox 98.2 F 90 20 100/64 100 08/10/18 15:00 08/10/18 15:30 08/10/18 15:00 08/10/18 15:58 08/10/18 15:00 - Medications Medications: Current Medications Cefpodoxime Proxetil (Vantin) 200 mg PO Q12H [facility]; Protocol Stop: 08/15/18 16:01 Last Admin: 08/10/18 16:53 Dose: 200 mg Enoxaparin Sodium (Lovenox) 40 mg SC DAILY [facility] Last Admin: 08/10/18 09:31 Dose: 40 mg Folic Acid (Folic Acid) 1 mg PO DAILY [facility] Last Admin: 08/10/18 09:32 Dose: 1 mg Furosemide (Lasix) 40 mg IVP DAILY [facility] Last Admin: 08/10/18 15:58 Dose: Not Given Lactobacillus Acidophilus (Lactobacillus) 1 cap PO BID [facility] Last Admin: 08/10/18 17:54 Dose: 1 cap Lactulose (Enulose) 20 gm PO QID [facility] Last Admin: 08/10/18 17:55 Dose: 20 gm Pantoprazole Sodium (Protonix Ec Tab) 20 mg PO DAILY [facility] Last Admin: 08/10/18 09:32 Dose: 20 mg Spironolactone (Aldactone) 25 mg PO BID [facility] Last Admin: 08/10/18 17:53 Dose: 25 mg Thiamine HCl (Vitamin B1 Tab) 100 mg PO BID [facility] Last Admin: 08/10/18 17:53 Dose: 100 mg - Labs Labs: 08/10/18 07:05 08/10/18 07:05 PT 17.8 SECONDS (9.7-12.2) H 07/23/18 06:54 INR 1.6 07/23/18 06:54 APTT 62 SECONDS (21-34) H 07/23/18 06:54
--- NOTE | 2018-08-10 19:23 | CP.PCM.PN ---
Subjective - Date & Time of Evaluation Date of Evaluation: 08/10/18 Time of Evaluation: 18:00 - Subjective Subjective: Feeling better, trying to eat more. Objective - Vital Signs/Intake and Output Vital Signs (last 24 hours): Temp Pulse Resp BP Pulse Ox 98.2 F 90 20 100/64 100 08/10/18 15:00 08/10/18 15:30 08/10/18 15:00 08/10/18 15:58 08/10/18 15:00 - Medications Medications: Current Medications Cefpodoxime Proxetil (Vantin) 200 mg PO Q12H [facility]; Protocol Stop: 08/15/18 16:01 Last Admin: 08/10/18 16:53 Dose: 200 mg Enoxaparin Sodium (Lovenox) 40 mg SC DAILY [facility] Last Admin: 08/10/18 09:31 Dose: 40 mg Folic Acid (Folic Acid) 1 mg PO DAILY [facility] Last Admin: 08/10/18 09:32 Dose: 1 mg Furosemide (Lasix) 40 mg IVP DAILY [facility] Last Admin: 08/10/18 15:58 Dose: Not Given Lactobacillus Acidophilus (Lactobacillus) 1 cap PO BID [facility] Last Admin: 08/10/18 17:54 Dose: 1 cap Lactulose (Enulose) 20 gm PO QID [facility] Last Admin: 08/10/18 17:55 Dose: 20 gm Pantoprazole Sodium (Protonix Ec Tab) 20 mg PO DAILY [facility] Last Admin: 08/10/18 09:32 Dose: 20 mg Spironolactone (Aldactone) 25 mg PO BID [facility] Last Admin: 08/10/18 17:53 Dose: 25 mg Thiamine HCl (Vitamin B1 Tab) 100 mg PO BID [facility] Last Admin: 08/10/18 17:53 Dose: 100 mg - Labs Labs: 08/10/18 07:05 08/10/18 07:05 PT 17.8 SECONDS (9.7-12.2) H 07/23/18 06:54 INR 1.6 07/23/18 06:54 APTT 62 SECONDS (21-34) H 07/23/18 06:54 - Head Exam Head Exam: ATRAUMATIC - Eye Exam Eye Exam: Normal appearance - ENT Exam ENT Exam: Mucous Membranes Dry - Respiratory Exam Respiratory Exam: NORMAL BREATHING PATTERN - Cardiovascular Exam Cardiovascular Exam: +S1, +S2 - GI/Abdominal Exam GI & Abdominal Exam: Normal Bowel Sounds Assessment and Plan (1) Anemia Assessment & Plan: anemia of chronic disease Status: Acute (2) Coagulopathy Assessment & Plan: liver disease Status: Acute (3) Hepatocellular carcinoma Assessment & Plan: outpatient treatment with primary oncologist Status: Acute
--- NOTE | 2018-08-10 21:12 | PN ---
DATE: 08/10/2018 INFECTIOUS DISEASE FOLLOWUP SUBJECTIVE: The patient remains on BiPAP. He is on a different floor at this time. He is awake and alert. Does not seem to be in respiratory distress. PHYSICAL EXAMINATION: VITAL SIGNS: T-max is 98.2, pulse 90, blood pressure is 100/64, respirations are 20, saturation remains 100% on BiPAP. HEAD: Atraumatic. NECK: Supple. LUNGS: Clear. HEART: S1 and S2 are regular. ABDOMEN: Has distention with ascites and has surgical scars. EXTREMITIES: Remain with bilateral edema. LABORATORY DATA: Labs are noted. White count is 12.8, hemoglobin 10.4, hematocrit 30.8, platelet count 258. Chemistry shows sodium is 133, potassium 3.9, chlorides are 102, carbon dioxide is 29, BUN is 21, creatinine 0.1. The patient had a chest x-ray on 08/08/2018 which shows heart size pulmonary vascular probably top normal current appearance compatible with crowding, minimal concomitant pulmonary vascular congestion is still possible, no interval pathology and no consolidation. Lung volumes are lower limits to normal. ASSESSMENT AND PLAN: The patient has hepatocellular carcinoma. He is not having any fevers. His white count is improving. He has received 10 days worth of antibiotics. At this time, we will change the antibiotic to Vantin for four days. Plan was discussed with the resident. The patient will probably be able to go back to rehabilitation. Rufino Glynn MD
[2018-08-11] MEDS: Cefpodoxime (Vantin) 200 mg Tab PO SCH ×2 (03:26→17:30)
--- NOTE | 2018-08-11 07:34 | CP.PCM.PN ---
<Mulu Braun - Last Filed: 08/11/18 14:44> Subjective - Date & Time of Evaluation Date of Evaluation: 08/11/18 Time of Evaluation: 07:32 - Subjective Subjective: Progress note for Dr. Escamilla (covering for Dr. Barber) Patient was seen and examined at bedside in no acute distress. Patient reports feeling more uncomfortable today and more distention (abdomen). He otherwise has no complaints. He denies chest pain, palpitations, cough, dyspnea, nausea, vomiting, fevers, headaches. He is alert and oriented x3. Objective - Vital Signs/Intake and Output Vital Signs (last 24 hours): Temp Pulse Resp BP Pulse Ox 97.8 F 91 H 20 104/62 100 08/11/18 00:29 08/11/18 00:29 08/11/18 00:29 08/11/18 00:29 08/11/18 00:29 Intake and Output: 08/11/18 08/11/18 06:59 18:59 Intake Total 240 Balance 240 - Medications Medications: Current Medications Cefpodoxime Proxetil (Vantin) 200 mg PO Q12H [facility]; Protocol Stop: 08/15/18 16:01 Last Admin: 08/11/18 03:26 Dose: 200 mg Enoxaparin Sodium (Lovenox) 40 mg SC DAILY [facility] Last Admin: 08/10/18 09:31 Dose: 40 mg Folic Acid (Folic Acid) 1 mg PO DAILY [facility] Last Admin: 08/10/18 09:32 Dose: 1 mg Furosemide (Lasix) 40 mg IVP DAILY [facility] Last Admin: 08/10/18 15:58 Dose: Not Given Lactobacillus Acidophilus (Lactobacillus) 1 cap PO BID [facility] Last Admin: 08/10/18 17:54 Dose: 1 cap Lactulose (Enulose) 20 gm PO QID [facility] Last Admin: 08/10/18 21:33 Dose: 20 gm Pantoprazole Sodium (Protonix Ec Tab) 20 mg PO DAILY [facility] Last Admin: 08/10/18 09:32 Dose: 20 mg Spironolactone (Aldactone) 25 mg PO BID [facility] Last Admin: 08/10/18 17:53 Dose: 25 mg Thiamine HCl (Vitamin B1 Tab) 100 mg PO BID [facility] Last Admin: 08/10/18 17:53 Dose: 100 mg - Labs Labs: 08/10/18 07:05 08/10/18 07:05 PT 17.8 SECONDS (9.7-12.2) H 07/23/18 06:54 INR 1.6 07/23/18 06:54 APTT 62 SECONDS (21-34) H 07/23/18 06:54 - Additional Findings Additional findings: - Constitutional Appears: No Acute Distress - Head Exam Head Exam: ATRAUMATIC, NORMAL INSPECTION - Eye Exam Eye Exam: EOMI, Normal appearance - ENT Exam ENT Exam: Mucous Membranes Moist - Respiratory Exam Respiratory Exam: Rhonchi, Wheezes. absent: Clear to Auscultation Bilateral, Respiratory Distress Additional comments: on Bipap - Cardiovascular Exam Cardiovascular Exam: REGULAR RHYTHM, +S1, +S2 - GI/Abdominal Exam GI & Abdominal Exam: Distended, Firm, Mass, Normal Bowel Sounds. absent: Tenderness Additional comments: Diffuse scarring across abdomen, scrotal swelling - Extremities Exam Extremities Exam: Pedal Edema (3+ pitting edema b/l LE). absent: Normal Inspection, Tenderness - Neurological Exam Neurological Exam: Alert, Awake, Oriented x3 - Psychiatric Exam Psychiatric exam: Normal Affect, Normal Mood - Skin Skin Exam: Dry, Warm Assessment and Plan - Assessment and Plan (Free Text) Plan: Sepsis possibly secondary to Multi-focal Pneumonia - HCAP - Improving, afebrile, leukocytosis trending down - HUMAN RESOURCES ADMINISTRATOR called on 07/31/18 for shortness of breath and desaturation. - Code Sepsis called 07/31/18--> Transferred to telemetry floor - EKG: Sinus tach at 113 with occasional PVCs - Blood, urine cx negative to date - CXR: no active disease - Chest CTA: * No evidence of pulmonary embolism. Examination limited technically for evaluation of segmental/subsegmental pulmonary artery branch emboli. * Multifocal infiltrates right lower and upper lobes. Possible multifocal pneumonia. * Small left pleural effusion. * Left lower lobe compressive atelectasis. * 6 mm right lower lobe pulmonary nodule. See above for recommendations. * Ascites. Cirrhosis. Cholecystectomy. Atypical appearance of spleen. Left upper quadrant ill-defined soft tissue mass partially included on examination. Further evaluation with contrast-enhanced CT examination is advised. * Centrilobular pulmonary emphysema. Mucous secretions are seen in the central tracheobronchial tree without occlusion. Retroperitoneal lymphadenopathy. - Repeat CXR (08/08/18): pulm vasculature probably [id number] appearance compatible with crowding; minimal concommitant pulmonary vascular congestion still possible. no interval pathology noted. - Trying to transition off of bipap and on to ventimask - ID consulted, Dr. Glynn - Medications: * Discontinued Zosyn 3.375mg IVPB Q8 (started on 08/07/18, DC on 08/10/18) * Started Vantin 200mg PO Q12h for 5 days (started on 08/10/18) Ascites - IR consulted, Dr. King. - s/p therapeutic paracentesis, removed 5000cc on 08/11/18 - Follow up fluid studies Opioid overdose - UDS on admission: + Opiates, + Methadone - At admission patient was given 2 doses of Narcan; patient was agitated/respiratory distress, therefore, he was intubated. Patient was then extubated on 07/24/18. - Continue Folic acid 1mg PO and Thiamine 100mg PO BID Hepatic encephalopathy - GI consult, Dr. Tejeda. recs appreciated. - Ammonia: 127 on 08/04/18 - Repeat Ammonia 08/10/18: 91 - Continue to monitor AM ammonia - Lactulose 20gm PO QID- hold if >3 BMs (increased from BID on 08/10/18 due to elevated ammonia) Decompensated Hepatitis C Liver cirrhosis - GI consult: Dr. Tejeda---> Help appreciated * continue lactulose therapy for encephalopathy prevention, titrate so patient has 2-3 bowel movements daily * Patient will require further outpatient follow up with oncology team * No further planned GI interventions at this time - Hep C Antibody x2 (2015): Reactive - Hep C Ab: 33.4 - Hep B panel: negative (2016); repeat Hepatitis B panel and HIV: NEGATIVE - Alpha fetoprotein: >5200.00 - CEA: 3.9 - CA19-9: 59.4 - Abdomen/Pelvis CT with IV contrast (10/2017): Liver: Enlarged nodular cirrhotic liver. Periportal edema. There is a focal liver hypodensity that cannot be further characterized on the current examination. Gallbladder and bile ducts: Cholecystectomy. Pancreas: Unremarkable. No mass. No ductal dilation. Spleen: Unremarkable. No splenomegaly. Adrenals: Unremarkable. No mass. Kidneys and ureters: There are 2 right distal ureteral stone. Prostate calcification. Hepatocellular carcinoma - Will need outpatient follow up with patients oncologist, Dr. Herr (per Dr. Elder). Peripheral edema - Possibly 2/2 to cirrhosis - Lasix 40 mg IV daily (increased from 20 on 08/10/18) - Aldactone 25mg PO BID - Venous doppler: Negative - Echocardiogram: Normal LV systolic Function. Borderline Dilated LA. Trace MR and diastolic dysfunction Altered mental status - Resolved - Neuro consult, Dr. Watts/Renee. - MRI brain without contrast no sign of acute infarct. Cerebral atrophy and chronic small vessel ischemic disease. Limited exam due to motion artifact. - CT head Age-appropriate cerebral and cerebellar atrophy. Mild chronic mi crovascular ischemic change. No evidence of acute intracranial hemorrhage. - CTA head and neck: Normal CT Angiography of the neck. - No acute findings on imaging. Prophylaxis - GI: Protonix 20 mg PO daily - DVT: Lovenox 40u SC daily - Lactobacillus 1cap PO BID - PT/OT - Palliative care consult to establish goals of care--> POLST signed, DNR/DNI Dispo: Case management working on PAT placement. Pending placement and authorization. Case discussed with and patient seen with Dr. Escamilla (covering for Dr. Barber). <Martín Escamilla - Last Filed: 08/11/18 17:10> Objective - Vital Signs/Intake and Output Vital Signs (last 24 hours): Temp Pulse Resp BP Pulse Ox 98 F 102 H 20 112/67 95 08/11/18 16:00 08/11/18 16:00 08/11/18 16:00 08/11/18 16:00 08/11/18 16:00 Intake and Output: 08/11/18 08/11/18 06:59 18:59 Intake Total 600 Balance 600 - Medications Medications: Current Medications Cefpodoxime Proxetil (Vantin) 200 mg PO Q12H [facility]; Protocol Stop: 08/15/18 16:01 Last Admin: 08/11/18 03:26 Dose: 200 mg Enoxaparin Sodium (Lovenox) 40 mg SC DAILY [facility] Last Admin: 08/11/18 10:11 Dose: 40 mg Folic Acid (Folic Acid) 1 mg PO DAILY [facility] Last Admin: 08/11/18 10:11 Dose: 1 mg Furosemide (Lasix) 40 mg IVP DAILY [facility] Lactobacillus Acidophilus (Lactobacillus) 1 cap PO BID [facility] Last Admin: 08/11/18 10:15 Dose: 1 cap Lactulose (Enulose) 20 gm PO QID [facility] Last Admin: 08/11/18 13:49 Dose: Not Given Pantoprazole Sodium (Protonix Ec Tab) 20 mg PO DAILY [facility] Last Admin: 08/11/18 10:11 Dose: 20 mg Spironolactone (Aldactone) 25 mg PO BID [facility] Last Admin: 08/11/18 10:11 Dose: 25 mg Thiamine HCl (Vitamin B1 Tab) 100 mg PO BID [facility] Last Admin: 08/11/18 10:11 Dose: 100 mg - Labs Labs: 08/11/18 08:07 08/11/18 08:07 PT 17.8 SECONDS (9.7-12.2) H 07/23/18 06:54 INR 1.6 07/23/18 06:54 APTT 62 SECONDS (21-34) H 07/23/18 06:54 Attending/Attestation - Attestation I have personally seen and examined this patient.: Yes I have fully participated in the care of the patient.: Yes I have reviewed all pertinent clinical information, including history, physical exam and plan: Yes
[2018-08-11 08:24] LABS: BASO # 0.1 K/uL (0.0-0.2); EOS # 0.2 K/uL (0.0-0.7); HEMOGLOBIN 11.5 g/dL (12.0-18.0); LYMPH % 16.4 % (20.0-40.0); MEAN CELL VOLUME 109.5 fL (80.0-94.0); MEAN CORPUSCULAR HEMOGLOBIN 36.2 pg (27.0-31.0); MEAN CORPUSCULAR HGB CONC 33.1 g/dL (33.0-37.0); MEAN PLATELET VOLUME 7.1 fL (7.2-11.7); MONO # 1.1 K/uL (0.0-0.8); NEUT # 8.7 K/uL (1.8-7.0); NEUT % 71.6 % (50.0-75.0); NRBC % 0.2 % (0.0-2.0); RBC 3.18 Mil/uL (4.40-5.90); RED CELL DISTRIBUTION WIDTH 17.2 % (11.5-14.5); WHITE BLOOD COUNT 12.2 K/uL (4.8-10.8)
[2018-08-11 08:51] LABS: ALB/GLOB RATIO 0.5 (1.0-2.1); ALBUMIN 2.5 g/dL (3.5-5.0); ALT/SGPT 129 U/L (21-72); AST/SGOT 201 U/L (17-59); BLOOD UREA NITROGEN 23 mg/dL (9-20); CALCIUM 8.5 mg/dl (8.6-10.4); GFR NON-AFRICAN AMERICAN > 60
[2018-08-11] MEDS: Enoxaparin 40 mg Syringe SC SCH (10:11)
[2018-08-11] MEDS: Pantoprazole 20 mg EC Tab PO SCH (10:11)
[2018-08-11] MEDS: Lactobacillus Acidophilus 500 MU Cap PO SCH ×2 (10:15→17:31)
--- NOTE | 2018-08-11 10:39 | CP.PCM.CON ---
History of Present Illness - History of Present Illness History of Present Illness: Palliative consult requested by Doctor Benoit for goals of care discussion, Dg. Liver cancer Patient is a 62 yo male admitted from home where was found unresponsive by family member. The last time patient was seen in his normal state, was a night prior the event. Patient brought in by EMS. In ED patient was unresponsive and reactive only to deep tactile stimuli. CT head and MRI were negative ICH. Patient then become significantly SOB and was intubated for acute respiratory distress and transferred to ICU. Patient was diagnosed with hepatic encephalopathy and treated conservatively. Per Medical record, patient was treated as an outpatient by Doctor Herr and received Chemo Tx X 1, after which he become significantly weak. On this admission patient was fallowed by Doctor Elder. During this long hospital stay, Medical team managed to successfully extubate this patient, but his chronic symptoms of liver cirrhosis and liver cancer have worsened. His T.Rian is elevated at 3.6, ammonia 60, ALT and AST elevated as well, Clinically patient presents as a very ill male and Palliative care was asked to assist in goals of care discussion. PMH: liver cirrhosis, liver cancer, HTN, HDL, Hep C, Chronic leg edema Soc. Hx: single, lives alone, cigarettes smoking X 20 years, ETOH, denies drugs use Fam. Hx: brother and sister alive in good health Review of Systems - Constitutional Constitutional: Weakness - EENT Eyes: absent: As Per HPI, Blind Spots, Blurred Vision, Change in Vision, Decreased Night Vision, Diplopia, Discharge, Dry Eye, Exophthalmos, Floaters, Irritation, Itchy Eyes, Loss of Peripheral Vision, Pain, Photophobia, Requires Corrective Lenses, Sees Flashes, Spots in Vision, Tunnel Vision, Other Visual Disturbances, Loss of Vision, Other Ears: absent: As Per HPI, Decreased Hearing, Ear Discharge, Ear Pain, Tinnitus, Abnormal Hearing, Disequilibrium, Dizziness, Other Nose/Mouth/Throat: absent: As Per HPI, Epistaxis, Nasal Congestion, Nasal Discharge, Nasal Obstruction, Nasal Trauma, Nose Pain, Post Nasal Drip, Sinus Pain, Sinus Pressure, Bleeding Gums, Change in Voice, Dental Pain, Dry Mouth, Dysphagia, Halitosis, Hoarsness, Lip Swelling, Mouth Lesions, Mouth Pain, Odynophagia, Sore Throat, Throat Swelling, Tongue Swelling, Facial Pain, Neck Pain, Neck Mass, Other - Cardiovascular Cardiovascular: Dyspnea, Dyspnea on Exertion, Leg Edema, Pedal Edema - Respiratory Respiratory: Dyspnea on Exertion - Gastrointestinal Gastrointestinal: Abdominal Pain, Bloating, Change in Bowel Habits, Nausea - Genitourinary Genitourinary: absent: As Per HPI, Change in Urinary Stream, Difficulty Urinating, Dysuria, Flank Pain, Hematuria, Pyuria, Nocturia, Urinary Incontinence, Urinary Frequency, Urinary Hesitance, Urinary Urgency, Voiding Freq/Small Amts, Freq UTI, Hx Renal/Bladder Calculi, Hx /Renal Surgery, Bladder Distension, Other - Musculoskeletal Musculoskeletal: Abnormal Gait, Deformity - Integumentary Integumentary: Dry Skin, Swelling, Jaundice - Neurological Neurological: absent: As Per HPI, Abnormal Gait, Abnormal Hearing, Abnormal Movements, Abnormal Speech, Behavioral Changes, Burning Sensations, Confusion, Convulsions, Disequilibrium, Dizziness, Numbness, Focal Weakness, Frequent Falls, Headaches, Lack of Coordination, Loss of Vision, Memory Loss, Paresthesias, Radicular Pain, Restless Legs, Sensory Deficit, Syncope, Tingling, Tremor, Vertigo, Weakness, Other Visual Disturbances, Other - Psychiatric Psychiatric: Anxiety - Endocrine Endocrine: Change in Body Appearance - Hematologic/Lymphatic Hematologic: absent: As Per HPI, Easy Bleeding, Easy Bruising, Lymphadenopathy, Other Past Patient History - Infectious Disease Hx of Infectious Diseases: None - Past Medical History & Family History Past Medical History?: Yes - Past Social History Smoking Status: Former Smoker - CARDIAC Hx Hypertension: Yes - PULMONARY Hx Chronic Obstructive Pulmonary Disease (COPD): Yes - HEENT Hx HEENT Problems: No - RENAL Hx Chronic Kidney Disease: No - HEMATOLOGICAL/ONCOLOGICAL Hx Anemia: Yes - INTEGUMENTARY Hx Dermatological Problems: No - MUSCULOSKELETAL/RHEUMATOLOGICAL Hx Fractures: Yes (rt shoulder ribs) - GASTROINTESTINAL Hx Gall Bladder Disease: Yes - PSYCHIATRIC Hx Anxiety: Yes Hx Depression: Yes 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) - SURGICAL HISTORY Hx Cholecystectomy: Yes - ANESTHESIA Hx Anesthesia: Yes Hx Anesthesia Reactions: No Hx Malignant Hyperthermia: No Meds Allergies/Adverse Reactions: Allergies Allergy/AdvReac Type Severity Reaction Status Date / Time ibuprofen [From Advil] Allergy ANAPHYLAXIS Verified 11/14/17 08:23 - Medications Medications: Current Medications Cefpodoxime Proxetil (Vantin) 200 mg PO Q12H [facility]; Protocol Stop: 08/15/18 16:01 Last Admin: 08/11/18 03:26 Dose: 200 mg Enoxaparin Sodium (Lovenox) 40 mg SC DAILY [facility] Last Admin: 08/11/18 10:11 Dose: 40 mg Folic Acid (Folic Acid) 1 mg PO DAILY [facility] Last Admin: 08/11/18 10:11 Dose: 1 mg Furosemide (Lasix) 40 mg IVP DAILY [facility] Last Admin: 08/11/18 10:12 Dose: 40 mg Lactobacillus Acidophilus (Lactobacillus) 1 cap PO BID [facility] Last Admin: 08/11/18 10:15 Dose: 1 cap Lactulose (Enulose) 20 gm PO QID [facility] Last Admin: 08/11/18 10:11 Dose: 20 gm Pantoprazole Sodium (Protonix Ec Tab) 20 mg PO DAILY [facility] Last Admin: 08/11/18 10:11 Dose: 20 mg Spironolactone (Aldactone) 25 mg PO BID [facility] Last Admin: 08/11/18 10:11 Dose: 25 mg Thiamine HCl (Vitamin B1 Tab) 100 mg PO BID [facility] Last Admin: 08/11/18 10:11 Dose: 100 mg Physical Exam - Constitutional Appears: Chronically Ill - Head Exam Head Exam: ATRAUMATIC, NORMAL INSPECTION, NORMOCEPHALIC - Eye Exam Additional comments: Left eye fixed, right pupil enlarged - ENT Exam ENT Exam: Mucous Membranes Dry - Neck Exam Neck exam: Positive for: Normal Inspection - Respiratory Exam Respiratory Exam: Decreased Breath Sounds, Rhonchi, NORMAL BREATHING PATTERN - Cardiovascular Exam Cardiovascular Exam: Tachycardia, Irregular Rhythm - GI/Abdominal Exam GI & Abdominal Exam: Diminished Bowel Sounds, Distended, Firm, Guarding - Rectal Exam Rectal Exam: Deferred - Exam Exam: NORMAL INSPECTION - Extremities Exam Extremities exam: Positive for: joint swelling, pedal edema, tenderness - Back Exam Back exam: NORMAL INSPECTION - Neurological Exam Neurological exam: Alert, Oriented x3 - Psychiatric Exam Psychiatric exam: Anxious - Skin Skin Exam: Dry, Mottled, Pallor Results - Vital Signs Recent Vital Signs: Last Vital Signs Temp 97.8 F 08/11/18 08:10 Pulse 81 08/11/18 08:10 Resp 20 08/11/18 08:10 BP 103/67 08/11/18 10:12 Pulse Ox 99 08/11/18 08:10 - Labs Result Diagrams: 08/11/18 08:07 08/11/18 08:07 Labs: Laboratory Results - last 24 hr 08/10/18 08/11/18 08/11/18 14:13 08:07 08:07 WBC 12.2 H RBC 3.18 L Hgb 11.5 L Hct 34.8 L MCV 109.5 H MCH 36.2 H MCHC 33.1 RDW 17.2 H Plt Count 310 MPV 7.1 L Neut % (Auto) 71.6 Lymph % (Auto) 16.4 L K[place]haw % (Auto) 9.0 Eos % (Auto) 2.0 Baso % (Auto) 1.0 Neut # (Auto) 8.7 H Lymph # (Auto) 2.0 [place] # (Auto) 1.1 H Eos # (Auto) 0.2 Baso # (Auto) 0.1 Sodium 137 Potassium 4.0 Chloride 103 Carbon Dioxide 28 Anion Gap 10 BUN 23 H Creatinine 0.7 L Est GFR ( Amer) > 60 Est GFR (Non-Af Amer) > 60 Random Glucose 102 Calcium 8.5 L Total Bilirubin 3.6 H AST 201 H D ALT 129 H D Alkaline Phosphatase 183 H Ammonia 91 H D Total Protein 7.7 Albumin 2.5 L Globulin 5.2 H Albumin/Globulin Ratio 0.5 L 08/11/18 08:07 WBC RBC Hgb Hct MCV MCH MCHC RDW Plt Count MPV Neut % (Auto) Lymph % (Auto) [place]haw % (Auto) Eos % (Auto) Baso % (Auto) Neut # (Auto) Lymph # (Auto) [place] # (Auto) Eos # (Auto) Baso # (Auto) Sodium Potassium Chloride Carbon Dioxide Anion Gap BUN Creatinine Est GFR ( Amer) Est GFR (Non-Af Amer) Random Glucose Calcium Total Bilirubin AST ALT Alkaline Phosphatase Ammonia 60 H D Total Protein Albumin Globulin Albumin/Globulin Ratio Assessment & Plan - Assessment and Plan (Free Text) Assessment: Palliative consult There were no Advance directive, PPS 10% I reviewed all medical records, diagnostic studies, examined and interviewed patient at the bed side Patient is alert, oriented X 3 with speech that is clear. Patient looks chronically ill. Skin is pale, dry and jaundiced. T Rian 3.6. Breathing is shallow due to very distended abdomen with ronchi on auscultation. There is occasional moist cough. Abdomen is largely distended, hard to touch , with active bowel sounds. Patient takes lactulose. He reports significant discomfort due to distention. Tolerates small amounts of PO fluids. Denies abdominal pain. There is scrotal edema. His lower extremities are significantly edematous with redness and molding. Patient has difficult time reposition in bed on his own. BP 103/67, O2Sat 99 % RA T Rian 3.6, INR 1.6, Quality Assurance Calibrator 1.6, Ammonia 60. I reviewed patient's clinical condition and elicited his understanding regarding it. Patient reported his symptoms making him uncomfortable but was not sure what was causing them. I offered more information about liver cirrhosis and liver cancer . Patient recalled receiving Chemo Tx after which he become more sick and very weak. I discussed his ascites and paracentesis as a way of removing extra fluid and releasing the symptom of distention. patient agreed . I further made sure patient understood how severe his condition was and that we made sure we did everything to help him with symptoms. I also told him that cure is not possible due to advance nature of his condition. He stated understanding and shook my hand thanking me for the care Medical team provided for him. I initiated the Code status discussion. Patient understood that his condition may be terminal and if he comes to the point that ordinary measures were not enough to support his life and he may need aggressive measures such as CPR, intubation or PEG to support life, he would want to be allowed natural . JORGE reviewed. Patient signed DNR/DNI. I shared this with nursing and Product Architect Aparna. Impression * This is chronically ill male with advance liver disease * MELD score is 38.[address] patient at 71% mortality rate in 3 months period * Abdominal distention and discomfort due to ascites * Shallow breathing due to abdominal distention * Limited mobility, needs max assistance with reposition in bed * Spiritual distress, fear of * Patient chose DNR/DNI Suggestion * Would consider Paracentesis for increased comfort * Assist with repositioning in bed * promote skin integrity, patient is at risk for pressure sores * Pastoral care for spiritual support * Agree with DNR/DNI * Discharge planing to [facility] with possible Hospice care discussion Palliative care will be available for patient's support until discharge . Advance care planing 55 min
[2018-08-11 15:07] LABS: BODY FLUID TYPE PERITONEAL/ASCITES
--- NOTE | 2018-08-11 15:15 | US ---
Date of Procedure: 08/11/2018 PROCEDURE: Ultrasound-guided paracentesis, CPT 93769 Medications: 7 cc 1% Lidocaine HISTORY: Ascites, abdominal pain TECHNIQUE: Following informed consent , the patient was placed supine on the stretcher and the site was marked. A limited abdominal ultrasound was performed that showed a large amount of intra-abdominal fluid. Procedural time out was called and the Pt's abdomen was marked and prepped and draped in the usual sterile fashion. Ultrasound-guided large volume paracentesis performed. A total of 6 liters of straw colored fluid was removed without complication. IMPRESSION: Ultrasound-guided large volume paracentesis.
[2018-08-11 15:46] LABS: BF GROSS APPEARANCE CLOUDY (CLEAR)
[2018-08-11 15:47] LABS: BODY FLUID MONO/MACROPHAGE 2 % (0-0); BODY FLUID TOTAL COUNT 100 (0-0)
[2018-08-12] MEDS: Cefpodoxime (Vantin) 200 mg Tab PO SCH ×2 (05:00→16:34)
[2018-08-12 07:31] LABS: BASO # 0.1 K/uL (0.0-0.2); BASO % 0.9 % (0.0-2.0); EOS # 0.2 K/uL (0.0-0.7); EOS % 1.3 % (0.0-4.0); HEMOGLOBIN 9.8 g/dL (12.0-18.0); LYMPH # 2.3 K/uL (1.0-4.3); LYMPH % 19.1 % (20.0-40.0); MEAN CELL VOLUME 109.6 fL (80.0-94.0); MEAN CORPUSCULAR HEMOGLOBIN 35.7 pg (27.0-31.0); MEAN CORPUSCULAR HGB CONC 32.5 g/dL (33.0-37.0); MONO # 1.6 K/uL (0.0-0.8); MONO % 13.2 % (0.0-10.0); NEUT % 65.5 % (50.0-75.0); NRBC % 0.2 % (0.0-2.0); RBC 2.76 Mil/uL (4.40-5.90); RED CELL DISTRIBUTION WIDTH 17.4 % (11.5-14.5); WHITE BLOOD COUNT 12.2 K/uL (4.8-10.8)
[2018-08-12 07:47] LABS: ALB/GLOB RATIO 0.4 (1.0-2.1); ALT/SGPT 120 U/L (21-72); AST/SGOT 186 U/L (17-59); BLOOD UREA NITROGEN 24 mg/dL (9-20); CALCIUM 7.8 mg/dl (8.6-10.4); GFR NON-AFRICAN AMERICAN > 60
[2018-08-12] MEDS: Lactobacillus Acidophilus 500 MU Cap PO SCH ×2 (09:28→18:04)
[2018-08-12] MEDS: Pantoprazole 20 mg EC Tab PO SCH (09:29)
[2018-08-12] MEDS: Enoxaparin 40 mg Syringe SC SCH (09:29)
--- NOTE | 2018-08-12 17:30 | CP.PCM.PN ---
<Leonel Sepulveda - Last Filed: 08/12/18 17:31> Subjective - Date & Time of Evaluation Date of Evaluation: 08/12/18 Time of Evaluation: 17:30 - Subjective Subjective: Progress note. Attending: Dr. Renteria. Pt seen and examined at bedside. No acute distress. No events overnight. No fevers, chills, vomiting, diarrhea. Wants to go home. Objective - Vital Signs/Intake and Output Vital Signs (last 24 hours): Temp Pulse Resp BP Pulse Ox 98.2 F 102 H 18 113/69 90 L 08/12/18 17:06 08/12/18 17:06 08/12/18 17:06 08/12/18 17:06 08/12/18 17:06 Intake and Output: 08/12/18 08/12/18 06:59 18:59 Intake Total 300 860 Balance 300 860 - Medications Medications: Current Medications Cefpodoxime Proxetil (Vantin) 200 mg PO Q12H [facility]; Protocol Stop: 08/15/18 16:01 Last Admin: 08/12/18 16:34 Dose: 200 mg Enoxaparin Sodium (Lovenox) 40 mg SC DAILY [facility] Last Admin: 08/12/18 09:29 Dose: Not Given Folic Acid (Folic Acid) 1 mg PO DAILY [facility] Last Admin: 08/12/18 09:28 Dose: Not Given Furosemide (Lasix) 40 mg IVP DAILY [facility] Last Admin: 08/12/18 09:28 Dose: Not Given Lactobacillus Acidophilus (Lactobacillus) 1 cap PO BID [facility] Last Admin: 08/12/18 09:28 Dose: Not Given Lactulose (Enulose) 20 gm PO QID [facility] Last Admin: 08/12/18 13:20 Dose: Not Given Pantoprazole Sodium (Protonix Ec Tab) 20 mg PO DAILY [facility] Last Admin: 08/12/18 09:29 Dose: Not Given Spironolactone (Aldactone) 25 mg PO BID [facility] Last Admin: 08/12/18 09:28 Dose: Not Given Thiamine HCl (Vitamin B1 Tab) 100 mg PO BID [facility] Last Admin: 08/12/18 09:29 Dose: Not Given - Labs Labs: 08/12/18 07:24 08/12/18 07:24 PT 17.8 SECONDS (9.7-12.2) H 07/23/18 06:54 INR 1.6 07/23/18 06:54 APTT 62 SECONDS (21-34) H 07/23/18 06:54 - Constitutional Appears: Chronically Ill - Head Exam Head Exam: ATRAUMATIC, NORMAL INSPECTION, NORMOCEPHALIC - Eye Exam Eye Exam: EOMI - ENT Exam ENT Exam: Mucous Membranes Moist - Neck Exam Neck Exam: Full ROM, Normal Inspection - Respiratory Exam Respiratory Exam: absent: Respiratory Distress - Cardiovascular Exam Cardiovascular Exam: +S1, +S2 - GI/Abdominal Exam Additional comments: positive abdominal scar - Extremities Exam Extremities Exam: Full ROM, Normal Inspection - Neurological Exam Neurological Exam: Alert, Awake - Psychiatric Exam Psychiatric exam: Flat Affect - Skin Skin Exam: Dry, Intact, Normal Color, Warm Assessment and Plan - Assessment and Plan (Free Text) Assessment: This is a 62 yo male with extensive past medical hx admitted for Sepsis possibly secondary to Multi-focal Pneumonia - HCAP - patient's white count is stable and has been downtrending - [employer]IG[employer]OM[employer]OR called on 07/31/18 for shortness of breath and desaturation. - Code Sepsis called 07/31/18--> Transferred to telemetry floor - EKG: Sinus tach at 113 with occasional PVCs - Blood, urine cx negative to date - CXR: no active disease - Chest CTA: * No evidence of pulmonary embolism. Examination limited technically for evaluation of segmental/subsegmental pulmonary artery branch emboli. * Multifocal infiltrates right lower and upper lobes. Possible multifocal pneumonia. * Small left pleural effusion. * Left lower lobe compressive atelectasis. * 6 mm right lower lobe pulmonary nodule. See above for recommendations. * Ascites. Cirrhosis. Cholecystectomy. Atypical appearance of spleen. Left upper quadrant ill-defined soft tissue mass partially included on examination. Further evaluation with contrast-enhanced CT examination is advised. * Centrilobular pulmonary emphysema. Mucous secretions are seen in the central tracheobronchial tree without occlusion. Retroperitoneal lymphadenopathy. - Repeat CXR (08/08/18): pulm vasculature probably [id number] appearance compatible with crowding; minimal concommitant pulmonary vascular congestion still possible. no interval pathology noted. - Trying to transition off of bipap and on to ventimask - ID consulted, Dr. Glynn - Medications: * Discontinued Zosyn 3.375mg IVPB Q8 (started on 08/07/18, DC on 08/10/18) * Started Vantin 200mg PO Q12h for 5 days (started on 08/10/18) Ascites - IR consulted, Dr. King. - s/p therapeutic paracentesis, removed 5000cc on 08/11/18 - Follow up fluid studies Opioid overdose - UDS on admission: + Opiates, + Methadone - At admission patient was given 2 doses of Narcan; patient was agitated/respira tory distress, therefore, he was intubated. Patient was then extubated on 07/24/18. - Continue Folic acid 1 mg PO and Thiamine 100 mg PO BID Hepatic encephalopathy - GI consult, Dr. Tejeda. recs appreciated. - Ammonia: 127 on 08/04/18 - Repeat Ammonia 08/10/18: 91 - Continue to monitor AM ammonia - Lactulose 20gm PO QID- hold if >3 BMs (increased from BID on 08/10/18 due to elevated ammonia) Decompensated Hepatitis C Liver cirrhosis - GI consult: Dr. Tejeda---> Help appreciated * continue lactulose therapy for encephalopathy prevention, titrate so patient has 2-3 bowel movements daily * Patient will require further outpatient follow up with oncology team * No further planned GI interventions at this time - Hep C Antibody x2 (2015): Reactive - Hep C Ab: 33.4 - Hep B panel: negative (2016); repeat Hepatitis B panel and HIV: NEGATIVE - Alpha fetoprotein: >5200.00 - CEA: 3.9 - CA19-9: 59.4 - Abdomen/Pelvis CT with IV contrast (10/2017): Liver: Enlarged nodular cirrhotic liver. Periportal edema. There is a focal liver hypodensity that cannot be further characterized on the current examination. Gallbladder and bile ducts: Cholecystectomy. Pancreas: Unremarkable. No mass. No ductal dilation. Spleen: Unremarkable. No splenomegaly. Adrenals: Unremarkable. No mass. Kidneys and ureters: There are 2 right distal ureteral stone. Prostate calcification. Hepatocellular carcinoma - Will need outpatient follow up with patients oncologist, Dr. Herr (per Dr. Elder). -likely metastatic at this pt Peripheral edema - Possibly 2/2 to cirrhosis - Lasix 40 mg IV daily (increased from 20 on 08/10/18) - Aldactone 25 mg PO BID - Venous doppler: Negative - Echocardiogram: Normal LV systolic Function. Borderline Dilated LA. Trace MR and diastolic dysfunction Altered mental status - Resolved - Neuro consult, Dr. Watts/Renee. - MRI brain without contrast no sign of acute infarct. Cerebral atrophy and chronic small vessel ischemic disease. Limited exam due to motion artifact. - CT head Age-appropriate cerebral and cerebellar atrophy. Mild chronic microvascular ischemic change. No evidence of acute intracranial hemorrhage. - CTA head and neck: Normal CT Angiography of the neck. - No acute findings on imaging. Prophylaxis - GI: Protonix 20 mg PO daily - DVT: Lovenox 40u SC daily - Lactobacillus 1cap PO BID - PT/OT - Palliative care consult to establish goals of care--> POLST signed, DNR/DNI Dispo: Case management working on PAT placement. Pending placement and authorization. Pt is DNR and DNI. <Sal Renteria - Last Filed: 08/12/18 18:56> Objective - Vital Signs/Intake and Output Vital Signs (last 24 hours): Temp Pulse Resp BP Pulse Ox 98.2 F 102 H 18 113/69 90 L 08/12/18 17:06 08/12/18 17:06 08/12/18 17:06 08/12/18 17:06 08/12/18 17:06 Intake and Output: 08/12/18 08/12/18 06:59 18:59 Intake Total 300 860 Balance 300 860 - Medications Medications: Current Medications Cefpodoxime Proxetil (Vantin) 200 mg PO Q12H [facility]; Protocol Stop: 08/15/18 16:01 Last Admin: 08/12/18 16:34 Dose: 200 mg Enoxaparin Sodium (Lovenox) 40 mg SC DAILY [facility] Last Admin: 08/12/18 09:29 Dose: Not Given Folic Acid (Folic Acid) 1 mg PO DAILY [facility] Last Admin: 08/12/18 09:28 Dose: Not Given Furosemide (Lasix) 40 mg IVP DAILY [facility] Last Admin: 08/12/18 09:28 Dose: Not Given Lactobacillus Acidophilus (Lactobacillus) 1 cap PO BID [facility] Last Admin: 08/12/18 18:04 Dose: 1 cap Lactulose (Enulose) 20 gm PO QID [facility] Last Admin: 08/12/18 18:17 Dose: 20 gm Pantoprazole Sodium (Protonix Ec Tab) 20 mg PO DAILY [facility] Last Admin: 08/12/18 09:29 Dose: Not Given Spironolactone (Aldactone) 25 mg PO BID [facility] Last Admin: 08/12/18 18:17 Dose: 25 mg Thiamine HCl (Vitamin B1 Tab) 100 mg PO BID [facility] Last Admin: 08/12/18 18:17 Dose: 100 mg - Labs Labs: 08/12/18 07:24 08/12/18 07:24 PT 17.8 SECONDS (9.7-12.2) H 07/23/18 06:54 INR 1.6 07/23/18 06:54 APTT 62 SECONDS (21-34) H 07/23/18 06:54 Attending/Attestation - Attestation I have personally seen and examined this patient.: Yes I have fully participated in the care of the patient.: Yes I have reviewed all pertinent clinical information, including history, physical exam and plan: Yes Notes (Text): 08/12/18 18:53 Medical attending: Hospitalist service is covering for patient's physician today. Reviewed lab work and discussed with the medical technicians and also the patient Patient was not in any acute distress today - however he appeared very depressed and slow affect As mentioned previously he has just had a paracentesis done. Also currently on abx, was started yesterday on new abx by ID There is a history of AMS from hepatic encephalopathy - he has a history of hepatocellular carcinoma as well as drug use history Sal Renteria 08/12/18 18:55
--- NOTE | 2018-08-12 17:41 | RAD ---
Date of service: 08/12/2018 HISTORY: sob COMPARISON: Comparison is made with 08/08/2018 FINDINGS: LUNGS: No evidence of new infiltrate or consolidation in the lungs. PLEURA: No significant pleural effusion identified, no pneumothorax apparent. CARDIOVASCULAR: No aortic atherosclerotic calcification present. Normal cardiac size. No pulmonary vascular congestion. OSSEOUS STRUCTURES: No significant abnormalities. VISUALIZED UPPER ABDOMEN: Normal. OTHER FINDINGS: None. IMPRESSION: No active disease.
--- NOTE | 2018-08-12 20:20 | CP.PCM.PN ---
Subjective - Date & Time of Evaluation Date of Evaluation: 08/11/18 Time of Evaluation: 12:00 - Subjective Subjective: Has more abdominal pain. Objective - Vital Signs/Intake and Output Vital Signs (last 24 hours): Temp Pulse Resp BP Pulse Ox 98.2 F 102 H 18 113/69 90 L 08/12/18 17:06 08/12/18 17:06 08/12/18 17:06 08/12/18 17:06 08/12/18 17:06 Intake and Output: 08/12/18 08/13/18 18:59 06:59 Intake Total 860 Balance 860 - Medications Medications: Current Medications Cefpodoxime Proxetil (Vantin) 200 mg PO Q12H [facility]; Protocol Stop: 08/15/18 16:01 Last Admin: 08/12/18 16:34 Dose: 200 mg Enoxaparin Sodium (Lovenox) 40 mg SC DAILY [facility] Last Admin: 08/12/18 09:29 Dose: Not Given Folic Acid (Folic Acid) 1 mg PO DAILY [facility] Last Admin: 08/12/18 09:28 Dose: Not Given Furosemide (Lasix) 40 mg IVP DAILY [facility] Last Admin: 08/12/18 09:28 Dose: Not Given Lactobacillus Acidophilus (Lactobacillus) 1 cap PO BID [facility] Last Admin: 08/12/18 18:04 Dose: 1 cap Lactulose (Enulose) 20 gm PO QID [facility] Last Admin: 08/12/18 18:17 Dose: 20 gm Pantoprazole Sodium (Protonix Ec Tab) 20 mg PO DAILY [facility] Last Admin: 08/12/18 09:29 Dose: Not Given Spironolactone (Aldactone) 25 mg PO BID [facility] Last Admin: 08/12/18 18:17 Dose: 25 mg Thiamine HCl (Vitamin B1 Tab) 100 mg PO BID [facility] Last Admin: 08/12/18 18:17 Dose: 100 mg - Labs Labs: 08/12/18 07:24 08/12/18 07:24 PT 17.8 SECONDS (9.7-12.2) H 07/23/18 06:54 INR 1.6 07/23/18 06:54 APTT 62 SECONDS (21-34) H 07/23/18 06:54 - Head Exam Head Exam: ATRAUMATIC - Eye Exam Eye Exam: Scleral icterus - ENT Exam ENT Exam: Mucous Membranes Dry - Respiratory Exam Respiratory Exam: NORMAL BREATHING PATTERN - Cardiovascular Exam Cardiovascular Exam: +S1, +S2 - GI/Abdominal Exam GI & Abdominal Exam: Distended Assessment and Plan (1) Anemia Assessment & Plan: chronic disease Status: Acute (2) Coagulopathy Assessment & Plan: liver disease Status: Acute (3) Hepatocellular carcinoma Assessment & Plan: outpatient treatment with primary oncologist Status: Acute
--- NOTE | 2018-08-12 20:22 | CP.PCM.PN ---
Subjective - Date & Time of Evaluation Date of Evaluation: 08/12/18 Time of Evaluation: 18:00 - Subjective Subjective: Has stomach cramp but less than yesterday Objective - Vital Signs/Intake and Output Vital Signs (last 24 hours): Temp Pulse Resp BP Pulse Ox 98.2 F 102 H 18 113/69 90 L 08/12/18 17:06 08/12/18 17:06 08/12/18 17:06 08/12/18 17:06 08/12/18 17:06 Intake and Output: 08/12/18 08/13/18 18:59 06:59 Intake Total 860 Balance 860 - Medications Medications: Current Medications Cefpodoxime Proxetil (Vantin) 200 mg PO Q12H [facility]; Protocol Stop: 08/15/18 16:01 Last Admin: 08/12/18 16:34 Dose: 200 mg Enoxaparin Sodium (Lovenox) 40 mg SC DAILY [facility] Last Admin: 08/12/18 09:29 Dose: Not Given Folic Acid (Folic Acid) 1 mg PO DAILY [facility] Last Admin: 08/12/18 09:28 Dose: Not Given Furosemide (Lasix) 40 mg IVP DAILY [facility] Last Admin: 08/12/18 09:28 Dose: Not Given Lactobacillus Acidophilus (Lactobacillus) 1 cap PO BID [facility] Last Admin: 08/12/18 18:04 Dose: 1 cap Lactulose (Enulose) 20 gm PO QID [facility] Last Admin: 08/12/18 18:17 Dose: 20 gm Pantoprazole Sodium (Protonix Ec Tab) 20 mg PO DAILY [facility] Last Admin: 08/12/18 09:29 Dose: Not Given Spironolactone (Aldactone) 25 mg PO BID [facility] Last Admin: 08/12/18 18:17 Dose: 25 mg Thiamine HCl (Vitamin B1 Tab) 100 mg PO BID [facility] Last Admin: 08/12/18 18:17 Dose: 100 mg - Labs Labs: 08/12/18 07:24 08/12/18 07:24 PT 17.8 SECONDS (9.7-12.2) H 07/23/18 06:54 INR 1.6 07/23/18 06:54 APTT 62 SECONDS (21-34) H 07/23/18 06:54 - Head Exam Head Exam: ATRAUMATIC - Eye Exam Eye Exam: Scleral icterus - ENT Exam ENT Exam: Mucous Membranes Dry - Respiratory Exam Respiratory Exam: NORMAL BREATHING PATTERN - GI/Abdominal Exam GI & Abdominal Exam: Normal Bowel Sounds Assessment and Plan (1) Anemia Assessment & Plan: anemia of chronic disease Status: Acute (2) Coagulopathy Assessment & Plan: liver disease Status: Acute (3) Hepatocellular carcinoma Assessment & Plan: outpatient treatment with primary oncologist Status: Acute
--- NOTE | 2018-08-12 21:24 | CP.PCM.PN ---
Subjective - Date & Time of Evaluation Date of Evaluation: 08/12/18 Time of Evaluation: 15:00 - Subjective Subjective: dictated Objective - Vital Signs/Intake and Output Vital Signs (last 24 hours): Temp Pulse Resp BP Pulse Ox 98.2 F 102 H 18 113/69 90 L 08/12/18 17:06 08/12/18 17:06 08/12/18 17:06 08/12/18 17:06 08/12/18 17:06 Intake and Output: 08/12/18 08/13/18 18:59 06:59 Intake Total 860 Balance 860 - Medications Medications: Current Medications Cefpodoxime Proxetil (Vantin) 200 mg PO Q12H [facility]; Protocol Stop: 08/15/18 16:01 Last Admin: 08/12/18 16:34 Dose: 200 mg Enoxaparin Sodium (Lovenox) 40 mg SC DAILY [facility] Last Admin: 08/12/18 09:29 Dose: Not Given Folic Acid (Folic Acid) 1 mg PO DAILY [facility] Last Admin: 08/12/18 09:28 Dose: Not Given Furosemide (Lasix) 40 mg IVP DAILY [facility] Last Admin: 08/12/18 09:28 Dose: Not Given Lactobacillus Acidophilus (Lactobacillus) 1 cap PO BID [facility] Last Admin: 08/12/18 18:04 Dose: 1 cap Lactulose (Enulose) 20 gm PO QID [facility] Last Admin: 08/12/18 18:17 Dose: 20 gm Pantoprazole Sodium (Protonix Ec Tab) 20 mg PO DAILY [facility] Last Admin: 08/12/18 09:29 Dose: Not Given Spironolactone (Aldactone) 25 mg PO BID [facility] Last Admin: 08/12/18 18:17 Dose: 25 mg Thiamine HCl (Vitamin B1 Tab) 100 mg PO BID [facility] Last Admin: 08/12/18 18:17 Dose: 100 mg - Labs Labs: 08/12/18 07:24 08/12/18 07:24 PT 17.8 SECONDS (9.7-12.2) H 07/23/18 06:54 INR 1.6 07/23/18 06:54 APTT 62 SECONDS (21-34) H 07/23/18 06:54
--- NOTE | 2018-08-13 00:41 | PN ---
DATE: 08/12/2018 SUBJECTIVE: Faye May was today on nasal O2. He was looking little better. However, he does have a distended belly. He denied any complaints. PHYSICAL EXAMINATION: VITAL SIGNS: T-max is 98.2, heart rate of 102, blood pressure 113/69, respirations are 18. HEAD: Atraumatic, normocephalic. NECK: Supple. LUNGS: Clear. HEART: S1, S2. Tachy. ABDOMEN: Remains with ascites and significantly prominent. EXTREMITIES: With bilateral edema. LABORATORY DATA: His ___blood__ white count remains 12.2, hemoglobin 9.8, hematocrit 30.2, platelet count is 279. ASSESSMENT AND PLAN: His liver enzymes remain elevated and he is being followed with Dr. Elder also and was seen by palliative care doctor to see what his goals were. He does have hepatitis C, he has liver cirrhosis, liver cancer, and it is little better as he is off the BiPAP at this time when I saw him. Rufino Glynn MD MTDJudith
[2018-08-13] MEDS: Cefpodoxime (Vantin) 200 mg Tab PO SCH ×2 (03:20→16:54)
[2018-08-13 08:26] LABS: BASO # 0.1 K/uL (0.0-0.2); BASO % 0.9 % (0.0-2.0); EOS # 0.1 K/uL (0.0-0.7); EOS % 1.1 % (0.0-4.0); HEMOGLOBIN 10.6 g/dL (12.0-18.0); LYMPH # 1.3 K/uL (1.0-4.3); MEAN CELL VOLUME 110.5 fL (80.0-94.0); MEAN CORPUSCULAR HEMOGLOBIN 36.9 pg (27.0-31.0); MEAN CORPUSCULAR HGB CONC 33.4 g/dL (33.0-37.0); MONO # 1.4 K/uL (0.0-0.8); NEUT # 8.9 K/uL (1.8-7.0); NRBC % 0.3 % (0.0-2.0); RBC 2.86 Mil/uL (4.40-5.90); RED CELL DISTRIBUTION WIDTH 16.9 % (11.5-14.5); WHITE BLOOD COUNT 11.8 K/uL (4.8-10.8)
[2018-08-13 08:48] LABS: ALB/GLOB RATIO 0.5 (1.0-2.1); ALBUMIN 2.2 g/dL (3.5-5.0); ALT/SGPT 135 U/L (21-72); AST/SGOT 205 U/L (17-59); BLOOD UREA NITROGEN 27 mg/dL (9-20); CALCIUM 8.2 mg/dl (8.6-10.4); GFR NON-AFRICAN AMERICAN > 60
[2018-08-13] MEDS: Pantoprazole 20 mg EC Tab PO SCH (09:36)
[2018-08-13] MEDS: Lactobacillus Acidophilus 500 MU Cap PO SCH ×2 (09:36→18:01)
[2018-08-13] MEDS: Enoxaparin 40 mg Syringe SC SCH (09:37)
[2018-08-13] MEDS ORDERED: Albumin Human 25% (12.5 gm/50 ml) IV ONE ×2 (09:49→12:00)
[2018-08-13] MEDS: Propranolol 5 mg Tab PO SCH ×3 (10:21→18:04)
--- NOTE | 2018-08-13 16:57 | CP.PCM.PN ---
<Leonel Sepulveda - Last Filed: 08/13/18 16:58> Subjective - Date & Time of Evaluation Date of Evaluation: 08/13/18 Time of Evaluation: 17:00 - Subjective Subjective: Progress note. Attending: Dr. Renteria (covering for Dr. Barber.) Pt seen and examined at bedside. No acute distress. No events overnight. No fevers, chills, vomiting, diarrhea. Objective - Vital Signs/Intake and Output Vital Signs (last 24 hours): Temp Pulse Resp BP Pulse Ox 97.9 F 74 16 106/66 99 08/13/18 15:46 08/13/18 15:46 08/13/18 15:46 08/13/18 15:46 08/13/18 15:46 Intake and Output: 08/13/18 08/13/18 06:59 18:59 Intake Total 590 450 Output Total 500 Balance 590 -50 - Medications Medications: Current Medications Cefpodoxime Proxetil (Vantin) 200 mg PO Q12H [facility]; Protocol Stop: 08/15/18 16:01 Last Admin: 08/13/18 16:54 Dose: 200 mg Enoxaparin Sodium (Lovenox) 40 mg SC DAILY [facility] Last Admin: 08/13/18 09:37 Dose: 40 mg Folic Acid (Folic Acid) 1 mg PO DAILY [facility] Last Admin: 08/13/18 09:36 Dose: 1 mg Furosemide (Lasix) 40 mg IVP DAILY [facility] Last Admin: 08/13/18 09:37 Dose: 40 mg Lactobacillus Acidophilus (Lactobacillus) 1 cap PO BID [facility] Last Admin: 08/13/18 09:36 Dose: 1 cap Lactulose (Enulose) 20 gm PO QID [facility] Last Admin: 08/13/18 13:16 Dose: 20 gm Pantoprazole Sodium (Protonix Ec Tab) 20 mg PO DAILY [facility] Last Admin: 08/13/18 09:36 Dose: 20 mg Propranolol HCl (Inderal) 5 mg PO TID [facility] Last Admin: 08/13/18 13:16 Dose: 5 mg Spironolactone (Aldactone) 25 mg PO BID [facility] Last Admin: 08/13/18 09:36 Dose: 25 mg Thiamine HCl (Vitamin B1 Tab) 100 mg PO BID [facility] Last Admin: 08/13/18 09:36 Dose: 100 mg - Labs Labs: 08/13/18 08:05 02/17/19 08:05 PT 17.8 SECONDS (9.7-12.2) H 07/23/18 06:54 INR 1.6 07/23/18 06:54 APTT 62 SECONDS (21-34) H 07/23/18 06:54 - Constitutional Appears: Older Than Stated Age, Chronically Ill - Head Exam Head Exam: ATRAUMATIC, NORMAL INSPECTION, NORMOCEPHALIC - Eye Exam Eye Exam: EOMI - ENT Exam ENT Exam: Mucous Membranes Moist - Neck Exam Neck Exam: Full ROM, Normal Inspection - Respiratory Exam Respiratory Exam: absent: Respiratory Distress - Cardiovascular Exam Cardiovascular Exam: +S1, +S2 - GI/Abdominal Exam GI & Abdominal Exam: Distended - Extremities Exam Extremities Exam: Pedal Edema. absent: Full ROM - Neurological Exam Neurological Exam: Alert, Awake - Psychiatric Exam Psychiatric exam: Flat Affect - Skin Skin Exam: Dry, Intact, Normal Color, Warm Assessment and Plan - Assessment and Plan (Free Text) Assessment: This is a 62 yo male with extensive past medical hx admitted for Sepsis possibly secondary to Multi-focal Pneumonia - HCAP - patient's white count is stable and has been downtrending - [employer] called on 07/31/18 for shortness of breath and desaturation. - Code Sepsis called 07/31/18--> Transferred to telemetry floor - EKG: Sinus tach at 113 with occasional PVCs - Blood, urine cx negative to date - CXR: no active disease - Chest CTA: * No evidence of pulmonary embolism. Examination limited technically for evaluation of segmental/subsegmental pulmonary artery branch emboli. * Multifocal infiltrates right lower and upper lobes. Possible multifocal pn eumonia. * Small left pleural effusion. * Left lower lobe compressive atelectasis. * 6 mm right lower lobe pulmonary nodule. See above for recommendations. * Ascites. Cirrhosis. Cholecystectomy. Atypical appearance of spleen. Left upper quadrant ill-defined soft tissue mass partially included on examination. Further evaluation with contrast-enhanced CT examination is advised. * Centrilobular pulmonary emphysema. Mucous secretions are seen in the central tracheobronchial tree without occlusion. Retroperitoneal lymphadenopathy. - Repeat CXR (08/08/18): pulm vasculature probably [id number] appearance compatible with crowding; minimal concommitant pulmonary vascular congestion still possible. no interval pathology noted. - Trying to transition off of bipap and on to ventimask - ID consulted, Dr. Glynn - Medications: * Discontinued Zosyn 3.375mg IVPB Q8 (started on 08/07/18, DC on 08/10/18) * Started Vantin 200mg PO Q12h for 5 days (started on 08/10/18) Ascites - IR consulted, Dr. King. - s/p therapeutic paracentesis, removed 5000cc on 08/11/18 - Follow up fluid studies -body fluid culture negative Opioid overdose - UDS on admission: + Opiates, + Methadone - At admission patient was given 2 doses of Narcan; patient was agitated/respiratory distress, therefore, he was intubated. Patient was then extubated on 07/24/18. - Folic acid 1 mg PO daily -Thiamine 100 mg PO BID Hepatic encephalopathy - GI consult, Dr. Tejeda. recs appreciated. - Ammonia: 127 on 08/04/18 - Repeat Ammonia 08/10/18: 91 - Continue to monitor AM ammonia - Lactulose 20gm PO QID- hold if >3 BMs (increased from BID on 08/10/18 due to elevated ammonia) -given 2 doses of albumin today Decompensated Hepatitis C Liver cirrhosis - GI consult: Dr. Tejeda---> Help appreciated * continue lactulose therapy for encephalopathy prevention, titrate so patient has 2-3 bowel movements daily * Patient will require further outpatient follow up with oncology team * No further planned GI interventions at this time - Hep C Antibody x2 (2015): Reactive - Hep C Ab: 33.4 - Hep B panel: negative (2016); repeat Hepatitis B panel and HIV: NEGATIVE - Alpha fetoprotein: >5200.00 - CEA: 3.9 - CA19-9: 59.4 - Abdomen/Pelvis CT with IV contrast (10/2017): Liver: Enlarged nodular cirrhotic liver. Periportal edema. There is a focal liver hypodensity that cannot be further characterized on the current examination. Gallbladder and bile ducts: Cholecystectomy. Pancreas: Unremarkable. No mass. No ductal dilation. Spleen: Unremarkable. No splenomegaly. Adrenals: Unremarkable. No mass. Kidneys and ureters: There are 2 right distal ureteral stone. Prostate calcification. -started propanolol TID today Hepatocellular carcinoma - Will need outpatient follow up with patients oncologist, Dr. Herr (per Dr. Elder). -likely metastatic at this pt Peripheral edema - Possibly 2/2 to cirrhosis - Lasix 40 mg IV daily (increased from 20 on 08/10/18) - Aldactone 25 mg PO BID - Venous doppler: Negative - Echocardiogram: Normal LV systolic Function. Borderline Dilated LA. Trace MR and diastolic dysfunction Altered mental status - Resolved - Neuro consult, Dr. Watts/Renee. - MRI brain without contrast no sign of acute infarct. Cerebral atrophy and chronic small vessel ischemic disease. Limited exam due to motion artifact. - CT head Age-appropriate cerebral and cerebellar atrophy. Mild chronic microvascular ischemic change. No evidence of acute intracranial hemorrhage. - CTA head and neck: Normal CT Angiography of the neck. - No acute findings on imaging. Prophylaxis - GI: Protonix 20 mg PO daily - DVT: Lovenox 40u SC daily - Lactobacillus 1cap PO BID - PT/OT - Palliative care consult to establish goals of care--> POLST signed, DNR/DNI Dispo: Case management working on PAT placement. Pending placement and authorization. Pt is DNR and DNI. <Sal Renteria - Last Filed: 08/13/18 19:36> Objective - Vital Signs/Intake and Output Vital Signs (last 24 hours): Temp Pulse Resp BP Pulse Ox 97.9 F 74 16 106/66 99 08/13/18 15:46 08/13/18 15:46 08/13/18 15:46 08/13/18 15:46 08/13/18 15:46 Intake and Output: 08/13/18 08/14/18 18:59 06:59 Intake Total 450 Output Total 500 Balance -50 - Medications Medications: Current Medications Cefpodoxime Proxetil (Vantin) 200 mg PO Q12H [facility]; Protocol Stop: 08/15/18 16:01 Last Admin: 08/13/18 16:54 Dose: 200 mg Enoxaparin Sodium (Lovenox) 40 mg SC DAILY [facility] Last Admin: 08/13/18 09:37 Dose: 40 mg Folic Acid (Folic Acid) 1 mg PO DAILY [facility] Last Admin: 08/13/18 09:36 Dose: 1 mg Furosemide (Lasix) 40 mg IVP DAILY [facility] Last Admin: 08/13/18 09:37 Dose: 40 mg Lactobacillus Acidophilus (Lactobacillus) 1 cap PO BID [facility] Last Admin: 08/13/18 18:01 Dose: 1 cap Lactulose (Enulose) 20 gm PO QID [facility] Last Admin: 08/13/18 18:00 Dose: 20 gm Pantoprazole Sodium (Protonix Ec Tab) 20 mg PO DAILY [facility] Last Admin: 08/13/18 09:36 Dose: 20 mg Propranolol HCl (Inderal) 5 mg PO TID [facility] Last Admin: 08/13/18 18:04 Dose: 5 mg Spironolactone (Aldactone) 25 mg PO BID [facility] Last Admin: 08/13/18 18:01 Dose: 25 mg Thiamine HCl (Vitamin B1 Tab) 100 mg PO BID [facility] Last Admin: 08/13/18 18:02 Dose: 100 mg - Labs Labs: 08/13/18 08:05 08/13/18 08:05 PT 17.8 SECONDS (9.7-12.2) H 07/23/18 06:54 INR 1.6 07/23/18 06:54 APTT 62 SECONDS (21-34) H 07/23/18 06:54 Attending/Attestation - Attestation I have personally seen and examined this patient.: Yes I have fully participated in the care of the patient.: Yes I have reviewed all pertinent clinical information, including history, physical exam and plan: Yes Notes (Text): 08/13/18 19:33 Medical attending: Hospitalist service is covering patient's physician today Reviewed the above note by the resident The patient was not in any acute distress Yesterday he refused lab work however today agreed and the albumin is low. He recently had a paracentesis and so will give IV albumin. At this time the cultures from the paracentesis are negative The patient patient remains on IV abx at this time. As mentioned previously there is a history of hepatocellular carcinoma Sal Renteria
--- NOTE | 2018-08-13 21:05 | CP.PCM.PN ---
Subjective - Date & Time of Evaluation Date of Evaluation: 08/13/18 Time of Evaluation: 18:00 - Subjective Subjective: No complaints. Objective - Vital Signs/Intake and Output Vital Signs (last 24 hours): Temp Pulse Resp BP Pulse Ox 97.9 F 74 16 106/66 99 08/13/18 15:46 08/13/18 15:46 08/13/18 15:46 08/13/18 15:46 08/13/18 15:46 Intake and Output: 08/13/18 08/14/18 18:59 06:59 Intake Total 450 Output Total 500 Balance -50 - Medications Medications: Current Medications Cefpodoxime Proxetil (Vantin) 200 mg PO Q12H [facility]; Protocol Stop: 08/15/18 16:01 Last Admin: 08/13/18 16:54 Dose: 200 mg Enoxaparin Sodium (Lovenox) 40 mg SC DAILY [facility] Last Admin: 08/13/18 09:37 Dose: 40 mg Folic Acid (Folic Acid) 1 mg PO DAILY [facility] Last Admin: 08/13/18 09:36 Dose: 1 mg Furosemide (Lasix) 40 mg IVP DAILY [facility] Last Admin: 08/13/18 09:37 Dose: 40 mg Lactobacillus Acidophilus (Lactobacillus) 1 cap PO BID [facility] Last Admin: 08/13/18 18:01 Dose: 1 cap Lactulose (Enulose) 20 gm PO QID [facility] Last Admin: 08/13/18 18:00 Dose: 20 gm Pantoprazole Sodium (Protonix Ec Tab) 20 mg PO DAILY [facility] Last Admin: 08/13/18 09:36 Dose: 20 mg Propranolol HCl (Inderal) 5 mg PO TID [facility] Last Admin: 08/13/18 18:04 Dose: 5 mg Spironolactone (Aldactone) 25 mg PO BID [facility] Last Admin: 08/13/18 18:01 Dose: 25 mg Thiamine HCl (Vitamin B1 Tab) 100 mg PO BID [facility] Last Admin: 08/13/18 18:02 Dose: 100 mg - Labs Labs: 08/13/18 08:05 08/13/18 08:05 PT 17.8 SECONDS (9.7-12.2) H 07/23/18 06:54 INR 1.6 07/23/18 06:54 APTT 62 SECONDS (21-34) H 01/27/19 06:54 - Head Exam Head Exam: ATRAUMATIC - Eye Exam Eye Exam: Normal appearance - ENT Exam ENT Exam: Mucous Membranes Dry - Respiratory Exam Respiratory Exam: NORMAL BREATHING PATTERN - Cardiovascular Exam Cardiovascular Exam: +S1, +S2 - GI/Abdominal Exam GI & Abdominal Exam: Normal Bowel Sounds Assessment and Plan (1) Anemia Assessment & Plan: chronic disease Status: Acute (2) Coagulopathy Assessment & Plan: liver disease Status: Acute (3) Hepatocellular carcinoma Assessment & Plan: outpatient f/u with primary oncologist Status: Acute
[2018-08-14 00:18] VITALS: RESP 20
[2018-08-14] MEDS: Cefpodoxime (Vantin) 200 mg Tab PO SCH ×2 (03:46→16:55)
[2018-08-14 07:01] LABS: BASO # 0.1 K/uL (0.0-0.2); BASO % 1.1 % (0.0-2.0); EOS # 0.3 K/uL (0.0-0.7); EOS % 2.7 % (0.0-4.0); HEMOGLOBIN 10.7 g/dL (12.0-18.0); LYMPH # 1.8 K/uL (1.0-4.3); LYMPH % 14.6 % (20.0-40.0); MEAN CELL VOLUME 110.3 fL (80.0-94.0); MEAN CORPUSCULAR HGB CONC 33.5 g/dL (33.0-37.0); MEAN PLATELET VOLUME 7.1 fL (7.2-11.7); MONO # 1.7 K/uL (0.0-0.8); MONO % 13.5 % (0.0-10.0); NEUT # 8.4 K/uL (1.8-7.0); NEUT % 68.1 % (50.0-75.0); NRBC % 0.5 % (0.0-2.0); RBC 2.88 Mil/uL (4.40-5.90); RED CELL DISTRIBUTION WIDTH 16.9 % (11.5-14.5); WHITE BLOOD COUNT 12.4 K/uL (4.8-10.8)
[2018-08-14 07:15] LABS: ALB/GLOB RATIO 0.5 (1.0-2.1); ALBUMIN 2.1 g/dL (3.5-5.0); ALT/SGPT 122 U/L (21-72); AST/SGOT 163 U/L (17-59); BLOOD UREA NITROGEN 27 mg/dL (9-20); GFR NON-AFRICAN AMERICAN > 60
[2018-08-14] MEDS: Propranolol 5 mg Tab PO SCH ×3 (10:00→17:13)
[2018-08-14] MEDS: Enoxaparin 40 mg Syringe SC SCH (10:00)
[2018-08-14] MEDS: Lactobacillus Acidophilus 500 MU Cap PO SCH ×2 (10:01→17:12)
[2018-08-14] MEDS: Pantoprazole 20 mg EC Tab PO SCH (10:01)
--- NOTE | 2018-08-14 11:47 | CP.PCM.PN ---
<Jojo Soares - Last Filed: 08/14/18 11:43> Subjective - Date & Time of Evaluation Date of Evaluation: 08/14/18 Time of Evaluation: 08:00 - Subjective Subjective: Progress note for Dr. Renteria (covering for Dr. Barber) Patient was seen and examined at bedside. Patient states he usually does walk at home with a cane. Patient would like to go home. Patient denies chest pain, shortness of breath, abdominal pain, nausea or vomiting. Objective - Vital Signs/Intake and Output Vital Signs (last 24 hours): Temp Pulse Resp BP Pulse Ox 98.1 F 88 20 109/72 95 08/14/18 07:53 08/14/18 07:53 08/14/18 07:53 08/14/18 10:02 08/14/18 07:53 Intake and Output: 08/14/18 08/14/18 06:59 18:59 Intake Total 420 Output Total 550 Balance -130 - Medications Medications: Current Medications Cefpodoxime Proxetil (Vantin) 200 mg PO Q12H [facility]; Protocol Stop: 08/15/18 16:01 Last Admin: 08/14/18 03:46 Dose: 200 mg Enoxaparin Sodium (Lovenox) 40 mg SC DAILY [facility] Last Admin: 08/14/18 10:00 Dose: 40 mg Folic Acid (Folic Acid) 1 mg PO DAILY [facility] Last Admin: 08/14/18 10:01 Dose: 1 mg Furosemide (Lasix) 40 mg IVP DAILY [facility] Last Admin: 08/14/18 10:02 Dose: 40 mg Lactobacillus Acidophilus (Lactobacillus) 1 cap PO BID [facility] Last Admin: 08/14/18 10:01 Dose: 1 cap Lactulose (Enulose) 20 gm PO QID [facility] Last Admin: 08/14/18 10:00 Dose: 20 gm Pantoprazole Sodium (Protonix Ec Tab) 20 mg PO DAILY [facility] Last Admin: 08/14/18 10:01 Dose: 20 mg Propranolol HCl (Inderal) 5 mg PO TID [facility] Last Admin: 08/14/18 10:00 Dose: 5 mg Spironolactone (Aldactone) 25 mg PO BID [facility] Last Admin: 08/14/18 10:01 Dose: 25 mg Thiamine HCl (Vitamin B1 Tab) 100 mg PO BID [facility] Last Admin: 08/14/18 10:01 Dose: 100 mg - Labs Labs: 08/14/18 06:56 08/14/18 06:56 PT 17.8 SECONDS (9.7-12.2) H 07/23/18 06:54 INR 1.6 07/23/18 06:54 APTT 62 SECONDS (21-34) H 07/23/18 06:54 - Constitutional Appears: Older Than Stated Age, Cachectic, Chronically Ill - Head Exam Head Exam: ATRAUMATIC, NORMAL INSPECTION - Eye Exam Eye Exam: EOMI, PERRL, Scleral icterus Pupil Exam: NORMAL ACCOMODATION - ENT Exam ENT Exam: Mucous Membranes Moist - Respiratory Exam Respiratory Exam: NORMAL BREATHING PATTERN - Cardiovascular Exam Cardiovascular Exam: REGULAR RHYTHM, +S1, +S2 - GI/Abdominal Exam GI & Abdominal Exam: Distended, Firm, Normal Bowel Sounds. absent: Tenderness - Extremities Exam Extremities Exam: Pedal Edema (+1 bilateral LE) - Neurological Exam Neurological Exam: Alert, Awake, Oriented x3 - Psychiatric Exam Psychiatric exam: Normal Affect Assessment and Plan - Assessment and Plan (Free Text) Assessment: Sepsis possibly secondary to Multi-focal Pneumonia - HCAP - Improving, afebrile, leukocytosis trending down - [employer] SC[employer]ION called on 07/31/18 for shortness of breath and desaturation. - Code Sepsis called 07/31/18--> Transferred to telemetry floor - EKG: Sinus tach at 113 with occasional PVCs - Blood, urine cx negative to date - CXR: no active disease - Chest CTA: * No evidence of pulmonary embolism. Examination limited technically for evaluation of segmental/subsegmental pulmonary artery branch emboli. * Multifocal infiltrates right lower and upper lobes. Possible multifocal pneumonia. * Small left pleural effusion. * Left lower lobe compressive atelectasis. * 6 mm right lower lobe pulmonary nodule. See above for recommendations. * Ascites. Cirrhosis. Cholecystectomy. Atypical appearance of spleen. Left upper quadrant ill-defined soft tissue mass partially included on examination. Further evaluation with contrast-enhanced CT examination is advised. * Centrilobular pulmonary emphysema. Mucous secretions are seen in the central tracheobronchial tree without occlusion. Retroperitoneal lymphadenopathy. - Repeat CXR (08/08/18): pulm vasculature probably [id number] appearance compatible with crowding; minimal concommitant pulmonary vascular congestion still possible. no interval pathology noted. - Trying to transition off of bipap and on to ventimask - ID consulted, Dr. Glynn - Medications: * Discontinued Zosyn 3.375mg IVPB Q8 (started on 08/07/18, DC on 08/10/18) * Started Vantin 200mg PO Q12h for 5 days (started on 08/10/18) Ascites - IR consulted, Dr. King. - s/p therapeutic paracentesis, removed 5000cc on 08/11/18 - Follow up fluid studies Opioid overdose - UDS on admission: + Opiates, + Methadone - At admission patient was given 2 doses of Narcan; patient was agitated/respiratory distress, therefore, he was intubated. Patient was then extubated on 07/24/18. - Continue Folic acid 1mg PO and Thiamine 100mg PO BID Hepatic encephalopathy - GI consult, Dr. Tejeda. recs appreciated. - Ammonia: 127 on 08/04/18 - Repeat Ammonia 08/10/18: 91 - Continue to monitor AM ammonia - Lactulose 20gm PO QID- hold if >3 BMs (increased from BID on 08/10/18 due to elevated ammonia) Decompensated Hepatitis C Liver cirrhosis - GI consult: Dr. Tejeda---> Help appreciated * continue lactulose therapy for encephalopathy prevention, titrate so patient has 2-3 bowel movements daily * Patient will require further outpatient follow up with oncology team * No further planned GI interventions at this time - Hep C Antibody x2 (2015): Reactive - Hep C Ab: 33.4 - Hep B panel: negative (2016); repeat Hepatitis B panel and HIV: NEGATIVE - Alpha fetoprotein: >5200.00 - CEA: 3.9 - CA19-9: 59.4 - Abdomen/Pelvis CT with IV contrast (10/2017): Liver: Enlarged nodular cirrhotic liver. Periportal edema. There is a focal liver hypodensity that cannot be further characterized on the current examination. Gallbladder and bile ducts: Cholecystectomy. Pancreas: Unremarkable. No mass. No ductal dilation. Spleen: Unremarkable. No splenomegaly. Adrenals: Unremarkable. No mass. Kidneys and ureters: There are 2 right distal ureteral stone. Prostate calcification. Hepatocellular carcinoma - Will need outpatient follow up with patients oncologist, Dr. Herr (per Dr. Elder). Peripheral edema - Possibly 2/2 to cirrhosis - Lasix 40 mg IV daily (increased from 20 on 08/10/18) - Aldactone 25mg PO BID - Venous doppler: Negative - Echocardiogram: Normal LV systolic Function. Borderline Dilated LA. Trace MR and diastolic dysfunction Altered mental status - Resolved - Neuro consult, Dr. Watts/Renee. - MRI brain without contrast no sign of acute infarct. Cerebral atrophy and chronic small vessel ischemic disease. Limited exam due to motion artifact. - CT head Age-appropriate cerebral and cerebellar atrophy. Mild chronic microvascular ischemic change. No evidence of acute intracranial hemorrhage. - CTA head and neck: Normal CT Angiography of the neck. - No acute findings on imaging. Prophylaxis - GI: Protonix 20 mg PO daily - DVT: Lovenox 40u SC daily - Lactobacillus 1cap PO BID - PT/OT - Palliative care consult to establish goals of care--> POLST signed, DNR/DNI Dispo: Case management working on PAT placement. Pending placement and authorization. Case discussed with Dr. Myra Soares PGY-2 <Sal Renteria - Last Filed: 08/14/18 12:28> Objective - Vital Signs/Intake and Output Vital Signs (last 24 hours): Temp Pulse Resp BP Pulse Ox 98.1 F 88 20 109/72 95 08/14/18 07:53 08/14/18 07:53 08/14/18 07:53 08/14/18 10:02 08/14/18 07:53 Intake and Output: 08/14/18 08/14/18 06:59 18:59 Intake Total 420 Output Total 550 Balance -130 - Medications Medications: Current Medications Cefpodoxime Proxetil (Vantin) 200 mg PO Q12H [facility]; Protocol Stop: 08/15/18 16:01 Last Admin: 08/14/18 03:46 Dose: 200 mg Enoxaparin Sodium (Lovenox) 40 mg SC DAILY [facility] Last Admin: 08/14/18 10:00 Dose: 40 mg Folic Acid (Folic Acid) 1 mg PO DAILY [facility] Last Admin: 08/14/18 10:01 Dose: 1 mg Furosemide (Lasix) 40 mg IVP DAILY [facility] Last Admin: 08/14/18 10:02 Dose: 40 mg Lactobacillus Acidophilus (Lactobacillus) 1 cap PO BID [facility] Last Admin: 08/14/18 10:01 Dose: 1 cap Lactulose (Enulose) 20 gm PO QID [facility] Last Admin: 08/14/18 10:00 Dose: 20 gm Pantoprazole Sodium (Protonix Ec Tab) 20 mg PO DAILY [facility] Last Admin: 08/14/18 10:01 Dose: 20 mg Propranolol HCl (Inderal) 5 mg PO TID [facility] Last Admin: 08/14/18 10:00 Dose: 5 mg Spironolactone (Aldactone) 25 mg PO BID [facility] Last Admin: 08/14/18 10:01 Dose: 25 mg Thiamine HCl (Vitamin B1 Tab) 100 mg PO BID [facility] Last Admin: 08/14/18 10:01 Dose: 100 mg - Labs Labs: 08/14/18 06:56 08/14/18 06:56 PT 17.8 SECONDS (9.7-12.2) H 07/23/18 06:54 INR 1.6 07/23/18 06:54 APTT 62 SECONDS (21-34) H 07/23/18 06:54 Attending/Attestation - Attestation I have personally seen and examined this patient.: Yes I have fully participated in the care of the patient.: Yes I have reviewed all pertinent clinical information, including history, physical exam and plan: Yes Notes (Text): 08/14/18 12:26 Medical attending: Patient was seen and examined by me with the medical social consultant The patient was not in any acute distress, however contiues to appear weak and fatigue. He does not appear to be able to walk, will need a PT evaluation to document what he is able to do and what services he may need He remains on the IV abx at this time Yesterday recived IV albumin 12.5g twice Currently the culture from the paracentesis are negative Sal Renteria
[2018-08-15] MEDS: Cefpodoxime (Vantin) 200 mg Tab PO SCH ×2 (04:21→16:17)
--- NOTE | 2018-08-15 07:16 | CP.PCM.PN ---
Subjective - Date & Time of Evaluation Date of Evaluation: 08/15/18 Time of Evaluation: 08:00 - Subjective Subjective: Medicine Progress note for Dr. Barber Patient was seen and examined at bedside. Patient denies chest pain, shortness of breath, abdominal pain, nausea or vomiting. Objective - Vital Signs/Intake and Output Vital Signs (last 24 hours): Temp Pulse Resp BP Pulse Ox 99.2 F 78 20 107/91 H 98 08/15/18 00:00 08/15/18 00:00 08/15/18 00:00 08/15/18 00:00 08/15/18 00:00 Intake and Output: 08/15/18 08/15/18 06:59 18:59 Intake Total 350 Output Total 250 Balance 100 - Medications Medications: Current Medications Cefpodoxime Proxetil (Vantin) 200 mg PO Q12H [facility]; Protocol Stop: 08/15/18 16:01 Last Admin: 08/15/18 04:21 Dose: 200 mg Enoxaparin Sodium (Lovenox) 40 mg SC DAILY [facility] Last Admin: 08/14/18 10:00 Dose: 40 mg Folic Acid (Folic Acid) 1 mg PO DAILY [facility] Last Admin: 08/14/18 10:01 Dose: 1 mg Furosemide (Lasix) 40 mg IVP DAILY [facility] Last Admin: 08/14/18 10:02 Dose: 40 mg Lactobacillus Acidophilus (Lactobacillus) 1 cap PO BID [facility] Last Admin: 08/14/18 17:12 Dose: 1 cap Lactulose (Enulose) 20 gm PO QID [facility] Last Admin: 08/14/18 22:02 Dose: 20 gm Pantoprazole Sodium (Protonix Ec Tab) 20 mg PO DAILY [facility] Last Admin: 08/14/18 10:01 Dose: 20 mg Propranolol HCl (Inderal) 5 mg PO TID [facility] Last Admin: 08/14/18 17:13 Dose: 5 mg Spironolactone (Aldactone) 25 mg PO BID [facility] Last Admin: 08/14/18 17:12 Dose: 25 mg Thiamine HCl (Vitamin B1 Tab) 100 mg PO BID [facility] Last Admin: 08/14/18 17:11 Dose: 100 mg - Labs Labs: 08/14/18 06:56 08/14/18 06:56 PT 17.8 SECONDS (9.7-12.2) H 07/23/18 06:54 INR 1.6 07/23/18 06:54 APTT 62 SECONDS (21-34) H 07/23/18 06:54 - Constitutional Appears: Cachectic, Chronically Ill - Head Exam Head Exam: ATRAUMATIC, NORMAL INSPECTION - Eye Exam Eye Exam: EOMI, PERRL, Scleral icterus Pupil Exam: NORMAL ACCOMODATION - ENT Exam ENT Exam: Mucous Membranes Moist - Respiratory Exam Respiratory Exam: NORMAL BREATHING PATTERN - Cardiovascular Exam Cardiovascular Exam: REGULAR RHYTHM, +S1, +S2 - GI/Abdominal Exam GI & Abdominal Exam: Soft, Normal Bowel Sounds. absent: Tenderness - Extremities Exam Extremities Exam: Pedal Edema - Neurological Exam Neurological Exam: Alert, Awake. absent: Oriented x3 (oriented to person and place. Not oriented to time ) - Psychiatric Exam Psychiatric exam: Flat Affect - Skin Skin Exam: Normal Color Assessment and Plan - Assessment and Plan (Free Text) Assessment: Sepsis possibly secondary to Multi-focal Pneumonia - HCAP - Improving, afebrile, leukocytosis trending down - [employer] called on 07/31/18 for shortness of breath and desaturation. - Code Sepsis called 07/31/18--> Transferred to telemetry floor - EKG: Sinus tach at 113 with occasional PVCs - Blood, urine cx negative to date - CXR: no active disease - Chest CTA: * No evidence of pulmonary embolism. Examination limited technically for evaluation of segmental/subsegmental pulmonary artery branch emboli. * Multifocal infiltrates right lower and upper lobes. Possible multifocal pneumonia. * Small left pleural effusion. * Left lower lobe compressive atelectasis. * 6 mm right lower lobe pulmonary nodule. See above for recommendations. * Ascites. Cirrhosis. Cholecystectomy. Atypical appearance of spleen. Left upper quadrant ill-defined soft tissue mass partially included on examination. Further evaluation with contrast-enhanced CT examination is advised. * Centrilobular pulmonary emphysema. Mucous secretions are seen in the central tracheobronchial tree without occlusion. Retroperitoneal lymphadenopathy. - Repeat CXR (08/08/18): pulm vasculature probably [id number] appearance compatible with crowding; minimal concommitant pulmonary vascular congestion still possible. no interval pathology noted. - Trying to transition off of bipap and on to ventimask - ID consulted, Dr. Glynn - Medications: * Discontinued Zosyn 3.375mg IVPB Q8 (started on 08/07/18, DC on 08/10/18) * Started Vantin 200mg PO Q12h for 5 days (started on 08/10/18) Ascites - IR consulted, Dr. King. - s/p therapeutic paracentesis, removed 5000cc on 08/11/18 - Follow up fluid studies Opioid overdose - UDS on admission: + Opiates, + Methadone - At admission patient was given 2 doses of Narcan; patient was agitated/respiratory distress, therefore, he was intubated. Patient was then extubated on 07/24/18. - Continue Folic acid 1mg PO and Thiamine 100mg PO BID Hepatic encephalopathy - GI consult, Dr. Tejeda. recs appreciated. - Ammonia: 127 on 08/04/18 - Repeat Ammonia 08/10/18: 91 - Continue to monitor AM ammonia - Lactulose 20gm PO QID- hold if >3 BMs (increased from BID on 08/10/18 due to elevated ammonia) Decompensated Hepatitis C Liver cirrhosis - GI consult: Dr. Tejeda---> Help appreciated * continue lactulose therapy for encephalopathy prevention, titrate so patient has 2-3 bowel movements daily * Patient will require further outpatient follow up with oncology team * No further planned GI interventions at this time - Hep C Antibody x2 (2015): Reactive - Hep C Ab: 33.4 - Hep B panel: negative (2016); repeat Hepatitis B panel and HIV: NEGATIVE - Alpha fetoprotein: >5200.00 - CEA: 3.9 - CA19-9: 59.4 - Abdomen/Pelvis CT with IV contrast (10/2017): Liver: Enlarged nodular cirrhotic liver. Periportal edema. There is a focal liver hypodensity that cannot be further characterized on the current examination. Gallbladder and bile ducts: Cholecystectomy. Pancreas: Unremarkable. No mass. No ductal dilation. Spleen: Unremarkable. No splenomegaly. Adrenals: Unremarkable. No mass. Kidneys and ureters: There are 2 right distal ureteral stone. Prostate calcification. Hepatocellular carcinoma - Will need outpatient follow up with patients oncologist, Dr. Herr (per Dr. Elder). Peripheral edema - Possibly 2/2 to cirrhosis - Lasix 40 mg IV daily (increased from 20 on 08/10/18) - Aldactone 25mg PO BID - Venous doppler: Negative - Echocardiogram: Normal LV systolic Function. Borderline Dilated LA. Trace MR and diastolic dysfunction Altered mental status - Resolved - Neuro consult, Dr. Watts/Renee. - MRI brain without contrast no sign of acute infarct. Cerebral atrophy and chronic small vessel ischemic disease. Limited exam due to motion artifact. - CT head Age-appropriate cerebral and cerebellar atrophy. Mild chronic microvascular ischemic change. No evidence of acute intracranial hemorrhage. - CTA head and neck: Normal CT Angiography of the neck. - No acute findings on imaging. Prophylaxis - GI: Protonix 20 mg PO daily - DVT: Lovenox 40u SC daily - Lactobacillus 1cap PO BID - PT/OT - Palliative care consult to establish goals of care--> POLST signed, DNR/DNI Dispo: Case management working on PAT placement. Pending placement and authorization. Case discussed with Dr. Elisabeth Soares PGY-2
[2018-08-15 07:21] LABS: BASO # 0.1 K/uL (0.0-0.2); EOS # 0.2 K/uL (0.0-0.7); EOS % 1.9 % (0.0-4.0); HEMOGLOBIN 11.9 g/dL (12.0-18.0); LYMPH # 1.7 K/uL (1.0-4.3); LYMPH % 14.7 % (20.0-40.0); MEAN CELL VOLUME 110.4 fL (80.0-94.0); MEAN CORPUSCULAR HEMOGLOBIN 36.5 pg (27.0-31.0); MEAN PLATELET VOLUME 6.9 fL (7.2-11.7); MONO # 1.5 K/uL (0.0-0.8); MONO % 13.3 % (0.0-10.0); NEUT # 8.1 K/uL (1.8-7.0); NEUT % 69.1 % (50.0-75.0); NRBC % 0.4 % (0.0-2.0); RBC 3.26 Mil/uL (4.40-5.90); WHITE BLOOD COUNT 11.7 K/uL (4.8-10.8)
[2018-08-15 07:43] LABS: ALB/GLOB RATIO 0.5 (1.0-2.1); ALBUMIN 2.2 g/dL (3.5-5.0); ALT/SGPT 123 U/L (21-72); AST/SGOT 172 U/L (17-59); BLOOD UREA NITROGEN 28 mg/dL (9-20); CALCIUM 8.3 mg/dl (8.6-10.4); GFR NON-AFRICAN AMERICAN > 60
[2018-08-15] MEDS: Lactobacillus Acidophilus 500 MU Cap PO SCH ×2 (10:14→17:11)
[2018-08-15] MEDS: Pantoprazole 20 mg EC Tab PO SCH (10:14)
[2018-08-15] MEDS: Enoxaparin 40 mg Syringe SC SCH (10:15)
[2018-08-15] MEDS: Propranolol 5 mg Tab PO SCH ×2 (10:19→17:11)
[2018-08-15 20:32] LABS: LDH PERITONEAL FLUID 98 U/L (<63); TOTAL PROTEIN PERITONEAL FLUID <3.0 g/dL
--- NOTE | 2018-08-15 21:28 | CP.PCM.PN ---
Subjective - Date & Time of Evaluation Date of Evaluation: 08/14/18 Time of Evaluation: 12:00 - Subjective Subjective: No complaints. Objective - Vital Signs/Intake and Output Vital Signs (last 24 hours): Temp Pulse Resp BP Pulse Ox 98.6 F 78 20 120/78 98 08/15/18 15:17 08/15/18 15:17 08/15/18 15:17 08/15/18 15:17 08/15/18 15:17 Intake and Output: 08/15/18 08/16/18 18:59 06:59 Intake Total 200 Output Total 250 Balance -50 - Medications Medications: Current Medications Enoxaparin Sodium (Lovenox) 40 mg SC DAILY [facility] Last Admin: 08/15/18 10:15 Dose: 40 mg Folic Acid (Folic Acid) 1 mg PO DAILY [facility] Last Admin: 08/15/18 10:14 Dose: 1 mg Furosemide (Lasix) 40 mg IVP DAILY [facility] Last Admin: 08/15/18 10:18 Dose: Not Given Lactobacillus Acidophilus (Lactobacillus) 1 cap PO BID [facility] Last Admin: 08/15/18 17:11 Dose: 1 cap Lactulose (Enulose) 20 gm PO QID [facility] Last Admin: 08/15/18 17:13 Dose: 20 gm Pantoprazole Sodium (Protonix Ec Tab) 20 mg PO DAILY [facility] Last Admin: 08/15/18 10:14 Dose: 20 mg Propranolol HCl (Inderal) 5 mg PO TID [facility] Last Admin: 08/15/18 17:11 Dose: 5 mg Spironolactone (Aldactone) 25 mg PO BID [facility] Last Admin: 08/15/18 17:10 Dose: 25 mg Thiamine HCl (Vitamin B1 Tab) 100 mg PO BID [facility] Last Admin: 08/15/18 17:12 Dose: 100 mg - Labs Labs: 08/15/18 07:05 08/15/18 07:05 PT 17.8 SECONDS (9.7-12.2) H 07/23/18 06:54 INR 1.6 07/23/18 06:54 APTT 62 SECONDS (21-34) H 07/23/18 06:54 - Head Exam Head Exam: ATRAUMATIC - Eye Exam Eye Exam: Normal appearance - ENT Exam ENT Exam: Mucous Membranes Dry - Respiratory Exam Respiratory Exam: NORMAL BREATHING PATTERN - Cardiovascular Exam Cardiovascular Exam: +S1, +S2 - GI/Abdominal Exam GI & Abdominal Exam: Normal Bowel Sounds Assessment and Plan (1) Anemia Assessment & Plan: chronic disease Status: Acute (2) Coagulopathy Assessment & Plan: liver disease Status: Acute (3) Hepatocellular carcinoma Assessment & Plan: outpatient tx with primary oncologist Status: Acute
--- NOTE | 2018-08-15 21:29 | CP.PCM.PN ---
Subjective - Date & Time of Evaluation Date of Evaluation: 08/15/18 Time of Evaluation: 13:00 - Subjective Subjective: Asking to go home Objective - Vital Signs/Intake and Output Vital Signs (last 24 hours): Temp Pulse Resp BP Pulse Ox 98.6 F 78 20 120/78 98 08/15/18 15:17 08/15/18 15:17 08/15/18 15:17 08/15/18 15:17 08/15/18 15:17 Intake and Output: 08/15/18 08/16/18 18:59 06:59 Intake Total 200 Output Total 250 Balance -50 - Medications Medications: Current Medications Enoxaparin Sodium (Lovenox) 40 mg SC DAILY [facility] Last Admin: 08/15/18 10:15 Dose: 40 mg Folic Acid (Folic Acid) 1 mg PO DAILY [facility] Last Admin: 08/15/18 10:14 Dose: 1 mg Furosemide (Lasix) 40 mg IVP DAILY [facility] Last Admin: 08/15/18 10:18 Dose: Not Given Lactobacillus Acidophilus (Lactobacillus) 1 cap PO BID [facility] Last Admin: 08/15/18 17:11 Dose: 1 cap Lactulose (Enulose) 20 gm PO QID [facility] Last Admin: 08/15/18 17:13 Dose: 20 gm Pantoprazole Sodium (Protonix Ec Tab) 20 mg PO DAILY [facility] Last Admin: 08/15/18 10:14 Dose: 20 mg Propranolol HCl (Inderal) 5 mg PO TID [facility] Last Admin: 08/15/18 17:11 Dose: 5 mg Spironolactone (Aldactone) 25 mg PO BID [facility] Last Admin: 08/15/18 17:10 Dose: 25 mg Thiamine HCl (Vitamin B1 Tab) 100 mg PO BID [facility] Last Admin: 08/15/18 17:12 Dose: 100 mg - Labs Labs: 08/15/18 07:05 08/15/18 07:05 PT 17.8 SECONDS (9.7-12.2) H 07/23/18 06:54 INR 1.6 07/23/18 06:54 APTT 62 SECONDS (21-34) H 07/23/18 06:54 - Head Exam Head Exam: ATRAUMATIC - Eye Exam Eye Exam: Normal appearance - ENT Exam ENT Exam: Mucous Membranes Dry - Respiratory Exam Respiratory Exam: NORMAL BREATHING PATTERN - Cardiovascular Exam Cardiovascular Exam: +S1, +S2 - GI/Abdominal Exam GI & Abdominal Exam: Normal Bowel Sounds Assessment and Plan (1) Anemia Assessment & Plan: chronic disease Status: Acute (2) Coagulopathy Assessment & Plan: liver disease Status: Acute (3) Hepatocellular carcinoma Assessment & Plan: outpatient treatment with primary oncologist Status: Acute
--- NOTE | 2018-08-16 07:03 | CP.PCM.PN ---
Subjective - Date & Time of Evaluation Date of Evaluation: 08/16/18 Time of Evaluation: 06:57 - Subjective Subjective: Progress note for Dr. Barber, Patient was seen and examined at bedside in no acute distress. He has no complaints today and feels well. He denies chest pain, shortness of breath, palpitations, abdominal pain, nausea, vomiting, fevers, headaches. Per nursing, no acute events overnight. Objective - Vital Signs/Intake and Output Vital Signs (last 24 hours): Temp Pulse Resp BP Pulse Ox 98.1 F 81 20 109/74 97 08/16/18 00:00 08/16/18 00:00 08/16/18 00:00 08/16/18 00:00 08/16/18 00:00 Intake and Output: 08/15/18 08/16/18 18:59 06:59 Intake Total 200 480 Output Total 250 250 Balance -50 230 - Medications Medications: Current Medications Enoxaparin Sodium (Lovenox) 40 mg SC DAILY [facility] Last Admin: 08/15/18 10:15 Dose: 40 mg Folic Acid (Folic Acid) 1 mg PO DAILY [facility] Last Admin: 08/15/18 10:14 Dose: 1 mg Furosemide (Lasix) 40 mg IVP DAILY [facility] Last Admin: 08/15/18 10:18 Dose: Not Given Lactobacillus Acidophilus (Lactobacillus) 1 cap PO BID [facility] Last Admin: 08/15/18 17:11 Dose: 1 cap Lactulose (Enulose) 20 gm PO QID [facility] Last Admin: 08/15/18 21:29 Dose: 20 gm Pantoprazole Sodium (Protonix Ec Tab) 20 mg PO DAILY [facility] Last Admin: 08/15/18 10:14 Dose: 20 mg Propranolol HCl (Inderal) 5 mg PO TID [facility] Last Admin: 08/15/18 17:11 Dose: 5 mg Spironolactone (Aldactone) 25 mg PO BID [facility] Last Admin: 08/15/18 17:10 Dose: 25 mg Thiamine HCl (Vitamin B1 Tab) 100 mg PO BID [facility] Last Admin: 08/15/18 17:12 Dose: 100 mg - Labs Labs: 08/15/18 07:05 08/15/18 07:05 PT 17.8 SECONDS (9.7-12.2) H 07/23/18 06:54 INR 1.6 07/23/18 06:54 APTT 62 SECONDS (21-34) H 07/23/18 06:54 - Additional Findings Additional findings: - Constitutional Appears: No Acute Distress - Head Exam Head Exam: ATRAUMATIC, NORMAL INSPECTION - Eye Exam Eye Exam: EOMI, Normal appearance - ENT Exam ENT Exam: Mucous Membranes Moist - Respiratory Exam Respiratory Exam: Rhonchi, Wheezes. absent: Clear to Auscultation Bilateral, Respiratory Distress Additional comments: on Bipap - Cardiovascular Exam Cardiovascular Exam: REGULAR RHYTHM, +S1, +S2 - GI/Abdominal Exam GI & Abdominal Exam: Distended, Firm, Mass, Normal Bowel Sounds. absent: Tenderness Additional comments: Diffuse scarring across abdomen, scrotal swelling - Extremities Exam Extremities Exam: Pedal Edema (3+ pitting edema b/l LE). absent: Normal Inspection, Tenderness - Neurological Exam Neurological Exam: Alert, Awake, Oriented x3 - Psychiatric Exam Psychiatric exam: Normal Affect, Normal Mood - Skin Skin Exam: Dry, Warm Assessment and Plan - Assessment and Plan (Free Text) Plan: Sepsis possibly secondary to Multi-focal Pneumonia - HCAP - Improving, afebrile, leukocytosis trending down - [employer] called on 07/31/18 for shortness of breath and desaturation. - Code Sepsis called 07/31/18--> Transferred to telemetry floor - EKG: Sinus tach at 113 with occasional PVCs - Blood, urine cx negative to date - CXR: no active disease - Chest CTA: * No evidence of pulmonary embolism. Examination limited technically for evaluation of segmental/subsegmental pulmonary artery branch emboli. * Multifocal infiltrates right lower and upper lobes. Possible multifocal pneumonia. * Small left pleural effusion. * Left lower lobe compressive atelectasis. * 6 mm right lower lobe pulmonary nodule. See above for recommendations. * Ascites. Cirrhosis. Cholecystectomy. Atypical appearance of spleen. Left upper quadrant ill-defined soft tissue mass partially included on examination. Further evaluation with contrast-enhanced CT examination is advised. * Centrilobular pulmonary emphysema. Mucous secretions are seen in the central tracheobronchial tree without occlusion. Retroperitoneal lymphadenopathy. - Repeat CXR (08/08/18): pulm vasculature probably [id number] appearance compatible with crowding; minimal concommitant pulmonary vascular congestion still possible. no interval pathology noted. - Trying to transition off of bipap and on to ventimask - ID consulted, Dr. Glynn - Medications: * Discontinued Zosyn 3.375mg IVPB Q8 (started on 08/07/18, DC on 08/10/18) * Completed 5day course of Vantin 200mg PO Q12h (started on 08/10/18) Ascites - IR consulted, Dr. King. - s/p therapeutic paracentesis, removed 5000cc on 08/11/18 - Fluid studies: negative cx; WBC 173, RBC 53764; total cell count 100, neutrophils 73, lymphocytes 25, mono/macro 2, albumin 0.1, total protein <3.0, LDH 98 Opioid overdose - UDS on admission: + Opiates, + Methadone - At admission patient was given 2 doses of Narcan; patient was andrade tated/respiratory distress, therefore, he was intubated. Patient was then extubated on 07/24/18. - Continue Folic acid 1mg PO and Thiamine 100mg PO BID Hepatic encephalopathy - GI consult, Dr. Tejeda. recs appreciated. - Ammonia: 127 on 08/04/18 - Repeat Ammonia 08/10/18: 91, 08/16/18: 55 - Continue to monitor AM ammonia - Lactulose 20gm PO QID- hold if >3 BMs (increased from BID on 08/10/18 due to elevated ammonia) Decompensated Hepatitis C Liver cirrhosis - GI consult: Dr. Tejeda---> Help appreciated * continue lactulose therapy for encephalopathy prevention, titrate so patient has 2-3 bowel movements daily * Patient will require further outpatient follow up with oncology team * No further planned GI interventions at this time - Hep C Antibody x2 (2015): Reactive - Hep C Ab: 33.4 - Hep B panel: negative (2016); repeat Hepatitis B panel and HIV: NEGATIVE - Alpha fetoprotein: >5200.00 - CEA: 3.9 - CA19-9: 59.4 - Abdomen/Pelvis CT with IV contrast (10/2017): Liver: Enlarged nodular cirrhotic liver. Periportal edema. There is a focal liver hypodensity that cannot be further characterized on the current examination. Gallbladder and bile ducts: Cholecystectomy. Pancreas: Unremarkable. No mass. No ductal dilation. Spleen: Unremarkable. No splenomegaly. Adrenals: Unremarkable. No mass. Kidneys and ureters: There are 2 right distal ureteral stone. Prostate calcification. Hepatocellular carcinoma - Will need outpatient follow up with patients oncologist, Dr. Herr (per Dr. Elder). Peripheral edema - Possibly 2/2 to cirrhosis - Lasix 40 mg IV daily (increased from 20 on 08/10/18) - Aldactone 25mg PO BID - Venous doppler: Negative - Echocardiogram: Normal LV systolic Function. Borderline Dilated LA. Trace MR and diastolic dysfunction Altered mental status - Resolved - Neuro consult, Dr. aWtts/Renee. - MRI brain without contrast no sign of acute infarct. Cerebral atrophy and chronic small vessel ischemic disease. Limited exam due to motion artifact. - CT head Age-appropriate cerebral and cerebellar atrophy. Mild chronic alvin rovascular ischemic change. No evidence of acute intracranial hemorrhage. - CTA head and neck: Normal CT Angiography of the neck. - No acute findings on imaging. Prophylaxis - GI: Protonix 20 mg PO daily - DVT: Lovenox 40u SC daily - Lactobacillus 1cap PO BID - PT/OT - Palliative care consult to establish goals of care--> POLST signed, DNR/DNI Dispo: Case management working on PAT placement. Pending placement (Elieser vsAntione Candida) and authorization. Case discussed with Dr. Elisabeth Benoit PGY-2
[2018-08-16] MEDS: Enoxaparin 40 mg Syringe SC SCH (09:27)
[2018-08-16] MEDS: Pantoprazole 20 mg EC Tab PO SCH (09:28)
[2018-08-16] MEDS: Propranolol 5 mg Tab PO SCH ×4 (09:28→18:45)
[2018-08-16] MEDS: Lactobacillus Acidophilus 500 MU Cap PO SCH ×2 (09:28→18:36)
[2018-08-17] MEDS: Propranolol 5 mg Tab PO SCH ×2 (09:54→14:04)
[2018-08-17] MEDS: Pantoprazole 20 mg EC Tab PO SCH (09:55)
[2018-08-17] MEDS: Enoxaparin 40 mg Syringe SC SCH (09:55)
[2018-08-17] MEDS: Lactobacillus Acidophilus 500 MU Cap PO SCH ×2 (09:55→17:19)
--- NOTE | 2018-08-17 11:22 | CP.PCM.PN ---
Subjective - Date & Time of Evaluation Date of Evaluation: 08/17/18 Time of Evaluation: 08:00 - Subjective Subjective: Medicine Progress note for Dr. Barber Patient was seen and examined at bedside. Patient denies chest pain, shortness of breath, abdominal pain, nausea or vomiting. Objective - Vital Signs/Intake and Output Vital Signs (last 24 hours): Temp Pulse Resp BP Pulse Ox 97.4 F L 88 20 116/72 96 08/17/18 08:00 08/17/18 08:00 08/17/18 08:00 08/17/18 09:56 08/17/18 00:00 Intake and Output: 08/17/18 08/17/18 06:59 18:59 Intake Total 400 Output Total 200 Balance 200 - Medications Medications: Current Medications Enoxaparin Sodium (Lovenox) 40 mg SC DAILY [facility] Last Admin: 08/17/18 09:55 Dose: 40 mg Folic Acid (Folic Acid) 1 mg PO DAILY [facility] Last Admin: 08/17/18 09:55 Dose: 1 mg Furosemide (Lasix) 40 mg IVP DAILY [facility] Last Admin: 08/17/18 09:56 Dose: 40 mg Lactobacillus Acidophilus (Lactobacillus) 1 cap PO BID [facility] Last Admin: 08/17/18 09:55 Dose: 1 cap Lactulose (Enulose) 20 gm PO QID [facility] Last Admin: 08/17/18 09:54 Dose: 20 gm Pantoprazole Sodium (Protonix Ec Tab) 20 mg PO DAILY [facility] Last Admin: 08/17/18 09:55 Dose: 20 mg Propranolol HCl (Inderal) 5 mg PO TID [facility] Last Admin: 08/17/18 09:54 Dose: 5 mg Spironolactone (Aldactone) 25 mg PO BID [facility] Last Admin: 08/17/18 09:54 Dose: 25 mg Thiamine HCl (Vitamin B1 Tab) 100 mg PO BID [facility] Last Admin: 08/17/18 09:54 Dose: 100 mg - Labs Labs: 08/15/18 07:05 08/15/18 07:05 PT 17.8 SECONDS (9.7-12.2) H 07/23/18 06:54 INR 1.6 07/23/18 06:54 APTT 62 SECONDS (21-34) H 07/23/18 06:54 - Constitutional Appears: No Acute Distress, Cachectic, Chronically Ill - Head Exam Head Exam: ATRAUMATIC, NORMAL INSPECTION - Eye Exam Eye Exam: EOMI, Scleral icterus - ENT Exam ENT Exam: Mucous Membranes Moist - Respiratory Exam Respiratory Exam: NORMAL BREATHING PATTERN - Cardiovascular Exam Cardiovascular Exam: REGULAR RHYTHM, +S1, +S2 - GI/Abdominal Exam GI & Abdominal Exam: Distended, Firm, Normal Bowel Sounds. absent: Tenderness - Extremities Exam Extremities Exam: Pedal Edema - Neurological Exam Neurological Exam: Alert, Awake, Oriented x3 - Psychiatric Exam Psychiatric exam: Flat Affect Assessment and Plan - Assessment and Plan (Free Text) Assessment: Sepsis possibly secondary to Multi-focal Pneumonia - HCAP - Improving, afebrile, leukocytosis trending down - [employer] called on 07/31/18 for shortness of breath and desaturation. - Code Sepsis called 07/31/18--> Transferred to telemetry floor - EKG: Sinus tach at 113 with occasional PVCs - Blood, urine cx negative to date - CXR: no active disease - Chest CTA: * No evidence of pulmonary embolism. Examination limited technically for evaluation of segmental/subsegmental pulmonary artery branch emboli. * Multifocal infiltrates right lower and upper lobes. Possible multifocal pneumonia. * Small left pleural effusion. * Left lower lobe compressive atelectasis. * 6 mm right lower lobe pulmonary nodule. See above for recommendations. * Ascites. Cirrhosis. Cholecystectomy. Atypical appearance of spleen. Left upper quadrant ill-defined soft tissue mass partially included on examination. Further evaluation with contrast-enhanced CT examination is advised. * Centrilobular pulmonary emphysema. Mucous secretions are seen in the central tracheobronchial tree without occlusion. Retroperitoneal lymphadenopathy. - Repeat CXR (08/08/18): pulm vasculature probably [id number] appearance compatible with crowding; minimal concommitant pulmonary vascular congestion still possible. no interval pathology noted. - Trying to transition off of bipap and on to ventimask - ID consulted, Dr. Glynn - Medications: * Discontinued Zosyn 3.375mg IVPB Q8 (started on 08/07/18, DC on 08/10/18) * Started Vantin 200mg PO Q12h for 5 days (started on 08/10/18) Ascites - IR consulted, Dr. King. - s/p therapeutic paracentesis, removed 5000cc on 08/11/18 - Follow up fluid studies Opioid overdose - UDS on admission: + Opiates, + Methadone - At admission patient was given 2 doses of Narcan; patient was agitated/respiratory distress, therefore, he was intubated. Patient was then extubated on 07/24/18. - Continue Folic acid 1mg PO and Thiamine 100mg PO BID Hepatic encephalopathy - GI consult, Dr. Tejeda. recs appreciated. - Ammonia: 127 on 08/04/18 - Repeat Ammonia 08/10/18: 91 - Continue to monitor AM ammonia - Lactulose 20gm PO QID- hold if >3 BMs (increased from BID on 08/10/18 due to elevated ammonia) Decompensated Hepatitis C Liver cirrhosis - GI consult: Dr. Tejeda---> Help appreciated * continue lactulose therapy for encephalopathy prevention, titrate so patient has 2-3 bowel movements daily * Patient will require further outpatient follow up with oncology team * No further planned GI interventions at this time - Hep C Antibody x2 (2015): Reactive - Hep C Ab: 33.4 - Hep B panel: negative (2016); repeat Hepatitis B panel and HIV: NEGATIVE - Alpha fetoprotein: >5200.00 - CEA: 3.9 - CA19-9: 59.4 - Abdomen/Pelvis CT with IV contrast (10/2017): Liver: Enlarged nodular cirrhotic liver. Periportal edema. There is a focal liver hypodensity that cannot be fur ther characterized on the current examination. Gallbladder and bile ducts: Cholecystectomy. Pancreas: Unremarkable. No mass. No ductal dilation. Spleen: Unremarkable. No splenomegaly. Adrenals: Unremarkable. No mass. Kidneys and ureters: There are 2 right distal ureteral stone. Prostate calcification. Hepatocellular carcinoma - Will need outpatient follow up with patients oncologist, Dr. Herr (per Dr. Elder). Peripheral edema - Possibly 2/2 to cirrhosis - Lasix 40 mg IV daily (increased from 20 on 08/10/18) - Aldactone 25mg PO BID - Venous doppler: Negative - Echocardiogram: Normal LV systolic Function. Borderline Dilated LA. Trace MR and diastolic dysfunction Altered mental status - Resolved - Neuro consult, Dr. Watts/Renee. - MRI brain without contrast no sign of acute infarct. Cerebral atrophy and chronic small vessel ischemic disease. Limited exam due to motion artifact. - CT head Age-appropriate cerebral and cerebellar atrophy. Mild chronic microvascular ischemic change. No evidence of acute intracranial hemorrhage. - CTA head and neck: Normal CT Angiography of the neck. - No acute findings on imaging. Prophylaxis - GI: Protonix 20 mg PO daily - DVT: Lovenox 40u SC daily - Lactobacillus 1cap PO BID - PT/OT - Palliative care consult to establish goals of care--> POLST signed, DNR/DNI Dispo: Case management working on PAT placement ([facility]). Pending placement and authorization. Case discussed with Dr. Elisabeth Soares PGY-2
[2018-08-17] MEDS ORDERED: Pneumococcal 23-Valent Vaccine IM ONE (12:26)
[2018-08-17] MEDS ORDERED: Influenza Vaccine 60 mcg/0.5 mL SYR (4YR UP) IM ONE (12:26)
--- NOTE | 2018-08-17 22:12 | CP.PCM.PN ---
Subjective - Date & Time of Evaluation Date of Evaluation: 08/16/18 Time of Evaluation: 17:00 - Subjective Subjective: No complaints. Objective - Vital Signs/Intake and Output Vital Signs (last 24 hours): Temp Pulse Resp BP Pulse Ox 97.2 F L 77 20 109/71 95 08/17/18 15:53 08/17/18 15:53 08/17/18 15:53 08/17/18 15:53 08/17/18 15:53 Intake and Output: 08/17/18 08/18/18 18:59 06:59 Intake Total 400 Output Total 200 Balance 200 - Medications Medications: Current Medications Enoxaparin Sodium (Lovenox) 40 mg SC DAILY [facility] Last Admin: 08/17/18 09:55 Dose: 40 mg Folic Acid (Folic Acid) 1 mg PO DAILY [facility] Last Admin: 08/17/18 09:55 Dose: 1 mg Furosemide (Lasix) 40 mg IVP DAILY [facility] Last Admin: 08/17/18 09:56 Dose: 40 mg Lactobacillus Acidophilus (Lactobacillus) 1 cap PO BID [facility] Last Admin: 08/17/18 17:19 Dose: 1 cap Lactulose (Enulose) 20 gm PO QID [facility] Last Admin: 08/17/18 17:19 Dose: Not Given Pantoprazole Sodium (Protonix Ec Tab) 20 mg PO DAILY [facility] Last Admin: 08/17/18 09:55 Dose: 20 mg Propranolol HCl (Inderal) 5 mg PO TID [facility] Last Admin: 08/17/18 14:04 Dose: 5 mg Spironolactone (Aldactone) 25 mg PO BID [facility] Last Admin: 08/17/18 17:19 Dose: 25 mg Thiamine HCl (Vitamin B1 Tab) 100 mg PO BID [facility] Last Admin: 08/17/18 17:19 Dose: 100 mg - Labs Labs: 08/15/18 07:05 08/15/18 07:05 PT 17.8 SECONDS (9.7-12.2) H 07/23/18 06:54 INR 1.6 07/23/18 06:54 APTT 62 SECONDS (21-34) H 07/23/18 06:54 - Head Exam Head Exam: ATRAUMATIC - Eye Exam Eye Exam: Normal appearance - ENT Exam ENT Exam: Mucous Membranes Dry - Respiratory Exam Respiratory Exam: NORMAL BREATHING PATTERN - Cardiovascular Exam Cardiovascular Exam: +S1, +S2 - GI/Abdominal Exam GI & Abdominal Exam: Normal Bowel Sounds Assessment and Plan (1) Anemia Assessment & Plan: chronic disease Status: Acute (2) Coagulopathy Assessment & Plan: liver disease Status: Acute (3) Hepatocellular carcinoma Assessment & Plan: outpatient treatment with primary oncologist. Status: Acute
--- NOTE | 2018-08-17 22:15 | CP.PCM.PN ---
Subjective - Date & Time of Evaluation Date of Evaluation: 08/17/18 Time of Evaluation: 12:00 - Subjective Subjective: no complaints. Objective - Vital Signs/Intake and Output Vital Signs (last 24 hours): Temp Pulse Resp BP Pulse Ox 97.2 F L 77 20 109/71 95 08/17/18 15:53 08/17/18 15:53 08/17/18 15:53 08/17/18 15:53 08/17/18 15:53 Intake and Output: 08/17/18 08/18/18 18:59 06:59 Intake Total 400 Output Total 200 Balance 200 - Medications Medications: Current Medications Enoxaparin Sodium (Lovenox) 40 mg SC DAILY [facility] Last Admin: 08/17/18 09:55 Dose: 40 mg Folic Acid (Folic Acid) 1 mg PO DAILY [facility] Last Admin: 08/17/18 09:55 Dose: 1 mg Furosemide (Lasix) 40 mg IVP DAILY [facility] Last Admin: 08/17/18 09:56 Dose: 40 mg Lactobacillus Acidophilus (Lactobacillus) 1 cap PO BID [facility] Last Admin: 08/17/18 17:19 Dose: 1 cap Lactulose (Enulose) 20 gm PO QID [facility] Last Admin: 08/17/18 17:19 Dose: Not Given Pantoprazole Sodium (Protonix Ec Tab) 20 mg PO DAILY [facility] Last Admin: 08/17/18 09:55 Dose: 20 mg Propranolol HCl (Inderal) 5 mg PO TID [facility] Last Admin: 08/17/18 14:04 Dose: 5 mg Spironolactone (Aldactone) 25 mg PO BID [facility] Last Admin: 08/17/18 17:19 Dose: 25 mg Thiamine HCl (Vitamin B1 Tab) 100 mg PO BID [facility] Last Admin: 08/17/18 17:19 Dose: 100 mg - Labs Labs: 08/15/18 07:05 08/15/18 07:05 PT 17.8 SECONDS (9.7-12.2) H 07/23/18 06:54 INR 1.6 07/23/18 06:54 APTT 62 SECONDS (21-34) H 07/23/18 06:54 - Head Exam Head Exam: ATRAUMATIC - Eye Exam Eye Exam: Normal appearance - ENT Exam ENT Exam: Mucous Membranes Dry - Respiratory Exam Respiratory Exam: NORMAL BREATHING PATTERN - Cardiovascular Exam Cardiovascular Exam: +S1, +S2 - GI/Abdominal Exam GI & Abdominal Exam: Normal Bowel Sounds Assessment and Plan (1) Anemia Assessment & Plan: chronic disease Status: Acute (2) Coagulopathy Assessment & Plan: liver disease Status: Acute (3) Hepatocellular carcinoma Assessment & Plan: outpatient f/u with primary oncologist Status: Acute
[2018-08-18] MEDS: Propranolol 5 mg Tab PO SCH ×3 (02:11→17:22)
--- NOTE | 2018-08-18 07:03 | CP.PCM.PN ---
Subjective - Date & Time of Evaluation Date of Evaluation: 08/18/18 Time of Evaluation: 07:01 - Subjective Subjective: Progress note for Dr. Barber Patient was seen and examined at bedside in no acute distress. Patient has no complaints today, denies chest pain, palpitations, sob, abdominal pain, n/v, fevers, leg pain. Objective - Vital Signs/Intake and Output Vital Signs (last 24 hours): Temp Pulse Resp BP Pulse Ox 97.8 F 77 20 122/72 97 08/17/18 23:24 08/17/18 23:24 08/17/18 23:24 08/17/18 23:24 08/17/18 23:24 Intake and Output: 08/18/18 08/18/18 06:59 18:59 Intake Total 640 Output Total 250 Balance 390 - Medications Medications: Current Medications Enoxaparin Sodium (Lovenox) 40 mg SC DAILY [facility] Last Admin: 08/17/18 09:55 Dose: 40 mg Folic Acid (Folic Acid) 1 mg PO DAILY [facility] Last Admin: 08/17/18 09:55 Dose: 1 mg Furosemide (Lasix) 40 mg IVP DAILY [facility] Last Admin: 08/17/18 09:56 Dose: 40 mg Lactobacillus Acidophilus (Lactobacillus) 1 cap PO BID [facility] Last Admin: 08/17/18 17:19 Dose: 1 cap Lactulose (Enulose) 20 gm PO QID [facility] Last Admin: 08/17/18 23:51 Dose: Not Given Pantoprazole Sodium (Protonix Ec Tab) 20 mg PO DAILY [facility] Last Admin: 08/17/18 09:55 Dose: 20 mg Propranolol HCl (Inderal) 5 mg PO TID [facility] Last Admin: 08/18/18 02:11 Dose: Not Given Spironolactone (Aldactone) 25 mg PO BID [facility] Last Admin: 08/17/18 17:19 Dose: 25 mg Thiamine HCl (Vitamin B1 Tab) 100 mg PO BID [facility] Last Admin: 08/17/18 17:19 Dose: 100 mg - Labs Labs: 08/15/18 07:05 08/15/18 07:05 PT 17.8 SECONDS (9.7-12.2) H 07/23/18 06:54 INR 1.6 07/23/18 06:54 APTT 62 SECONDS (21-34) H 07/23/18 06:54 - Additional Findings Additional findings: - Constitutional Appears: No Acute Distress - Head Exam Head Exam: ATRAUMATIC, NORMAL INSPECTION - Eye Exam Eye Exam: EOMI, Normal appearance - ENT Exam ENT Exam: Mucous Membranes Moist - Respiratory Exam Respiratory Exam: Rhonchi, Wheezes. absent: Clear to Auscultation Bilateral, Respiratory Distress Additional comments: on Bipap - Cardiovascular Exam Cardiovascular Exam: REGULAR RHYTHM, +S1, +S2 - GI/Abdominal Exam GI & Abdominal Exam: Distended, Firm, Mass, Normal Bowel Sounds. absent: Tenderness Additional comments: Diffuse scarring across abdomen, scrotal swelling - Extremities Exam Extremities Exam: Pedal Edema (3+ pitting edema b/l LE). absent: Normal Inspection, Tenderness - Neurological Exam Neurological Exam: Alert, Awake, Oriented x3 - Psychiatric Exam Psychiatric exam: Normal Affect, Normal Mood - Skin Skin Exam: Dry, Warm Assessment and Plan - Assessment and Plan (Free Text) Plan: Sepsis possibly secondary to Multi-focal Pneumonia - HCAP - Improving, afebrile, leukocytosis trending down - [facility] called on 07/31/18 for shortness of breath and desaturation. - Code Sepsis called 07/31/18--> Transferred to telemetry floor - EKG: Sinus tach at 113 with occasional PVCs - Blood, urine cx negative to date - CXR: no active disease - Chest CTA: * No evidence of pulmonary embolism. Examination limited technically for evaluation of segmental/subsegmental pulmonary artery branch emboli. * Multifocal infiltrates right lower and upper lobes. Possible multifocal pneum onia. * Small left pleural effusion. * Left lower lobe compressive atelectasis. * 6 mm right lower lobe pulmonary nodule. See above for recommendations. * Ascites. Cirrhosis. Cholecystectomy. Atypical appearance of spleen. Left upper quadrant ill-defined soft tissue mass partially included on examination. Further evaluation with contrast-enhanced CT examination is advised. * Centrilobular pulmonary emphysema. Mucous secretions are seen in the central tracheobronchial tree without occlusion. Retroperitoneal lymphadenopathy. - Repeat CXR (08/08/18): pulm vasculature probably [id number] appearance compatible with crowding; minimal concommitant pulmonary vascular congestion st ill possible. no interval pathology noted. - Trying to transition off of bipap and on to ventimask - ID consulted, Dr. Glynn - Medications: * Discontinued Zosyn 3.375mg IVPB Q8 (started on 08/07/18, DC on 08/10/18) * Completed 5day course of Vantin 200mg PO Q12h (started on 08/10/18) Ascites - IR consulted, Dr. King. - s/p therapeutic paracentesis, removed 5000cc on 08/11/18 - Fluid studies: negative cx; WBC 173, RBC 80516; total cell count 100, neutrophils 73, lymphocytes 25, mono/macro 2, albumin 0.1, total protein <3.0, LDH 98 Opioid overdose - UDS on admission: + Opiates, + Methadone - At admission patient was given 2 doses of Narcan; patient was agitated/respiratory distress, therefore, he was intubated. Patient was then extubated on 07/24/18. - Continue Folic acid 1mg PO and Thiamine 100mg PO BID Hepatic encephalopathy - GI consult, Dr. Tejeda. recs appreciated. - Ammonia: 127 on 08/04/18 - Repeat Ammonia 08/10/18: 91, 08/16/18: 55 - Continue to monitor AM ammonia - Lactulose 20gm PO QID- hold if >3 BMs (increased from BID on 08/10/18 due to elevated ammonia) Decompensated Hepatitis C Liver cirrhosis - GI consult: Dr. Tejeda---> Help appreciated * continue lactulose therapy for encephalopathy prevention, titrate so patient has 2-3 bowel movements daily * Patient will require further outpatient follow up with oncology team * No further planned GI interventions at this time - Hep C Antibody x2 (2015): Reactive - Hep C Ab: 33.4 - Hep B panel: negative (2016); repeat Hepatitis B panel and HIV: NEGATIVE - Alpha fetoprotein: >5200.00 - CEA: 3.9 - CA19-9: 59.4 - Abdomen/Pelvis CT with IV contrast (10/2017): Liver: Enlarged nodular cirrhotic liver. Periportal edema. There is a focal liver hypodensity that cannot be further characterized on the current examination. Gallbladder and bile ducts: Cholecystectomy. Pancreas: Unremarkable. No mass. No ductal dilation. Spleen: Unremarkable. No splenomegaly. Adrenals: Unremarkable. No mass. Kidneys and uret ers: There are 2 right distal ureteral stone. Prostate calcification. Hepatocellular carcinoma - Will need outpatient follow up with patients oncologist, Dr. Herr (per Dr. Elder). Peripheral edema - Possibly 2/2 to cirrhosis - Lasix 40 mg IV daily (increased from 20 on 08/10/18) - Aldactone 25mg PO BID - Venous doppler: Negative - Echocardiogram: Normal LV systolic Function. Borderline Dilated LA. Trace MR and diastolic dysfunction Altered mental status - Resolved - Neuro consult, Dr. Watts/Renee. - MRI brain without contrast no sign of acute infarct. Cerebral atrophy and chronic small vessel ischemic disease. Limited exam due to motion artifact. - CT head Age-appropriate cerebral and cerebellar atrophy. Mild chronic microvascular ischemic change. No evidence of acute intracranial hemorrhage. - CTA head and neck: Normal CT Angiography of the neck. - No acute findings on imaging. Prophylaxis - GI: Protonix 20 mg PO daily - DVT: Lovenox 40u SC daily - Lactobacillus 1cap PO BID - PT/OT - Palliative care consult to establish goals of care--> POLST signed, DNR/DNI Dispo: Case management working on PAT placement. Patient was accepted for [facility] ([facility]). Patient is stable for discharge to rehab. Patient must continue medications. Patient must follow up with oncologist and PMD within 1 week of discharge. Case discussed with Dr. Elisabeth Benoit PGY-2
[2018-08-18] MEDS: Enoxaparin 40 mg Syringe SC SCH (10:54)
[2018-08-18] MEDS: Lactobacillus Acidophilus 500 MU Cap PO SCH ×2 (10:57→17:22)
[2018-08-18] MEDS: Pantoprazole 20 mg EC Tab PO SCH (10:58)
[2018-08-18 15:34] VITALS: BP 114/73; PULSE 83; TEMP 97.4; O2SAT 98
--- NOTE | 2018-08-20 22:51 | CP.PCM.PN ---
Subjective - Date & Time of Evaluation Date of Evaluation: 08/18/18 Time of Evaluation: 12:00 - Subjective Subjective: No compliants, for D/C to PAT Objective - Vital Signs/Intake and Output Vital Signs (last 24 hours): Temp Pulse Resp BP Pulse Ox 97.4 F L 83 20 114/73 98 08/18/18 15:30 08/18/18 15:30 08/18/18 15:30 08/18/18 15:30 08/18/18 15:30 - Labs Labs: 08/15/18 07:05 08/15/18 07:05 PT 17.8 SECONDS (9.7-12.2) H 07/23/18 06:54 INR 1.6 07/23/18 06:54 APTT 62 SECONDS (21-34) H 07/23/18 06:54 - Head Exam Head Exam: ATRAUMATIC - Eye Exam Eye Exam: Normal appearance - ENT Exam ENT Exam: Mucous Membranes Dry - Respiratory Exam Respiratory Exam: NORMAL BREATHING PATTERN - Cardiovascular Exam Cardiovascular Exam: +S1, +S2 - GI/Abdominal Exam GI & Abdominal Exam: Normal Bowel Sounds Assessment and Plan (1) Anemia Assessment & Plan: chronic disease Status: Acute (2) Coagulopathy Assessment & Plan: liver disease Status: Acute (3) Hepatocellular carcinoma Assessment & Plan: outpatient treatment with primary oncologist Status: Acute
--- NOTE | 2018-08-23 07:28 | DS ---
HISTORY OF PRESENT ILLNESS: The patient was admitted to hospital with chief complaint of shortness of breath, weakness, fatigue, tiredness. The patient has history of COPD, history of liver cancer. The patient was found to have pneumonia, started on IV antibiotics, supportive care. The patient started on IV antibiotics, ICU. Long course. The patient showed very slower improvement. The patient was transferred to rehab. FINAL DIAGNOSES: Pneumonia, chronic obstructive pulmonary disease, liver cancer. Usama Barber MD
== END 2018-08-18 23:24 | DRG 582 ==
LOC: C.ER 06:10 → C.9I 11:11 → C.3T 07-29 05:17 → C.6T 07-31 08:44 → C.3T 08-10 10:57
PROVIDERS: ADMIT Internal Medicine Pulmonary Disease; ATTEND Internal Medicine Pulmonary Disease
PROC: 0BH17EZ Insertion of Endotracheal Airway into Trachea, Via Natural or Artificial Opening (ICD-10-PCS; 2018-07-23)
PROC: 5A1945Z Respiratory Ventilation, 24-96 Consecutive Hours (ICD-10-PCS; 2018-07-23)
PROC: 0W9G3ZZ Drainage of Peritoneal Cavity, Percutaneous Approach (ICD-10-PCS; principal; 2018-08-11)
DX: T40.2X1A Poisoning by other opioids, accidental (unintentional), initial encounter (principal); A41.9 Sepsis, unspecified organism; G92 Toxic encephalopathy; J69.0 Pneumonitis due to inhalation of food and vomit; J96.92 Respiratory failure, unspecified with hypercapnia; K72.90 Hepatic failure, unspecified without coma; B19.20 Unspecified viral hepatitis C without hepatic coma; J43.9 Emphysema, unspecified; J44.9 Chronic obstructive pulmonary disease, unspecified; F11.20 Opioid dependence, uncomplicated; J98.11 Atelectasis; K74.60 Unspecified cirrhosis of liver; R64 Cachexia; R18.8 Other ascites; D63.8 Anemia in other chronic diseases classified elsewhere; E78.5 Hyperlipidemia, unspecified; F17.210 Nicotine dependence, cigarettes, uncomplicated; I11.9 Hypertensive heart disease without heart failure; I49.3 Ventricular premature depolarization; I51.7 Cardiomegaly; I87.8 Other specified disorders of veins; K21.9 Gastro-esophageal reflux disease without esophagitis; N50.89 Other specified disorders of the male genital organs; Z51.5 Encounter for palliative care; Z85.05 Personal history of malignant neoplasm of liver; Z66 Do not resuscitate; F01.50 Vascular dementia, unspecified severity, without behavioral disturbance, psychotic disturbance, mood disturbance, and anxiety; D68.9 Coagulation defect, unspecified